=== PATIENT | male | born 1975 | race Two or more races ===

== ENCOUNTER 2024-05-13 13:12 | Inpatient (IN) | payer MEDICAID, OTHER ==
[~2024-05-13] VITALS: Ht 172.7 cm; Wt 81.7 kg
--- NOTE | 2024-05-13 13:37 | ED.PDOC ---
History of Present Illness HPI Comments 49-year-old male brought by paramedics because he was having generalized weakness for the past six days. Patient does have a history of hypertension insulin-dependent diabetes. He does have wound in the left lower extremity. He has been having left lower extremity wound for the past month. He does have right toe amputation which was done in [place] several years ago. Patient states that he does not move about because of his wound in the left lower extremity along with a amputation of the right toes. Denies fever abdominal pain nausea vomiting. Denies chest pain. Denies any other symptoms. Chief Complaint: General Weakness Time Seen by MD: 13:30 Reviewed Notes: Nurses Notes, Medications, Allergies Allergies: Coded Allergies: NO KNOWN ALLERGIES (Unverified , 05/13/24) Information Source: Patient, Emergency Med Personnel Mode of Arrival: EMS Severity: Moderate Timing: Days Duration: Since onset Past Medical History PAST MEDICAL HISTORY: DM, HTN Surgical History: Denies all surgeries Social History Smoker: Non-Smoker Alcohol: Denies ETOH Use Drugs: Denies Drug Use Constitutional: reports: weakness; denies: chills, diaphoresis, fatigue, fever, malaise, sweats, others EENTM: denies: blurred vision, double vision, ear bleeding, ear discharge, ear drainage, ear pain, ear ringing, eye pain, eye redness, hearing loss, mouth pain, mouth swelling, nasal discharge, nose bleeding, nose congestion, nose pain, photophobia, tearing, throat pain, throat swelling, voice changes, others Respiratory: denies: cough, hemoptysis, orthopnea, SOB at rest, shortness of breath, SOB with excertion, stridor, wheezing, others Cardiovascular: denies: chest pain, dizzy spells, diaphoresis, Dyspnea on exertion, edema, irregular heart beat, left arm pain, lightheadedness, palpitations, PND, syncope, others Gastrointestinal: denies: abdomen distended, abdominal pain, blood streaked bowels, constipated, diarrhea, dysphagia, difficulty swallowing, hematemesis, melena, nausea, poor appetite, poor fluid intake, rectal bleeding, rectal pain, vomiting, others Genitourinary: denies: burning, dysuria, flank pain, frequency, hematuria, incontinence, penile discharge, penile sore, pain, testicle pain, testicle swelling, urgency, others Neurological: denies: dizziness, fainting, headache, left sided numbness, left sided weakness, numbness, paresthesia, pre-existing deficit, right sided numbness, right sided weakness, seizure, speech problems, tingling, tremors, wea kness, others Musculoskeletal: denies: back pain, gout, joint pain, joint swelling, muscle pain, muscle stiffness, neck pain, others Integumetry: reports: wounds (Left lower extremity); denies: bruises, change in color, change in hair/nails, dryness, laceration, lesions, lumps, rash, others Allergic/Immunocompromised: denies: Difficulty Healing, Frequent Infections, Hives, Itching, others Hematologic/Lymphatic: denies: anemia, blood clots, easy bleeding, easy bruising, swollen glands, others Endocrine: denies: excessive hunger, excessive sweating, excessive thirst, excessive urination, flushing, intolerance to cold, intolerance to heat, unexplained weight gain, unexplained weight loss, others Psychiatric: denies: anxiety, bipolar disorder, depression, hopeless, panic disorder, schizophrenia, sleepless, suicidal, others Physical Exam General Appearance: Moderate Distress HEENT: Normal ENT Inspection, Pharynx Normal, TMs Normal Neck: Full Range of Motion, Non-Tender, Normal, Normal Inspection Respiratory: Chest Non-Tender, Lungs Clear, No Accessory Muscle Use, No Respiratory Distress, Normal Breath Sounds Cardiovascular: No Edema, No JVD, No Murmur, No Gallop, Normal Peripheral Pulses, Regular Rate/Rhythm Breast Exam: Deferred Gastrointestinal: No Organomegaly, Non Tender, No Pulsatile Mass, Normal Bowel Sounds, Soft Genitalia: Deferred Pelvic: Deferred Rectal: Deferred Extremities: No pedal edema, Other (Right toe amputation old) Musculoskeletal : Apperance: Normal Neurologic: Alert, No Motor Deficits, No Sensory Deficits Cerebellar Function: NOT DONE Reflexes: NOT DONE Skin: Wounds (Left lower extremity) Peripheral Pulses: 3+ Radial (R), 3+ Radial (L) Lymphatic: No Adenopathy Was a procedure done? Was a procedure done?: No Differential Dx Considerations may include: Cellulitis Electrolyte imbalance X-Ray, Labs, Meds, VS Vital Signs Date Time Temp Pulse Resp B/P (MAP) Pulse Ox O2 Delivery O2 Flow Rate FiO2 05/13/24 13:26 98.4 96 19 102/69 (80) 97 Lab Test 05/13/24 14:07 Range/Units White Blood Count 44.1 *H 4.4-10.8 10^3/uL Red Blood Count 3.52 L 4.5-5.90 10^6/uL Hemoglobin 9.5 L 13.5-17.5 g/dL Hematocrit 29.7 L 41.0-53.0 % Mean Corpuscular Volume 84.3 80.0-100.0 fL Mean Corpuscular Hemoglobin 27.0 L 28.0-32.0 pg Mean Corpuscular Hemoglobin Concent 32.0 32.0-36.0 g/dL Red Cell Distribution Width 16.4 H 11.8-14.3 % Platelet Count 584 H 140-450 10^3/uL Mean Platelet Volume 7.2 6.9-10.8 fL Neutrophils (%) (Auto) 37.0-80.0 % Lymphocytes (%) (Auto) 10.0-50.0 % Monocytes (%) (Auto) 0.0-12.0 % Basophils (%) (Auto) 0.0-2.0 % Neutrophils # (Auto) 1.6-8.6 10 ^3/uL Lymphocytes # (Auto) 0.4-5.4 10 ^3/uL Monocytes # (Auto) 0-1.3 10 ^3/uL Differential Total Cells Counted 100.0 100 Neutrophils % (Manual) 92 H 37.0-80.0 Band Neutrophils % (Manual) 2 Lymphocytes % (Manual) 5 L 10.0-50.0 Monocytes % (Manual) 0 0-12 Eosinophils % (Manual) 1 0-7 Basophils % (Manual) 0 0.0-2.0 Metamyelocytes % (manual) 0 Myelocytes % (Manual) 0 Promyelocytes % (Manual) 0 Blast Cells % (Manual) 0 Reactive Lymphocytes 0 Platelet Estimate Increased Clumped Platelets Few Sodium Level 115 *L 136-145 mmol/L Potassium Level 5.9 *H 3.5-5.1 mmol/L Chloride Level 88 L 98-107 mmol/L Carbon Dioxide Level 15 L 20-31 mmol/L Anion Gap 12 5-15 Blood Urea Nitrogen 45 H 9-23 mg/dL Creatinine 1.59 H 0.700-1.30 mg/dL Glomerular Filtration Rate Calc 53 >90 mL/min BUN/Creatinine Ratio 28.3 H 10.0-20.0 Serum Glucose 317 H 74-106 mg/dL Lactic Acid Level 1.8 0.4-2.0 mmol/L Calcium Level 9.0 8.7-10.4 mg/dL Magnesium Level 1.8 1.6-2.6 mg/dL Total Bilirubin 0.9 0.2-1.0 mg/dL Aspartate Amino Transferase (AST) 18 13-40 U/L Alanine Aminotransferase (ALT) < 9 7-40 U/L Alkaline Phosphatase 234 H 46-116 U/L Creatine Kinase 37 L 46-171 U/L Troponin I High Sensitivity 3 L </=54 ng/L B-Type Natriuretic Peptide 48.92 0-100 pg/mL Total Protein 6.0 5.7-8.2 g/dL Albumin 3.3 3.2-4.8 g/dL Patient alert. Old right toe amputation. Has wound in the left lower extremity. Vitals stable. Answering all questions. Vitals stable. Blood sugar elevated. Establish intravenous access. Was given fluids. Sepsis protocol. Was given insulin. Was given Zosyn. Explained to the patient. Continue cardiac monitoring. Time of 1ST Reevaluation: 13:35 Reevaluation 1ST: Unchanged Patient Education/Counseling: Diagnosis, Treatment, Prognosis Family Education/Counseling: No Family Present Departure 1 Departure Time of Disposition: 13:36 Impression: Primary Impression: Sepsis, unspecified organism Qualified Codes: A41.9 - Sepsis, unspecified organism Additional Impressions: Uncontrolled diabetes mellitus Qualified Codes: E13.65 - Other specified diabetes mellitus with hyperglycemia Hyponatremia Hyperkalemia Disposition: ADMITTED INPATIENT Admit to: Med Surg Condition: Guarded Critical Care Note Critical Care Time?: No Stability Stability form required: No Heart Score Heart Score: Heart Score Response (Comments) Value History N/A 0 EKG N/A 0 Age N/A 0 Risk Factors N/A 0 Troponin N/A 0 Total 0 CAROLINA KABA MD May 13, 2024 13:37
--- NOTE | 2024-05-13 14:20 | DVH ---
CLINICAL INFORMATION: 49 years old, Male; weakness. TECHNIQUE: Single AP portable chest radiograph was obtained. COMPARISON: None FINDINGS: Lungs: Low lung volumes. No focal consolidation visualized. No pneumothorax or pleural effusion. Cardiac: Heart size is within normal limits. Pulmonary vasculature: Unremarkable. Mediastinum/lurdes: Unremarkable. Bones: No acute osseous abnormality identified. Other: No other significant findings. IMPRESSION: No evidence of acute disease in the chest.
[2024-05-13 14:31] LABS: Hemoglobin 9.5 g/dL (13.5-17.5)
[2024-05-13 14:34] LABS: Hematocrit 29.7 % (41.0-53.0); Mean Corpuscular Volume 84.3 fL (80.0-100.0); Platelet Count (auto) 584 10^3/uL (140-450); Red Blood Cells 3.52 10^6/uL (4.5-5.90); Red Cell Distribution Width 16.4 % (11.8-14.3)
[2024-05-13 14:36] LABS: White Blood Cell 44.1 10^3/uL (4.4-10.8)
[2024-05-13 14:37] LABS: Basophils % (manual) 0 (0.0-2.0); Blast Cells 0; Metamyelocytes % 0; Monocytes % (manual) 0 (0-12); Myelocytes % 0; Promyelocytes % 0; Reactive Lymphocytes 0
[2024-05-13 14:44] LABS: Albumin 3.3 g/dL (3.2-4.8); Anion Gap 12 (5-15); Aspartate Aminotransferase 18 U/L (13-40); BUN/Creatinine Ratio 28.3 (10.0-20.0); Creatine Kinase IFCC 37 U/L (46-171); Magnesium 1.8 mg/dL (1.6-2.6)
[2024-05-13 14:45] LABS: Bilirubin, Total 0.9 mg/dL (0.2-1.0)
[2024-05-13 14:57] LABS: Band Neutrophils % (manual) 2; Eosinophils % (manual) 1 (0-7); Lymphocytes % (manual) 5 (10.0-50.0)
[2024-05-13 14:58] LABS: Platelet Estimate Increased
[2024-05-13 15:09] LABS: Alanine Aminotransferase < 9 U/L (7-40); Alkaline Phosphatase 234 U/L (46-116); Blood Urea Nitrogen 45 mg/dL (9-23); Carbon Dioxide 15 mmol/L (20-31); Chloride 88 mmol/L (98-107); Glucose 317 mg/dL (74-106)
[2024-05-13 15:11] LABS: Potassium 5.9 mmol/L (3.5-5.1); Sodium 115 mmol/L (136-145)
[2024-05-13] MEDS: ALBUTEROL SULF 2.5 MG/0.5ML(0.5%) NEB SOLN NEB ONE (15:29)
[2024-05-13] MEDS: SODIUM CHLORIDE 0.9% 1,000 ML IV ONE ×3 (18:39→22:34)
[2024-05-13] MEDS ORDERED: NITROGLYCERIN 0.4 MG SL TAB SL PRN (18:45)
[2024-05-13] MEDS ORDERED: MORPHINE SULFATE INJ 2 MG/ml SYRG IV PRN (18:45)
[2024-05-13] MEDS ORDERED: ONDANSETRON HCL 4 MG/2 ML VIAL IV PRN (18:45)
[2024-05-13] MEDS: SODIUM BICARB 8.4% 50Meq/50ml SYR INJ IV ONE (18:57)
[2024-05-13] MEDS: CALCIUM GLUC 1,000mg/50ml-NS 50 ML IV ONE (18:58)
[2024-05-13] MEDS: DEXTROSE (50%) 50ML SYRG IV ONE (18:58)
[2024-05-13] MEDS ORDERED: DEXTROSE (50%) 50ML SYRG IV PRN (19:00)
[2024-05-13] MEDS: InsuLIN REG 1unit/0.01ml Soln (100units/ml) IV ONE ×2 (19:01→20:21)
[2024-05-13 19:05] VITALS: PULSE 85; RESP 15; O2SAT 99
--- NOTE | 2024-05-13 19:19 | DVHHP2 ---
History of Present Illness Reason for Visit: Sepsis History of Present Illness 49-year-old male brought by paramedics because he was having generalized weakness for the past six days. Patient does have a history of hypertension insulin-dependent diabetes. He does have wound in the left lower extremity, he has home health for wound care who sees him for dressing changes. He has been having left lower extremity wound for the past month. He does have right toe amputation which was done in [place] several years ago. Patient states that he does not move about because of his wound in the left lower extremity along with a amputation of the right toes. Also endorses dysuria. Denies fever abdo roseline pain nausea vomiting. Denies chest pain. Denies any other symptoms. Past Medical History DM, HTN, left foot wound Past Surgical History Toe amputations Family History Denies Smoke: No ALCOHOL: none Drugs: None Lives: with Family Review of Systems Constitutional: Yes: Weakness, Malaise; No: Fever, Chills, Sweats, Other Eyes: No: Pain, Vision change, Conjunctivae inflammation, Eyelid inflammation, Other, Redness ENT: No: Ear pain, Ear discharge, Nose pain, Nose discharge, Nose congestion, Mouth pain, Mouth swelling, Throat pain, Throat swelling, Other Respiratory: No: Cough, Dry, Shortness of breath, SOB with excertion, Wheezing, Hemoptysis, Pleuritic Pain, Sputum, Wheezing, Other Cardiovascular: No: Chest Pain, Palpitations, Orthopnea, Paroxysmal Noc. Dyspnea, Edema, Lt Headedness, Other Gastrointestinal: No: Nausea, Vomiting, Abdominal Pain, Diarrhea, Constipation, Melena, Hematochezia, Other Genitourinary: Dysuria; No Frequency, No Incontinence, No Hematuria, No Retention, No Other Musculoskeletal: foot pain (left) Skin: Other (Left foot wound); No: Rash, Lesions, Jaundice, Bruising Neurological: Weakness, Numbness, Incoordination, Change in speech, Confusion, Seizures, Other Allergies: Coded Allergies: NO KNOWN ALLERGIES (Unverified , 05/13/24) Medications Current Medications Medications Dose Ordered Sig/Patricia Route Start Time Stop Time Status Last Admin Dose Admin Acetaminophen 650 mg Q6HP PRN PO 05/13/24 18:45 Acetaminophen/ Hydrocodone Bitart 1 tab Q4HP PRN PO 05/13/24 18:45 Hydromorphone HCl 0.25 mg Q4HP PRN IV 05/13/24 18:45 Ondansetron HCl 4 mg Q4HP PRN IV 05/13/24 18:45 Enoxaparin Sodium 40 mg DAILY SC 05/14/24 10:00 Nitroglycerin 0.4 mg Q5MINP PRN SL 05/13/24 18:45 Morphine Sulfate 2 mg Q30M PRN IV 05/13/24 18:45 Diagnostic Test (Pha) 1 strip ACHS 05/13/24 22:00 Insulin Human Regular HS SC 05/13/24 22:00 Insulin Human Regular AC SC 05/14/24 07:00 Dextrose 50 ml UD PRN IV 05/13/24 19:00 Exam Vital Signs Vital Signs Date Time Temp Pulse Resp B/P (MAP) Pulse Ox O2 Delivery O2 Flow Rate FiO2 05/13/24 18:28 87 12 79/55 (63) 96 05/13/24 15:30 Room Air* 0 21 05/13/24 13:26 98.4 General Appearance: Alert, Oriented X3, Cooperative, No acute distress HEENT: Atraumatic, PERRLA, EOMI, Mucous membr. moist/pink Respiratory: Clear to auscultation, Normal air movement Cardiovascular: Regular rate, Normal S1, Normal S2, No murmurs Abdominal: Normal bowel sounds, Soft, No tenderness, No hepatospenomegaly, No masses Extremities: No clubbing, No cyanosis, No edema, Normal pulses, No tenderness/swelling Skin: No rashes, No breakdown, No significant lesion Neuro: Normal gait, Normal speech, Strength at 5/5 X4 ext, Normal tone, Sensation intact, Cranial nerves 3-12 NL, Reflexes 2+ Psych/Mental Status: Mental status NL, Mood NL Labs/Xrays Labs Test 05/13/24 18:42 05/13/24 17:35 05/13/24 15:43 05/13/24 14:07 Range/Units POC Glucose 343 H 70-106 mg/dl Serum Osmolality 278 278-298 mOsm/kg Troponin I High Sensitivity < 3 L </=54 ng/L Lactic Acid Level 1.6 0.4-2.0 mmol/L White Blood Count 44.1 *H 4.4-10.8 10^3/uL Red Blood Count 3.52 L 4.5-5.90 10^6/uL Hemoglobin 9.5 L 13.5-17.5 g/dL Hematocrit 29.7 L 41.0-53.0 % Mean Corpuscular Volume 84.3 80.0-100.0 fL Mean Corpuscular Hemoglobin 27.0 L 28.0-32.0 pg Mean Corpuscular Hemoglobin Concent 32.0 32.0-36.0 g/dL Red Cell Distribution Width 16.4 H 11.8-14.3 % Platelet Count 584 H 140-450 10^3/uL Mean Platelet Volume 7.2 6.9-10.8 fL Neutrophils (%) (Auto) 37.0-80.0 % Lymphocytes (%) (Auto) 10.0-50.0 % Monocytes (%) (Auto) 0.0-12.0 % Basophils (%) (Auto) 0.0-2.0 % Neutrophils # (Auto) 1.6-8.6 10 ^3/uL Lymphocytes # (Auto) 0.4-5.4 10 ^3/uL Monocytes # (Auto) 0-1.3 10 ^3/uL Differential Total Cells Counted 100.0 100 Neutrophils % (Manual) 92 H 37.0-80.0 Band Neutrophils % (Manual) 2 Lymphocytes % (Manual) 5 L 10.0-50.0 Monocytes % (Manual) 0 0-12 Eosinophils % (Manual) 1 0-7 Basophils % (Manual) 0 0.0-2.0 Metamyelocytes % (manual) 0 Myelocytes % (Manual) 0 Promyelocytes % (Manual) 0 Blast Cells % (Manual) 0 Reactive Lymphocytes 0 Platelet Estimate Increased Clumped Platelets Few Sodium Level 115 *L 136-145 mmol/L Potassium Level 5.9 *H 3.5-5.1 mmol/L Chloride Level 88 L 98-107 mmol/L Carbon Dioxide Level 15 L 20-31 mmol/L Anion Gap 12 5-15 Blood Urea Nitrogen 45 H 9-23 mg/dL Creatinine 1.59 H 0.700-1.30 mg/dL Glomerular Filtration Rate Calc 53 >90 mL/min BUN/Creatinine Ratio 28.3 H 10.0-20.0 Serum Glucose 317 H 74-106 mg/dL Calcium Level 9.0 8.7-10.4 mg/dL Magnesium Level 1.8 1.6-2.6 mg/dL Total Bilirubin 0.9 0.2-1.0 mg/dL Aspartate Amino Transferase (AST) 18 13-40 U/L Alanine Aminotransferase (ALT) < 9 7-40 U/L Alkaline Phosphatase 234 H 46-116 U/L Creatine Kinase 37 L 46-171 U/L B-Type Natriuretic Peptide 48.92 0-100 pg/mL Total Protein 6.0 5.7-8.2 g/dL Albumin 3.3 3.2-4.8 g/dL Assessment/Plan Assessment/Plan Sepsis, possible osteomyelitis Admit to [facility] Fluid resuscitation- normal saline at 150ml/hr+ bolus given Sepsis protocol Blood cultures pending UA pending Wound care consult Wound culture Started antibiotics Zosyn and clindamycin Pain Medications p.r.n. Zofran p.r.n. Consult Podiatry CT foot pending ESR pending Hyperkalemia, Hyponatremia, YESSY hyperKalemia protocol Repeat potassium this evening Repeat BNP this evening then every 4 hours Nephrology consult Diabetes mellitus type 2 Accu-Cheks a.c. 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 18:34 Bedside Commode PARKER 05/13/24 In Process 18:34 Consistent DIET 05/14/24 Transmitted Carb(Ccho)Diabetes Breakfast Acetaminophen Tablet PHA 05/13/24 In Process (Tylenol Tablet) 18:45 Notify Of Changes PARKER 05/13/24 In Process From Base 18:34 Advance Directive PARKER 05/13/24 In Process 18:34 Basic Metabolic Panel LAB 05/14/24 Verified 04:00 Complete Blood Count LAB 05/14/24 Verified 04:00 Patient Condition ORDERS 05/13/24 Transmitted 18:34 Allergies PARKER 05/13/24 In Process 18:34 Hydrocodone-Acet PHA 05/13/24 In Process 5/325mg Tab ([place] 18:45 Hydromorphone PHA 05/13/24 In Process Injection (Dilaudid 18:45 Ondansetron Hcl PHA 05/13/24 In Process (Zofran) 18:45 Hemoglobin A1c LAB 05/13/24 Logged 18:34 Enoxaparin Sodium PHA 05/14/24 In Process (Lovenox) 10:00 Nitroglycerin PHA 05/13/24 In Process Sublingual (Ntrostat 18:45 Morphine Sulfate PHA 05/13/24 In Process Injection 18:45 Stat Ekg For Chest PARKER 05/13/24 In Process Pain 18:34 Notify Of Changes PARKER 05/13/24 In Process From Base 18:34 [employer] Faculty Member For PARKER 05/13/24 In Process 24 Hours 18:34 Emergency Dysrhythmia PARKER 05/13/24 In Process Protocol 18:34 Rhythm Strips Once PARKER 05/13/24 In Process Every Shift 18:34 Oxygen By Nasal RT 05/13/24 Transmitted Cannula 18:34 Ct L Foot Wo Contrast CT 05/13/24 Taken 18:43 Basic Metabolic Panel LAB 05/13/24 Logged 22:00 Glucose Blood PHA 05/13/24 In Process (Accu-Chek Comfort 22:00 Insulin R (Human) PHA 05/13/24 In Process (Insulin R) 22:00 Insulin R (Human) PHA 05/14/24 In Process (Insulin R) 07:00 Dextrose 50% Syringe PHA 05/13/24 In Process 19:00 *Podiatry Consult CONS 05/13/24 Transmitted Musson(Dvmg) 18:50 Erythrocyte LAB 05/13/24 Logged Sedimentation Rate 18:51 *Dr. [facility] CONS 05/13/24 Transmitted -[place] 18:52 Urine Sodium LAB 05/13/24 Logged 18:54 Urine Potassium LAB 05/13/24 Logged 18:54 Urine Creatinine LAB 05/13/24 Logged 18:54 Urine LAB 05/13/24 Logged Protein/Creatinine Basic Metabolic Panel LAB 05/14/24 Verified 02:00 Basic Metabolic Panel LAB 05/14/24 Verified 06:00 Basic Metabolic Panel LAB 05/14/24 Verified 10:00 Basic Metabolic Panel LAB 05/14/24 Verified 14:00 Basic Metabolic Panel LAB 05/14/24 Verified 18:00 Basic Metabolic Panel LAB 05/14/24 Verified 22:00 Basic Metabolic Panel LAB 05/15/24 Verified 02:00 Basic Metabolic Panel LAB 05/15/24 Verified 06:00 Basic Metabolic Panel LAB 05/15/24 Verified 10:00 Basic Metabolic Panel LAB 05/15/24 Verified 14:00 Basic Metabolic Panel LAB 05/15/24 Verified 18:00 Basic Metabolic Panel LAB 05/15/24 Verified 22:00 Basic Metabolic Panel LAB 05/16/24 Verified 02:00 Basic Metabolic Panel LAB 05/16/24 Verified 06:00 Basic Metabolic Panel LAB 05/16/24 Verified 10:00 Basic Metabolic Panel LAB 05/16/24 Verified 14:00 Basic Metabolic Panel LAB 05/16/24 Verified 18:00 Basic Metabolic Panel LAB 05/16/24 Verified 22:00 Basic Metabolic Panel LAB 05/17/24 Verified 02:00 Basic Metabolic Panel LAB 05/17/24 Verified 06:00 * Wound Consult CONS 05/13/24 Transmitted Wound Culture W/ Gs KATE 05/13/24 Uncollected 19:06 Clindamycin Ivpb PHA 05/13/24 Verified Cleocin 22:00 Zosyn Extended PHA 05/13/24 Verified Infusion 22:00 Date of Service: May 13, 2024 Billing Provider: BRYN PACHECO Common Visit Codes: [id number] INP/OBS CARE(HIGH), [id number] CARE 30-74 MIN BRYN PACHECO May 13, 2024 19:19
[2024-05-13 19:30] VITALS: PULSE 82; RESP 12; O2SAT 99
--- NOTE | 2024-05-13 19:49 | DVH ---
INDICATION: Rule out osteomyelitis COMPARISON: None TECHNIQUE: CT of the right was performed without contrast. Volume transverse images were obtained and reconstructed in multiple planes using bone and soft tissue algorithms. CONTRAST: None Radiation Dose Information: CT Dose: CTDI volume is 7.75 mGy. Dose-length product is 177.02 mGy*cm FINDINGS: Irregular joint spaces between all bones of the foot with fracture through the calcaneus. Fracture of the navicular. Large fluid collection in the posterior aspect of the distal tibia extending to the foot involving th e plantar medial and lateral surfaces. Findings may represent a neuropathic joint or Charcot joint or osteomyelitis.. IMPRESSION: 1. Fracture of the calcaneus and navicular 2. With erosive changes and destruction of the proximal metatarsal tarsal bones. 3. Findings may represent neuropathic joint or osteomyelitis or hemorrhage secondary to trauma. 4. Consider MRI for further evaluation if osteomyelitis is of clinical concern. 5. No prior studies for comparison All CT scans at this medical facility are performed using dose modulation techniques as appropriate t o a performed exam including the following: Automated exposure control was utilized; adjustment of th e MA and/or KV according to patient size; and use of iterative reconstruction technique.
[2024-05-13] MEDS: SODIUM ZIRCONIUM CYCL 10 GM PAK PO ONE (20:14)
[2024-05-13] MEDS: FUROSEMIDE 20 MG/2 ML VIAL IV ONE (20:15)
[2024-05-13 20:18] LABS: Erythrocyte Sedimentation Rate 116 mm/hr (0-20)
[2024-05-13] MEDS: PIPERACILLIN-TAZOB 3.375GM 100 ML IV ONE (20:29)
[2024-05-13] MEDS: HYDROcodone-ACET 5/325MG TAB PO PRN (21:10)
[2024-05-13] MEDS: CLINDAMYCIN 600MG IV 50 ML IV ONE (21:34)
[2024-05-13] MEDS: PIPERACILLIN-TAZOB 3.375GM 100 ML IV SCH (21:35)
[2024-05-13] MEDS: CLINDAMYCIN 600MG IV 50 ML IV SCH (21:37)
[2024-05-13] MEDS: ACCU-CHEK COMFORT CURVE STRIP VI SCH (21:39)
[2024-05-13] MEDS: InsuLIN REG 1unit/0.01ml Soln (100units/ml) SC SCH (21:44)
[2024-05-13 22:02] LABS: Urine Bacteria FEW /hpf (None Seen); Urine Blood TRACE /uL (Negative); Urine Clarity Turbid (Clear); Urine Color Yellow (Yellow); Urine Mucus FEW (None Seen); Urine Protein, UAD TRACE (Negative); Urine Specific Gravity 1.014 (1.001-1.035); Urine Squamous Epithelial Cell None Seen /hpf (<5); Urine Urobilinogen Normal (Negative); Urine WBC 70 /HPF (0-3); Urine pH 5.5 (5.0-9.0)
[2024-05-13 22:08] LABS: Protein, Urine 55.6 mg/dL (1-14)
[2024-05-13 22:11] LABS: Creatinine, Urine 53.09 mg/dL (30.0-125.0); Urine Protein/Creatinine Ratio 1.05
[2024-05-13 22:24] LABS: COVID19 ANTIGEN SOFIA FIA NEGATIVE (NEGATIVE); Rapid Influenza A Negative (Negative); Rapid Influenza B Negative (Negative)
[2024-05-13 22:32] LABS: Potassium 4.8 mmol/L (3.5-5.1)
[2024-05-13 22:33] LABS: Anion Gap 11 (5-15)
[2024-05-13 22:34] LABS: Calcium 8.9 mg/dL (8.7-10.4)
[2024-05-13 22:46] LABS: Blood Urea Nitrogen 41 mg/dL (9-23); Carbon Dioxide 18 mmol/L (20-31); Chloride 90 mmol/L (98-107); Glucose 399 mg/dL (74-106)
[2024-05-13 22:48] LABS: Sodium 119 mmol/L (136-145)
[2024-05-14] MEDS: ACETAMINOPHEN 325 MG TAB PO PRN (01:47)
[2024-05-14 02:54] LABS: Hemoglobin 9.2 g/dL (13.5-17.5); Mean Corpuscular Hemoglobin 26.7 pg (28.0-32.0); White Blood Cell 26.1 10^3/uL (4.4-10.8)
[2024-05-14 02:56] LABS: Hematocrit 28.8 % (41.0-53.0); Mean Corpuscular Hgb Conc. 31.7 g/dL (32.0-36.0); Platelet Count (auto) 547 10^3/uL (140-450); Red Blood Cells 3.43 10^6/uL (4.5-5.90); Red Cell Distribution Width 16.6 % (11.8-14.3)
[2024-05-14 03:00] LABS: Basophils % (manual) 0 (0.0-2.0); Blast Cells 0; Eosinophils % (manual) 0 (0-7); Metamyelocytes % 0; Myelocytes % 0; Promyelocytes % 0; Reactive Lymphocytes 0
[2024-05-14 03:04] LABS: Potassium 4.8 mmol/L (3.5-5.1)
[2024-05-14 03:05] LABS: Anion Gap 10 (5-15)
[2024-05-14 03:06] LABS: Calcium 9.5 mg/dL (8.7-10.4)
[2024-05-14 03:11] LABS: BUN/Creatinine Ratio 27.4 (10.0-20.0)
[2024-05-14 03:14] LABS: Blood Urea Nitrogen 37 mg/dL (9-23); Carbon Dioxide 19 mmol/L (20-31); Chloride 91 mmol/L (98-107); Glucose 320 mg/dL (74-106); Sodium 120 mmol/L (136-145)
[2024-05-14 04:43] LABS: Band Neutrophils % (manual) 11; Lymphocytes % (manual) 8 (10.0-50.0); Monocytes % (manual) 4 (0-12); Platelet Estimate Increased
[2024-05-14] MEDS: InsuLIN REG 1unit/0.01ml Soln (100units/ml) SC SCH (06:34)
[2024-05-14 07:45] VITALS: PULSE 86; RESP 20; O2SAT 90
[2024-05-14] MEDS: PANTOPRAZOLE 40 MG/10 ML VIAL INJ IV SCH (10:11)
[2024-05-14] MEDS: ENOXAPARIN SOD 40 MG/0.4 ML SYRINGE SC SCH (10:13)
[2024-05-14 10:30] LABS: Potassium 4.7 mmol/L (3.5-5.1)
[2024-05-14 10:31] LABS: Anion Gap 9 (5-15); Carbon Dioxide 22 mmol/L (20-31)
[2024-05-14 10:32] LABS: Calcium 9.5 mg/dL (8.7-10.4)
[2024-05-14 10:37] LABS: BUN/Creatinine Ratio 24.6 (10.0-20.0); Blood Urea Nitrogen 33 mg/dL (9-23); Chloride 91 mmol/L (98-107); Glucose 278 mg/dL (74-106); Sodium 122 mmol/L (136-145)
--- NOTE | 2024-05-14 12:49 | DVHPN2 ---
Subjective I am assuming the care of the patient from today onwards. Chart reviewed. Plan of care discussed with the bedside RN. Patient is complaining of generalized weakness have left lower extremity wound. Changes from previous H/P or p: No Changes Eyes: No Pain, No Vision change, No Conjunctivae inflammation, No Eyelid inflammation, No Other, No Redness ENT: No Ear pain, No Ear discharge, No Nose pain, No Nose discharge, No Nose congestion, No Mouth pain, No Mouth swelling, No Throat pain, No Throat swelling, No Other Cardiovascular: No Chest Pain, No Palpitations, No Orthopnea, No Paroxysmal Noc. Dyspnea, No Edema, No Lt Headedness, No Other Respiratory: No Cough, No Dry, No Shortness of breath, No SOB with excertion, No Wheezing, No Hemoptysis, No Pleuritic Pain, No Sputum, No Other Gastrointestinal: No Nausea, No Vomiting, No Abdominal Pain, No Diarrhea, No Constipation, No Melena, No Hematochezia, No Other Genitourinary: Dysuria; No Frequency, No Incontinence, No Hematuria, No Retention, No Other Musculoskeletal: foot pain (left) Skin: No Rash, No Lesions, No Jaundice, No Bruising; Other (Left foot wound) Objective Vitals Vital Signs Date Time Temp Pulse Resp B/P (MAP) Pulse Ox O2 Delivery O2 Flow Rate FiO2 05/14/24 12:00 88 05/14/24 12:00 22 98/65 (76) 92 05/14/24 07:45 Room Air* 0 21 05/14/24 07:45 98.0 98.0 Intake/Output Intake and Output 05/14/24 07:00 Intake Total 3475 ml Output Total 950 ml Balance 2525 ml Intake Oral 450 ml IV Total 3025 ml Output Urine Total 950 ml Exam HEENT pupils are reactive Neck is supple CVS S1-S2 regular rate and rhythm Respiratory diminished breath sounds bases GI positive bowel sound Extremity no edema [employer] no motor deficit Left lower extremity foot wounds antiseptic dressing Medications Current Medications Medications Dose Ordered Sig/Patricia Route Start Time Stop Time Status Last Admin Dose Admin Acetaminophen 650 mg Q6HP PRN PO 05/13/24 18:45 05/14/24 01:47 650 MG Acetaminophen/ Hydrocodone Bitart 1 tab Q4HP PRN PO 05/13/24 18:45 05/13/24 21:10 1 TAB Hydromorphone HCl 0.25 mg Q4HP PRN IV 05/13/24 18:45 Ondansetron HCl 4 mg Q4HP PRN IV 05/13/24 18:45 Enoxaparin Sodium 40 mg DAILY SC 05/14/24 10:00 05/14/24 10:13 40 MG Nitroglycerin 0.4 mg Q5MINP PRN SL 05/13/24 18:45 Morphine Sulfate 2 mg Q30M PRN IV 05/13/24 18:45 Diagnostic Test (Pha) 1 strip ACHS 05/13/24 22:00 05/14/24 11:41 1 STRIP Insulin Human Regular HS SC 05/13/24 22:00 05/13/24 21:44 10 UNITS Insulin Human Regular AC SC 05/14/24 07:00 05/14/24 11:43 6 UNITS Dextrose 50 ml UD PRN IV 05/13/24 19:00 Clindamycin Phosphate 50 ml @ 50 mls/hr Q8HR IV 05/13/24 22:00 05/14/24 05:30 50 MLS/HR Piperacillin Sod/ Tazobactam Sod 100 ml @ 25 mls/hr Q8HR IV 05/13/24 22:00 05/14/24 05:45 25 MLS/HR Pantoprazole Sodium 40 mg DAILY IV 05/14/24 10:00 05/14/24 10:11 40 MG Laboratory Results Laboratory Tests 05/14/24 02:40 05/14/24 09:50 Chemistry Test 05/13/24 14:07 05/13/24 22:10 05/14/24 02:40 05/14/24 09:50 Albumin 3.3 g/dL (3.2-4.8) Calcium Level 9.0 mg/dL (8.7-10.4) 8.9 mg/dL (8.7-10.4) 9.5 mg/dL (8.7-10.4) 9.5 mg/dL (8.7-10.4) Magnesium Level 1.8 mg/dL (1.6-2.6) Total Protein 6.0 g/dL (5.7-8.2) Cardiac Markers Test 05/13/24 14:07 B-Type Natriuretic Peptide 48.92 pg/mL (0-100) LFT Test 05/13/24 14:07 Alanine Aminotransferase (ALT) < 9 U/L (7-40) Alkaline Phosphatase 234 U/L (46-116) H Aspartate Amino Transferase (AST) 18 U/L (13-40) Total Bilirubin 0.9 mg/dL (0.2-1.0) HgA1c, TSH Test 05/13/24 19:16 Hemoglobin A1c 11.3 % A1C (<5.7) H Urinalysis Test 05/13/24 21:00 Urine Color Yellow (Yellow) Urine Clarity Turbid (Clear) H Urine pH 5.5 (5.0-9.0) Urine Specific [place] 1.014 (1.001-1.035) Urine Protein Trace (Negative) H Urine Ketones Negative (Negative) Urine Blood Trace /uL (Negative) H Urine Nitrite Negative (Negative) Urine Bilirubin Negative (Negative) Urine Urobilinogen Normal mg/dL (Negative) Urine Leukocyte Esterase 3+ /uL (Negative) Urine RBC 2 /hpf (0 - 3) Urine Microscopic WBC 70 /HPF (0-3) H Urine Squamous Epithelial Cells None seen /hpf (<5) Urine Bacteria Few /hpf (None Seen) H Urine Mucus Few (None Seen) Urine Creatinine 53.09 mg/dL (30.0-125.0) Urine Protein/Creatinine Ratio 1.05 Urine Sodium 46 mmol/L (40-220) Urine Potassium 23 mmol/L (12-62) Urine Glucose 3+ mg/dL (Normal) H Urine Total Protein 55.6 mg/dL (1-14) H Microbiology Microbiology Date/Time Source Procedure Growth Status 05/13/24 15:43 Blood Blood Culture - Preliminary Resulted Assessment/Plan Assessment/Plan 59-year-old male with a known history of insulin-dependent diabetes mellitus, hypertension, chronic left foot wound currently being seen at wound care center presented to the hospital with generalized weakness found to have 1. Sepsis secondary to left foot wound cellulitis rule out osteomyelitis 2. Left foot cellulitis rule out osteomyelitis 3. Hyponatremia suspect pseudohyponatremia in the setting of uncontrolled hyperglycemia 4. Uncontrolled hyperglycemia with history of insulin-dependent diabetes mellitus 5. Hypocalcemia 6. Leukocytosis likely reactive -continue broad-spectrum IV antibiotics, MRI left foot rule out osteomyelitis, Infectious Disease consultation, Podiatry consultation -nephrology consultation. Plan discussed with: Patient, Other My Orders Orders - NADEEM LIMON MD Procedure Category Date Status Time * Infectious Jalen- CONS 05/14/24 Transmitted [facility] 11:23 *[facility] CONS 05/14/24 Transmitted -[facility] 12:44 Problem List: (1) Hyponatremia (2) Uncontrolled diabetes mellitus (3) Sepsis, unspecified organism Date of Service: May 14, 2024 Billing Provider: NADEEM LIMON MD Common Visit Codes: [id number] INP/OBS CARE(HIGH) NADEEM LIMON MD May 14, 2024 12:49
--- NOTE | 2024-05-14 13:42 | DVHINCON2 ---
Date of service: May 14, 2024 Allergies: Coded Allergies: NO KNOWN ALLERGIES (Unverified , 05/13/24) Current Medications Current Medications Medications (Trade) Dose Ordered Sig/Patricia Route PRN Reason Start Time Stop Time Status Last Admin Acetaminophen (Tylenol Tablet) 650 mg Q6HP PRN PO PAIN SCALE 1-3 OR TEMP>100.4 05/13/24 18:45 05/14/24 01:47 Acetaminophen/ Hydrocodone Bitart ([place] 5/325MG Tab) 1 tab Q4HP PRN PO MODERATE PAIN (4-6 PAIN SCALE) 05/13/24 18:45 05/13/24 21:10 Hydromorphone HCl (Dilaudid Injection) 0.25 mg Q4HP PRN IV SEVERE PAIN (7-10 PAIN SCALE) 05/13/24 18:45 Ondansetron HCl (Zofran) 4 mg Q4HP PRN IV NAUSEA / VOMITING 05/13/24 18:45 Enoxaparin Sodium (Lovenox) 40 mg DAILY SC 05/14/24 10:00 05/14/24 10:13 Nitroglycerin (Ntrostat Sublingual) 0.4 mg Q5MINP PRN SL FOR CHEST PAIN 05/13/24 18:45 Morphine Sulfate 2 mg Q30M PRN IV FOR CHEST PAIN 05/13/24 18:45 Diagnostic Test (Pha) (Accu-Chek Comfort Curve T) 1 strip ACHS 05/13/24 22:00 05/14/24 11:41 Insulin Human Regular (InsuLIN R) HS SC 05/13/24 22:00 05/13/24 21:44 Insulin Human Regular (InsuLIN R) AC SC 05/14/24 07:00 05/14/24 11:43 Dextrose 50 ml UD PRN IV Blood Sugar LESS THAN 60 05/13/24 19:00 Clindamycin Phosphate 50 ml @ 50 mls/hr Q8HR IV 05/13/24 22:00 05/14/24 05:30 Piperacillin Sod/ Tazobactam Sod 100 ml @ 25 mls/hr Q8HR IV 05/13/24 22:00 05/14/24 05:45 Pantoprazole Sodium (Protonix) 40 mg DAILY IV 05/14/24 10:00 05/14/24 10:11 Vital Signs Vital Signs Date Time Temp Pulse Resp B/P (MAP) Pulse Ox O2 Delivery O2 Flow Rate FiO2 05/14/24 12:00 88 05/14/24 12:00 22 98/65 (76) 92 05/14/24 07:45 Room Air* 0 21 05/14/24 07:45 98.0 98.0 Labs/Diagnostic Data Labs Test 05/14/24 11:40 05/14/24 09:50 05/14/24 02:40 05/13/24 21:30 Range/Units POC Glucose 235 H 70-106 mg/dl Sodium Level 122 L 136-145 mmol/L Potassium Level 4.7 3.5-5.1 mmol/L Chloride Level 91 L 98-107 mmol/L Carbon Dioxide Level 22 20-31 mmol/L Anion Gap 9 5-15 Blood Urea Nitrogen 33 H 9-23 mg/dL Creatinine 1.34 H 0.700-1.30 mg/dL Glomerular Filtration Rate Calc 65 >90 mL/min BUN/Creatinine Ratio 24.6 H 10.0-20.0 Serum Glucose 278 H 74-106 mg/dL Calcium Level 9.5 8.7-10.4 mg/dL White Blood Count 26.1 #H 4.4-10.8 10^3/uL Red Blood Count 3.43 L 4.5-5.90 10^6/uL Hemoglobin 9.2 L 13.5-17.5 g/dL Hematocrit 28.8 L 41.0-53.0 % Mean Corpuscular Volume 84.0 80.0-100.0 fL Mean Corpuscular Hemoglobin 26.7 L 28.0-32.0 pg Mean Corpuscular Hemoglobin Concent 31.7 L 32.0-36.0 g/dL Red Cell Distribution Width 16.6 H 11.8-14.3 % Platelet Count 547 H 140-450 10^3/uL Mean Platelet Volume 7.0 6.9-10.8 fL Neutrophils (%) (Auto) 37.0-80.0 % Lymphocytes (%) (Auto) 10.0-50.0 % Monocytes (%) (Auto) 0.0-12.0 % Basophils (%) (Auto) 0.0-2.0 % Neutrophils # (Auto) 1.6-8.6 10 ^3/uL Lymphocytes # (Auto) 0.4-5.4 10 ^3/uL Monocytes # (Auto) 0-1.3 10 ^3/uL Differential Total Cells Counted 100.0 100 Neutrophils % (Manual) 77 37.0-80.0 Band Neutrophils % (Manual) 11 Lymphocytes % (Manual) 8 L 10.0-50.0 Monocytes % (Manual) 4 0-12 Eosinophils % (Manual) 0 0-7 Basophils % (Manual) 0 0.0-2.0 Metamyelocytes % (manual) 0 Myelocytes % (Manual) 0 Promyelocytes % (Manual) 0 Blast Cells % (Manual) 0 Reactive Lymphocytes 0 Platelet Estimate Increased Influenza Type A Antigen Negative Negative Influenza Type B Antigen Negative Negative SARS-CoV-2 Antigen (Rapid) Negative NEGATIVE Test 05/13/24 21:00 05/13/24 19:16 05/13/24 17:35 05/13/24 15:43 Range/Units Urine Color Yellow Yellow Urine Clarity Turbid H Clear Urine pH 5.5 5.0-9.0 Urine Specific [place] 1.014 1.001-1.035 Urine Protein Trace H Negative Urine Ketones Negative Negative Urine Blood Trace H Negative /uL Urine Nitrite Negative Negative Urine Bilirubin Negative Negative Urine Urobilinogen Normal Negative mg/dL Urine Leukocyte Esterase 3+ Negative /uL Urine RBC 2 0 - 3 /hpf Urine Microscopic WBC 70 H 0-3 /HPF Urine Squamous Epithelial Cells None seen <5 /hpf Urine Bacteria Few H None Seen /hpf Urine Mucus Few None Seen Urine Creatinine 53.09 30.0-125.0 mg/dL Urine Protein/Creatinine Ratio 1.05 Urine Sodium 46 40-220 mmol/L Urine Potassium 23 12-62 mmol/L Urine Glucose 3+ H Normal mg/dL Urine Total Protein 55.6 H 1-14 mg/dL Erythrocyte Sedimentation Rate 116 H 0-20 mm/hr Hemoglobin A1c 11.3 H <5.7 % A1C Serum Osmolality 278 278-298 mOsm/kg Troponin I High Sensitivity < 3 L </=54 ng/L Lactic Acid Level 1.6 0.4-2.0 mmol/L Test 05/13/24 14:07 Range/Units Clumped Platelets Few Magnesium Level 1.8 1.6-2.6 mg/dL Total Bilirubin 0.9 0.2-1.0 mg/dL Aspartate Amino Transferase (AST) 18 13-40 U/L Alanine Aminotransferase (ALT) < 9 7-40 U/L Alkaline Phosphatase 234 H 46-116 U/L Creatine Kinase 37 L 46-171 U/L B-Type Natriuretic Peptide 48.92 0-100 pg/mL Total Protein 6.0 5.7-8.2 g/dL Albumin 3.3 3.2-4.8 g/dL Microbiology Date/Time Source Procedure Growth Status 05/13/24 15:43 Blood Blood Culture - Preliminary Resulted Problems(with codes): (1) HIV (human immunodeficiency virus infection) (2) Hx of syphilis (3) History of ESBL Klebsiella pneumoniae infection (4) MRSA bacteremia (5) Osteomyelitis (6) Sepsis, unspecified organism (7) Uncontrolled diabetes mellitus Plan/Recommendation ASSESSMENT AND PLAN: ID Problem List: - MRSA bacteremia - Left foot cellulitis - Possible osteomyelitis (left foot, right leg) - Uncontrolled diabetes mellitus (noncompliant) - Diabetic foot infections - Multiple right toe amputations - Chronic right leg ulcer - Hypertension - Polysubstance abuse - Undiagnosed psychiatric disorder - HIV Assessment This is a 49 y.o. male with a past medical history of hypertension, uncontrolled diabetes mellitus (noncompliant), polysubstance abuse, and undiagnosed psychiatric disorder, who presents with generalized weakness for the last six days. Left foot with cellulitic changes (erythema, edema), possible osteomyelitis. Right foot with multiple toe amputations. Chronic right leg ulcer with severe wound, good granulation tissue, and serous drainage. Vital signs show hypotension (BP 79/55 mmHg), afebrile (T 98.4F), heart rate 87 bpm, respiratory rate 12 breaths per minute, oxygen saturation 96% on room air. Laboratories notable for leukocytosis (WBC 44 x10/L), anemia (Hb 9.5 g/dL), thrombocytosis (platelets 584 x10/L), hyponatremia (Na 123 mmol/L), BUN 26 mg/dL, Creatinine 1.02 mg/dL. Urinalysis shows +3 leukocytes and positive nitrites. Blood cultures are growing MRSA. patient has hx of ESBL wound infection Plan: - HOLD art, unclear patient compliance, recommend checking HIV viral and CD4 count - Start daptomycin (due to MRSA bacteremia and prior renal failure associated with vancomycin) - Continue Zosyn (piperacillin/tazobactam), low threshold to switch to Meropenem if unresponsive to antibiotic therapy - Fluid resuscitation; consider vasopressor support to maintain MAP >65 mmHg - Repeat blood cultures - MRI of left foot is pending; order MRI of right leg due to concern for osteomyelitis - Recommend transthoracic echocardiogram (TTE) to evaluate for potential endocarditis - Obtain urine culture to further evaluate urinary tract infection - Keep blood sugars under 180 mg/dL with insulin sliding scale; defer management to primary team - Monitor vital signs and labs closely Isolation Precautions: standard Assessment and plan was discussed with the patient as written above Plan is subject to change pending incorporation of new incoming information/diagnostics. Updates may be added as addendum at the bottom (OR TOP) of this note Thank you for interesting consult. ID will continue to follow. Please contact Infectious Disease for any questions or concerns. Vitor Palacio M.D. [facility] Ph: ? History: The patient's chart and medications were reviewed in detail and the patient was seen and examined. History obtained from: patient Rony Villarreal is a 49 y.o. male with a past medical history of hypertension, uncontrolled diabetes mellitus (noncompliant), polysubstance abuse, and undiagnosed psychiatric disorder, who presents with generalized weakness for the last six days. Left foot with cellulitic changes (erythema, edema), possible osteomyelitis. Right foot with multiple toe amputations. Chronic right leg ulcer with severe wound, good granulation tissue, and serous drainage. Review of Systems: A complete 10 system review of systems was completed and negative except as noted in the HPI or here. ROS: - CONSTITUTIONAL: Denies weight loss, fever, and chills. - HEENT: Denies changes in vision and hearing. - RESPIRATORY: Denies shortness of breath and cough. - CV: Denies palpitations and chest pain. - GI: Denies abdominal pain, nausea, vomiting, and diarrhea. - : Denies dysuria and urinary frequency. - MSK: Denies myalgia and joint pain. - SKIN: Reports left foot redness and swelling. - NEUROLOGICAL: Denies headache and syncope. - PSYCHIATRIC: Denies recent changes in mood. Denies anxiety and depression. Past Medical History: Diagnosis Date Hypertension Diabetes mellitus, uncontrolled Diabetic foot infections Multiple right toe amputations Chronic right leg ulcer Polysubstance abuse Undiagnosed psychiatric disorder Past Surgical History: History reviewed. Multiple right toe amputations. Home Medications: Not available. Allergies: Allergies No Known Allergies Family History: Not available. Social History: Social History Substance Use: Polysubstance abuse Psychiatric History: Undiagnosed psychiatric disorder Objective: Vital Signs on Arrival: Temp: 98.4F?BP: 79/55 mmHg?Pulse: 87 bpm?Resp: 12 breaths/min?SpO?: 96% room air Most Recent Vital Signs: BP: as low as 95/74 mmHg?Resp: 11 breaths/min?SpO?: 96% room air Admission Weight: Not available.?BMI: Not available. Physical Exam: General:?NAD Neck:?Supple. No masses. HEENT:?PERRL. Normal lids and conjunctiva. Moist mucous membranes. Oropharynx without lesions, exudates, or excessive erythema. Normal appearance of the external aspects of the nose and ears. Heart:?Regular rhythm, normal rate. No murmur. No lower extremity edema. Lungs:?Normal respiratory effort. Clear to auscultation bilaterally. No wheezes. No crackles. Abdomen:?Soft. Non-tender. Non-distended. No masses or abdominal hernia. Msk:?No digital cyanosis. Skin:?Warm. Right foot with multiple toe amputations. Right leg with severe wound with good granulation tissue and serous drainage. Left foot with cellulitic changes: erythema and edema. Neuro:?Alert. No facial droop or slurred speech. Extra-ocular movements intact. Sensation intact to soft touch in all 4 limbs. Psych:?Appropriate mood. Full affect. Oriented to person, place, time, and situation. Lines: No active lines. Diagnostic Studies: Available diagnostic studies were reviewed personally. Significant relevant results and findings are outlined below or addressed in the Assessment and Plan above. Pertinent Labs: - WBC 44 x10/L - Hemoglobin 9.5 g/dL - Platelets 584 x10/L - Sodium 123 mmol/L - BUN 26 mg/dL - Creatinine 1.02 mg/dL - Urinalysis: +3 leukocytes, positive nitrites - Blood cultures growing MRSA Pertinent Imaging: - MRI of left foot pending - Plan for MRI of right leg Plan discussed with: Patient VITOR PALACIO MD May 14, 2024 13:42
[2024-05-14 15:40] LABS: Potassium 4.8 mmol/L (3.5-5.1)
[2024-05-14 15:41] LABS: Anion Gap 9 (5-15); Calcium 8.9 mg/dL (8.7-10.4); Carbon Dioxide 20 mmol/L (20-31)
[2024-05-14 15:50] LABS: Blood Urea Nitrogen 28 mg/dL (9-23); Chloride 91 mmol/L (98-107); Glucose 226 mg/dL (74-106); Sodium 120 mmol/L (136-145)
--- NOTE | 2024-05-14 16:40 | DVHINCON2 ---
Date of service: May 14, [address] Patterson Reason for Consultation Acute kidney injury History of Present Illness Patient is 49 y/o male with PMH of uncontrolled DM, HTN and PAD s/p toe amputation is admitted for generalized weakness, hyperglycemia. On admission found to have elevated BUN and creatinine, nephrology consulted for YESSY. Past Medical History PAST MEDICAL HISTORY: DM, HTN, PAD Past Surgical History Toes amputation Allergies: Coded Allergies: NO KNOWN ALLERGIES (Unverified , 05/13/24) Current Medications Current Medications Medications (Trade) Dose Ordered Sig/Patricia Route PRN Reason Start Time Stop Time Status Last Admin Daptomycin 500 mg/ Sodium Chloride 50 ml @ 100 mls/hr DAILY IV 05/14/24 18:00 05/14/24 18:47 Sodium Chloride 1,000 ml @ 75 mls/hr [id number] IV 05/14/24 16:45 05/15/24 06:05 Norepinephrine Bitartrate 250 ml @ 3.75 mls/hr Q24H IV 05/15/24 09:00 05/15/24 09:26 Furosemide (Lasix Injection) 40 mg BIDD IV 05/15/24 18:00 UNV Review of Systems All 12 item review of systems reviewed with the patient nonsignificant except what is mentioned in the history of present illness H&P Exam Vital Signs/I&O Vital Sign Date Time Temp Pulse Resp B/P (MAP) Pulse Ox O2 Delivery O2 Flow Rate FiO2 05/15/24 11:42 76 05/15/24 10:40 92/60 05/15/24 10:00 11 95 05/15/24 08:20 Room Air* 0 21 05/15/24 08:00 98.2 98.2 Intake and Output 05/14/24 05/15/24 19:00 07:00 Intake Total 275 ml 975 ml Balance 275 ml 975 ml IV Total 275 ml 975 ml Physical Exam Patient is awake alert Lungs clear to auscultation bilaterally Cardiac exam regular rate and rhythm GI soft nontender was normal Extremity left Charcot foot with draining ulcer and swelling Neuro nonfocal Labs/Diagnostic Data Labs/Diagnostic Data Laboratory Tests Test 05/15/24 11:10 05/15/24 09:13 05/15/24 07:38 05/15/24 01:50 Range/Units POC Glucose 244 H 286 H 70-106 mg/dl Sodium Level 120 L 120 L 136-145 mmol/L Potassium Level 4.3 4.9 3.5-5.1 mmol/L Chloride Level 92 L 90 L 98-107 mmol/L Carbon Dioxide Level 19 L 20 20-31 mmol/L Anion Gap 9 10 5-15 Blood Urea Nitrogen 26 H 27 H 9-23 mg/dL Creatinine 1.01 0.94 0.700-1.30 mg/dL Glomerular Filtration Rate Calc 91 99 >90 mL/min BUN/Creatinine Ratio 25.7 H 28.7 H 10.0-20.0 Serum Glucose 282 H 258 H 74-106 mg/dL Calcium Level 8.4 L 8.8 8.7-10.4 mg/dL Test 05/14/24 21:56 05/14/24 18:07 05/14/24 17:40 05/14/24 14:10 Range/Units Sodium Level 121 L 119 *L 120 L 136-145 mmol/L Potassium Level 4.7 5.0 4.8 3.5-5.1 mmol/L Chloride Level 91 L 90 L 91 L 98-107 mmol/L Carbon Dioxide Level 21 21 20 20-31 mmol/L Anion Gap 9 8 9 5-15 Blood Urea Nitrogen 28 H 27 H 28 H 9-23 mg/dL Creatinine 1.07 1.16 1.22 0.700-1.30 mg/dL Glomerular Filtration Rate Calc 85 77 73 >90 mL/min BUN/Creatinine Ratio 26.2 H 23.3 H 23.0 H 10.0-20.0 Serum Glucose 230 H 243 H 226 H 74-106 mg/dL Calcium Level 9.0 9.2 8.9 8.7-10.4 mg/dL POC Glucose 215 H 70-106 mg/dl Test 05/14/24 11:40 05/14/24 09:50 05/14/24 02:40 05/13/24 22:10 Range/Units POC Glucose 235 H 70-106 mg/dl Sodium Level 122 L 120 L 119 *L 136-145 mmol/L Potassium Level 4.7 4.8 4.8 3.5-5.1 mmol/L Chloride Level 91 L 91 L 90 L 98-107 mmol/L Carbon Dioxide Level 22 19 L 18 L 20-31 mmol/L Anion Gap 9 10 11 5-15 Blood Urea Nitrogen 33 H 37 H 41 H 9-23 mg/dL Creatinine 1.34 H 1.35 H 1.64 H 0.700-1.30 mg/dL Glomerular Filtration Rate Calc 65 64 51 >90 mL/min BUN/Creatinine Ratio 24.6 H 27.4 H 25.0 H 10.0-20.0 Serum Glucose 278 H 320 H 399 H 74-106 mg/dL Calcium Level 9.5 9.5 8.9 8.7-10.4 mg/dL White Blood Count 26.1 #H 4.4-10.8 10^3/uL Red Blood Count 3.43 L 4.5-5.90 10^6/uL Hemoglobin 9.2 L 13.5-17.5 g/dL Hematocrit 28.8 L 41.0-53.0 % Mean Corpuscular Volume 84.0 80.0-100.0 fL Mean Corpuscular Hemoglobin 26.7 L 28.0-32.0 pg Mean Corpuscular Hemoglobin Concent 31.7 L 32.0-36.0 g/dL Red Cell Distribution Width 16.6 H 11.8-14.3 % Platelet Count 547 H 140-450 10^3/uL Mean Platelet Volume 7.0 6.9-10.8 fL Neutrophils (%) (Auto) 37.0-80.0 % Lymphocytes (%) (Auto) 10.0-50.0 % Monocytes (%) (Auto) 0.0-12.0 % Basophils (%) (Auto) 0.0-2.0 % Neutrophils # (Auto) 1.6-8.6 10 ^3/uL Lymphocytes # (Auto) 0.4-5.4 10 ^3/uL Monocytes # (Auto) 0-1.3 10 ^3/uL Differential Total Cells Counted 100.0 100 Neutrophils % (Manual) 77 37.0-80.0 Band Neutrophils % (Manual) 11 Lymphocytes % (Manual) 8 L 10.0-50.0 Monocytes % (Manual) 4 0-12 Eosinophils % (Manual) 0 0-7 Basophils % (Manual) 0 0.0-2.0 Metamyelocytes % (manual) 0 Myelocytes % (Manual) 0 Promyelocytes % (Manual) 0 Blast Cells % (Manual) 0 Reactive Lymphocytes 0 Platelet Estimate Increased Test 05/13/24 21:40 05/13/24 21:30 05/13/24 21:00 05/13/24 20:20 Range/Units POC Glucose 382 H 351 H 70-106 mg/dl Influenza Type A Antigen Negative Negative Influenza Type B Antigen Negative Negative SARS-CoV-2 Antigen (Rapid) Negative NEGATIVE Urine Color Yellow Yellow Urine Clarity Turbid H Clear Urine pH 5.5 5.0-9.0 Urine Specific [place] 1.014 1.001-1.035 Urine Protein Trace H Negative Urine Ketones Negative Negative Urine Blood Trace H Negative /uL Urine Nitrite Negative Negative Urine Bilirubin Negative Negative Urine Urobilinogen Normal Negative mg/dL Urine Leukocyte Esterase 3+ Negative /uL Urine RBC 2 0 - 3 /hpf Urine Microscopic WBC 70 H 0-3 /HPF Urine Squamous Epithelial Cells None seen <5 /hpf Urine Bacteria Few H None Seen /hpf Urine Mucus Few None Seen Urine Creatinine 53.09 30.0-125.0 mg/dL Urine Protein/Creatinine Ratio 1.05 Urine Sodium 46 40-220 mmol/L Urine Potassium 23 12-62 mmol/L Urine Glucose 3+ H Normal mg/dL Urine Total Protein 55.6 H 1-14 mg/dL Test 05/13/24 19:16 05/13/24 18:42 05/13/24 17:35 05/13/24 15:43 Range/Units Erythrocyte Sedimentation Rate 116 H 0-20 mm/hr Potassium Level 5.5 H 3.5-5.1 mmol/L Hemoglobin A1c 11.3 H <5.7 % A1C POC Glucose 343 H 70-106 mg/dl Serum Osmolality 278 278-298 mOsm/kg Troponin I High Sensitivity < 3 L </=54 ng/L Lactic Acid Level 1.6 0.4-2.0 mmol/L Test 05/13/24 15:30 05/13/24 14:07 Range/Units Troponin I High Sensitivity < 3 L 3 L </=54 ng/L White Blood Count 44.1 *H 4.4-10.8 10^3/uL Red Blood Count 3.52 L 4.5-5.90 10^6/uL Hemoglobin 9.5 L 13.5-17.5 g/dL Hematocrit 29.7 L 41.0-53.0 % Mean Corpuscular Volume 84.3 80.0-100.0 fL Mean Corpuscular Hemoglobin 27.0 L 28.0-32.0 pg Mean Corpuscular Hemoglobin Concent 32.0 32.0-36.0 g/dL Red Cell Distribution Width 16.4 H 11.8-14.3 % Platelet Count 584 H 140-450 10^3/uL Mean Platelet Volume 7.2 6.9-10.8 fL Neutrophils (%) (Auto) 37.0-80.0 % Lymphocytes (%) (Auto) 10.0-50.0 % Monocytes (%) (Auto) 0.0-12.0 % Basophils (%) (Auto) 0.0-2.0 % Neutrophils # (Auto) 1.6-8.6 10 ^3/uL Lymphocytes # (Auto) 0.4-5.4 10 ^3/uL Monocytes # (Auto) 0-1.3 10 ^3/uL Differential Total Cells Counted 100.0 100 Neutrophils % (Manual) 92 H 37.0-80.0 Band Neutrophils % (Manual) 2 Lymphocytes % (Manual) 5 L 10.0-50.0 Monocytes % (Manual) 0 0-12 Eosinophils % (Manual) 1 0-7 Basophils % (Manual) 0 0.0-2.0 Metamyelocytes % (manual) 0 Myelocytes % (Manual) 0 Promyelocytes % (Manual) 0 Blast Cells % (Manual) 0 Reactive Lymphocytes 0 Platelet Estimate Increased Clumped Platelets Few Sodium Level 115 *L 136-145 mmol/L Potassium Level 5.9 *H 3.5-5.1 mmol/L Chloride Level 88 L 98-107 mmol/L Carbon Dioxide Level 15 L 20-31 mmol/L Anion Gap 12 5-15 Blood Urea Nitrogen 45 H 9-23 mg/dL Creatinine 1.59 H 0.700-1.30 mg/dL Glomerular Filtration Rate Calc 53 >90 mL/min BUN/Creatinine Ratio 28.3 H 10.0-20.0 Serum Glucose 317 H 74-106 mg/dL Lactic Acid Level 1.8 0.4-2.0 mmol/L Calcium Level 9.0 8.7-10.4 mg/dL Magnesium Level 1.8 1.6-2.6 mg/dL Total Bilirubin 0.9 0.2-1.0 mg/dL Aspartate Amino Transferase (AST) 18 13-40 U/L Alanine Aminotransferase (ALT) < 9 7-40 U/L Alkaline Phosphatase 234 H 46-116 U/L Creatine Kinase 37 L 46-171 U/L B-Type Natriuretic Peptide 48.92 0-100 pg/mL Total Protein 6.0 5.7-8.2 g/dL Albumin 3.3 3.2-4.8 g/dL Assessment YESSY superimposed on CKD secondary to hemodynamic mediated Hyponatremia due to dehydration Uncontrolled DM, A1c > 11 Sepsis Hyperglycemia Right foot osteomyelitis Charcot foot left foot/cellulitis Anemia of CKD REC: Closely monitor fluids and lytes Avoid nephrotoxins Strict I&O's Insulin SS IVF with NS @ 75 cc/hr Avoid rapid sodium correction Check urine osmolality Check kidney US IV Abx IV pressors for blood pressure support Repeat BMP Podiatry consult Will continue to follow Patient seen and examined by myself in the ER bed five. I discussed my plan of care with the patient and the primary nurse at the bedside I would like to thank Dr. Patterson consult, will Plan discussed with: Patient AL HANNA MD May 14, 2024 16:40
[2024-05-14] MEDS: SODIUM CHLORIDE 0.9% 1,000 ML IV SCH (17:37)
[2024-05-14 18:44] LABS: Anion Gap 8 (5-15); Calcium 9.2 mg/dL (8.7-10.4); Carbon Dioxide 21 mmol/L (20-31)
[2024-05-14] MEDS: DAPTOmycin 500 MG in SODIUM CHL 0.9% 50 ML IV SCH (18:47)
[2024-05-14 18:49] LABS: BUN/Creatinine Ratio 23.3 (10.0-20.0)
[2024-05-14 18:51] LABS: Blood Urea Nitrogen 27 mg/dL (9-23); Chloride 90 mmol/L (98-107); Glucose 243 mg/dL (74-106)
[2024-05-14 18:54] LABS: Sodium 119 mmol/L (136-145)
[2024-05-14 19:30] VITALS: PULSE 86; RESP 16; O2SAT 95
--- NOTE | 2024-05-14 20:08 | DVH ---
INDICATION: sabas TECHNIQUE: Multiple real-time sonographic images of the kidneys and bladder were obtained. COMPARISON: None FINDINGS: RIGHT kidney measures 9.5 cm in length. No hydronephrosis. LEFT kidney measures 9.4 cm in length. No hydronephrosis. Bilateral kidneys demonstrate increased echogenicity and decreased cortical thickness. No large intraluminal masses are seen in the bladder. IMPRESSION: 1. Findings are suggestive of chronic medical renal disease.
[2024-05-14] MEDS: HYDROmorphone HCL 2 MG/ML VL/or syr IV PRN (20:12)
[2024-05-14 22:11] LABS: Potassium 4.7 mmol/L (3.5-5.1)
[2024-05-14 22:12] LABS: Anion Gap 9 (5-15); Carbon Dioxide 21 mmol/L (20-31)
[2024-05-14 22:15] LABS: Chloride 91 mmol/L (98-107); Sodium 121 mmol/L (136-145)
[2024-05-14 22:17] LABS: BUN/Creatinine Ratio 26.2 (10.0-20.0)
[2024-05-14 22:19] LABS: Blood Urea Nitrogen 28 mg/dL (9-23); Glucose 230 mg/dL (74-106)
[2024-05-15 02:04] LABS: Potassium 4.9 mmol/L (3.5-5.1)
[2024-05-15 02:05] LABS: Anion Gap 10 (5-15); Calcium 8.8 mg/dL (8.7-10.4); Carbon Dioxide 20 mmol/L (20-31)
[2024-05-15 02:10] LABS: BUN/Creatinine Ratio 28.7 (10.0-20.0)
[2024-05-15 02:35] LABS: Blood Urea Nitrogen 27 mg/dL (9-23); Chloride 90 mmol/L (98-107); Glucose 258 mg/dL (74-106); Sodium 120 mmol/L (136-145)
[2024-05-15 08:20] VITALS: PULSE 82; RESP 12; O2SAT 96
[2024-05-15] MEDS: SODIUM CHLORIDE 0.9% 1,000 ML IV ONE (08:43)
[2024-05-15] MEDS: NOREPINEPHRINE 8 MG/250ML KIT 250 ML IV ONE (08:57)
[2024-05-15] MEDS: NOREPINEPHRINE 8 MG/250ML KIT 250 ML IV SCH (09:26)
[2024-05-15 09:38] LABS: Potassium 4.3 mmol/L (3.5-5.1)
[2024-05-15 09:39] LABS: Anion Gap 9 (5-15)
[2024-05-15 09:45] LABS: BUN/Creatinine Ratio 25.7 (10.0-20.0)
[2024-05-15 09:53] LABS: Blood Urea Nitrogen 26 mg/dL (9-23); Calcium 8.4 mg/dL (8.7-10.4); Carbon Dioxide 19 mmol/L (20-31); Chloride 92 mmol/L (98-107); Glucose 282 mg/dL (74-106); Sodium 120 mmol/L (136-145)
--- NOTE | 2024-05-15 12:20 | DVHPN2 ---
Progress Note Date Seen: May 15, 2024 Medical Necessity Reason Pt with a Central, PICC or Fol: No Subjective Patient reports: No new complaints Other Systems: Patient seen and examined by myself today in follow-up Objective vital signs Vital Sign Date Time Temp Pulse Resp B/P (MAP) Pulse Ox O2 Delivery O2 Flow Rate FiO2 05/15/24 11:42 76 05/15/24 10:40 92/60 05/15/24 10:00 11 95 05/15/24 08:20 Room Air* 0 21 05/15/24 08:00 98.2 98.2 Total Intake and Output 05/14/24 05/14/24 05/15/24 15:00 23:00 07:00 Intake Total 100 ml 475 ml 675 ml Balance 100 ml 475 ml 675 ml medications Current Medications Medications Dose Ordered Sig/Patricia Route Start Time Stop Time Status Last Admin Dose Admin Acetaminophen 650 mg Q6HP PRN PO 05/13/24 18:45 05/14/24 01:47 Acetaminophen/ Hydrocodone Bitart 1 tab Q4HP PRN PO 05/13/24 18:45 05/15/24 04:55 Hydromorphone HCl 0.25 mg Q4HP PRN IV 05/13/24 18:45 05/14/24 20:12 Ondansetron HCl 4 mg Q4HP PRN IV 05/13/24 18:45 Enoxaparin Sodium 40 mg DAILY SC 05/14/24 10:00 05/15/24 10:07 Nitroglycerin 0.4 mg Q5MINP PRN SL 05/13/24 18:45 Morphine Sulfate 2 mg Q30M PRN IV 05/13/24 18:45 Diagnostic Test (Pha) 1 strip ACHS 05/13/24 22:00 05/15/24 11:16 Insulin Human Regular HS SC 05/13/24 22:00 05/14/24 22:20 Insulin Human Regular AC SC 05/14/24 07:00 05/15/24 11:15 Dextrose 50 ml UD PRN IV 05/13/24 19:00 Piperacillin Sod/ Tazobactam Sod 100 ml @ 25 mls/hr Q8HR IV 05/13/24 22:00 05/14/24 22:10 Pantoprazole Sodium 40 mg DAILY IV 05/14/24 10:00 05/15/24 10:06 Daptomycin 500 mg/ Sodium Chloride 50 ml @ 100 mls/hr DAILY IV 05/14/24 18:00 05/14/24 18:47 Sodium Chloride 1,000 ml @ 75 mls/hr [id number] IV 05/14/24 16:45 05/15/24 06:05 Norepinephrine Bitartrate 250 ml @ 3.75 mls/hr Q24H IV 05/15/24 09:00 05/15/24 09:26 Furosemide 40 mg BIDD IV 05/15/24 18:00 UNV Examination: MSK:Abnormal laboratory and microbiology Laboratory Tests 05/15/24 09:13 05/14/24 02:40 Test 05/15/24 09:13 Range/Units Serum Glucose 282 H 74-106 mg/dL Microbiology Date/Time Source Procedure Growth Status 05/13/24 15:43 Blood Blood Culture - Preliminary Methicillin Resistant S.aureus Resulted Problem List/Assessment/Plan Problem List/Assessment/Plan YESSY superimposed on CKD secondary to hemodynamic mediated Hyponatremia due to dehydration Uncontrolled DM, A1c > 11 MRSA septicemia Hyperglycemia Hyperkalemia resolved Peripheral arterial disease Right foot osteomyelitis Charcot foot left foot/cellulitis Anemia of CKD REC: Kidney function is improving Increased urine output Strict I&O's Insulin SS IVF with NS @ 75 cc/hr Avoid rapid sodium correction Check urine osmolality kidney US reported bilateral echogenic kidney IV Abx IV pressors for blood pressure support Repeat BMP Podiatry consult Will continue to follow Plan discussed with: Patient My Orders My Orders Orders - AL HANNA MD Procedure Category Date Status Time Osmolality Urine LAB 05/14/24 Logged 16:39 Kidney US 05/14/24 Resulted 16:39 Sodium Chloride 0.9% PHA 05/14/24 In Process 16:45 Furosemide Injection PHA 05/15/24 Logged (Lasix Injection) 18:00 Communication Order ORDERS 05/15/24 Transmitted 12:00 Maintain Fluid PARKER 05/15/24 In Process Restrictions 12:00 AL HANNA MD May 15, 2024 12:20
[2024-05-15 13:54] LABS: Potassium 4.2 mmol/L (3.5-5.1)
[2024-05-15 13:55] LABS: Anion Gap 9 (5-15); Carbon Dioxide 22 mmol/L (20-31)
[2024-05-15 13:56] LABS: Calcium 8.8 mg/dL (8.7-10.4)
[2024-05-15 13:59] LABS: Chloride 92 mmol/L (98-107); Sodium 123 mmol/L (136-145)
[2024-05-15 14:01] LABS: BUN/Creatinine Ratio 25.5 (10.0-20.0)
[2024-05-15 14:02] LABS: Blood Urea Nitrogen 26 mg/dL (9-23); Glucose 278 mg/dL (74-106)
--- NOTE | 2024-05-15 16:06 | DVH ---
EXAM: MRI MRI L FOOT WO CONTRAST HISTORY: WOUND TO LEFT FOOT S/P AMPUTATION COMPARISON: CT CT L FOOT WO CONTRAST on DOS: 05/13/24 TECHNIQUE: Multiplanar, multisequence MRI of the left foot was performed. FINDINGS: Extensive deformity of the osseous structures of foot. Bone marrow edema is seen in distal tibia, di stal fibula, talus, calcaneus the remainder of the residual tarsal bones. There is anterior subluxati on of the talus at the tibiotalar joint. A draining ulcer is seen on the dorsal aspect of the ankle a t the level of distal Achilles tendon. Large confluent complex fluid collection in the distal leg whi ch seems to involve peroneal, flexor and anterior tibialis tendon sheaths. Moderate edema in dorsal a spect of the Achilles tendon with mild signal alteration of the tendon noted. IMPRESSION: 1. Extensive bone marrow edema involving distal tibia, distal fibula, talus, calcaneus and the residu al tarsal bones highly concerning for osteomyelitis with differential diagnosis of Charcot joint. 2. Severe tenosynovitis involving the flexor, peroneal and extensor compartments probably infectious. 3. Achilles tendinosis and peritendinitis. An aadjacent draining ulcer is seen.
[2024-05-15] MEDS: KETAMINE 50mg/ML 10ml Vial (500mg/10ml) IV ONE (16:37)
[2024-05-15] MEDS: KETAMINE 50mg/ML 10ml Vial 10 ML ONE (16:38)
--- NOTE | 2024-05-15 17:04 | ED.PDOC ---
Was a procedure done? 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
[2024-05-15] MEDS: FUROSEMIDE 40 MG/4 ML VIAL IV SCH (17:25)
[2024-05-15] MEDS ORDERED: hydrALAZINE HCL 20 MG/ML VL IV PRN (17:30)
--- NOTE | 2024-05-15 17:55 | DVHPN2 ---
Subjective marissa of care discussed with the bedside RN. Patient is complaining of generalized weakness have left lower extremity wound. MRI left lower extremity is pending Changes from previous H/P or p: No Changes Eyes: No Pain, No Vision change, No Conjunctivae inflammation, No Eyelid inflammation, No Other, No Redness ENT: No Ear pain, No Ear discharge, No Nose pain, No Nose discharge, No Nose congestion, No Mouth pain, No Mouth swelling, No Throat pain, No Throat swelling, No Other Cardiovascular: No Chest Pain, No Palpitations, No Orthopnea, No Paroxysmal Noc. Dyspnea, No Edema, No Lt Headedness, No Other Respiratory: No Cough, No Dry, No Shortness of breath, No SOB with excertion, No Wheezing, No Hemoptysis, No Pleuritic Pain, No Sputum, No Other Gastrointestinal: No Nausea, No Vomiting, No Abdominal Pain, No Diarrhea, No Constipation, No Melena, No Hematochezia, No Other Genitourinary: Dysuria; No Frequency, No Incontinence, No Hematuria, No Retention, No Other Musculoskeletal: foot pain (left) Skin: No Rash, No Lesions, No Jaundice, No Bruising; Other (Left foot wound) Objective Vitals Vital Signs Date Time Temp Pulse Resp B/P (MAP) Pulse Ox O2 Delivery O2 Flow Rate FiO2 05/15/24 17:30 116 20 162/98 (119) 92 05/15/24 17:15 98.8 98.8 05/15/24 08:20 Room Air* 0 21 Intake/Output Intake and Output 05/15/24 07:00 Intake Total 1250 ml Balance 1250 ml IV Total 1250 ml Exam HEENT pupils are reactive Neck is supple CVS S1-S2 regular rate and rhythm Respiratory diminished breath sounds bases GI positive bowel sound 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 Left lower extremity foot wounds antiseptic dressing Medications Current Medications Medications Dose Ordered Sig/Patricia Route Start Time Stop Time Status Last Admin Dose Admin Acetaminophen 650 mg Q6HP PRN PO 05/13/24 18:45 05/14/24 01:47 650 MG Acetaminophen/ Hydrocodone Bitart 1 tab Q4HP PRN PO 05/13/24 18:45 05/15/24 04:55 1 TAB Hydromorphone HCl 0.25 mg Q4HP PRN IV 05/13/24 18:45 05/15/24 15:38 0.25 MG Ondansetron HCl 4 mg Q4HP PRN IV 05/13/24 18:45 Enoxaparin Sodium 40 mg DAILY SC 05/14/24 10:00 05/15/24 10:07 40 MG Nitroglycerin 0.4 mg Q5MINP PRN SL 05/13/24 18:45 Morphine Sulfate 2 mg Q30M PRN IV 05/13/24 18:45 Diagnostic Test (Pha) 1 strip ACHS 05/13/24 22:00 05/15/24 17:06 1 STRIP Insulin Human Regular HS SC 05/13/24 22:00 05/14/24 22:20 3 UNITS Insulin Human Regular AC SC 05/14/24 07:00 05/15/24 17:07 9 UNITS Dextrose 50 ml UD PRN IV 05/13/24 19:00 Piperacillin Sod/ Tazobactam Sod 100 ml @ 25 mls/hr Q8HR IV 05/13/24 22:00 05/14/24 22:10 25 MLS/HR Pantoprazole Sodium 40 mg DAILY IV 05/14/24 10:00 05/15/24 10:06 40 MG Daptomycin 500 mg/ Sodium Chloride 50 ml @ 100 mls/hr DAILY IV 05/14/24 18:00 05/14/24 18:47 100 MLS/HR Sodium Chloride 1,000 ml @ 75 mls/hr [id number] IV 05/14/24 16:45 05/15/24 06:05 75 MLS/HR Norepinephrine Bitartrate 250 ml @ 3.75 mls/hr Q24H IV 05/15/24 09:00 05/15/24 09:26 3.75 MLS/HR Furosemide 40 mg BIDD IV 05/15/24 18:00 05/15/24 17:25 40 MG Hydralazine HCl 10 mg Q6HP PRN IV 05/15/24 17:30 Laboratory Results Chemistry Test 05/14/24 18:07 05/14/24 21:56 05/15/24 01:50 05/15/24 09:13 Calcium Level 9.2 mg/dL (8.7-10.4) 9.0 mg/dL (8.7-10.4) 8.8 mg/dL (8.7-10.4) 8.4 mg/dL (8.7-10.4) L Test 05/15/24 13:25 05/15/24 17:33 Calcium Level 8.8 mg/dL (8.7-10.4) Pending Urinalysis Test 05/13/24 21:00 05/15/24 13:32 Urine Color Yellow (Yellow) Urine Clarity Turbid (Clear) H Urine pH 5.5 (5.0-9.0) Urine Specific [place] 1.014 (1.001-1.035) Urine Protein Trace (Negative) H Urine Ketones Negative (Negative) Urine Blood Trace /uL (Negative) H Urine Nitrite Negative (Negative) Urine Bilirubin Negative (Negative) Urine Urobilinogen Normal mg/dL (Negative) Urine Leukocyte Esterase 3+ /uL (Negative) Urine RBC 2 /hpf (0 - 3) Urine Microscopic WBC 70 /HPF (0-3) H Urine Squamous Epithelial Cells None seen /hpf (<5) Urine Bacteria Few /hpf (None Seen) H Urine Mucus Few (None Seen) Urine Creatinine 53.09 mg/dL (30.0-125.0) Urine Protein/Creatinine Ratio 1.05 Urine Sodium 46 mmol/L (40-220) Urine Potassium 23 mmol/L (12-62) Urine Glucose 3+ mg/dL (Normal) H Urine Total Protein 55.6 mg/dL (1-14) H Urine Osmolality 266 mOsm/kg Microbiology Microbiology Date/Time Source Procedure Growth Status 05/14/24 00:00 Foot Gram Stain - Final Resulted 05/14/24 00:00 Foot Wound Culture - Preliminary Resulted 05/13/24 15:43 Blood Blood Culture - Preliminary Methicillin Resistant S.aureus Resulted Assessment/Plan Assessment/Plan 59-year-old male with a known history of insulin-dependent diabetes mellitus, hypertension, chronic left foot wound currently being seen at wound care center presented to the hospital with generalized weakness found to have 1. Sepsis secondary to left foot wound cellulitis rule out osteomyelitis 2. Left foot cellulitis rule out osteomyelitis 3. Hyponatremia suspect pseudohyponatremia in the setting of uncontrolled hyperglycemia 4. Uncontrolled hyperglycemia with history of insulin-dependent diabetes mellitus 5. Hypocalcemia 6. Leukocytosis likely reactive -continue broad-spectrum IV antibiotics, MRI left foot rule out osteomyelitis, Infectious Disease consultation, Podiatry consultation -nephrology consultation. Plan discussed with: Patient, Other My Orders Orders - NADEEM LIMON MD Procedure Category Date Status Time Apply Barrier Cream PARKER 05/14/24 In Process 13:43 Cleanse Wound With PARKER 05/14/24 In Process Wound Clean 13:43 *Consult CONS 05/15/24 Transmitted / 09:56 Hydralazine Injection PHA 05/15/24 In Process (Apresoline Inject 17:30 Date of Service: May 15, 2024 Billing Provider: NADEEM LIMON MD Common Visit Codes: [id number] INP/OBS CARE(MOD) NADEEM LIMON MD May 15, 2024 17:55
[2024-05-15 18:06] LABS: Potassium 4.7 mmol/L (3.5-5.1)
[2024-05-15 18:07] LABS: Anion Gap 9 (5-15)
[2024-05-15 18:08] LABS: Calcium 8.8 mg/dL (8.7-10.4)
[2024-05-15 18:10] LABS: Carbon Dioxide 20 mmol/L (20-31); Chloride 92 mmol/L (98-107); Sodium 121 mmol/L (136-145)
[2024-05-15 18:12] LABS: BUN/Creatinine Ratio 23.8 (10.0-20.0)
[2024-05-15 18:18] LABS: Blood Urea Nitrogen 24 mg/dL (9-23); Glucose 293 mg/dL (74-106)
--- NOTE | 2024-05-15 19:12 | DVHINCON2 ---
Date of service: May 15, [address] Patterson Reason for Consultation Sepsis History of Present Illness A 49-year-old man with PMHx of insulin-dependent diabetes mellitus, hypertension, and left foot wound who was brought by paramedics to ED on 05/13/24 with c/o generalized weakness for the past 6 days. He has a wound on the left lower extremity, has home health for wound care who sees him for dressing changes. He has been having left lower extremity wound for the past month. He does have right toe amputation which was done in [place] several years ago. Patient states that he does not move about because of his wound in the left lower extremity along with amputation of the right toes. Pt also c/o dysuria. Denied fever, abdominal pain, nausea/vomiting, chest pain or other acute complaints. Patient was admitted for further care and pulmonary consultation is requested for evaluation and management of sepsis. Review of Systems: 14-point review of systems negative unless otherwise noted above. Past Medical History: Diabetes mellitus, hypertension, left foot wound Past Surgical History: Toe amputation Medications: Reviewed. Allergies: No known drug allergies. Family History: No family history of premature CAD. No family history of lung disorders. Social History: Nonsmoker. No alcohol or illicit drug use. Allergies: Coded Allergies: NO KNOWN ALLERGIES (Unverified , 05/13/24) Current Medications Current Medications Medications (Trade) Dose Ordered Sig/Patricia Route PRN Reason Start Time Stop Time Status Last Admin Norepinephrine Bitartrate 250 ml @ 3.75 mls/hr Q24H IV 05/15/24 09:00 05/15/24 09:26 Furosemide (Lasix Injection) 40 mg BIDD IV 05/15/24 18:00 05/15/24 17:25 Hydralazine HCl (Apresoline Injection) 10 mg Q6HP PRN IV SBP>160 05/15/24 17:30 Vital Signs Vital Signs Date Time Temp Pulse Resp B/P (MAP) Pulse Ox O2 Delivery O2 Flow Rate FiO2 05/15/24 18:50 82/57 05/15/24 18:26 120 05/15/24 18:15 20 93 05/15/24 17:15 98.8 98.8 05/15/24 08:20 Room Air* 0 21 Physical Exam Gen.: Patient lying in bed in no apparent distress. Breathing on room air. Head: Normocephalic, atraumatic. Eyes: EOMI/PERRLA. Ears: Normal hearing. Normal anatomy. Neck/trachea: Trachea midline, supple. Nose: Normal external anatomy. Mouth: Moist mucous membranes. Chest: Decreased air entry bilaterally. No wheezing or rhonchi. Cardiovascular: Positive S1, positive S2. Regular rate and rhythm. Abdomen: Positive bowel sounds in all 4 quadrants. Soft, non-tender, non- distended. : Deferred. Rectal: Deferred. Skin: Warm, dry. Intact. Extremities: 2+ radial pulses bilaterally. No lower extremity edema. Neuro: Awake, alert, oriented x3. No gross motor or sensory deficits. Cranial nerves II through XII intact. Gait not assessed. Labs/Diagnostic Data Labs Test 05/15/24 17:33 05/15/24 17:01 05/15/24 13:32 05/14/24 02:40 Range/Units Sodium Level 121 L 136-145 mmol/L Potassium Level 4.7 3.5-5.1 mmol/L Chloride Level 92 L 98-107 mmol/L Carbon Dioxide Level 20 20-31 mmol/L Anion Gap 9 5-15 Blood Urea Nitrogen 24 H 9-23 mg/dL Creatinine 1.01 0.700-1.30 mg/dL Glomerular Filtration Rate Calc 91 >90 mL/min BUN/Creatinine Ratio 23.8 H 10.0-20.0 Serum Glucose 293 H 74-106 mg/dL Calcium Level 8.8 8.7-10.4 mg/dL POC Glucose 269 H 70-106 mg/dl Urine Osmolality 266 mOsm/kg Mean Platelet Volume 7.0 6.9-10.8 fL Neutrophils # (Auto) 1.6-8.6 10 ^3/uL Lymphocytes # (Auto) 0.4-5.4 10 ^3/uL Monocytes # (Auto) 0-1.3 10 ^3/uL Differential Total Cells Counted 100.0 100 Neutrophils % (Manual) 77 37.0-80.0 Band Neutrophils % (Manual) 11 Lymphocytes % (Manual) 8 L 10.0-50.0 Monocytes % (Manual) 4 0-12 Eosinophils % (Manual) 0 0-7 Basophils % (Manual) 0 0.0-2.0 Metamyelocytes % (manual) 0 Myelocytes % (Manual) 0 Promyelocytes % (Manual) 0 Blast Cells % (Manual) 0 Reactive Lymphocytes 0 Platelet Estimate Increased Test 05/13/24 21:30 05/13/24 21:00 05/13/24 19:16 05/13/24 17:35 Range/Units Influenza Type A Antigen Negative Negative Influenza Type B Antigen Negative Negative SARS-CoV-2 Antigen (Rapid) Negative NEGATIVE Urine Color Yellow Yellow Urine Clarity Turbid H Clear Urine pH 5.5 5.0-9.0 Urine Specific [place] 1.014 1.001-1.035 Urine Protein Trace H Negative Urine Ketones Negative Negative Urine Blood Trace H Negative /uL Urine Nitrite Negative Negative Urine Bilirubin Negative Negative Urine Urobilinogen Normal Negative mg/dL Urine Leukocyte Esterase 3+ Negative /uL Urine RBC 2 0 - 3 /hpf Urine Microscopic WBC 70 H 0-3 /HPF Urine Squamous Epithelial Cells None seen <5 /hpf Urine Bacteria Few H None Seen /hpf Urine Mucus Few None Seen Urine Creatinine 53.09 30.0-125.0 mg/dL Urine Protein/Creatinine Ratio 1.05 Urine Sodium 46 40-220 mmol/L Urine Potassium 23 12-62 mmol/L Urine Glucose 3+ H Normal mg/dL Urine Total Protein 55.6 H 1-14 mg/dL Erythrocyte Sedimentation Rate 116 H 0-20 mm/hr Hemoglobin A1c 11.3 H <5.7 % A1C Serum Osmolality 278 278-298 mOsm/kg Troponin I High Sensitivity < 3 L </=54 ng/L Test 05/13/24 15:43 05/13/24 14:07 Range/Units Lactic Acid Level 1.6 0.4-2.0 mmol/L Clumped Platelets Few Magnesium Level 1.8 1.6-2.6 mg/dL Total Bilirubin 0.9 0.2-1.0 mg/dL Aspartate Amino Transferase (AST) 18 13-40 U/L Alanine Aminotransferase (ALT) < 9 7-40 U/L Alkaline Phosphatase 234 H 46-116 U/L Creatine Kinase 37 L 46-171 U/L B-Type Natriuretic Peptide 48.92 0-100 pg/mL Total Protein 6.0 5.7-8.2 g/dL Albumin 3.3 3.2-4.8 g/dL Microbiology Date/Time Source Procedure Growth Status 05/14/24 00:00 Foot Gram Stain - Final Resulted 05/14/24 00:00 Foot Wound Culture - Preliminary Resulted 05/13/24 15:43 Blood Blood Culture - Preliminary Methicillin Resistant S.aureus Resulted Assessment Impression: Sepsis Left foot wound cellulitis, rule out osteomyelitis Hyponatremia Uncontrolled hyperglycemia Hypocalcemia Leukocytosis, likely reactive Plan: Supplemental oxygen PRN Titrate to keep O2 sats above 92%. On pressors for hemodynamic support Levophed 2 mcg/min Titrate to keep mean arterial pressure greater than 65 mmHg Continue antibiotics MRI of foot to r/o osteomyelitis Follow up ID recommendations Podiatry consultation Monitor renal function. Monitor electrolytes. Supplement as necessary. Monitor ins and outs. Follow up Nephrology recommendations DVT prophylaxis. Prognosis: Poor given patient's multiple co-morbidities. Condition: Critical Rest of plan per hospitalist and other consultants. A total of 35 minutes of critical care time was spent reviewing the patient record, examining the patient, making a diagnostic and therapeutic plan, discussing this plan with the medical personnel, following up on diagnostic studies and following the patient for clinical stability excluding any and all procedures. At least 50% of this time was spent in direct, [id number] contact. Thank you Dr Patterson for allowing me to participate in this patient's care. Further recommendations will depend on the patient's clinical course. Please do not hesitate to contact me if you have any questions or concerns. This medical document was created using an electronic medical record system with [employer] dictation system. Although these documentations are being carefully reviewed, there may still be some phonetic and typographical changes. The errors are purely typographical, due to imperfection on the software program, and do not reflect any compromise in the patient's medical care. Plan discussed with: Patient, Other (VANE Ríos/GORGE Lynn/) DAX CORDOBA MD May 15, 2024 19:12
--- NOTE | 2024-05-15 20:09 | DVHPN2 ---
Consult Progress Note Date Seen: May 15, 2024 Subjective Patient reports: Other (less weak , still has aching on left foot and not able to walk on it , has a punched out lesion of left plantar surface of heel thats draining and enothermatus ) Objective vital signs Vital Sign Date Time Temp Pulse Resp B/P (MAP) Pulse Ox O2 Delivery O2 Flow Rate FiO2 05/15/24 19:30 98.7 117 19 100/66 (77) 95 98.7 05/15/24 08:20 Room Air* 0 21 Total Intake and Output 05/14/24 05/14/24 05/15/24 15:00 23:00 07:00 Intake Total 100 ml 475 ml 675 ml Balance 100 ml 475 ml 675 ml medications Current Medications Medications Dose Ordered Sig/Patricia Route Start Time Stop Time Status Last Admin Dose Admin Acetaminophen 650 mg Q6HP PRN PO 05/13/24 18:45 05/14/24 01:47 650 MG Acetaminophen/ Hydrocodone Bitart 1 tab Q4HP PRN PO 05/13/24 18:45 05/15/24 20:05 1 TAB Hydromorphone HCl 0.25 mg Q4HP PRN IV 05/13/24 18:45 05/15/24 15:38 0.25 MG Ondansetron HCl 4 mg Q4HP PRN IV 05/13/24 18:45 Enoxaparin Sodium 40 mg DAILY SC 05/14/24 10:00 05/15/24 10:07 40 MG Nitroglycerin 0.4 mg Q5MINP PRN SL 05/13/24 18:45 Morphine Sulfate 2 mg Q30M PRN IV 05/13/24 18:45 Diagnostic Test (Pha) 1 strip ACHS 05/13/24 22:00 05/15/24 17:06 1 STRIP Insulin Human Regular HS SC 05/13/24 22:00 05/14/24 22:20 3 UNITS Insulin Human Regular AC SC 05/14/24 07:00 05/15/24 17:07 9 UNITS Dextrose 50 ml UD PRN IV 05/13/24 19:00 Piperacillin Sod/ Tazobactam Sod 100 ml @ 25 mls/hr Q8HR IV 05/13/24 22:00 05/14/24 22:10 25 MLS/HR Pantoprazole Sodium 40 mg DAILY IV 05/14/24 10:00 05/15/24 10:06 40 MG Daptomycin 500 mg/ Sodium Chloride 50 ml @ 100 mls/hr DAILY IV 05/14/24 18:00 05/14/24 18:47 100 MLS/HR Sodium Chloride 1,000 ml @ 75 mls/hr [id number] IV 05/14/24 16:45 05/15/24 06:05 75 MLS/HR Norepinephrine Bitartrate 250 ml @ 3.75 mls/hr Q24H IV 05/15/24 09:00 05/15/24 09:26 3.75 MLS/HR Furosemide 40 mg BIDD IV 05/15/24 18:00 05/15/24 17:25 40 MG Hydralazine HCl 10 mg Q6HP PRN IV 05/15/24 17:30 Physical Exam: General:?NAD Neck:?Supple. No masses. HEENT:?PERRL. Normal lids and conjunctiva. Moist mucous membranes. Oropharynx without lesions, exudates, or excessive erythema. Normal appearance of the external aspects of the nose and ears. Heart:?Regular rhythm, normal rate. No murmur. No lower extremity edema. Lungs:?Normal respiratory effort. Clear to auscultation bilaterally. No wheezes. No crackles. Abdomen:?Soft. Non-tender. Non-distended. No masses or abdominal hernia. Msk:?No digital cyanosis. Skin:?Warm. Right foot with multiple toe amputations. Right leg with severe wound with good granulation tissue and serous drainage. Left foot with cellulitic changes: erythema and edema. Neuro:?Alert. No facial droop or slurred speech. Extra-ocular movements intact. Sensation intact to soft touch in all 4 limbs. Psych:?Appropriate mood. Full affect. Oriented to person, place, time, and situation. laboratory and microbiology Laboratory Tests 05/15/24 17:33 Test 05/15/24 17:33 Range/Units Serum Glucose 293 H 74-106 mg/dL Problem List/Assessment/Plan Problems(with codes): (1) Hyperkalemia (2) Uncontrolled diabetes mellitus (3) Sepsis, unspecified organism (4) Osteomyelitis (5) HIV (human immunodeficiency virus infection) (6) MRSA bacteremia (7) Hx of syphilis (8) History of ESBL Klebsiella pneumoniae infection Problem List/Assessment/Plan ID Problem List: - MRSA bacteremia - Left foot cellulitis - Possible osteomyelitis (left foot, right leg) - Uncontrolled diabetes mellitus (noncompliant) - Diabetic foot infections - Multiple right toe amputations - Chronic right leg ulcer - Hypertension - Polysubstance abuse - Undiagnosed psychiatric disorder - HIV Assessment This is a 49 y.o. male with a past medical history of hypertension, uncontrolled diabetes mellitus (noncompliant), polysubstance abuse, and undiagnosed psychiatric disorder, who presents with generalized weakness for the last six days. Left foot with cellulitic changes (erythema, edema), possible osteomyelitis. Right foot with multiple toe amputations. Chronic right leg ulcer with severe wound, good granulation tissue, and serous drainage. Vital signs show hypotension (BP 79/55 mmHg), afebrile (T 98.4F), heart rate 87 bpm, respiratory rate 12 breaths per minute, oxygen saturation 96% on room air. Laboratories notable for leukocytosis (WBC 44 x10/L), anemia (Hb 9.5 g/dL), thrombocytosis (platelets 584 x10/L), hyponatremia (Na 123 mmol/L), BUN 26 mg/dL, Creatinine 1.02 mg/dL. Urinalysis shows +3 leukocytes and positive nitrites. Blood cultures are growing MRSA. patient has hx of ESBL wound infection 05/15: whitecount 22.1 Plan: - repeat blood cultures - recommend consulting podiatry for operative debridement , if done please collect deep tissue and bone cultures bacterial and anaerobic of infected specimen - HOLD art, unclear patient compliance, recommend checking HIV viral and CD4 count - Start daptomycin (due to MRSA bacteremia and prior renal failure associated with vancomycin) - Continue Zosyn (piperacillin/tazobactam), low threshold to switch to Meropenem if unresponsive to antibiotic therapy - Fluid resuscitation; consider vasopressor support to maintain MAP >65 mmHg - Repeat blood cultures - MRI of left foot is pending; order MRI of right leg due to concern for osteomyelitis - Recommend transthoracic echocardiogram (TTE) to evaluate for potential endocarditis - Obtain urine culture to further evaluate urinary tract infection - Keep blood sugars under 180 mg/dL with insulin sliding scale; defer management to primary team - Monitor vital signs and labs closely Isolation Precautions: standard Plan discussed with: VITOR Whalen MD May 15, 2024 20:09
[2024-05-15 21:34] LABS: Potassium 4.2 mmol/L (3.5-5.1)
[2024-05-15 21:35] LABS: Anion Gap 8 (5-15); Carbon Dioxide 23 mmol/L (20-31); Chloride 93 mmol/L (98-107); Sodium 124 mmol/L (136-145)
[2024-05-15 21:36] LABS: Calcium 8.7 mg/dL (8.7-10.4)
[2024-05-15 21:40] LABS: BUN/Creatinine Ratio 26.2 (10.0-20.0)
[2024-05-15 21:44] LABS: Blood Urea Nitrogen 28 mg/dL (9-23); Glucose 276 mg/dL (74-106)
[2024-05-16 03:18] LABS: Chloride 103 mmol/L (98-107)
[2024-05-16 03:19] LABS: Anion Gap 11 (5-15)
[2024-05-16 03:24] LABS: BUN/Creatinine Ratio 30.3 (10.0-20.0); Blood Urea Nitrogen 23 mg/dL (9-23)
[2024-05-16 03:27] LABS: Calcium 6.6 mg/dL (8.7-10.4); Carbon Dioxide 17 mmol/L (20-31); Glucose 280 mg/dL (74-106); Potassium 3.3 mmol/L (3.5-5.1); Sodium 131 mmol/L (136-145)
[2024-05-16 05:40] LABS: Potassium 4.1 mmol/L (3.5-5.1)
[2024-05-16 05:41] LABS: Anion Gap 12 (5-15); Calcium 8.9 mg/dL (8.7-10.4)
[2024-05-16 05:47] LABS: Blood Urea Nitrogen 27 mg/dL (9-23); Carbon Dioxide 20 mmol/L (20-31); Chloride 91 mmol/L (98-107); Glucose 345 mg/dL (74-106); Sodium 123 mmol/L (136-145)
[2024-05-16 10:39] LABS: Potassium 3.7 mmol/L (3.5-5.1)
[2024-05-16 10:40] LABS: Anion Gap 9 (5-15); Carbon Dioxide 20 mmol/L (20-31)
[2024-05-16 10:45] LABS: BUN/Creatinine Ratio 26.5 (10.0-20.0)
[2024-05-16 10:51] LABS: Blood Urea Nitrogen 26 mg/dL (9-23); Calcium 7.9 mg/dL (8.7-10.4); Chloride 94 mmol/L (98-107); Glucose 365 mg/dL (74-106); Sodium 123 mmol/L (136-145)
--- NOTE | 2024-05-16 11:06 | DVHPN2 ---
Progress Note Date Seen: May 16, 2024 Medical Necessity Reason Pt with a Central, PICC or Fol: No Subjective Patient reports: Feels better Objective vital signs Vital Sign Date Time Temp Pulse Resp B/P (MAP) Pulse Ox O2 Delivery O2 Flow Rate FiO2 05/16/24 10:00 92/68 05/16/24 08:50 87 12 05/16/24 08:46 Room Air* 0 21 05/16/24 08:30 98.5 99 98.5 Total Intake and Output 05/15/24 05/15/24 05/16/24 15:00 23:00 07:00 Intake Total 1308.75 ml 3.75 ml 175 ml Output Total 800 ml Balance 508.75 ml 3.75 ml 175 ml medications Current Medications Medications Dose Ordered Sig/Patricia Route Start Time Stop Time Status Last Admin Dose Admin Acetaminophen 650 mg Q6HP PRN PO 05/13/24 18:45 05/14/24 01:47 650 MG Acetaminophen/ Hydrocodone Bitart 1 tab Q4HP PRN PO 05/13/24 18:45 05/15/24 20:05 1 TAB Hydromorphone HCl 0.25 mg Q4HP PRN IV 05/13/24 18:45 05/16/24 08:28 0.25 MG Ondansetron HCl 4 mg Q4HP PRN IV 05/13/24 18:45 Enoxaparin Sodium 40 mg DAILY SC 05/14/24 10:00 05/16/24 09:46 40 MG Nitroglycerin 0.4 mg Q5MINP PRN SL 05/13/24 18:45 Morphine Sulfate 2 mg Q30M PRN IV 05/13/24 18:45 Diagnostic Test (Pha) 1 strip ACHS 05/13/24 22:00 05/16/24 07:00 1 STRIP Insulin Human Regular HS SC 05/13/24 22:00 05/14/24 22:20 3 UNITS Insulin Human Regular AC SC 05/14/24 07:00 05/16/24 07:00 12 UNITS Dextrose 50 ml UD PRN IV 05/13/24 19:00 Piperacillin Sod/ Tazobactam Sod 100 ml @ 25 mls/hr Q8HR IV 05/13/24 22:00 05/16/24 06:16 25 MLS/HR Pantoprazole Sodium 40 mg DAILY IV 05/14/24 10:00 05/16/24 09:45 40 MG Daptomycin 500 mg/ Sodium Chloride 50 ml @ 100 mls/hr DAILY IV 05/14/24 18:00 05/16/24 10:03 100 MLS/HR Sodium Chloride 1,000 ml @ 75 mls/hr [id number] IV 05/14/24 16:45 05/16/24 08:49 75 MLS/HR Norepinephrine Bitartrate 250 ml @ 3.75 mls/hr Q24H IV 05/15/24 09:00 05/15/24 09:26 3.75 MLS/HR Furosemide 40 mg BIDD IV 05/15/24 18:00 05/16/24 06:16 40 MG Hydralazine HCl 10 mg Q6HP PRN IV 05/15/24 17:30 Examination: GENERAL:Abnormal, MSK:Abnormal, SKIN:Normal laboratory and microbiology Laboratory Tests 05/16/24 10:01 Test 05/16/24 10:01 Range/Units Serum Glucose 365 H 74-106 mg/dL Microbiology Date/Time Source Procedure Growth Status 05/14/24 00:00 Foot Gram Stain - Final Resulted 05/14/24 00:00 Foot Wound Culture - Preliminary Resulted 05/13/24 15:43 Blood Blood Culture - Preliminary Methicillin Resistant S.aureus Resulted Problem List/Assessment/Plan Problem List/Assessment/Plan YESSY superimposed on CKD secondary to hemodynamic mediated Hyponatremia due to dehydration Uncontrolled DM, A1c > 11, hyperglycemia MRSA septicemia Peripheral arterial disease Right foot osteomyelitis Charcot foot left foot/cellulitis Anemia of CKD HIV per ID Acute kidney injury resolving IV antibiotics treatment of wound infection Patient has uncontrolled diabetes; hyperosmolar hyponatremia from diabetes. Recommend improve patient's glycemic control with increased dose of insulin. Corrected sodium today is approximately 129. Continue close monitoring. ID consult retrovirals on hold Plan discussed with: Patient My Orders My Orders Orders - ELLA GUDINO MD Procedure Category Date Status Time Communication Order ORDERS 05/16/24 Verified 10:59 ELLA GUDINO MD May 16, 2024 11:06
[2024-05-16 14:48] LABS: Potassium 3.6 mmol/L (3.5-5.1)
[2024-05-16 14:49] LABS: Anion Gap 9 (5-15); Carbon Dioxide 23 mmol/L (20-31)
[2024-05-16 14:54] LABS: BUN/Creatinine Ratio 24.8 (10.0-20.0)
[2024-05-16 15:04] LABS: Blood Urea Nitrogen 26 mg/dL (9-23); Calcium 8.3 mg/dL (8.7-10.4); Chloride 90 mmol/L (98-107); Glucose 350 mg/dL (74-106); Sodium 122 mmol/L (136-145)
--- NOTE | 2024-05-16 16:35 | DVHPN2 ---
Subjective MRI of the left lower extremity shows no evidence of any osteomyelitis. Patient was currently denies any complaint Changes from previous H/P or p: No Changes Eyes: No Pain, No Vision change, No Conjunctivae inflammation, No Eyelid inflammation, No Other, No Redness ENT: No Ear pain, No Ear discharge, No Nose pain, No Nose discharge, No Nose congestion, No Mouth pain, No Mouth swelling, No Throat pain, No Throat swelling, No Other Cardiovascular: No Chest Pain, No Palpitations, No Orthopnea, No Paroxysmal Noc. Dyspnea, No Edema, No Lt Headedness, No Other Respiratory: No Cough, No Dry, No Shortness of breath, No SOB with excertion, No Wheezing, No Hemoptysis, No Pleuritic Pain, No Sputum, No Other Gastrointestinal: No Nausea, No Vomiting, No Abdominal Pain, No Diarrhea, No Constipation, No Melena, No Hematochezia, No Other Genitourinary: Dysuria; No Frequency, No Incontinence, No Hematuria, No Retention, No Other Musculoskeletal: foot pain (left) Skin: No Rash, No Lesions, No Jaundice, No Bruising; Other (Left foot wound) Objective Vitals Vital Signs Date Time Temp Pulse Resp B/P (MAP) Pulse Ox O2 Delivery O2 Flow Rate FiO2 05/16/24 16:15 77 20 113/69 (84) 98 05/16/24 08:46 Room Air* 0 21 05/16/24 08:30 98.5 98.5 Intake/Output Intake and Output 05/16/24 07:00 Intake Total 1487.50 ml Output Total 800 ml Balance 687.50 ml Intake Oral 50 ml IV Total 1437.50 ml Output Urine Total 800 ml Exam HEENT pupils are reactive Neck is supple CVS S1-S2 regular rate and rhythm Respiratory diminished breath sounds bases GI positive bowel sound Extremity no edema DIRECTOR OF PERSONNEL no motor deficit Left lower extremity foot wounds antiseptic dressing Medications Current Medications Medications Dose Ordered Sig/Patricia Route Start Time Stop Time Status Last Admin Dose Admin Acetaminophen 650 mg Q6HP PRN PO 05/13/24 18:45 05/14/24 01:47 650 MG Acetaminophen/ Hydrocodone Bitart 1 tab Q4HP PRN PO 05/13/24 18:45 05/15/24 20:05 1 TAB Hydromorphone HCl 0.25 mg Q4HP PRN IV 05/13/24 18:45 05/16/24 08:28 0.25 MG Ondansetron HCl 4 mg Q4HP PRN IV 05/13/24 18:45 Enoxaparin Sodium 40 mg DAILY SC 05/14/24 10:00 05/16/24 09:46 40 MG Nitroglycerin 0.4 mg Q5MINP PRN SL 05/13/24 18:45 Morphine Sulfate 2 mg Q30M PRN IV 05/13/24 18:45 Diagnostic Test (Pha) 1 strip ACHS 05/13/24 22:00 05/16/24 11:09 1 STRIP Insulin Human Regular HS SC 05/13/24 22:00 05/14/24 22:20 3 UNITS Insulin Human Regular AC SC 05/14/24 07:00 05/16/24 11:20 15 UNITS Dextrose 50 ml UD PRN IV 05/13/24 19:00 Piperacillin Sod/ Tazobactam Sod 100 ml @ 25 mls/hr Q8HR IV 05/13/24 22:00 05/16/24 13:34 25 MLS/HR Pantoprazole Sodium 40 mg DAILY IV 05/14/24 10:00 05/16/24 09:45 40 MG Daptomycin 500 mg/ Sodium Chloride 50 ml @ 100 mls/hr DAILY IV 05/14/24 18:00 05/16/24 10:03 100 MLS/HR Sodium Chloride 1,000 ml @ 75 mls/hr [id number] IV 05/14/24 16:45 05/16/24 08:49 75 MLS/HR Norepinephrine Bitartrate 250 ml @ 3.75 mls/hr Q24H IV 05/15/24 09:00 05/15/24 09:26 3.75 MLS/HR Furosemide 40 mg BIDD IV 05/15/24 18:00 05/16/24 06:16 40 MG Hydralazine HCl 10 mg Q6HP PRN IV 05/15/24 17:30 Laboratory Results Laboratory Tests 05/16/24 14:01 Chemistry Test 05/15/24 17:33 05/15/24 21:10 05/16/24 02:28 05/16/24 04:58 Calcium Level 8.8 mg/dL (8.7-10.4) 8.7 mg/dL (8.7-10.4) 6.6 mg/dL (8.7-10.4) L 8.9 mg/dL (8.7-10.4) Test 05/16/24 10:01 05/16/24 14:01 Calcium Level 7.9 mg/dL (8.7-10.4) L 8.3 mg/dL (8.7-10.4) L Urinalysis Test 05/13/24 21:00 05/15/24 13:32 Urine Color Yellow (Yellow) Urine Clarity Turbid (Clear) H Urine pH 5.5 (5.0-9.0) Urine Specific [place] 1.014 (1.001-1.035) Urine Protein Trace (Negative) H Urine Ketones Negative (Negative) Urine Blood Trace /uL (Negative) H Urine Nitrite Negative (Negative) Urine Bilirubin Negative (Negative) Urine Urobilinogen Normal mg/dL (Negative) Urine Leukocyte Esterase 3+ /uL (Negative) Urine RBC 2 /hpf (0 - 3) Urine Microscopic WBC 70 /HPF (0-3) H Urine Squamous Epithelial Cells None seen /hpf (<5) Urine Bacteria Few /hpf (None Seen) H Urine Mucus Few (None Seen) Urine Creatinine 53.09 mg/dL (30.0-125.0) Urine Protein/Creatinine Ratio 1.05 Urine Sodium 46 mmol/L (40-220) Urine Potassium 23 mmol/L (12-62) Urine Glucose 3+ mg/dL (Normal) H Urine Total Protein 55.6 mg/dL (1-14) H Urine Osmolality 266 mOsm/kg Microbiology Microbiology Date/Time Source Procedure Growth Status 05/15/24 18:29 Blood Blood Culture - Preliminary Resulted 05/14/24 00:00 Foot Gram Stain - Final Resulted 05/14/24 00:00 Foot Wound Culture - Preliminary Resulted Assessment/Plan Assessment/Plan 59-year-old male with a known history of insulin-dependent diabetes mellitus, hypertension, chronic left foot wound currently being seen at wound care center presented to the hospital with generalized weakness found to have 1. Sepsis secondary to left foot wound cellulitis and osteomyelitis 2. Left foot cellulitis ruled and osteomyelitis 3. Hyponatremia suspect pseudohyponatremia in the setting of uncontrolled hyperglycemia 4. Uncontrolled hyperglycemia with history of insulin-dependent diabetes mellitus 5. Hypocalcemia 6. Leukocytosis likely reactive 7. Persistent MRSA bacteremia -2D echo, cardiology consultation for ruling out vegetation -continue broad-spectrum IV antibiotics, MRI left foot ruled in osteomyelitis, Infectious Disease consultation, Podiatry consultation -nephrology consultation. Plan discussed with: Patient, Other My Orders Orders - NADEEM LIMON MD Procedure Category Date Status Time Hydralazine Injection PHA 05/15/24 In Process (Apresoline Inject 17:30 * Cardiology Consult CONS 05/16/24 Transmitted 14:30 Date of Service: May 16, 2024 Billing Provider: NADEEM LIMON MD Common Visit Codes: [id number] INP/OBS CARE(MOD) NADEEM LIMON MD May 16, 2024 16:35
[2024-05-16 19:28] LABS: Anion Gap 10 (5-15); Carbon Dioxide 22 mmol/L (20-31)
[2024-05-16 19:30] VITALS: PULSE 82; RESP 12; O2SAT 98
[2024-05-16 19:30] LABS: Calcium 8.2 mg/dL (8.7-10.4); Chloride 93 mmol/L (98-107); Potassium 3.5 mmol/L (3.5-5.1); Sodium 125 mmol/L (136-145)
[2024-05-16 19:33] LABS: BUN/Creatinine Ratio 26.1 (10.0-20.0); Blood Urea Nitrogen 24 mg/dL (9-23); Glucose 246 mg/dL (74-106)
--- NOTE | 2024-05-16 21:30 | DVHPN2 ---
Progress Note - Dictate Date Seen: May 16, 2024 Medical Necessity Reason Pt with a Central, PICC or Fol: No Subjective Patient seen and examined at bedside. Breathing comfortably on room air. Overnight events reviewed. vital signs Vital Sign Date Time Temp Pulse Resp B/P (MAP) Pulse Ox O2 Delivery O2 Flow Rate FiO2 05/16/24 20:45 98/68 05/16/24 20:45 88 26 99 05/16/24 19:30 97.9 97.9 05/16/24 19:30 Nasal Cannula* 2 28 Total Intake and Output 05/15/24 05/15/24 05/16/24 15:00 23:00 07:00 Intake Total 1308.75 ml 3.75 ml 175 ml Output Total 800 ml Balance 508.75 ml 3.75 ml 175 ml medications Current Medications Medications Dose Ordered Sig/Patricia Route Start Time Stop Time Status Last Admin Dose Admin Acetaminophen 650 mg Q6HP PRN PO 05/13/24 18:45 05/14/24 01:47 650 MG Acetaminophen/ Hydrocodone Bitart 1 tab Q4HP PRN PO 05/13/24 18:45 05/16/24 17:02 1 TAB Hydromorphone HCl 0.25 mg Q4HP PRN IV 05/13/24 18:45 05/16/24 08:28 0.25 MG Ondansetron HCl 4 mg Q4HP PRN IV 05/13/24 18:45 Enoxaparin Sodium 40 mg DAILY SC 05/14/24 10:00 05/16/24 09:46 40 MG Nitroglycerin 0.4 mg Q5MINP PRN SL 05/13/24 18:45 Morphine Sulfate 2 mg Q30M PRN IV 05/13/24 18:45 Diagnostic Test (Pha) 1 strip ACHS 05/13/24 22:00 05/16/24 17:00 1 STRIP Insulin Human Regular HS SC 05/13/24 22:00 05/14/24 22:20 3 UNITS Insulin Human Regular AC SC 05/14/24 07:00 05/16/24 17:01 12 UNITS Dextrose 50 ml UD PRN IV 05/13/24 19:00 Piperacillin Sod/ Tazobactam Sod 100 ml @ 25 mls/hr Q8HR IV 05/13/24 22:00 05/16/24 13:34 25 MLS/HR Pantoprazole Sodium 40 mg DAILY IV 05/14/24 10:00 05/16/24 09:45 40 MG Daptomycin 500 mg/ Sodium Chloride 50 ml @ 100 mls/hr DAILY IV 05/14/24 18:00 05/16/24 10:03 100 MLS/HR Norepinephrine Bitartrate 250 ml @ 3.75 mls/hr Q24H IV 05/15/24 09:00 05/15/24 09:26 3.75 MLS/HR Furosemide 40 mg BIDD IV 05/15/24 18:00 05/16/24 18:13 40 MG Hydralazine HCl 10 mg Q6HP PRN IV 05/15/24 17:30 objective Gen.: Patient lying in bed in no apparent distress. Breathing on room air. Head: Normocephalic, atraumatic. Eyes: EOMI/PERRLA. Ears: Normal hearing. Normal anatomy. Neck/trachea: Trachea midline, supple. Nose: Normal external anatomy. Mouth: Moist mucous membranes. Chest: Decreased air entry bilaterally. No wheezing or rhonchi. Cardiovascular: Positive S1, positive S2. Regular rate and rhythm. Abdomen: Positive bowel sounds in all 4 quadrants. Soft, non-tender, non- distended. : Deferred. Rectal: Deferred. Skin: Warm, dry. Intact. Extremities: 2+ radial pulses bilaterally. No lower extremity edema. Neuro: Awake, alert, oriented x3. No gross motor or sensory deficits. Cranial nerves II through XII intact. Gait not assessed. laboratory and microbiology Laboratory Tests 05/16/24 18:33 Test 05/16/24 18:33 Range/Units Serum Glucose 246 #H 74-106 mg/dL Assessment/Plan Impression: Sepsis Left foot wound cellulitis, rule out osteomyelitis Hyponatremia Uncontrolled hyperglycemia Hypocalcemia Leukocytosis, likely reactive Events: Remains on room air Supplemental oxygen PRN Off Levophed, hemodynamically stable Continue antibiotics Blood cultures grew MRSA WBC trending down ID recommendations appreciated. Monitor renal function. Monitor electrolytes. Supplement as necessary. Monitor ins and outs. DVT prophylaxis. Labs and imaging reviewed. Rest of plan as noted below. Plan: Supplemental oxygen PRN Titrate to keep O2 sats above 92%. Pressors if necessary for hemodynamic support Titrate to keep mean arterial pressure greater than 65 mmHg Continue antibiotics MRI left foot reviewed; extensive bone marrow edema involving distal tibia, distal fibula, talus, calcaneus and the residual tarsal bones highly concerning for osteomyelitis with differential diagnosis of Charcot joint. Severe tenosynovitis involving the flexor, peroneal and extensor compartments probably infectious. Achilles tendinosis and peritendinitis. Adjacent draining ulcer is seen. ID recommendations appreciated Podiatry consultation Monitor renal function. Monitor electrolytes. Supplement as necessary. Monitor ins and outs. Nephrology recommendations appreciated DVT prophylaxis. Prognosis: Poor given patient's multiple co-morbidities. Rest of plan per hospitalist and other consultants. Thank you Dr Patterson for allowing me to participate in this patient's care. Further recommendations will depend on the patient's clinical course. Please do not hesitate to contact me if you have any questions or concerns. This medical document was created using an electronic medical record system with [employer] dictation system. Although these documentations are being carefully reviewed, there may still be some phonetic and typographical changes. The errors are purely typographical, due to imperfection on the software program, and do not reflect any compromise in the patient's medical care. Plan discussed with: Patient, Other (RN) DAX CORDOBA MD May 16, 2024 21:29
[2024-05-16] MEDS: dilTIAZem 25 MG/5 ML VIAL IV ONE ×2 (22:14→22:29)
[2024-05-17] VITALS (83 sets, daily range): BP systolic 79–146; BP diastolic 55–99; PULSE 69–126; RESP 7–32; TEMP 97.8–98.7; O2SAT 93–100
[2024-05-17 04:26] LABS: Anion Gap 10 (5-15); Carbon Dioxide 23 mmol/L (20-31)
[2024-05-17 04:27] LABS: Hemoglobin 7.2 g/dL (13.5-17.5); Red Cell Distribution Width 16.1 % (11.8-14.3)
[2024-05-17 04:33] LABS: Hematocrit 23.2 % (41.0-53.0); Mean Corpuscular Hemoglobin 25.8 pg (28.0-32.0); Mean Corpuscular Hgb Conc. 31.2 g/dL (32.0-36.0); Mean Corpuscular Volume 82.8 fL (80.0-100.0); Platelet Count (auto) 549 10^3/uL (140-450)
[2024-05-17 04:37] LABS: Blood Urea Nitrogen 25 mg/dL (9-23); Calcium 8.7 mg/dL (8.7-10.4); Chloride 88 mmol/L (98-107); Glucose 193 mg/dL (74-106); Potassium 3.5 mmol/L (3.5-5.1); Sodium 121 mmol/L (136-145)
[2024-05-17 04:43] LABS: BUN/Creatinine Ratio 23.6 (10.0-20.0)
[2024-05-17 05:20] LABS: Basophils % (manual) 0 (0.0-2.0); Blast Cells 0; Eosinophils % (manual) 0 (0-7); Metamyelocytes % 0; Myelocytes % 0; Promyelocytes % 0; Reactive Lymphocytes 0
[2024-05-17 09:07] LABS: Baso (Absolute) 0.1 x10E3/uL (0.0-0.2); Basos 0 % (Not Estab.); Eos 0 % (Not Estab.); Eos (Absolute) 0.1 x10E3/uL (0.0-0.4); Hemoglobin 8.3 g/dL (13.0-17.7); Immature Granulocytes (Abs) 1.5 x10E3/uL (0.0-0.1); Lymphs 8 % (Not Estab.); Lymphs (Absolute) 2.2 x10E3/uL (0.7-3.1); MCH 27.3 pg (26.6-33.0); MCHC 31.9 g/dL (31.5-35.7); MCV 86 fL (79-97); Monocytes 3 % (Not Estab.); Monocytes (Absolute) 0.9 x10E3/uL (0.1-0.9); Neutrophils 84 % (Not Estab.); Neutrophils (Absolute) 23.5 x10E3/uL (1.4-7.0); Platelets 591 x10E3/uL (150-450); RBC 3.04 x10E6/uL (4.14-5.80); RDW 13.8 % (11.6-15.4)
[2024-05-17 09:17] LABS: Band Neutrophils % (manual) 9; Lymphocytes % (manual) 4 (10.0-50.0); Monocytes % (manual) 4 (0-12); Platelet Estimate Increased
--- NOTE | 2024-05-17 10:09 | ECG ---
[facility] Test Date: 2024-05-16 Test Time: 22:06:15 Pat Name: TYLER FENG Department: ED Room: 0264 Gender: M Clinical Application Specialist: RADHA : 1975 Requested By: NAHID GONZALEZ Order Number: [id number] Reading MD: Jamey Whitehead Measurements Intervals [place] Rate: 154 P: 22 SD: 117 QRS: -7 QRSD: 88 T: 55 QT: 264 QTc: 423 Interpretive Statements Sinus tachycardia Low voltage, precordial leads Consider anterior infarct Minimal ST depression, anterolateral leads Artifact in lead(s) I,II,aVR,aVF,V1,V2 and baseline wander in lead(s) I,II,aVR,V1 Electronically Signed On 05-21-2024 17:25:48 PST by Jamey Whitehead Please click the below link to view image of tracing.
[2024-05-17 11:07] LABS: % CD 4 Pos Lymph 25.2 % (30.8-58.5); % CD 8 Pos Lymph 56.3 % (12.0-35.5); Absolute CD 4 Helper 554 /uL (359-1519); CD4/CD8 Ratio 0.45 (0.92-3.72)
--- NOTE | 2024-05-17 11:18 | DVH ---
CHEST RADIOGRAPH Indication: SOB, hypoxia Technique: Single frontal view of the chest was obtained COMPARISON: XY CHEST PORTABLE on DOS: 05/13/24 FINDINGS: Lines and Tubes: None Lungs: Multifocal airspace disease. Pleura: No effusion. No pneumothorax. Cardiomediastinal contours: Unremarkable Bones: Unremarkable IMPRESSION: Multifocal airspace disease.
--- NOTE | 2024-05-17 12:14 | DVHPN2 ---
Progress Note Date Seen: May 17, 2024 Medical Necessity Reason Pt with a Central, PICC or Fol: No Subjective Patient reports: Feels better Objective vital signs Vital Sign Date Time Temp Pulse Resp B/P (MAP) Pulse Ox O2 Delivery O2 Flow Rate FiO2 05/17/24 10:00 13 100 Nasal Cannula* 2 28 05/17/24 10:00 76 05/17/24 09:45 117/78 (91) 05/17/24 08:00 97.8 97.8 Total Intake and Output 05/16/24 05/16/24 05/17/24 15:00 23:00 07:00 Intake Total 675 ml 400 ml 202.50 ml Output Total 700 ml 800 ml Balance 675 ml -300 ml -597.50 ml medications Current Medications Medications Dose Ordered Sig/Patricia Route Start Time Stop Time Status Last Admin Dose Admin Acetaminophen 650 mg Q6HP PRN PO 05/13/24 18:45 05/14/24 01:47 650 MG Acetaminophen/ Hydrocodone Bitart 1 tab Q4HP PRN PO 05/13/24 18:45 05/17/24 00:36 1 TAB Hydromorphone HCl 0.25 mg Q4HP PRN IV 05/13/24 18:45 05/17/24 06:06 0.25 MG Ondansetron HCl 4 mg Q4HP PRN IV 05/13/24 18:45 Enoxaparin Sodium 40 mg DAILY SC 05/14/24 10:00 05/17/24 08:24 40 MG Nitroglycerin 0.4 mg Q5MINP PRN SL 05/13/24 18:45 Morphine Sulfate 2 mg Q30M PRN IV 05/13/24 18:45 Diagnostic Test (Pha) 1 strip ACHS 05/13/24 22:00 05/17/24 11:57 1 STRIP Insulin Human Regular HS SC 05/13/24 22:00 05/16/24 21:30 3 UNITS Insulin Human Regular AC SC 05/14/24 07:00 05/17/24 11:56 6 UNITS Dextrose 50 ml UD PRN IV 05/13/24 19:00 Piperacillin Sod/ Tazobactam Sod 100 ml @ 25 mls/hr Q8HR IV 05/13/24 22:00 05/17/24 06:05 25 MLS/HR Pantoprazole Sodium 40 mg DAILY IV 05/14/24 10:00 05/17/24 08:24 40 MG Daptomycin 500 mg/ Sodium Chloride 50 ml @ 100 mls/hr DAILY IV 05/14/24 18:00 05/17/24 09:38 100 MLS/HR Norepinephrine Bitartrate 250 ml @ 3.75 mls/hr Q24H IV 05/15/24 09:00 05/15/24 09:26 3.75 MLS/HR Hydralazine HCl 10 mg Q6HP PRN IV 05/15/24 17:30 Albumin Human 50 ml @ 100 mls/hr Q8H IV 05/17/24 11:30 05/18/24 03:59 UNV Examination: GENERAL:Abnormal, CVS:Abnormal, ABDOMEN:Abnormal laboratory and microbiology Laboratory Tests 05/17/24 03:45 Test 05/17/24 03:45 Range/Units Serum Glucose 193 H 74-106 mg/dL Microbiology Date/Time Source Procedure Growth Status 05/15/24 18:29 Blood Blood Culture - Preliminary Methicillin Resistant S.aureus Resulted 05/14/24 00:00 Foot Gram Stain - Final Resulted 05/14/24 00:00 Foot Wound Culture - Preliminary Resulted Problem List/Assessment/Plan Problem List/Assessment/Plan YESSY superimposed on CKD secondary to hemodynamic mediated Hyponatremia Uncontrolled DM, A1c > 11, hyperglycemia MRSA septicemia Peripheral arterial disease Right foot osteomyelitis Charcot foot left foot/cellulitis Anemia of CKD HIV per ID Acute kidney injury resolving IV antibiotics treatment of wound infection glycemic control obtain urine OSm, serum Osm, DC IVF and dc lasix, repeat labs @ 2pm ID consult retrovirals on hold Plan discussed with: Patient My Orders My Orders Orders - ELLA GUDINO MD Procedure Category Date Status Time Communication Order ORDERS 05/16/24 Transmitted 19:08 Osmolality Urine LAB 05/17/24 Logged 11:05 Urine Sodium LAB 05/17/24 Logged 11:05 Basic Metabolic Panel LAB 05/18/24 Verified 04:00 Albumin 25% (Alb[place]in) PHA 05/17/24 Logged 11:30 Basic Metabolic Panel LAB 05/17/24 Logged 14:00 ELLA GUDINO MD May 17, 2024 12:14
--- NOTE | 2024-05-17 13:02 | ECG ---
[facility] Test Date: 2024-05-16 Test Time: 22:07:35 Pat Name: TYLER FENG Department: ED Room: 0264 Gender: M Escrow Manager: RADHA : 1975 Requested By: CAROLINA KABA Order Number: [id number] Reading MD: Jamey Whitehead Measurements Intervals [place] Rate: 153 P: 21 NC: 121 QRS: -10 QRSD: 86 T: 14 QT: 261 QTc: 417 Interpretive Statements Sinus tachycardia Consider anterior infarct Electronically Signed On 05-21-2024 17:26:05 PST by Jamey Whitehead Please click the below link to view image of tracing.
[2024-05-17] MEDS: CLINDAMYCIN 900MG IV 50 ML IV SCH (13:18)
[2024-05-17] MEDS: ALBUMIN 25% 50 ML IV SCH (13:38)
[2024-05-17 13:41] LABS: Anion Gap 9 (5-15); Carbon Dioxide 25 mmol/L (20-31)
[2024-05-17 13:48] LABS: BUN/Creatinine Ratio 20.8 (10.0-20.0); Blood Urea Nitrogen 21 mg/dL (9-23)
[2024-05-17 14:05] LABS: Calcium 8.3 mg/dL (8.7-10.4); Chloride 88 mmol/L (98-107); Glucose 273 mg/dL (74-106); Potassium 3.4 mmol/L (3.5-5.1); Sodium 122 mmol/L (136-145)
--- NOTE | 2024-05-17 15:52 | DVHPN2 ---
Subjective MRI of the left lower extremity shows no evidence of any osteomyelitis. Patient was currently complaining of minimal left foot pain. Changes from previous H/P or p: No Changes Eyes: No Pain, No Vision change, No Conjunctivae inflammation, No Eyelid inflammation, No Other, No Redness ENT: No Ear pain, No Ear discharge, No Nose pain, No Nose discharge, No Nose congestion, No Mouth pain, No Mouth swelling, No Throat pain, No Throat swelling, No Other Cardiovascular: No Chest Pain, No Palpitations, No Orthopnea, No Paroxysmal Noc. Dyspnea, No Edema, No Lt Headedness, No Other Respiratory: No Cough, No Dry, No Shortness of breath, No SOB with excertion, No Wheezing, No Hemoptysis, No Pleuritic Pain, No Sputum, No Other Gastrointestinal: No Nausea, No Vomiting, No Abdominal Pain, No Diarrhea, No Constipation, No Melena, No Hematochezia, No Other Genitourinary: Dysuria; No Frequency, No Incontinence, No Hematuria, No Retention, No Other Musculoskeletal: foot pain (left) Skin: No Rash, No Lesions, No Jaundice, No Bruising; Other (Left foot wound) Objective Vitals Vital Signs Date Time Temp Pulse Resp B/P (MAP) Pulse Ox O2 Delivery O2 Flow Rate FiO2 05/17/24 15:00 87 14 97/69 (78) 97 05/17/24 14:00 Room Air* 0 21 05/17/24 12:00 98.7 98.7 Intake/Output Intake and Output 05/17/24 07:00 Intake Total 1277.50 ml Output Total 1500 ml Balance -222.50 ml IV Total 1277.50 ml Output Urine Total 1500 ml Exam HEENT pupils are reactive Neck is supple CVS S1-S2 regular rate and rhythm Respiratory diminished breath sounds bases GI positive bowel sound Extremity no edema 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 no motor deficit Left lower extremity foot wounds antiseptic dressing Medications Current Medications Medications Dose Ordered Sig/Patricia Route Start Time Stop Time Status Last Admin Dose Admin Acetaminophen 650 mg Q6HP PRN PO 05/13/24 18:45 05/14/24 01:47 650 MG Acetaminophen/ Hydrocodone Bitart 1 tab Q4HP PRN PO 05/13/24 18:45 05/17/24 00:36 1 TAB Hydromorphone HCl 0.25 mg Q4HP PRN IV 05/13/24 18:45 05/17/24 12:13 0.25 MG Ondansetron HCl 4 mg Q4HP PRN IV 05/13/24 18:45 Enoxaparin Sodium 40 mg DAILY SC 05/14/24 10:00 05/17/24 08:24 40 MG Nitroglycerin 0.4 mg Q5MINP PRN SL 05/13/24 18:45 Morphine Sulfate 2 mg Q30M PRN IV 05/13/24 18:45 Diagnostic Test (Pha) 1 strip ACHS 05/13/24 22:00 05/17/24 11:57 1 STRIP Insulin Human Regular HS SC 05/13/24 22:00 05/16/24 21:30 3 UNITS Insulin Human Regular AC SC 05/14/24 07:00 05/17/24 11:56 6 UNITS Dextrose 50 ml UD PRN IV 05/13/24 19:00 Piperacillin Sod/ Tazobactam Sod 100 ml @ 25 mls/hr Q8HR IV 05/13/24 22:00 05/17/24 14:36 25 MLS/HR Pantoprazole Sodium 40 mg DAILY IV 05/14/24 10:00 05/17/24 08:24 40 MG Daptomycin 500 mg/ Sodium Chloride 50 ml @ 100 mls/hr DAILY IV 05/14/24 18:00 05/17/24 09:38 100 MLS/HR Norepinephrine Bitartrate 250 ml @ 3.75 mls/hr Q24H IV 05/15/24 09:00 05/15/24 09:26 3.75 MLS/HR Hydralazine HCl 10 mg Q6HP PRN IV 05/15/24 17:30 Albumin Human 50 ml @ 100 mls/hr Q8H IV 05/17/24 11:30 05/18/24 03:59 05/17/24 13:38 100 MLS/HR Clindamycin Phosphate 50 ml @ 50 mls/hr Q8HR IV 05/17/24 14:00 05/17/24 13:18 50 MLS/HR Alprazolam 0.5 mg BID PRN PO 05/17/24 15:45 UNV Laboratory Results Laboratory Tests 05/17/24 03:45 05/17/24 12:56 Chemistry Test 05/16/24 18:33 05/17/24 03:45 05/17/24 12:56 Calcium Level 8.2 mg/dL (8.7-10.4) L 8.7 mg/dL (8.7-10.4) 8.3 mg/dL (8.7-10.4) L Urinalysis Test 05/13/24 21:00 05/17/24 12:20 Urine Color Yellow (Yellow) Urine Clarity Turbid (Clear) H Urine pH 5.5 (5.0-9.0) Urine Specific [place] 1.014 (1.001-1.035) Urine Protein Trace (Negative) H Urine Ketones Negative (Negative) Urine Blood Trace /uL (Negative) H Urine Nitrite Negative (Negative) Urine Bilirubin Negative (Negative) Urine Urobilinogen Normal mg/dL (Negative) Urine Leukocyte Esterase 3+ /uL (Negative) Urine RBC 2 /hpf (0 - 3) Urine Microscopic WBC 70 /HPF (0-3) H Urine Squamous Epithelial Cells None seen /hpf (<5) Urine Bacteria Few /hpf (None Seen) H Urine Mucus Few (None Seen) Urine Creatinine 53.09 mg/dL (30.0-125.0) Urine Protein/Creatinine Ratio 1.05 Urine Potassium 23 mmol/L (12-62) Urine Glucose 3+ mg/dL (Normal) H Urine Total Protein 55.6 mg/dL (1-14) H Urine Osmolality 219 mOsm/kg Urine Sodium 66 mmol/L (40-220) Microbiology Microbiology Date/Time Source Procedure Growth Status 05/15/24 18:29 Blood Blood Culture - Preliminary Methicillin Resistant S.aureus Resulted 05/14/24 00:00 Foot Gram Stain - Final Complete 05/14/24 00:00 Wound Culture - Final Methicillin Resistant S.aureus Complete Assessment/Plan Assessment/Plan 59-year-old male with a known history of insulin-dependent diabetes mellitus, hypertension, chronic left foot wound currently being seen at wound care center presented to the hospital with generalized weakness found to have 1. Sepsis secondary to left foot wound cellulitis and osteomyelitis 2. Left foot cellulitis ruled and osteomyelitis 3. Hyponatremia suspect pseudohyponatremia in the setting of uncontrolled hyperglycemia 4. Uncontrolled hyperglycemia with history of insulin-dependent diabetes mellitus 5. Hypocalcemia 6. Leukocytosis likely reactive 7. Persistent MRSA bacteremia 8. HIV -HARRIS -2D echo, cardiology consultation for ruling out vegetation -continue broad-spectrum IV antibiotics, MRI left foot ruled in osteomyelitis, Infectious Disease consultation, Podiatry consultation -nephrology consultation. Plan discussed with: Patient, Other My Orders Orders - NADEEM LIMON MD Procedure Category Date Status Time Alprazolam Tablet PHA 05/17/24 Logged (Xanax Tablet) 15:45 Potassium Effervesent PHA 05/17/24 Logged Tab (Klor-Con/Ef) 15:45 Date of Service: May 17, 2024 Billing Provider: NADEEM LIMON MD Common Visit Codes: NOT BILLABLE NADEEM LIMON MD May 17, 2024 15:51
[2024-05-17] MEDS: POTASSIUM EFFERVESENT TAB 25 MEQ PO ONE (16:20)
--- NOTE | 2024-05-17 16:24 | DVHINCON2 ---
Date Seen: May 17, 2024 Reason for Consultation Left ankle wound History of Present Illness 49-year-old male brought by paramedics because he was having generalized weakness for the past six days. Patient does have a history of hypertension insulin-dependent diabetes. He does have wound in the left lower extremity, he has home health for wound care who sees him for dressing changes. He has been having left lower extremity wound for the past month. He does have right toe amputation which was done in [place] several years ago. Patient states that he does not move about because of his wound in the left lower extremity along with a amputation of the right toes. Also endorses dysuria. Denies fever abdominal pain nausea vomiting. Denies chest pain. Denies any other symptoms. Past Medical History See H&P Allergies: Coded Allergies: NO KNOWN ALLERGIES (Unverified , 05/13/24) Current Medications Current Medications Medications (Trade) Dose Ordered Sig/Patricia Route PRN Reason Start Time Stop Time Status Last Admin Albumin Human 50 ml @ 100 mls/hr Q8H IV 05/17/24 11:30 05/18/24 03:59 05/17/24 13:38 Clindamycin Phosphate 50 ml @ 50 mls/hr Q8HR IV 05/17/24 14:00 05/17/24 13:18 Alprazolam (Xanax Tablet) 0.5 mg BID PRN PO ANXIETY 05/17/24 15:45 Vital Signs Vital Signs Date Time Temp Pulse Resp B/P (MAP) Pulse Ox O2 Delivery O2 Flow Rate FiO2 05/17/24 16:00 98.6 81 13 95/65 (75) 100 98.6 05/17/24 14:00 Room Air* 0 21 Physical Exam DERMATOLOGIC EXAM: - Skin is dry and cool to the touch dry bilaterally. - Nails 1-5 of the bilateral foot are thickened, discolored, dystrophic, and ten kenzie to palpate with subungual debris - Hair loss noted to bilateral feet Wound #1: Location: Left ankle Measurements: Length 4 cm x width 1 cm x depth 1 cm. Wound margins: Hyperkeratotic. Wound base: Full thickness. General Appearance: Fibrotic Probes to Bone: No Purulent drainage: Yes Serous drainage: No Erythema: Periwound VASCULAR EXAM: - DP and PT pulses are palpable bilaterally. 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 - Feet are cool to touch compared to lower legs bilaterally. NEUROLOGIC EXAM: - Normal light touch sensation to the superficial peroneal, deep peroneal, sural, saphenous, and tibial nerve branches. - Protective sensation is diminished as tested with a 5.07 10g [place] bilaterally. MUSCULOSKELETAL EXAM: - No gross deformities - Muscle strength is 5/5 and active motion is pain-free and symmetrical bilaterally - No pain or crepitation with passive range of motion bilaterally to all major pedal joints Labs/Diagnostic Data Labs Test 05/17/24 12:56 05/17/24 12:20 05/17/24 05:45 05/17/24 03:45 Range/Units Sodium Level 122 L 136-145 mmol/L Potassium Level 3.4 L 3.5-5.1 mmol/L Chloride Level 88 L 98-107 mmol/L Carbon Dioxide Level 25 20-31 mmol/L Anion Gap 9 5-15 Blood Urea Nitrogen 21 9-23 mg/dL Creatinine 1.01 0.700-1.30 mg/dL Glomerular Filtration Rate Calc 91 >90 mL/min BUN/Creatinine Ratio 20.8 H 10.0-20.0 Serum Glucose 273 H 74-106 mg/dL Serum Osmolality 269 L 278-298 mOsm/kg Calcium Level 8.3 L 8.7-10.4 mg/dL Urine Osmolality 219 mOsm/kg Urine Sodium 66 40-220 mmol/L POC Glucose 230 H 70-106 mg/dl White Blood Count 46.0 #*H 4.4-10.8 10^3/uL Red Blood Count 2.80 L 4.5-5.90 10^6/uL Hemoglobin 7.2 #L 13.5-17.5 g/dL Hematocrit 23.2 #L 41.0-53.0 % Mean Corpuscular Volume 82.8 80.0-100.0 fL Mean Corpuscular Hemoglobin 25.8 L 28.0-32.0 pg Mean Corpuscular Hemoglobin Concent 31.2 L 32.0-36.0 g/dL Red Cell Distribution Width 16.1 H 11.8-14.3 % Platelet Count 549 H 140-450 10^3/uL Mean Platelet Volume 7.3 6.9-10.8 fL Neutrophils (%) (Auto) 37.0-80.0 % Lymphocytes (%) (Auto) 10.0-50.0 % Monocytes (%) (Auto) 0.0-12.0 % Basophils (%) (Auto) 0.0-2.0 % Neutrophils # (Auto) 1.6-8.6 10 ^3/uL Lymphocytes # (Auto) 0.4-5.4 10 ^3/uL Monocytes # (Auto) 0-1.3 10 ^3/uL Differential Total Cells Counted 100.0 100 Neutrophils % (Manual) 83 H 37.0-80.0 Band Neutrophils % (Manual) 9 Lymphocytes % (Manual) 4 L 10.0-50.0 Monocytes % (Manual) 4 0-12 Eosinophils % (Manual) 0 0-7 Basophils % (Manual) 0 0.0-2.0 Metamyelocytes % (manual) 0 Myelocytes % (Manual) 0 Promyelocytes % (Manual) 0 Blast Cells % (Manual) 0 Reactive Lymphocytes 0 Platelet Estimate Increased Test 05/16/24 20:04 05/15/24 17:33 05/13/24 21:30 05/13/24 21:00 Range/Units Eosinophils (%) (Auto) 0 Not Estab. % Absolute Neutrophils (auto) 23.5 H 1.4-7.0 x10E3/uL Absolute Lymphocytes (auto) 2.2 0.7-3.1 x10E3/uL Absolute Monocytes (auto) 0.9 0.1-0.9 x10E3/uL Absolute Eosinophils (auto) 0.1 0.0-0.4 x10E3/uL Absolute Basophils (auto) 0.1 0.0-0.2 x10E3/uL Immature Granulocytes % 5 Not Estab. % Immature Granulocytes # 1.5 H 0.0-0.1 x10E3/uL Nucleated Red Blood Cells . Immature Blood Cells . Hematology Comments . Percent CD4 Cells 25.2 L 30.8-58.5 % Absolute CD4 Count 297 221-9121 /uL T-Lymphocyte CD4/CD8 Ratio 0.45 L 0.92-3.72 Percent CD8 Cells 56.3 H 12.0-35.5 % Absolute CD8 Count 1239 H 109-897 /uL Influenza Type A Antigen Negative Negative Influenza Type B Antigen Negative Negative SARS-CoV-2 Antigen (Rapid) Negative NEGATIVE Urine Color Yellow Yellow Urine Clarity Turbid H Clear Urine pH 5.5 5.0-9.0 Urine Specific [place] 1.014 1.001-1.035 Urine Protein Trace H Negative Urine Ketones Negative Negative Urine Blood Trace H Negative /uL Urine Nitrite Negative Negative Urine Bilirubin Negative Negative Urine Urobilinogen Normal Negative mg/dL Urine Leukocyte Esterase 3+ Negative /uL Urine RBC 2 0 - 3 /hpf Urine Microscopic WBC 70 H 0-3 /HPF Urine Squamous Epithelial Cells None seen <5 /hpf Urine Bacteria Few H None Seen /hpf Urine Mucus Few None Seen Urine Creatinine 53.09 30.0-125.0 mg/dL Urine Protein/Creatinine Ratio 1.05 Urine Potassium 23 12-62 mmol/L Urine Glucose 3+ H Normal mg/dL Urine Total Protein 55.6 H 1-14 mg/dL Test 05/13/24 19:16 05/13/24 17:35 05/13/24 15:43 05/13/24 14:07 Range/Units Erythrocyte Sedimentation Rate 116 H 0-20 mm/hr Hemoglobin A1c 11.3 H <5.7 % A1C Troponin I High Sensitivity < 3 L </=54 ng/L Lactic Acid Level 1.6 0.4-2.0 mmol/L Clumped Platelets Few Magnesium Level 1.8 1.6-2.6 mg/dL Total Bilirubin 0.9 0.2-1.0 mg/dL Aspartate Amino Transferase (AST) 18 13-40 U/L Alanine Aminotransferase (ALT) < 9 7-40 U/L Alkaline Phosphatase 234 H 46-116 U/L Creatine Kinase 37 L 46-171 U/L B-Type Natriuretic Peptide 48.92 0-100 pg/mL Total Protein 6.0 5.7-8.2 g/dL Albumin 3.3 3.2-4.8 g/dL Microbiology Date/Time Source Procedure Growth Status 05/15/24 18:29 Blood Blood Culture - Preliminary Methicillin Resistant S.aureus Resulted 05/14/24 00:00 Foot Gram Stain - Final Complete 05/14/24 00:00 Wound Culture - Final Methicillin Resistant S.aureus Complete Problems(with codes): (1) Hyperkalemia (2) Hyponatremia (3) Uncontrolled diabetes mellitus (4) Sepsis, unspecified organism (5) Osteomyelitis (6) HIV (human immunodeficiency virus infection) (7) MRSA bacteremia (8) Hx of syphilis (9) History of ESBL Klebsiella pneumoniae infection Plan/Recommendation ASSESSMENT: Patient is a 49 year old seen on the floor for a worsening ulcer PLAN: - The patients chart was reviewed, clinical findings were discussed with the patient, the etiologies of the conditions were discussed in detail, and a treatment plan was agreed to at this time, with both oral and written instructions provided. - reviewed advanced imaging - discussed plan is to perform an incision and drainage - patient will be NPO at midnight - take him to the OR tomorrow - we will get cultures in the OR - can weightbear as tolerated in postoperative shoe All questions were answered and concerns addressed to the patient's satisfaction. The patient was given the phone number to the clinic and was told how to make contact with the clinic should any concerns or questions arise. Patient understands that if any questions or concerns arise prior to the next appointment, we should be contacted immediately. FOLLOW-UP: Continue to follow while inpatient Plan discussed with: Patient Date of Service: May 17, 2024 Billing Provider: DOMINGO KNUTSON DPM Common Visit Codes: CONSULT ONLY Consultation Codes: [id number] CONSULT <80MIN DOMINGO KNUTSON DPM May 17, 2024 16:24
--- NOTE | 2024-05-17 16:42 | DVHPN2 ---
Consult Progress Note Date Seen: May 17, 2024 Subjective Patient reports: Other (Continues to be on levofed of 6 pain in the foot with bloody drainage and its swollen and wrapped ) Objective vital signs Vital Sign Date Time Temp Pulse Resp B/P (MAP) Pulse Ox O2 Delivery O2 Flow Rate FiO2 05/17/24 16:00 98.6 81 13 95/65 (75) 100 98.6 05/17/24 14:00 Room Air* 0 21 Total Intake and Output 05/16/24 05/16/24 05/17/24 15:00 23:00 07:00 Intake Total 675 ml 400 ml 202.50 ml Output Total 700 ml 800 ml Balance 675 ml -300 ml -597.50 ml medications Current Medications Medications Dose Ordered Sig/Patricia Route Start Time Stop Time Status Last Admin Dose Admin Acetaminophen 650 mg Q6HP PRN PO 05/13/24 18:45 05/14/24 01:47 650 MG Acetaminophen/ Hydrocodone Bitart 1 tab Q4HP PRN PO 05/13/24 18:45 05/17/24 00:36 1 TAB Hydromorphone HCl 0.25 mg Q4HP PRN IV 05/13/24 18:45 05/17/24 12:13 0.25 MG Ondansetron HCl 4 mg Q4HP PRN IV 05/13/24 18:45 Enoxaparin Sodium 40 mg DAILY SC 05/14/24 10:00 05/17/24 08:24 40 MG Nitroglycerin 0.4 mg Q5MINP PRN SL 05/13/24 18:45 Morphine Sulfate 2 mg Q30M PRN IV 05/13/24 18:45 Diagnostic Test (Pha) 1 strip ACHS 05/13/24 22:00 05/17/24 11:57 1 STRIP Insulin Human Regular HS SC 05/13/24 22:00 05/16/24 21:30 3 UNITS Insulin Human Regular AC SC 05/14/24 07:00 05/17/24 11:56 6 UNITS Dextrose 50 ml UD PRN IV 05/13/24 19:00 Pantoprazole Sodium 40 mg DAILY IV 05/14/24 10:00 05/17/24 08:24 40 MG Daptomycin 500 mg/ Sodium Chloride 50 ml @ 100 mls/hr DAILY IV 05/14/24 18:00 05/17/24 09:38 100 MLS/HR Norepinephrine Bitartrate 250 ml @ 3.75 mls/hr Q24H IV 05/15/24 09:00 05/15/24 09:26 3.75 MLS/HR Hydralazine HCl 10 mg Q6HP PRN IV 05/15/24 17:30 Albumin Human 50 ml @ 100 mls/hr Q8H IV 05/17/24 11:30 05/18/24 03:59 05/17/24 13:38 100 MLS/HR Clindamycin Phosphate 50 ml @ 50 mls/hr Q8HR IV 05/17/24 14:00 05/17/24 13:18 50 MLS/HR Alprazolam 0.5 mg BID PRN PO 05/17/24 15:45 Meropenem 50 ml @ 17 mls/hr Q8H IV 05/17/24 22:00 Physical Exam: General:?NAD Neck:?Supple. No masses. HEENT:?PERRL. Normal lids and conjunctiva. Moist mucous membranes. Oropharynx without lesions, exudates, or excessive erythema. Normal appearance of the external aspects of the nose and ears. Heart:?Regular rhythm, normal rate. No murmur. No lower extremity edema. Lungs:?Normal respiratory effort. Clear to auscultation bilaterally. No wheezes. No crackles. Abdomen:?Soft. Non-tender. Non-distended. No masses or abdominal hernia. Msk:?No digital cyanosis. Skin:?Warm. Right foot with multiple toe amputations. Right leg with severe wound with good granulation tissue and serous drainage. Left foot with cellulitic changes: erythema and edema. Neuro:?Alert. No facial droop or slurred speech. Extra-ocular movements intact. Sensation intact to soft touch in all 4 limbs. Psych:?Appropriate mood. Full affect. Oriented to person, place, time, and situation. laboratory and microbiology Laboratory Tests 05/17/24 12:56 05/17/24 03:45 Test 05/17/24 12:56 Range/Units Serum Glucose 273 H 74-106 mg/dL Problem List/Assessment/Plan Problems(with codes): (1) History of ESBL Klebsiella pneumoniae infection (2) Hx of syphilis (3) MRSA bacteremia (4) HIV (human immunodeficiency virus infection) (5) Osteomyelitis (6) Sepsis, unspecified organism (7) Uncontrolled diabetes mellitus Problem List/Assessment/Plan ID Problem List: - MRSA bacteremia - Left foot cellulitis - Possible osteomyelitis (left foot, right leg) - Uncontrolled diabetes mellitus (noncompliant) - Diabetic foot infections - Multiple right toe amputations - Chronic right leg ulcer - Hypertension - Polysubstance abuse - Undiagnosed psychiatric disorder - HIV Assessment This is a 49 y.o. male with a past medical history of hypertension, uncontrolled diabetes mellitus (noncompliant), polysubstance abuse, and undiagnosed psychiatric disorder, who presents with generalized weakness for the last six days. Left foot with cellulitic changes (erythema, edema), possible osteomyelitis. Right foot with multiple toe amputations. Chronic right leg ulcer with severe wound, good granulation tissue, and serous drainage. Vital signs show hypotension (BP 79/55 mmHg), afebrile (T 98.4F), heart rate 87 bpm, respiratory rate 12 breaths per minute, oxygen saturation 96% on room air. Laboratories notable for leukocytosis (WBC 44 x10/L), anemia (Hb 9.5 g/dL), thrombocytosis (platelets 584 x10/L), hyponatremia (Na 123 mmol/L), BUN 26 mg/dL, Creatinine 1.02 mg/dL. Urinalysis shows +3 leukocytes and positive nitrites. Blood cultures are growing MRSA. patient has hx of ESBL wound infection 05/15: whitecount 22.1 05/16: MRI of foot shows extensive bone maredema involving the distal tibia , distal fibula and talus calcanus and residual tarsal bones. highly concerning for osteomyelitis with differential diagnosis of charcot joint , involving flexor perineal extensor compartments probably infectious , Achillis tendinosis and peritendinitis , adjacent draining ulcer seen and patients also persistently positive blood cultures for MRSA as well as wound cultures 05/17: whitecount is 46 , concerned for progressisng sepsis , patient is getting surgery by podiatry tomorrow Plan: - during debridement collect bacterial ,anarobic , aerobic , fungal and AFB cultures of infected deep tissue - Continue clindomycin given soft tissue injury and concern for developing gaseous infection from MRSA - repeat blood cultures in 24 hours - recommend more urgent evaluation by podiatry for debridement and amputation of patients foot - recommend consulting podiatry for operative debridement , if done please collect deep tissue and bone cultures bacterial and anaerobic of infected specimen - HOLD art, unclear patient compliance, recommend checking HIV viral and CD4 count - Continue daptomycin (due to MRSA bacteremia and prior renal failure associated with vancomycin) - STOP Zosyn (piperacillin/tazobactam) - Continue Meropenem - Fluid resuscitation; consider vasopressor support to maintain MAP >65 mmHg - Repeat blood cultures - MRI of left foot is pending; order MRI of right leg due to concern for osteomyelitis - Recommend transthoracic echocardiogram (TTE) to evaluate for potential endocarditis - Obtain urine culture to further evaluate urinary tract infection - Keep blood sugars under 180 mg/dL with insulin sliding scale; defer management to primary team - Monitor vital signs and labs closely Isolation Precautions: standard Plan discussed with: VITOR Whalen MD May 17, 2024 16:42
--- NOTE | 2024-05-17 16:42 | DVHPN2 ---
Consult Progress Note Date Seen: May 16, 2024 Subjective Patient reports: Other (still in the ED and having a lot of pain on his left foot , wound is wrapped . Patient has charcot foot with a lot of swelling and tenderness with macrina abnormalities ) Objective vital signs Vital Sign Date Time Temp Pulse Resp B/P (MAP) Pulse Ox O2 Delivery O2 Flow Rate FiO2 05/17/24 16:00 98.6 81 13 95/65 (75) 100 98.6 05/17/24 14:00 Room Air* 0 21 Total Intake and Output 05/16/24 05/16/24 05/17/24 15:00 23:00 07:00 Intake Total 675 ml 400 ml 202.50 ml Output Total 700 ml 800 ml Balance 675 ml -300 ml -597.50 ml medications Current Medications Medications Dose Ordered Sig/Patricia Route Start Time Stop Time Status Last Admin Dose Admin Acetaminophen 650 mg Q6HP PRN PO 05/13/24 18:45 05/14/24 01:47 650 MG Acetaminophen/ Hydrocodone Bitart 1 tab Q4HP PRN PO 05/13/24 18:45 05/17/24 00:36 1 TAB Hydromorphone HCl 0.25 mg Q4HP PRN IV 05/13/24 18:45 05/17/24 12:13 0.25 MG Ondansetron HCl 4 mg Q4HP PRN IV 05/13/24 18:45 Enoxaparin Sodium 40 mg DAILY SC 05/14/24 10:00 05/17/24 08:24 40 MG Nitroglycerin 0.4 mg Q5MINP PRN SL 05/13/24 18:45 Morphine Sulfate 2 mg Q30M PRN IV 05/13/24 18:45 Diagnostic Test (Pha) 1 strip ACHS 05/13/24 22:00 05/17/24 11:57 1 STRIP Insulin Human Regular HS SC 05/13/24 22:00 05/16/24 21:30 3 UNITS Insulin Human Regular AC SC 05/14/24 07:00 05/17/24 11:56 6 UNITS Dextrose 50 ml UD PRN IV 05/13/24 19:00 Pantoprazole Sodium 40 mg DAILY IV 05/14/24 10:00 05/17/24 08:24 40 MG Daptomycin 500 mg/ Sodium Chloride 50 ml @ 100 mls/hr DAILY IV 05/14/24 18:00 05/17/24 09:38 100 MLS/HR Norepinephrine Bitartrate 250 ml @ 3.75 mls/hr Q24H IV 05/15/24 09:00 05/15/24 09:26 3.75 MLS/HR Hydralazine HCl 10 mg Q6HP PRN IV 05/15/24 17:30 Albumin Human 50 ml @ 100 mls/hr Q8H IV 05/17/24 11:30 05/18/24 03:59 05/17/24 13:38 100 MLS/HR Clindamycin Phosphate 50 ml @ 50 mls/hr Q8HR IV 05/17/24 14:00 05/17/24 13:18 50 MLS/HR Alprazolam 0.5 mg BID PRN PO 05/17/24 15:45 Meropenem 50 ml @ 17 mls/hr Q8H IV 05/17/24 22:00 Physical Exam: General:?NAD Neck:?Supple. No masses. HEENT:?PERRL. Normal lids and conjunctiva. Moist mucous membranes. Oropharynx without lesions, exudates, or excessive erythema. Normal appearance of the external aspects of the nose and ears. Heart:?Regular rhythm, normal rate. No murmur. No lower extremity edema. Lungs:?Normal respiratory effort. Clear to auscultation bilaterally. No wheezes. No crackles. Abdomen:?Soft. Non-tender. Non-distended. No masses or abdominal hernia. Msk:?No digital cyanosis. Skin:?Warm. Right foot with multiple toe amputations. Right leg with severe wound with good granulation tissue and serous drainage. Left foot with cellulitic changes: erythema and edema. Neuro:?Alert. No facial droop or slurred speech. Extra-ocular movements intact. Sensation intact to soft touch in all 4 limbs. Psych:?Appropriate mood. Full affect. Oriented to person, place, time, and situation. laboratory and microbiology Laboratory Tests 05/17/24 12:56 05/17/24 03:45 Test 05/17/24 12:56 Range/Units Serum Glucose 273 H 74-106 mg/dL Problem List/Assessment/Plan Problems(with codes): (1) History of ESBL Klebsiella pneumoniae infection (2) Hx of syphilis (3) MRSA bacteremia (4) HIV (human immunodeficiency virus infection) (5) Osteomyelitis (6) Sepsis, unspecified organism (7) Uncontrolled diabetes mellitus (8) Hyponatremia (9) Hyperkalemia Problem List/Assessment/Plan ID Problem List: - MRSA bacteremia - Left foot cellulitis - Possible osteomyelitis (left foot, right leg) - Uncontrolled diabetes mellitus (noncompliant) - Diabetic foot infections - Multiple right toe amputations - Chronic right leg ulcer - Hypertension - Polysubstance abuse - Undiagnosed psychiatric disorder - HIV Assessment This is a 49 y.o. male with a past medical history of hypertension, uncontrolled diabetes mellitus (noncompliant), polysubstance abuse, and undiagnosed psychiatric disorder, who presents with generalized weakness for the last six days. Left foot with cellulitic changes (erythema, edema), possible osteomyelitis. Right foot with multiple toe amputations. Chronic right leg ulcer with severe wound, good granulation tissue, and serous drainage. Vital signs show hypotension (BP 79/55 mmHg), afebrile (T 98.4F), heart rate 87 bpm, respiratory rate 12 breaths per minute, oxygen saturation 96% on room air. Laboratories notable for leukocytosis (WBC 44 x10/L), anemia (Hb 9.5 g/dL), thrombocytosis (platelets 584 x10/L), hyponatremia (Na 123 mmol/L), BUN 26 mg/dL, Creatinine 1.02 mg/dL. Urinalysis shows +3 leukocytes and positive nitrites. Blood cultures are growing MRSA. patient has hx of ESBL wound infection 05/15: whitecount 22.1 05/16: MRI of foot shows extensive bone maredema involving the distal tibia , distal fibula and talus calcanus and residual tarsal bones. highly concerning for osteomyelitis with differential diagnosis of charcot joint , involving flexor perineal extensor compartments probably infectious , Achillis tendinosis and peritendinitis , adjacent draining ulcer seen and patients also persistently positive blood cultures for MRSA as well as wound cultures Plan: - Start clindomycin given soft tissue injury and concern for developing gaseous infection from MRSA - repeat blood cultures in 24 hours - recommend more urgent evaluation by podiatry for debridement and amputation of patients foot - recommend consulting podiatry for operative debridement , if done please collect deep tissue and bone cultures bacterial and anaerobic of infected specimen - HOLD art, unclear patient compliance, recommend checking HIV viral and CD4 count - Continue daptomycin (due to MRSA bacteremia and prior renal failure associated with vancomycin) - Continue Zosyn (piperacillin/tazobactam), low threshold to switch to Meropenem if unresponsive to antibiotic therapy - Fluid resuscitation; consider vasopressor support to maintain MAP >65 mmHg - Repeat blood cultures - MRI of left foot is pending; order MRI of right leg due to concern for osteomyelitis - Recommend transthoracic echocardiogram (TTE) to evaluate for potential endocarditis - Obtain urine culture to further evaluate urinary tract infection - Keep blood sugars under 180 mg/dL with insulin sliding scale; defer management to primary team - Monitor vital signs and labs closely Isolation Precautions: standard Plan discussed with: VITOR Whalen MD May 17, 2024 16:42
--- NOTE | 2024-05-17 21:52 | DVHPN2 ---
Progress Note - Dictate Date Seen: May 17, 2024 Medical Necessity Reason Pt with a Central, PICC or Fol: No Subjective Patient seen and examined at bedside. Currently on supplemental oxygen Overnight events reviewed. vital signs Vital Sign Date Time Temp Pulse Resp B/P (MAP) Pulse Ox O2 Delivery O2 Flow Rate FiO2 05/17/24 21:30 114 17 98/65 (76) 95 05/17/24 20:00 Nasal Cannula* 2 28 05/17/24 20:00 98.3 98.3 Total Intake and Output 05/16/24 05/16/24 05/17/24 15:00 23:00 07:00 Intake Total 675 ml 400 ml 202.50 ml Output Total 700 ml 800 ml Balance 675 ml -300 ml -597.50 ml medications Current Medications Medications Dose Ordered Sig/Patricia Route Start Time Stop Time Status Last Admin Dose Admin Acetaminophen 650 mg Q6HP PRN PO 05/13/24 18:45 05/14/24 01:47 650 MG Acetaminophen/ Hydrocodone Bitart 1 tab Q4HP PRN PO 05/13/24 18:45 05/17/24 20:38 1 TAB Hydromorphone HCl 0.25 mg Q4HP PRN IV 05/13/24 18:45 05/17/24 18:22 0.25 MG Ondansetron HCl 4 mg Q4HP PRN IV 05/13/24 18:45 Enoxaparin Sodium 40 mg DAILY SC 05/14/24 10:00 05/17/24 08:24 40 MG Nitroglycerin 0.4 mg Q5MINP PRN SL 05/13/24 18:45 Morphine Sulfate 2 mg Q30M PRN IV 05/13/24 18:45 Diagnostic Test (Pha) 1 strip ACHS 05/13/24 22:00 05/17/24 17:00 1 STRIP Insulin Human Regular HS SC 05/13/24 22:00 05/16/24 21:30 3 UNITS Insulin Human Regular AC SC 05/14/24 07:00 05/17/24 17:38 9 UNITS Dextrose 50 ml UD PRN IV 05/13/24 19:00 Pantoprazole Sodium 40 mg DAILY IV 05/14/24 10:00 05/17/24 08:24 40 MG Daptomycin 500 mg/ Sodium Chloride 50 ml @ 100 mls/hr DAILY IV 05/14/24 18:00 05/17/24 09:38 100 MLS/HR Norepinephrine Bitartrate 250 ml @ 3.75 mls/hr Q24H IV 05/15/24 09:00 05/17/24 17:18 7.5 MLS/HR Hydralazine HCl 10 mg Q6HP PRN IV 05/15/24 17:30 Albumin Human 50 ml @ 100 mls/hr Q8H IV 05/17/24 11:30 05/18/24 03:59 05/17/24 18:53 100 MLS/HR Clindamycin Phosphate 50 ml @ 50 mls/hr Q8HR IV 05/17/24 14:00 05/17/24 13:18 50 MLS/HR Alprazolam 0.5 mg BID PRN PO 05/17/24 15:45 Meropenem 50 ml @ 17 mls/hr Q8H IV 05/17/24 22:00 objective Gen.: Patient lying in bed in no apparent distress. On supplemental oxygen Head: Normocephalic, atraumatic. Eyes: EOMI/PERRLA. Ears: Normal hearing. Normal anatomy. Neck/trachea: Trachea midline, supple. Nose: Normal external anatomy. Mouth: Moist mucous membranes. Chest: Decreased air entry bilaterally. No wheezing or rhonchi. Cardiovascular: Positive S1, positive S2. Regular rate and rhythm. Abdomen: Positive bowel sounds in all 4 quadrants. Soft, non-tender, non- distended. : Deferred. Rectal: Deferred. Skin: Warm, dry. Intact. Extremities: 2+ radial pulses bilaterally. No lower extremity edema. Neuro: Awake, alert, oriented x3. No gross motor or sensory deficits. Cranial nerves II through XII intact. Gait not assessed. laboratory and microbiology Laboratory Tests 05/17/24 12:56 05/17/24 03:45 Test 05/17/24 12:56 Range/Units Serum Glucose 273 H 74-106 mg/dL Assessment/Plan Impression: Sepsis Left foot wound cellulitis, rule out osteomyelitis Hyponatremia Uncontrolled hyperglycemia Hypocalcemia Leukocytosis, likely reactive Events: Overnight, pt required supplemental oxygen Currently on 2 LPM NC Taper O2 as tolerated Pressors for hemodynamic support On Levophed Titrate to keep mean arterial pressure greater than 65 mmHg Continue antibiotics Blood cultures grew MRSA x2 WBC trending up, now 46 K ID recommendations appreciated. Monitor hemoglobin, trending down to 7.2 g/dL Transfuse if less than 7.0 g/dL. Diuresis stopped Monitor renal function. Monitor electrolytes. Supplement as necessary. Monitor sodium - 121 Monitor ins and outs. DVT prophylaxis. Labs and imaging reviewed. Rest of plan as noted below. Plan: Supplemental oxygen Titrate to keep O2 sats above 92%. Pressors for hemodynamic support Titrate to keep mean arterial pressure greater than 65 mmHg Continue antibiotics MRI left foot reviewed; extensive bone marrow edema involving distal tibia, distal fibula, talus, calcaneus and the residual tarsal bones highly concerning for osteomyelitis with differential diagnosis of Charcot joint. Severe tenosynovitis involving the flexor, peroneal and extensor compartments probably infectious. Achilles tendinosis and peritendinitis. Adjacent draining ulcer is seen. ID recommendations appreciated Podiatry consultation Monitor renal function. Monitor electrolytes. Supplement as necessary. Monitor ins and outs. Nephrology recommendations appreciated DVT prophylaxis. Prognosis: Poor given patient's multiple co-morbidities. Condition: Critical Rest of plan per hospitalist and other consultants. A total of 35 minutes of critical care time was spent reviewing the patient record, examining the patient, making a diagnostic and therapeutic plan, discussing this plan with the medical personnel, following up on diagnostic studies and following the patient for clinical stability excluding any and all procedures. At least 50% of this time was spent in direct, [id number] contact. Thank you Dr. Patterson for allowing me to participate in this patient's care. Further recommendations will depend on the patient's clinical course. Please do not hesitate to contact me if you have any questions or concerns. This medical document was created using an electronic medical record system with [employer] dictation system. Although these documentations are being carefully reviewed, there may still be some phonetic and typographical changes. The errors are purely typographical, due to imperfection on the software program, and do not reflect any compromise in the patient's medical care. Plan discussed with: Other (VANE Cuevas) Critical Care Time(min): 35 DAX CORDOBA MD May 17, 2024 21:52
[2024-05-17] MEDS: MEROPENEM 1GM IVPB 50 ML IV SCH (22:10)
[2024-05-17] MEDS: ALPRAZolam 0.5 MG TAB PO PRN (22:28)
[2024-05-18] VITALS (113 sets, daily range): BP systolic 80–157; BP diastolic 47–95; PULSE 76–126; RESP 7–24; TEMP 97.5–100.4; O2SAT 9–100
[2024-05-18 03:36] LABS: Hematocrit 22.4 % (41.0-53.0); Mean Corpuscular Hemoglobin 26.1 pg (28.0-32.0); Mean Corpuscular Hgb Conc. 31.2 g/dL (32.0-36.0); Mean Corpuscular Volume 83.4 fL (80.0-100.0); Platelet Count (auto) 519 10^3/uL (140-450); Red Blood Cells 2.68 10^6/uL (4.5-5.90); Red Cell Distribution Width 16.5 % (11.8-14.3); White Blood Cell 26.3 10^3/uL (4.4-10.8)
[2024-05-18 03:45] LABS: Anion Gap 9 (5-15); Carbon Dioxide 25 mmol/L (20-31)
[2024-05-18 03:50] LABS: BUN/Creatinine Ratio 19.3 (10.0-20.0); Blood Urea Nitrogen 17 mg/dL (9-23)
[2024-05-18 03:54] LABS: Calcium 8.6 mg/dL (8.7-10.4); Chloride 89 mmol/L (98-107); Glucose 202 mg/dL (74-106); Sodium 123 mmol/L (136-145)
[2024-05-18 04:14] LABS: Basophils % (manual) 0 (0.0-2.0); Blast Cells 0; Eosinophils % (manual) 0 (0-7); Metamyelocytes % 0; Myelocytes % 0; Promyelocytes % 0; Reactive Lymphocytes 0
[2024-05-18 05:31] LABS: Basophils # (auto) 0 10 ^3/uL (0-0.2)
[2024-05-18 05:52] LABS: Basophils % (auto) 0.2 % (0.0-2.0); Eosinophils # (auto) 0.2 10 ^3/uL (0-0.8); Eosinophils % (auto) 0.7 % (0.0-7.0); Lymphocytes # (auto) 2.1 10 ^3/uL (0.4-5.4); Mean Corpuscular Hemoglobin 25.8 pg (28.0-32.0); Mean Corpuscular Hgb Conc. 30.6 g/dL (32.0-36.0); Mean Corpuscular Volume 84.4 fL (80.0-100.0); Monocytes # (auto) 1.5 10 ^3/uL (0-1.3); Monocytes % (auto) 5.9 % (0.0-12.0); Neutrophils # (auto) 22.2 10 ^3/uL (1.6-8.6); Neutrophils % (auto) 85.2 % (37.0-80.0); Nucleated Red Blood Cells % 0.2 %; Platelet Count (auto) 510 10^3/uL (140-450); Red Blood Cells 2.61 10^6/uL (4.5-5.90); Red Cell Distribution Width 16.6 % (11.8-14.3); White Blood Cell 26.1 10^3/uL (4.4-10.8)
[2024-05-18 05:54] LABS: Hemoglobin 6.7 g/dL (13.5-17.5)
[2024-05-18 07:53] LABS: Band Neutrophils % (manual) 6; Lymphocytes % (manual) 10 (10.0-50.0); Monocytes % (manual) 4 (0-12); Platelet Estimate Increased
[2024-05-18 08:07] LABS: Complement C3 164 mg/dL (82-167)
[2024-05-18 11:27] LABS: INR 1.09 (0.9-1.15); Prothrombin Time 11.5 sec (9.3-11.8)
[2024-05-18] MEDS: LIDOCAINE VISCOUS 2% 15ML UD ONE (12:25)
[2024-05-18] MEDS: LIDOCAINE VISCOUS 2% 15ML UD PO ONE (12:26)
[2024-05-18] MEDS: fentaNYL CITRATE 5 ML ONE (12:30)
[2024-05-18] MEDS: MIDAZOLAM HCL 2MG/2ML 2ml VIAL (1mg/ml) ONE (12:30)
--- NOTE | 2024-05-18 12:51 | DVHSR ---
APPROVED REPORT EXAM: LIMITED Two-dimensional and M-mode echocardiogram with Doppler and color Doppler. Blood Pressure: 119/78 mmHg INDICATION Rule out endocarditis RISK FACTORS Height: 5'8", Weight: 160 DIMENSIONS LVDd4.3 (3.8-5.7cm)LA (2D) (1.9-4.0cm)Aortic Root (2.0-3.7cm) LVDs2.9 (2.5-4.0cm)LA (MM) (1.9-4.0cm)Aortic Cusp Exc (1.5-2.0cm) EF (%) 60.0 (55-70%)Rt. Atrium (1.9-4.0cm)Asc. Aorta cm Mitral Valve MitralMitral Stenosis E/A ratio0.02D MVAcm2 Other Information Quality : Technically LimitedRhythm : Technically limited study due to body habitus. Limited repeat to R/O endocardi Conclusion There is mild concentric left ventricular hypertrophy Left ventricular systolic function is preserved Ejection fraction is estimated at 60% Aortic valve is free of vegetation Mitral valve mildly thickened There is no mitral regurgitation There is no vegetation attached to the mitral valve leaflets There appears to be an echodensity at the base of the tricuspid valve leaflets without evidence of tr icuspid regurgitation Recommend HARRIS to better define the echo density described above There is no pericardial effusion
--- NOTE | 2024-05-18 14:19 | DVHPN2 ---
Progress Note Date Seen: May 18, 2024 Medical Necessity Reason Pt with a Central, PICC or Fol: No Objective vital signs Vital Sign Date Time Temp Pulse Resp B/P (MAP) Pulse Ox O2 Delivery O2 Flow Rate FiO2 05/18/24 14:02 98.0 85 18 100/67 98.0 05/18/24 14:00 100 Nasal Cannula* 2 28 Total Intake and Output 05/17/24 05/17/24 05/18/24 15:00 23:00 07:00 Intake Total 236.25 ml 217.50 ml 448.75 ml Output Total 490 ml Balance 236.25 ml 217.50 ml -41.25 ml medications Current Medications Medications Dose Ordered Sig/Patricia Route Start Time Stop Time Status Last Admin Dose Admin Acetaminophen 650 mg Q6HP PRN PO 05/13/24 18:45 05/18/24 10:19 650 MG Acetaminophen/ Hydrocodone Bitart 1 tab Q4HP PRN PO 05/13/24 18:45 05/17/24 20:38 1 TAB Hydromorphone HCl 0.25 mg Q4HP PRN IV 05/13/24 18:45 05/18/24 11:36 0.25 MG Ondansetron HCl 4 mg Q4HP PRN IV 05/13/24 18:45 Enoxaparin Sodium 40 mg DAILY SC 05/14/24 10:00 05/17/24 08:24 40 MG Nitroglycerin 0.4 mg Q5MINP PRN SL 05/13/24 18:45 Morphine Sulfate 2 mg Q30M PRN IV 05/13/24 18:45 Diagnostic Test (Pha) 1 strip ACHS 05/13/24 22:00 05/18/24 12:58 1 STRIP Insulin Human Regular HS SC 05/13/24 22:00 05/17/24 22:14 4 UNITS Insulin Human Regular AC SC 05/14/24 07:00 05/17/24 17:38 9 UNITS Dextrose 50 ml UD PRN IV 05/13/24 19:00 Pantoprazole Sodium 40 mg DAILY IV 05/14/24 10:00 05/18/24 10:47 40 MG Daptomycin 500 mg/ Sodium Chloride 50 ml @ 100 mls/hr DAILY IV 05/14/24 18:00 05/18/24 11:02 100 MLS/HR Norepinephrine Bitartrate 250 ml @ 3.75 mls/hr Q24H IV 05/15/24 09:00 05/17/24 17:18 7.5 MLS/HR Hydralazine HCl 10 mg Q6HP PRN IV 05/15/24 17:30 Clindamycin Phosphate 50 ml @ 50 mls/hr Q8HR IV 05/17/24 14:00 05/18/24 05:11 50 MLS/HR Alprazolam 0.5 mg BID PRN PO 05/17/24 15:45 05/17/24 22:28 0.5 MG Meropenem 50 ml @ 17 mls/hr Q8H IV 05/17/24 22:00 05/18/24 05:11 17 MLS/HR Examination: GENERAL:Abnormal, CVS:Normal, SKIN:Abnormal laboratory and microbiology Laboratory Tests 05/18/24 04:54 05/18/24 03:15 Test 05/18/24 03:15 Range/Units Serum Glucose 202 H 74-106 mg/dL Microbiology Date/Time Source Procedure Growth Status 05/17/24 12:56 Blood Blood Culture - Preliminary Resulted 05/14/24 00:00 Foot Gram Stain - Final Complete 05/14/24 00:00 Wound Culture - Final Methicillin Resistant S.aureus Complete Problem List/Assessment/Plan Problem List/Assessment/Plan YESSY superimposed on CKD secondary to hemodynamic mediated Hyponatremia Uncontrolled DM, A1c > 11, hyperglycemia MRSA septicemia Peripheral arterial disease Right foot osteomyelitis Charcot foot left foot/cellulitis Anemia of CKD , blood loss from wound HIV per ID Acute kidney injury resolved PRBC IV antibiotics treatment of wound infection glycemic control ID consult retrovirals on hold Surgery for wound debridement Plan discussed with: Patient ELLA GUDINO MD May 18, 2024 14:19
--- NOTE | 2024-05-18 14:28 | DVHPN2 ---
Subjective 49-year-old male brought by paramedics because he was having generalized weakness for the past six days. Patient does have a history of hypertension i nsulin-dependent diabetes. He does have wound in the left lower extremity, he has home health for wound care who sees him for dressing changes. He has been having left lower extremity wound for the past month. He does have right toe amputation which was done in [place] several years ago. Patient states that he does not move about because of his wound in the left lower extremity along with a amputation of the right toes. Also endorses dysuria. Denies fever abdominal pain nausea vomiting. Denies chest pain. Denies any other symptoms. Changes from previous H/P or p: No Changes Eyes: No Pain, No Vision change, No Conjunctivae inflammation, No Eyelid inflammation, No Other, No Redness ENT: No Ear pain, No Ear discharge, No Nose pain, No Nose discharge, No Nose congestion, No Mouth pain, No Mouth swelling, No Throat pain, No Throat swelling, No Other Cardiovascular: No Chest Pain, No Palpitations, No Orthopnea, No Paroxysmal Noc. Dyspnea, No Edema, No Lt Headedness, No Other Respiratory: No Cough, No Dry, No Shortness of breath, No SOB with excertion, No Wheezing, No Hemoptysis, No Pleuritic Pain, No Sputum, No Other Gastrointestinal: No Nausea, No Vomiting, No Abdominal Pain, No Diarrhea, No Constipation, No Melena, No Hematochezia, No Other Genitourinary: Dysuria Musculoskeletal: foot pain Skin: Other Objective Vitals Vital Signs Date Time Temp Pulse Resp B/P (MAP) Pulse Ox O2 Delivery O2 Flow Rate FiO2 05/18/24 14:02 98.0 85 18 100/67 98.0 05/18/24 14:00 100 Nasal Cannula* 2 28 Intake/Output Intake and Output 05/18/24 07:00 Intake Total 902.50 ml Output Total 490 ml Balance 412.50 ml Intake Oral 200 ml IV Total 702.50 ml Output Urine Total 490 ml Exam DERMATOLOGIC EXAM: - Skin is dry and cool to the touch dry bilaterally. - Nails 1-5 of the bilateral foot are thickened, discolored, dystrophic, and tender to palpate with subungual debris - Hair loss noted to bilateral feet Wound #1: Location: Left ankle Measurements: Length 4 cm x width 1 cm x depth 1 cm. Wound margins: Hyperkeratotic. Wound base: Full thickness. General Appearance: Fibrotic Probes to Bone: No Purulent drainage: Yes Serous drainage: No Erythema: Periwound VASCULAR EXAM: - DP and PT pulses are palpable bilaterally. - PRODUCTION RECORDER is brisk to all digits. - Feet are cool to touch compared to lower legs bilaterally. NEUROLOGIC EXAM: - Normal light touch sensation to the superficial peroneal, deep peroneal, sural, saphenous, and tibial nerve branches. - Protective sensation is diminished as tested with a 5.07 10g Gove-Aliya bilaterally. MUSCULOSKELETAL EXAM: - No gross deformities - Muscle strength is 5/5 and active motion is pain-free and symmetrical bilaterally - No pain or crepitation with passive range of motion bilaterally to all major pedal joints Medications Current Medications Medications Dose Ordered Sig/Patricia Route Start Time Stop Time Status Last Admin Dose Admin Acetaminophen 650 mg Q6HP PRN PO 05/13/24 18:45 05/18/24 10:19 650 MG Acetaminophen/ Hydrocodone Bitart 1 tab Q4HP PRN PO 05/13/24 18:45 05/17/24 20:38 1 TAB Hydromorphone HCl 0.25 mg Q4HP PRN IV 05/13/24 18:45 05/18/24 11:36 0.25 MG Ondansetron HCl 4 mg Q4HP PRN IV 05/13/24 18:45 Enoxaparin Sodium 40 mg DAILY SC 05/14/24 10:00 05/17/24 08:24 40 MG Nitroglycerin 0.4 mg Q5MINP PRN SL 05/13/24 18:45 Morphine Sulfate 2 mg Q30M PRN IV 05/13/24 18:45 Diagnostic Test (Pha) 1 strip ACHS 05/13/24 22:00 05/18/24 12:58 1 STRIP Insulin Human Regular HS SC 05/13/24 22:00 05/17/24 22:14 4 UNITS Insulin Human Regular AC SC 05/14/24 07:00 05/17/24 17:38 9 UNITS Dextrose 50 ml UD PRN IV 05/13/24 19:00 Pantoprazole Sodium 40 mg DAILY IV 05/14/24 10:00 05/18/24 10:47 40 MG Daptomycin 500 mg/ Sodium Chloride 50 ml @ 100 mls/hr DAILY IV 05/14/24 18:00 05/18/24 11:02 100 MLS/HR Norepinephrine Bitartrate 250 ml @ 3.75 mls/hr Q24H IV 05/15/24 09:00 05/17/24 17:18 7.5 MLS/HR Hydralazine HCl 10 mg Q6HP PRN IV 05/15/24 17:30 Clindamycin Phosphate 50 ml @ 50 mls/hr Q8HR IV 05/17/24 14:00 05/18/24 14:24 50 MLS/HR Alprazolam 0.5 mg BID PRN PO 05/17/24 15:45 05/17/24 22:28 0.5 MG Meropenem 50 ml @ 17 mls/hr Q8H IV 05/17/24 22:00 05/18/24 05:11 17 MLS/HR Laboratory Results Laboratory Tests 05/18/24 03:15 05/18/24 04:54 Chemistry Test 05/18/24 03:15 Calcium Level 8.6 mg/dL (8.7-10.4) L Coagulation Test 05/18/24 10:59 Prothrombin Time 11.5 sec (9.3-11.8) Prothrombin Time INR 1.09 (0.9-1.15) Urinalysis Test 05/13/24 21:00 05/17/24 12:20 Urine Color Yellow (Yellow) Urine Clarity Turbid (Clear) H Urine pH 5.5 (5.0-9.0) Urine Specific [place] 1.014 (1.001-1.035) Urine Protein Trace (Negative) H Urine Ketones Negative (Negative) Urine Blood Trace /uL (Negative) H Urine Nitrite Negative (Negative) Urine Bilirubin Negative (Negative) Urine Urobilinogen Normal mg/dL (Negative) Urine Leukocyte Esterase 3+ /uL (Negative) Urine RBC 2 /hpf (0 - 3) Urine Microscopic WBC 70 /HPF (0-3) H Urine Squamous Epithelial Cells None seen /hpf (<5) Urine Bacteria Few /hpf (None Seen) H Urine Mucus Few (None Seen) Urine Creatinine 53.09 mg/dL (30.0-125.0) Urine Protein/Creatinine Ratio 1.05 Urine Potassium 23 mmol/L (12-62) Urine Glucose 3+ mg/dL (Normal) H Urine Total Protein 55.6 mg/dL (1-14) H Urine Osmolality 219 mOsm/kg Urine Sodium 66 mmol/L (40-220) Microbiology Microbiology Date/Time Source Procedure Growth Status 05/17/24 12:56 Blood Blood Culture - Preliminary Resulted 05/14/24 00:00 Foot Gram Stain - Final Complete 05/14/24 00:00 Wound Culture - Final Methicillin Resistant S.aureus Complete Assessment/Plan Assessment/Plan ASSESSMENT: Patient is a 49 year old seen on the floor for a worsening ulcer PLAN: - The patients chart was reviewed, clinical findings were discussed with the patient, the etiologies of the conditions were discussed in detail, and a treatment plan was agreed to at this time, with both oral and written instructions provided. - reviewed advanced imaging - patient was hyponatremic anesthesia would prefer for patient to be optimized - we will wait till patient gives to the ICU and is medically optimized to perform the incision and drainage - wound is still draining at this point - recommend Betadine and gauze, ABD, Kerlix - recommend we change it daily - we will plan for surgery on Thursday if medically optimized All questions were answered and concerns addressed to the patient's satisfaction. The patient was given the phone number to the clinic and was told how to make contact with the clinic should any concerns or questions arise. Patient understands that if any questions or concerns arise prior to the next appointment, we should be contacted immediately. FOLLOW-UP: Continue to follow while inpatient Plan discussed with: Patient My Orders Orders - DOMINGO KNUTSON DPM Procedure Category Date Status Time Obtain Consent For: ORDERS 05/17/24 Transmitted 16:20 Problem List: (1) Hyperkalemia (2) Hyponatremia (3) Uncontrolled diabetes mellitus (4) Sepsis, unspecified organism (5) Osteomyelitis (6) HIV (human immunodeficiency virus infection) (7) MRSA bacteremia (8) Hx of syphilis (9) History of ESBL Klebsiella pneumoniae infection Date of Service: May 18, 2024 Billing Provider: DOMINGO KNUTSON DPM Common Visit Codes: [id number] INP/OBS CARE(MOD) DOMINGO KNUTSON DPM May 18, 2024 14:28
--- NOTE | 2024-05-18 15:07 | DVHPN2 ---
Subjective Patient is currently getting HARRIS which shows no evidence of endocarditis and has been Dr. Minor. Patient has been scheduled for surgical intervention for the left foot by Podiatry. Changes from previous H/P or p: No Changes Eyes: No Pain, No Vision change, No Conjunctivae inflammation, No Eyelid inflammation, No Other, No Redness ENT: No Ear pain, No Ear discharge, No Nose pain, No Nose discharge, No Nose congestion, No Mouth pain, No Mouth swelling, No Throat pain, No Throat swelling, No Other Cardiovascular: No Chest Pain, No Palpitations, No Orthopnea, No Paroxysmal Noc. Dyspnea, No Edema, No Lt Headedness, No Other Respiratory: No Cough, No Dry, No Shortness of breath, No SOB with excertion, No Wheezing, No Hemoptysis, No Pleuritic Pain, No Sputum, No Other Gastrointestinal: No Nausea, No Vomiting, No Abdominal Pain, No Diarrhea, No Constipation, No Melena, No Hematochezia, No Other Genitourinary: Dysuria Musculoskeletal: foot pain Skin: Other Objective Vitals Vital Signs Date Time Temp Pulse Resp B/P (MAP) Pulse Ox O2 Delivery O2 Flow Rate FiO2 05/18/24 14:02 98.0 85 18 100/67 98.0 05/18/24 14:00 100 Nasal Cannula* 2 28 Intake/Output Intake and Output 05/18/24 07:00 Intake Total 902.50 ml Output Total 490 ml Balance 412.50 ml Intake Oral 200 ml IV Total 702.50 ml Output Urine Total 490 ml Exam HEENT pupils are reactive Neck is supple CVS S1-S2 regular rate and rhythm Respiratory diminished breath sounds bases GI positive bowel sound Extremity no edema [employer] no motor deficit Left lower extremity foot wounds antiseptic dressing Medications Current Medications Medications Dose Ordered Sig/Patricia Route Start Time Stop Time Status Last Admin Dose Admin Acetaminophen 650 mg Q6HP PRN PO 05/13/24 18:45 05/18/24 10:19 650 MG Acetaminophen/ Hydrocodone Bitart 1 tab Q4HP PRN PO 05/13/24 18:45 05/17/24 20:38 1 TAB Hydromorphone HCl 0.25 mg Q4HP PRN IV 05/13/24 18:45 05/18/24 11:36 0.25 MG Ondansetron HCl 4 mg Q4HP PRN IV 05/13/24 18:45 Enoxaparin Sodium 40 mg DAILY SC 05/14/24 10:00 05/17/24 08:24 40 MG Nitroglycerin 0.4 mg Q5MINP PRN SL 05/13/24 18:45 Morphine Sulfate 2 mg Q30M PRN IV 05/13/24 18:45 Diagnostic Test (Pha) 1 strip ACHS 05/13/24 22:00 05/18/24 12:58 1 STRIP Insulin Human Regular HS SC 05/13/24 22:00 05/17/24 22:14 4 UNITS Insulin Human Regular AC SC 05/14/24 07:00 05/17/24 17:38 9 UNITS Dextrose 50 ml UD PRN IV 05/13/24 19:00 Pantoprazole Sodium 40 mg DAILY IV 05/14/24 10:00 05/18/24 10:47 40 MG Daptomycin 500 mg/ Sodium Chloride 50 ml @ 100 mls/hr DAILY IV 05/14/24 18:00 05/18/24 11:02 100 MLS/HR Norepinephrine Bitartrate 250 ml @ 3.75 mls/hr Q24H IV 05/15/24 09:00 05/17/24 17:18 7.5 MLS/HR Hydralazine HCl 10 mg Q6HP PRN IV 05/15/24 17:30 Clindamycin Phosphate 50 ml @ 50 mls/hr Q8HR IV 05/17/24 14:00 05/18/24 14:24 50 MLS/HR Alprazolam 0.5 mg BID PRN PO 05/17/24 15:45 05/17/24 22:28 0.5 MG Meropenem 50 ml @ 17 mls/hr Q8H IV 05/17/24 22:00 05/18/24 05:11 17 MLS/HR Laboratory Results Laboratory Tests 05/18/24 03:15 05/18/24 04:54 Chemistry Test 05/18/24 03:15 Calcium Level 8.6 mg/dL (8.7-10.4) L Coagulation Test 05/18/24 10:59 Prothrombin Time 11.5 sec (9.3-11.8) Prothrombin Time INR 1.09 (0.9-1.15) Urinalysis Test 05/13/24 21:00 05/17/24 12:20 Urine Color Yellow (Yellow) Urine Clarity Turbid (Clear) H Urine pH 5.5 (5.0-9.0) Urine Specific [place] 1.014 (1.001-1.035) Urine Protein Trace (Negative) H Urine Ketones Negative (Negative) Urine Blood Trace /uL (Negative) H Urine Nitrite Negative (Negative) Urine Bilirubin Negative (Negative) Urine Urobilinogen Normal mg/dL (Negative) Urine Leukocyte Esterase 3+ /uL (Negative) Urine RBC 2 /hpf (0 - 3) Urine Microscopic WBC 70 /HPF (0-3) H Urine Squamous Epithelial Cells None seen /hpf (<5) Urine Bacteria Few /hpf (None Seen) H Urine Mucus Few (None Seen) Urine Creatinine 53.09 mg/dL (30.0-125.0) Urine Protein/Creatinine Ratio 1.05 Urine Potassium 23 mmol/L (12-62) Urine Glucose 3+ mg/dL (Normal) H Urine Total Protein 55.6 mg/dL (1-14) H Urine Osmolality 219 mOsm/kg Urine Sodium 66 mmol/L (40-220) Microbiology Microbiology Date/Time Source Procedure Growth Status 05/17/24 12:56 Blood Blood Culture - Preliminary Resulted 05/14/24 00:00 Foot Gram Stain - Final Complete 05/14/24 00:00 Wound Culture - Final Methicillin Resistant S.aureus Complete Assessment/Plan Assessment/Plan 59-year-old male with a known history of insulin-dependent diabetes mellitus, hypertension, chronic left foot wound currently being seen at wound care center presented to the hospital with generalized weakness found to have 1. Sepsis secondary to left foot wound cellulitis and osteomyelitis 2. Left foot cellulitis with evidence of osteomyelitis in distinct TBI fibula calcaneum and tarsal bones. 3. Hyponatremia suspect pseudohyponatremia in the setting of uncontrolled hyperglycemia 4. Uncontrolled hyperglycemia with history of insulin-dependent diabetes mellitus 5. Hypocalcemia 6. Leukocytosis likely reactive 7. Persistent MRSA bacteremia 8. HIV -HARRIS shows no evidence of endocarditis, -patient was seen by Podiatry and scheduled for debridement of the left foot tomorrow. -continue broad-spectrum IV antibiotics, MRI left foot ruled in osteomyelitis, Infectious Disease consultation, Podiatry consultation appreciated -nephrology consultation. Appreciated Plan discussed with: Patient, Other My Orders Orders - NADEEM LIMON MD Procedure Category Date Status Time Alprazolam Tablet PHA 05/17/24 In Process (Xanax Tablet) 15:45 Date of Service: May 18, 2024 Billing Provider: NADEEM LIMON MD Common Visit Codes: [id number] INP/OBS CARE(MOD) NADEEM LIMON MD May 18, 2024 15:07
--- NOTE | 2024-05-18 15:40 | DVHOP ---
DATE OF SURGERY: 05/18/2024 TRANSESOPHAGEAL ECHOCARDIOGRAPHY REPORT INDICATION: Rule out vegetation. PROCEDURE IN DETAIL: After explaining risks, benefits and alternatives, the patient signed written informed consent. The patient was given 1 mg of Versed and 50 mcg of fentanyl for adequate sedation. The HARRIS probe was introduced without difficulty. After obtaining appropriate cardiac image of the heart, the HARRIS probe was completely withdrawn. The patient tolerated procedure well. There were no immediate post-procedure complications. FINDINGS: * Left ventricle demonstrated mild concentric left ventricular hypertrophy. Left ventricular systolic function is preserved. Ejection fraction is 60% by gross visual estimate. * Right ventricle was of normal size. Right ventricular systolic pressure was not estimated due to inadequate TR jet. * Right and left atria were both of normal size, without evidence of mass. * Interatrial septum based on color Doppler study, there is no evidence to suggest interatrial shunt. * Aortic valve is mildly thickened, opens well, no evidence of aortic stenosis or regurgitation, no vegetation. * Mitral valve, open well. No evidence of mitral valve stenosis. There is mild mitral regurgitation. No vegetation. * Tricuspid valve. Tricuspid valve leaflets are free of vegetation. There is no tricuspid stenosis or regurgitation. * Pulmonic valve, grossly normal. * Left atrial appendage is free of mass or thrombus. * Pericardium, no evidence of pericardial effusion. SUMMARY: There is mild concentric left ventricular hypertrophy. Left ventricular systolic function is preserved. Ejection fraction is 60% by gross visual estimate. There is mild mitral regurgitation. There is no evidence of valvular vegetations to suggest endocarditis. MD KATIE Rivera/DANIEL/ESTRELLA TID: [id number] RECEIPT: [id number]
[2024-05-18 15:53] LABS: Basophils # (auto) 0 10 ^3/uL (0-0.2); Basophils % (auto) 0.2 % (0.0-2.0); Eosinophils # (auto) 0 10 ^3/uL (0-0.8); Eosinophils % (auto) 0.2 % (0.0-7.0); Hematocrit 22.9 % (41.0-53.0); Hemoglobin 7.2 g/dL (13.5-17.5); Lymphocytes # (auto) 1.7 10 ^3/uL (0.4-5.4); Lymphocytes % (auto) 7.1 % (10.0-50.0); Mean Corpuscular Hemoglobin 26.8 pg (28.0-32.0); Mean Corpuscular Hgb Conc. 31.6 g/dL (32.0-36.0); Mean Corpuscular Volume 84.7 fL (80.0-100.0); Monocytes # (auto) 1.4 10 ^3/uL (0-1.3); Monocytes % (auto) 5.6 % (0.0-12.0); Neutrophils # (auto) 21.3 10 ^3/uL (1.6-8.6); Neutrophils % (auto) 86.9 % (37.0-80.0); Platelet Count (auto) 449 10^3/uL (140-450); Red Cell Distribution Width 16.2 % (11.8-14.3); White Blood Cell 24.5 10^3/uL (4.4-10.8)
[2024-05-18 21:07] LABS: Anti-Nuclear Antibody Direct Negative (Negative)
--- NOTE | 2024-05-18 22:40 | DVHPN2 ---
Progress Note - Dictate Date Seen: May 18, 2024 Medical Necessity Reason Pt with a Central, PICC or Fol: No Subjective Patient seen and examined at bedside. Breathing comfortably on room air. Overnight events reviewed. vital signs Vital Sign Date Time Temp Pulse Resp B/P (MAP) Pulse Ox O2 Delivery O2 Flow Rate FiO2 05/18/24 22:15 95 13 113/79 (90) 96 05/18/24 22:00 Room Air* 0 21 05/18/24 20:01 98.4 98.4 Total Intake and Output 05/17/24 05/17/24 05/18/24 15:00 23:00 07:00 Intake Total 236.25 ml 217.50 ml 452.50 ml Output Total 490 ml Balance 236.25 ml 217.50 ml -37.50 ml medications Current Medications Medications Dose Ordered Sig/Patricia Route Start Time Stop Time Status Last Admin Dose Admin Acetaminophen 650 mg Q6HP PRN PO 05/13/24 18:45 05/18/24 10:19 650 MG Acetaminophen/ Hydrocodone Bitart 1 tab Q4HP PRN PO 05/13/24 18:45 05/17/24 20:38 1 TAB Hydromorphone HCl 0.25 mg Q4HP PRN IV 05/13/24 18:45 05/18/24 21:38 0.25 MG Ondansetron HCl 4 mg Q4HP PRN IV 05/13/24 18:45 Enoxaparin Sodium 40 mg DAILY SC 05/14/24 10:00 05/17/24 08:24 40 MG Nitroglycerin 0.4 mg Q5MINP PRN SL 05/13/24 18:45 Morphine Sulfate 2 mg Q30M PRN IV 05/13/24 18:45 Diagnostic Test (Pha) 1 strip ACHS 05/13/24 22:00 05/18/24 21:42 1 STRIP Insulin Human Regular HS SC 05/13/24 22:00 05/18/24 21:51 6 UNITS Insulin Human Regular AC SC 05/14/24 07:00 05/18/24 18:01 9 UNITS Dextrose 50 ml UD PRN IV 05/13/24 19:00 Pantoprazole Sodium 40 mg DAILY IV 05/14/24 10:00 05/18/24 10:47 40 MG Daptomycin 500 mg/ Sodium Chloride 50 ml @ 100 mls/hr DAILY IV 05/14/24 18:00 05/18/24 11:02 100 MLS/HR Norepinephrine Bitartrate 250 ml @ 3.75 mls/hr Q24H IV 05/15/24 09:00 05/17/24 17:18 7.5 MLS/HR Hydralazine HCl 10 mg Q6HP PRN IV 05/15/24 17:30 Clindamycin Phosphate 50 ml @ 50 mls/hr Q8HR IV 05/17/24 14:00 05/18/24 21:37 50 MLS/HR Alprazolam 0.5 mg BID PRN PO 05/17/24 15:45 05/18/24 22:10 0.5 MG Meropenem 50 ml @ 17 mls/hr Q8H IV 05/17/24 22:00 05/18/24 15:18 17 MLS/HR objective Gen.: Patient lying in bed in no apparent distress. On room air Head: Normocephalic, atraumatic. Eyes: EOMI/PERRLA. Ears: Normal hearing. Normal anatomy. Neck/trachea: Trachea midline, supple. Nose: Normal external anatomy. Mouth: Moist mucous membranes. Chest: Decreased air entry bilaterally. No wheezing or rhonchi. Cardiovascular: Positive S1, positive S2. Regular rate and rhythm. Abdomen: Positive bowel sounds in all 4 quadrants. Soft, non-tender, non- distended. : Deferred. Rectal: Deferred. Skin: Warm, dry. Intact. Extremities: 2+ radial pulses bilaterally. No lower extremity edema. Neuro: Awake, alert, oriented x3. No gross motor or sensory deficits. Cranial nerves II through XII intact. Gait not assessed. laboratory and microbiology Laboratory Tests 05/18/24 15:28 05/18/24 03:15 Test 05/18/24 03:15 Range/Units Serum Glucose 202 H 74-106 mg/dL Assessment/Plan Impression: Sepsis Left foot wound cellulitis, rule out osteomyelitis Hyponatremia Uncontrolled hyperglycemia Hypocalcemia Leukocytosis, likely reactive Events: Currently on room air. Supplemental oxygen PRN Improved O2 requirements Pressors for hemodynamic support On Levophed Titrate to keep mean arterial pressure greater than 65 mmHg Taper as tolerated Follow up Podiatry recommendations Plan for I&D of the foot S/p 1 unit PRBC Monitor hemoglobin - currently 7.2 g/dL Transfuse if less than 7.0 g/dL. S/p HARRIS, no vegetations seen. Continue antibiotics Blood cultures grew MRSA x2 Monitor WBC - now 24.5 K ID recommendations appreciated. Monitor renal function. Monitor electrolytes. Supplement as necessary. Monitor sodium - 123 Monitor ins and outs. Accu-Cheks, ISS DVT prophylaxis. Labs and imaging reviewed. Rest of plan as noted below. Plan: Supplemental oxygen PRN Titrate to keep O2 sats above 92%. Pressors for hemodynamic support Titrate to keep mean arterial pressure greater than 65 mmHg Continue antibiotics MRI left foot reviewed; extensive bone marrow edema involving distal tibia, distal fibula, talus, calcaneus and the residual tarsal bones highly concerning for osteomyelitis with differential diagnosis of Charcot joint. Severe tenosynovitis involving the flexor, peroneal and extensor compartments probably infectious. Achilles tendinosis and peritendinitis. Adjacent draining ulcer is seen. ID recommendations appreciated Podiatry recommendations appreciated Monitor renal function. Monitor electrolytes. Supplement as necessary. Monitor ins and outs. Nephrology recommendations appreciated DVT prophylaxis. Prognosis: Poor given patient's multiple co-morbidities. Condition: Critical Rest of plan per hospitalist and other consultants. A total of 35 minutes of critical care time was spent reviewing the patient record, examining the patient, making a diagnostic and therapeutic plan, discussing this plan with the medical personnel, following up on diagnostic studies and following the patient for clinical stability excluding any and all procedures. At least 50% of this time was spent in direct, goco-[facility]-owgh contact. Thank you Dr. Patterson for allowing me to participate in this patient's care. Further recommendations will depend on the patient's clinical course. Please do not hesitate to contact me if you have any questions or concerns. This medical document was created using an electronic medical record system with [employer] dictation system. Although these documentations are being carefully reviewed, there may still be some phonetic and typographical changes. The errors are purely typographical, due to imperfection on the software program, and do not reflect any compromise in the patient's medical care. Plan discussed with: Other ([facility] [place]) Critical Care Time(min): 35 DAX CORDOBA MD May 18, 2024 22:40
[2024-05-19] VITALS (72 sets, daily range): BP systolic 82–161; BP diastolic 41–112; PULSE 75–126; RESP 9–27; TEMP 97.3–98.7; O2SAT 90–100
[2024-05-19] MEDS: DOCUSATE SOD 100 MG CAP PO PRN (01:36)
[2024-05-19 06:10] LABS: Basophils # (auto) 0 10 ^3/uL (0-0.2); Eosinophils # (auto) 0.1 10 ^3/uL (0-0.8); Hemoglobin 8.4 g/dL (13.5-17.5); Lymphocytes # (auto) 1.8 10 ^3/uL (0.4-5.4); White Blood Cell 20.1 10^3/uL (4.4-10.8)
[2024-05-19 06:13] LABS: Basophils % (auto) 0.2 % (0.0-2.0); Eosinophils % (auto) 0.4 % (0.0-7.0); Hematocrit 25.9 % (41.0-53.0); Lymphocytes % (auto) 8.7 % (10.0-50.0); Mean Corpuscular Hgb Conc. 32.4 g/dL (32.0-36.0); Mean Corpuscular Volume 83.4 fL (80.0-100.0); Monocytes # (auto) 1.3 10 ^3/uL (0-1.3); Monocytes % (auto) 6.7 % (0.0-12.0); Neutrophils # (auto) 16.9 10 ^3/uL (1.6-8.6); Platelet Count (auto) 446 10^3/uL (140-450)
[2024-05-19 06:22] LABS: Anion Gap 8 (5-15); Carbon Dioxide 24 mmol/L (20-31); Potassium 4.4 mmol/L (3.5-5.1)
[2024-05-19 06:28] LABS: BUN/Creatinine Ratio 16.5 (10.0-20.0); Blood Urea Nitrogen 15 mg/dL (9-23)
[2024-05-19 06:33] LABS: Chloride 89 mmol/L (98-107); Sodium 121 mmol/L (136-145)
[2024-05-19 06:34] LABS: Calcium 8.5 mg/dL (8.7-10.4); Glucose 317 mg/dL (74-106)
--- NOTE | 2024-05-19 14:21 | DVHPN2 ---
Progress Note Date Seen: May 19, 2024 Medical Necessity Reason Pt with a Central, PICC or Fol: No Objective vital signs Vital Sign Date Time Temp Pulse Resp B/P (MAP) Pulse Ox O2 Delivery O2 Flow Rate FiO2 05/19/24 13:35 81 16 115/74 05/19/24 12:00 100 Room Air* 0 21 05/19/24 10:00 97.8 97.8 Total Intake and Output 05/18/24 05/18/24 05/19/24 15:00 23:00 07:00 Intake Total 337.50 ml 454.75 ml 950 ml Output Total 1650 ml 700 ml Balance 337.50 ml -1195.25 ml 250 ml medications Current Medications Medications Dose Ordered Sig/Patricia Route Start Time Stop Time Status Last Admin Dose Admin Acetaminophen 650 mg Q6HP PRN PO 05/13/24 18:45 05/19/24 06:24 650 MG Acetaminophen/ Hydrocodone Bitart 1 tab Q4HP PRN PO 05/13/24 18:45 05/19/24 04:16 1 TAB Hydromorphone HCl 0.25 mg Q4HP PRN IV 05/13/24 18:45 05/19/24 13:35 0.25 MG Ondansetron HCl 4 mg Q4HP PRN IV 05/13/24 18:45 Enoxaparin Sodium 40 mg DAILY SC 05/14/24 10:00 05/19/24 09:39 40 MG Nitroglycerin 0.4 mg Q5MINP PRN SL 05/13/24 18:45 Morphine Sulfate 2 mg Q30M PRN IV 05/13/24 18:45 Diagnostic Test (Pha) 1 strip ACHS 05/13/24 22:00 05/19/24 11:45 1 STRIP Insulin Human Regular HS SC 05/13/24 22:00 05/18/24 21:51 6 UNITS Insulin Human Regular AC SC 05/14/24 07:00 05/19/24 11:43 9 UNITS Dextrose 50 ml UD PRN IV 05/13/24 19:00 Pantoprazole Sodium 40 mg DAILY IV 05/14/24 10:00 05/19/24 09:39 40 MG Daptomycin 500 mg/ Sodium Chloride 50 ml @ 100 mls/hr DAILY IV 05/14/24 18:00 05/19/24 11:00 100 MLS/HR Norepinephrine Bitartrate 250 ml @ 3.75 mls/hr Q24H IV 05/15/24 09:00 05/17/24 17:18 7.5 MLS/HR Hydralazine HCl 10 mg Q6HP PRN IV 05/15/24 17:30 Clindamycin Phosphate 50 ml @ 50 mls/hr Q8HR IV 05/17/24 14:00 05/19/24 05:25 50 MLS/HR Alprazolam 0.5 mg BID PRN PO 05/17/24 15:45 05/18/24 22:10 0.5 MG Meropenem 50 ml @ 17 mls/hr Q8H IV 05/17/24 22:00 05/19/24 06:24 17 MLS/HR Docusate Sodium 100 mg BIDPRN PRN PO 05/19/24 00:15 05/19/24 01:36 100 MG Examination: GENERAL:Abnormal, ABDOMEN:Normal, SKIN:Abnormal laboratory and microbiology Laboratory Tests 05/19/24 05:37 Test 05/19/24 05:37 Range/Units Serum Glucose 317 #H 74-106 mg/dL Microbiology Date/Time Source Procedure Growth Status 05/17/24 12:56 Blood Blood Culture - Preliminary Resulted 05/14/24 00:00 Foot Gram Stain - Final Complete 05/14/24 00:00 Wound Culture - Final Methicillin Resistant S.aureus Complete Problem List/Assessment/Plan Problem List/Assessment/Plan YESSY superimposed on CKD secondary to hemodynamic mediated Hyponatremia Uncontrolled DM, A1c > 11, hyperglycemia MRSA septicemia Peripheral arterial disease Right foot osteomyelitis Charcot foot left foot/cellulitis Anemia of CKD , blood loss from wound HIV per ID Acute kidney injury resolved start sodium diet IV antibiotics treatment of wound infection glycemic control ID consult retrovirals on hold Surgery for wound debridement Plan discussed with: Patient ELLA GUDINO MD May 19, 2024 14:21
[2024-05-19 15:07] LABS: Antimyeloperoxidase (MPO) Ab <0.2 units (0.0-0.9); Antiproteinase 3 (PR-3) Ab <0.2 units (0.0-0.9); Cytoplasmic (C-ANCA) <1:20 titer (Neg:<1:20); Perinuclear (P-ANCA) <1:20 titer (Neg:<1:20)
[2024-05-19] MEDS: SODIUM CHLORIDE 0.9% 1,000 ML IV ONE ×2 (15:35→22:00)
--- NOTE | 2024-05-19 16:54 | DVHPN2 ---
Subjective Patient was scheduled for left foot surgery by Podiatry. Changes from previous H/P or p: No Changes Eyes: No Pain, No Vision change, No Conjunctivae inflammation, No Eyelid inflammation, No Other, No Redness ENT: No Ear pain, No Ear discharge, No Nose pain, No Nose discharge, No Nose congestion, No Mouth pain, No Mouth swelling, No Throat pain, No Throat swelling, No Other Cardiovascular: No Chest Pain, No Palpitations, No Orthopnea, No Paroxysmal Noc. Dyspnea, No Edema, No Lt Headedness, No Other Respiratory: No Cough, No Dry, No Shortness of breath, No SOB with excertion, No Wheezing, No Hemoptysis, No Pleuritic Pain, No Sputum, No Other Gastrointestinal: No Nausea, No Vomiting, No Abdominal Pain, No Diarrhea, No Constipation, No Melena, No Hematochezia, No Other Genitourinary: Dysuria Musculoskeletal: foot pain Skin: Other Objective Vitals Vital Signs Date Time Temp Pulse Resp B/P (MAP) Pulse Ox O2 Delivery O2 Flow Rate FiO2 05/19/24 16:42 161/112 05/19/24 16:30 84 16 97 05/19/24 16:00 Room Air* 0 21 05/19/24 12:30 97.9 97.9 Intake/Output Intake and Output 05/19/24 07:00 Intake Total 1742.25 ml Output Total 2350 ml Balance -607.75 ml Intake Oral 900 ml IV Total 242.25 ml Blood Product 600 ml Output Urine Total 2350 ml Exam HEENT pupils are reactive Neck is supple CVS S1-S2 regular rate and rhythm Respiratory diminished breath sounds bases GI positive bowel sound Extremity no edema 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 Left lower extremity foot wounds antiseptic dressing Medications Current Medications Medications Dose Ordered Sig/Patricia Route Start Time Stop Time Status Last Admin Dose Admin Acetaminophen 650 mg Q6HP PRN PO 05/13/24 18:45 05/19/24 06:24 650 MG Acetaminophen/ Hydrocodone Bitart 1 tab Q4HP PRN PO 05/13/24 18:45 05/19/24 04:16 1 TAB Hydromorphone HCl 0.25 mg Q4HP PRN IV 05/13/24 18:45 05/19/24 13:35 0.25 MG Ondansetron HCl 4 mg Q4HP PRN IV 05/13/24 18:45 Enoxaparin Sodium 40 mg DAILY SC 05/14/24 10:00 05/19/24 09:39 40 MG Nitroglycerin 0.4 mg Q5MINP PRN SL 05/13/24 18:45 Morphine Sulfate 2 mg Q30M PRN IV 05/13/24 18:45 Diagnostic Test (Pha) 1 strip ACHS 05/13/24 22:00 05/19/24 11:45 1 STRIP Insulin Human Regular HS SC 05/13/24 22:00 05/18/24 21:51 6 UNITS Insulin Human Regular AC SC 05/14/24 07:00 05/19/24 11:43 9 UNITS Dextrose 50 ml UD PRN IV 05/13/24 19:00 Pantoprazole Sodium 40 mg DAILY IV 05/14/24 10:00 05/19/24 09:39 40 MG Daptomycin 500 mg/ Sodium Chloride 50 ml @ 100 mls/hr DAILY IV 05/14/24 18:00 05/19/24 11:00 100 MLS/HR Norepinephrine Bitartrate 250 ml @ 3.75 mls/hr Q24H IV 05/15/24 09:00 05/17/24 17:18 7.5 MLS/HR Hydralazine HCl 10 mg Q6HP PRN IV 05/15/24 17:30 Clindamycin Phosphate 50 ml @ 50 mls/hr Q8HR IV 05/17/24 14:00 05/19/24 15:34 50 MLS/HR Alprazolam 0.5 mg BID PRN PO 05/17/24 15:45 05/18/24 22:10 0.5 MG Meropenem 50 ml @ 17 mls/hr Q8H IV 05/17/24 22:00 05/19/24 16:48 17 MLS/HR Docusate Sodium 100 mg BIDPRN PRN PO 05/19/24 00:15 05/19/24 01:36 100 MG Laboratory Results Laboratory Tests 05/19/24 05:37 Chemistry Test 05/19/24 05:37 Calcium Level 8.5 mg/dL (8.7-10.4) L Urinalysis Test 05/13/24 21:00 05/17/24 12:20 Urine Color Yellow (Yellow) Urine Clarity Turbid (Clear) H Urine pH 5.5 (5.0-9.0) Urine Specific [place] 1.014 (1.001-1.035) Urine Protein Trace (Negative) H Urine Ketones Negative (Negative) Urine Blood Trace /uL (Negative) H Urine Nitrite Negative (Negative) Urine Bilirubin Negative (Negative) Urine Urobilinogen Normal mg/dL (Negative) Urine Leukocyte Esterase 3+ /uL (Negative) Urine RBC 2 /hpf (0 - 3) Urine Microscopic WBC 70 /HPF (0-3) H Urine Squamous Epithelial Cells None seen /hpf (<5) Urine Bacteria Few /hpf (None Seen) H Urine Mucus Few (None Seen) Urine Creatinine 53.09 mg/dL (30.0-125.0) Urine Protein/Creatinine Ratio 1.05 Urine Potassium 23 mmol/L (12-62) Urine Glucose 3+ mg/dL (Normal) H Urine Total Protein 55.6 mg/dL (1-14) H Urine Osmolality 219 mOsm/kg Urine Sodium 66 mmol/L (40-220) Microbiology Microbiology Date/Time Source Procedure Growth Status 05/17/24 12:56 Blood Blood Culture - Preliminary Resulted 05/14/24 00:00 Foot Gram Stain - Final Complete 05/14/24 00:00 Wound Culture - Final Methicillin Resistant S.aureus Complete Assessment/Plan Assessment/Plan 59-year-old male with a known history of insulin-dependent diabetes mellitus, hypertension, chronic left foot wound currently being seen at wound care center presented to the hospital with generalized weakness found to have 1. Sepsis secondary to left foot wound cellulitis and osteomyelitis 2. Left foot cellulitis with evidence of osteomyelitis in distinct TBI fibula calcaneum and tarsal bones. 3. Hyponatremia suspect pseudohyponatremia in the setting of uncontrolled hyperglycemia 4. Uncontrolled hyperglycemia with history of insulin-dependent diabetes mellitus 5. Hypocalcemia 6. Leukocytosis likely reactive 7. Persistent MRSA bacteremia 8. HIV -HARRIS shows no evidence of endocarditis, -patient was seen by Podiatry and scheduled for debridement of the left foot -continue broad-spectrum IV antibiotics, MRI left foot ruled in osteomyelitis, Infectious Disease consultation, Podiatry consultation appreciated -nephrology consultation. Appreciated Plan discussed with: Patient Date of Service: May 19, 2024 Billing Provider: NADEEM LIMON MD Common Visit Codes: [id number] INP/OBS CARE(MOD) NADEEM LIMON MD May 19, 2024 16:54
--- NOTE | 2024-05-19 18:06 | DVH ---
EXAM: US LT UPPER DVT Clinical History: LEFT ARM SWELLING Comparison: None Technique: Duplex Doppler evaluation of the deep venous systems of the left upper extremity from the internal ju gular to the ulnar vein including color Doppler and spectral/pulsed waveform analysis was performed. Findings: Normal compressibility and color Doppler flow is seen in the left upper extremity veins including the internal jugular, subclavian, axillary, brachial, radial and ulnar veins. Superficial venous thrombus in the cephalic vein. Impression: 1. No sonographic evidence for left upper extremity DVT. 2. Superficial venous thrombus in the cephalic vein.
[2024-05-19 18:16] LABS: Carbon Dioxide 25 mmol/L (20-31)
[2024-05-19 18:20] LABS: Calcium 8.1 mg/dL (8.7-10.4)
[2024-05-19 18:22] LABS: BUN/Creatinine Ratio 15.3 (10.0-20.0); Blood Urea Nitrogen 13 mg/dL (9-23); Glucose 263 mg/dL (74-106)
[2024-05-19 18:29] LABS: Anion Gap 7 (5-15); Potassium 4.4 mmol/L (3.5-5.1)
[2024-05-19 18:32] LABS: Chloride 92 mmol/L (98-107); Sodium 124 mmol/L (136-145)
--- NOTE | 2024-05-19 22:10 | DVHPN2 ---
Progress Note - Dictate Date Seen: May 19, 2024 Medical Necessity Reason Pt with a Central, PICC or Fol: No Subjective Patient seen and examined at bedside. On supplemental oxygen Overnight events reviewed. vital signs Vital Sign Date Time Temp Pulse Resp B/P (MAP) Pulse Ox O2 Delivery O2 Flow Rate FiO2 05/19/24 20:07 102 17 141/97 05/19/24 20:00 98 Room Air* 0 21 05/19/24 16:45 97.3 97.3 Total Intake and Output 05/18/24 05/18/24 05/19/24 15:00 23:00 07:00 Intake Total 337.50 ml 454.75 ml 950 ml Output Total 1650 ml 700 ml Balance 337.50 ml -1195.25 ml 250 ml medications Current Medications Medications Dose Ordered Sig/Patricia Route Start Time Stop Time Status Last Admin Dose Admin Acetaminophen 650 mg Q6HP PRN PO 05/13/24 18:45 05/19/24 06:24 650 MG Acetaminophen/ Hydrocodone Bitart 1 tab Q4HP PRN PO 05/13/24 18:45 05/19/24 04:16 1 TAB Hydromorphone HCl 0.25 mg Q4HP PRN IV 05/13/24 18:45 05/19/24 20:07 0.25 MG Ondansetron HCl 4 mg Q4HP PRN IV 05/13/24 18:45 Enoxaparin Sodium 40 mg DAILY SC 05/14/24 10:00 05/19/24 09:39 40 MG Nitroglycerin 0.4 mg Q5MINP PRN SL 05/13/24 18:45 Morphine Sulfate 2 mg Q30M PRN IV 05/13/24 18:45 Diagnostic Test (Pha) 1 strip ACHS 05/13/24 22:00 05/19/24 17:06 1 STRIP Insulin Human Regular HS SC 05/13/24 22:00 05/18/24 21:51 6 UNITS Insulin Human Regular AC SC 05/14/24 07:00 05/19/24 17:14 9 UNITS Dextrose 50 ml UD PRN IV 05/13/24 19:00 Pantoprazole Sodium 40 mg DAILY IV 05/14/24 10:00 05/19/24 09:39 40 MG Daptomycin 500 mg/ Sodium Chloride 50 ml @ 100 mls/hr DAILY IV 05/14/24 18:00 05/19/24 11:00 100 MLS/HR Norepinephrine Bitartrate 250 ml @ 3.75 mls/hr Q24H IV 05/15/24 09:00 05/17/24 17:18 7.5 MLS/HR Hydralazine HCl 10 mg Q6HP PRN IV 05/15/24 17:30 Clindamycin Phosphate 50 ml @ 50 mls/hr Q8HR IV 05/17/24 14:00 05/19/24 15:34 50 MLS/HR Alprazolam 0.5 mg BID PRN PO 05/17/24 15:45 05/18/24 22:10 0.5 MG Meropenem 50 ml @ 17 mls/hr Q8H IV 05/17/24 22:00 05/19/24 16:48 17 MLS/HR Docusate Sodium 100 mg BIDPRN PRN PO 05/19/24 00:15 05/19/24 01:36 100 MG objective Gen.: Patient lying in bed in no apparent distress. On supplemental oxygen Head: Normocephalic, atraumatic. Eyes: EOMI/PERRLA. Ears: Normal hearing. Normal anatomy. Neck/trachea: Trachea midline, supple. Nose: Normal external anatomy. Mouth: Moist mucous membranes. Chest: Decreased air entry bilaterally. No wheezing or rhonchi. Cardiovascular: Positive S1, positive S2. Regular rate and rhythm. Abdomen: Positive bowel sounds in all 4 quadrants. Soft, non-tender, non- distended. : Deferred. Rectal: Deferred. Skin: Warm, dry. Intact. Extremities: 2+ radial pulses bilaterally. No lower extremity edema. Neuro: Awake, alert, oriented x3. No gross motor or sensory deficits. Cranial nerves II through XII intact. Gait not assessed. laboratory and microbiology Laboratory Tests 05/19/24 16:33 05/19/24 05:37 Test 05/19/24 16:33 Range/Units Serum Glucose 263 H 74-106 mg/dL Assessment/Plan Impression: Sepsis Left foot wound cellulitis, rule out osteomyelitis Hyponatremia Uncontrolled hyperglycemia Hypocalcemia Leukocytosis, likely reactive Events: Overnight, required supplemental O2 Supplemental oxygen 2 LPM NC Taper O2 as tolerated Pressors (Levophed) for hemodynamic support Titrate to keep MAP above 65 mmHg/SBP above 90 mmHg. Monitor hemoglobin - currently 8.4 g/dL Transfuse if less than 7.0 g/dL. Continue antibiotics Blood cultures grew MRSA x2 Monitor WBC - trending down, now 20.1 K ID recommendations appreciated. Monitor renal function. Monitor electrolytes. Supplement as necessary. Monitor sodium - 121 Monitor ins and outs. Accu-Cheks, ISS DVT prophylaxis. Labs and imaging reviewed. Rest of plan as noted below. Plan: Supplemental oxygen PRN Titrate to keep O2 sats above 92%. Pressors for hemodynamic support Titrate to keep MAP above 65 mmHg/SBP above 90 mmHg. Continue antibiotics MRI left foot reviewed; extensive bone marrow edema involving distal tibia, distal fibula, talus, calcaneus and the residual tarsal bones highly concerning for osteomyelitis with differential diagnosis of Charcot joint. Severe tenosynovitis involving the flexor, peroneal and extensor compartments probably infectious. Achilles tendinosis and peritendinitis. Adjacent draining ulcer is seen. ID recommendations appreciated Podiatry recommendations appreciated Monitor renal function. Monitor electrolytes. Supplement as necessary. Monitor ins and outs. Nephrology recommendations appreciated DVT prophylaxis. Prognosis: Poor given patient's multiple co-morbidities. Condition: Critical Rest of plan per hospitalist and other consultants. A total of 35 minutes of critical care time was spent reviewing the patient record, examining the patient, making a diagnostic and therapeutic plan, discussing this plan with the medical personnel, following up on diagnostic studies and following the patient for clinical stability excluding any and all procedures. At least 50% of this time was spent in direct, [id number] contact. Thank you Dr. Patterson for allowing me to participate in this patient's care. Further recommendations will depend on the patient's clinical course. Please do not hesitate to contact me if you have any questions or concerns. This medical document was created using an electronic medical record system with [employer] dictation system. Although these documentations are being carefully reviewed, there may still be some phonetic and typographical changes. The errors are purely typographical, due to imperfection on the software program, and do not reflect any compromise in the patient's medical care. Plan discussed with: Other (RN) Critical Care Time(min): 35 DAX CORDOBA MD May 19, 2024 22:10
[2024-05-20] VITALS (106 sets, daily range): BP systolic 67–151; BP diastolic 39–90; PULSE 81–113; RESP 8–30; TEMP 97–99.3; O2SAT 78–100
[2024-05-20 07:23] LABS: Anion Gap 8 (5-15); Carbon Dioxide 26 mmol/L (20-31); Potassium 4.6 mmol/L (3.5-5.1)
[2024-05-20 07:27] LABS: Calcium 8.6 mg/dL (8.7-10.4); Chloride 91 mmol/L (98-107); Sodium 125 mmol/L (136-145)
[2024-05-20 07:29] LABS: BUN/Creatinine Ratio 13.8 (10.0-20.0); Blood Urea Nitrogen 11 mg/dL (9-23)
[2024-05-20 07:32] LABS: Glucose 219 mg/dL (74-106)
[2024-05-20 07:38] LABS: Hematocrit 26.7 % (41.0-53.0); Hemoglobin 8.6 g/dL (13.5-17.5); Mean Corpuscular Hgb Conc. 32.1 g/dL (32.0-36.0); Platelet Count (auto) 566 10^3/uL (140-450); Red Blood Cells 3.18 10^6/uL (4.5-5.90); Red Cell Distribution Width 16.2 % (11.8-14.3)
[2024-05-20 07:45] LABS: Basophils % (manual) 0 (0.0-2.0); Blast Cells 0; Promyelocytes % 0; Reactive Lymphocytes 0
[2024-05-20 08:52] LABS: Band Neutrophils % (manual) 4; Eosinophils % (manual) 1 (0-7); Lymphocytes % (manual) 14 (10.0-50.0); Metamyelocytes % 5; Monocytes % (manual) 7 (0-12); Myelocytes % 2; Platelet Estimate Increased
--- NOTE | 2024-05-20 16:39 | DVHPN2 ---
Progress Note Date Seen: May 20, 2024 Medical Necessity Reason Pt with a Central, PICC or Fol: No Objective vital signs Vital Sign Date Time Temp Pulse Resp B/P (MAP) Pulse Ox O2 Delivery O2 Flow Rate FiO2 05/20/24 16:15 89 12 97/60 (72) 94 05/20/24 16:05 Room Air* 0 21 05/20/24 16:00 98.5 98.5 Total Intake and Output 05/19/24 05/19/24 05/20/24 15:00 23:00 07:00 Intake Total 61.25 ml 1071.75 ml 681.50 ml Output Total 1750 ml Balance 61.25 ml 1071.75 ml -1068.50 ml medications Current Medications Medications Dose Ordered Sig/Patricia Route Start Time Stop Time Status Last Admin Dose Admin Acetaminophen 650 mg Q6HP PRN PO 05/13/24 18:45 05/19/24 06:24 650 MG Acetaminophen/ Hydrocodone Bitart 1 tab Q4HP PRN PO 05/13/24 18:45 05/20/24 14:30 1 TAB Hydromorphone HCl 0.25 mg Q4HP PRN IV 05/13/24 18:45 05/20/24 04:28 0.25 MG Ondansetron HCl 4 mg Q4HP PRN IV 05/13/24 18:45 Enoxaparin Sodium 40 mg DAILY SC 05/14/24 10:00 05/19/24 09:39 40 MG Nitroglycerin 0.4 mg Q5MINP PRN SL 05/13/24 18:45 Morphine Sulfate 2 mg Q30M PRN IV 05/13/24 18:45 Diagnostic Test (Pha) 1 strip ACHS 05/13/24 22:00 05/20/24 16:13 1 STRIP Insulin Human Regular HS SC 05/13/24 22:00 05/19/24 22:30 4 UNITS Insulin Human Regular AC SC 05/14/24 07:00 05/20/24 11:33 3 UNITS Dextrose 50 ml UD PRN IV 05/13/24 19:00 Pantoprazole Sodium 40 mg DAILY IV 05/14/24 10:00 05/20/24 07:39 40 MG Daptomycin 500 mg/ Sodium Chloride 50 ml @ 100 mls/hr DAILY IV 05/14/24 18:00 05/20/24 10:21 100 MLS/HR Norepinephrine Bitartrate 250 ml @ 3.75 mls/hr Q24H IV 05/15/24 09:00 05/17/24 17:18 7.5 MLS/HR Hydralazine HCl 10 mg Q6HP PRN IV 05/15/24 17:30 Clindamycin Phosphate 50 ml @ 50 mls/hr Q8HR IV 05/17/24 14:00 05/20/24 13:35 50 MLS/HR Meropenem 50 ml @ 17 mls/hr Q8H IV 05/17/24 22:00 05/20/24 13:35 17 MLS/HR Docusate Sodium 100 mg BIDPRN PRN PO 05/19/24 00:15 05/19/24 01:36 100 MG Alprazolam 0.5 mg TID PRN PO 05/20/24 16:45 UNV Examination: GENERAL:Abnormal, ABDOMEN:Abnormal laboratory and microbiology Laboratory Tests 05/20/24 06:00 Test 05/20/24 06:00 Range/Units Serum Glucose 219 H 74-106 mg/dL Microbiology Date/Time Source Procedure Growth Status 05/17/24 12:56 Blood Blood Culture - Final Methicillin Resistant S.aureus Complete 05/14/24 00:00 Foot Gram Stain - Final Complete 05/14/24 00:00 Wound Culture - Final Methicillin Resistant S.aureus Complete Problem List/Assessment/Plan Problem List/Assessment/Plan YESSY superimposed on CKD secondary to hemodynamic mediated Hyponatremia Uncontrolled DM, A1c > 11, hyperglycemia MRSA septicemia Peripheral arterial disease Right foot osteomyelitis Charcot foot left foot/cellulitis Anemia of CKD , blood loss from wound HIV per ID Acute kidney injury resolved start sodium diet s/p IVF improved BP IV antibiotics treatment of wound infection glycemic control ID consult retrovirals on hold Surgery for wound debridement Plan discussed with: Patient Dietary Evaluation Review Comments: Follow a CCHO-60 diet with Protein restriction at 60g d/t kidney failure. Encourage high fiber foods, liquid allowed for his kidney function, PT for improved physical activities. Expected Outcomes/Goals: less nephrotoxins, less constipation, controlled DM, improved wound healing. ELLA GUDINO MD May 20, 2024 16:39
--- NOTE | 2024-05-20 17:37 | DVHPN2 ---
Subjective Denies any complaints on low-dose of Levophed. Changes from previous H/P or p: No Changes Eyes: No Pain, No Vision change, No Conjunctivae inflammation, No Eyelid inflammation, No Other, No Redness ENT: No Ear pain, No Ear discharge, No Nose pain, No Nose discharge, No Nose congestion, No Mouth pain, No Mouth swelling, No Throat pain, No Throat swelling, No Other Cardiovascular: No Chest Pain, No Palpitations, No Orthopnea, No Paroxysmal Noc. Dyspnea, No Edema, No Lt Headedness, No Other Respiratory: No Cough, No Dry, No Shortness of breath, No SOB with excertion, No Wheezing, No Hemoptysis, No Pleuritic Pain, No Sputum, No Other Gastrointestinal: No Nausea, No Vomiting, No Abdominal Pain, No Diarrhea, No Constipation, No Melena, No Hematochezia, No Other Genitourinary: Dysuria Musculoskeletal: foot pain Skin: Other Objective Vitals Vital Signs Date Time Temp Pulse Resp B/P (MAP) Pulse Ox O2 Delivery O2 Flow Rate FiO2 05/20/24 17:00 92 11 88/64 (72) 95 05/20/24 16:05 Room Air* 0 21 05/20/24 16:00 98.5 98.5 Intake/Output Intake and Output 05/20/24 07:00 Intake Total 1814.50 ml Output Total 1750 ml Balance 64.50 ml Intake Oral 575 ml IV Total 1239.50 ml Output Urine Total 1750 ml Exam HEENT pupils are reactive Neck is supple CVS S1-S2 regular rate and rhythm Respiratory diminished breath sounds bases GI positive bowel sound 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 Left lower extremity foot wounds antiseptic dressing Medications Current Medications Medications Dose Ordered Sig/Patricia Route Start Time Stop Time Status Last Admin Dose Admin Acetaminophen 650 mg Q6HP PRN PO 05/13/24 18:45 05/19/24 06:24 650 MG Acetaminophen/ Hydrocodone Bitart 1 tab Q4HP PRN PO 05/13/24 18:45 05/20/24 14:30 1 TAB Hydromorphone HCl 0.25 mg Q4HP PRN IV 05/13/24 18:45 05/20/24 04:28 0.25 MG Ondansetron HCl 4 mg Q4HP PRN IV 05/13/24 18:45 Enoxaparin Sodium 40 mg DAILY SC 05/14/24 10:00 05/19/24 09:39 40 MG Nitroglycerin 0.4 mg Q5MINP PRN SL 05/13/24 18:45 Morphine Sulfate 2 mg Q30M PRN IV 05/13/24 18:45 Diagnostic Test (Pha) 1 strip ACHS 05/13/24 22:00 05/20/24 16:13 1 STRIP Insulin Human Regular HS SC 05/13/24 22:00 05/19/24 22:30 4 UNITS Insulin Human Regular AC SC 05/14/24 07:00 05/20/24 16:51 9 UNITS Dextrose 50 ml UD PRN IV 05/13/24 19:00 Pantoprazole Sodium 40 mg DAILY IV 05/14/24 10:00 05/20/24 07:39 40 MG Daptomycin 500 mg/ Sodium Chloride 50 ml @ 100 mls/hr DAILY IV 05/14/24 18:00 05/20/24 10:21 100 MLS/HR Norepinephrine Bitartrate 250 ml @ 3.75 mls/hr Q24H IV 05/15/24 09:00 05/17/24 17:18 7.5 MLS/HR Hydralazine HCl 10 mg Q6HP PRN IV 05/15/24 17:30 Clindamycin Phosphate 50 ml @ 50 mls/hr Q8HR IV 05/17/24 14:00 05/20/24 13:35 50 MLS/HR Meropenem 50 ml @ 17 mls/hr Q8H IV 05/17/24 22:00 05/20/24 13:35 17 MLS/HR Docusate Sodium 100 mg BIDPRN PRN PO 05/19/24 00:15 05/19/24 01:36 100 MG Alprazolam 0.5 mg TID PRN PO 05/20/24 16:45 Laboratory Results Laboratory Tests 05/20/24 06:00 Chemistry Test 05/20/24 06:00 Calcium Level 8.6 mg/dL (8.7-10.4) L Urinalysis Test 05/13/24 21:00 05/17/24 12:20 Urine Color Yellow (Yellow) Urine Clarity Turbid (Clear) H Urine pH 5.5 (5.0-9.0) Urine Specific [place] 1.014 (1.001-1.035) Urine Protein Trace (Negative) H Urine Ketones Negative (Negative) Urine Blood Trace /uL (Negative) H Urine Nitrite Negative (Negative) Urine Bilirubin Negative (Negative) Urine Urobilinogen Normal mg/dL (Negative) Urine Leukocyte Esterase 3+ /uL (Negative) Urine RBC 2 /hpf (0 - 3) Urine Microscopic WBC 70 /HPF (0-3) H Urine Squamous Epithelial Cells None seen /hpf (<5) Urine Bacteria Few /hpf (None Seen) H Urine Mucus Few (None Seen) Urine Creatinine 53.09 mg/dL (30.0-125.0) Urine Protein/Creatinine Ratio 1.05 Urine Potassium 23 mmol/L (12-62) Urine Glucose 3+ mg/dL (Normal) H Urine Total Protein 55.6 mg/dL (1-14) H Urine Osmolality 219 mOsm/kg Urine Sodium 66 mmol/L (40-220) Microbiology Microbiology Date/Time Source Procedure Growth Status 05/17/24 12:56 Blood Blood Culture - Final Methicillin Resistant S.aureus Complete 05/14/24 00:00 Foot Gram Stain - Final Complete 05/14/24 00:00 Wound Culture - Final Methicillin Resistant S.aureus Complete Assessment/Plan Assessment/Plan 59-year-old male with a known history of insulin-dependent diabetes mellitus, hypertension, chronic left foot wound currently being seen at wound care center presented to the hospital with generalized weakness found to have 1. Sepsis secondary to left foot wound cellulitis and osteomyelitis 2. Left foot cellulitis with evidence of osteomyelitis in distinct TBI fibula calcaneum and tarsal bones. 3. Hyponatremia suspect pseudohyponatremia in the setting of uncontrolled hyperglycemia 4. Uncontrolled hyperglycemia with history of insulin-dependent diabetes mellitus 5. Hypocalcemia 6. Leukocytosis likely reactive 7. Persistent MRSA bacteremia 8. HIV 9. Hypotension -HARRIS shows no evidence of endocarditis, -patient was seen by Podiatry and scheduled for debridement of the left foot -continue broad-spectrum IV antibiotics, MRI left foot ruled in osteomyelitis, Infectious Disease consultation, Podiatry consultation appreciated -nephrology consultation. Appreciated Plan discussed with: Patient My Orders Orders - NADEEM LIMON MD Procedure Category Date Status Time Consistent DIET 05/20/24 Transmitted Carb(Ccho)Diabetes Lunch Complete Blood Count LAB 05/21/24 Verified 04:00 Comprehensive LAB 05/21/24 Verified Metabolic Panel 04:00 Magnesium LAB 05/21/24 Verified 04:00 Alprazolam Tablet PHA 05/20/24 In Process (Xanax Tablet) 16:45 Date of Service: May 20, 2024 Billing Provider: NADEEM LIMON MD Common Visit Codes: [id number] INP/OBS CARE(MOD), NOT BILLABLE NADEEM LIMON MD May 20, 2024 17:37
--- NOTE | 2024-05-20 18:30 | DVHPN2 ---
Consult Progress Note Date Seen: May 18, 2024 Subjective Patient reports: Other (lethargic after undergoing HARRIS today and has no complaints , left ankle is drainaing with localized cellulitis , right toes are amputated and site appears clean ) Objective vital signs Vital Sign Date Time Temp Pulse Resp B/P (MAP) Pulse Ox O2 Delivery O2 Flow Rate FiO2 05/20/24 18:11 101 05/20/24 18:10 17 99 Room Air* 0 21 05/20/24 18:00 109/83 (92) 05/20/24 16:00 98.5 98.5 Total Intake and Output 05/19/24 05/19/24 05/20/24 15:00 23:00 07:00 Intake Total 61.25 ml 1071.75 ml 681.50 ml Output Total 1750 ml Balance 61.25 ml 1071.75 ml -1068.50 ml medications Current Medications Medications Dose Ordered Sig/Patricia Route Start Time Stop Time Status Last Admin Dose Admin Acetaminophen 650 mg Q6HP PRN PO 05/13/24 18:45 05/19/24 06:24 650 MG Acetaminophen/ Hydrocodone Bitart 1 tab Q4HP PRN PO 05/13/24 18:45 05/20/24 14:30 1 TAB Hydromorphone HCl 0.25 mg Q4HP PRN IV 05/13/24 18:45 05/20/24 04:28 0.25 MG Ondansetron HCl 4 mg Q4HP PRN IV 05/13/24 18:45 Enoxaparin Sodium 40 mg DAILY SC 05/14/24 10:00 05/19/24 09:39 40 MG Nitroglycerin 0.4 mg Q5MINP PRN SL 05/13/24 18:45 Morphine Sulfate 2 mg Q30M PRN IV 05/13/24 18:45 Diagnostic Test (Pha) 1 strip ACHS 05/13/24 22:00 05/20/24 16:13 1 STRIP Insulin Human Regular HS SC 05/13/24 22:00 05/19/24 22:30 4 UNITS Insulin Human Regular AC SC 05/14/24 07:00 05/20/24 16:51 9 UNITS Dextrose 50 ml UD PRN IV 05/13/24 19:00 Pantoprazole Sodium 40 mg DAILY IV 05/14/24 10:00 05/20/24 07:39 40 MG Daptomycin 500 mg/ Sodium Chloride 50 ml @ 100 mls/hr DAILY IV 05/14/24 18:00 05/20/24 10:21 100 MLS/HR Norepinephrine Bitartrate 250 ml @ 3.75 mls/hr Q24H IV 05/15/24 09:00 05/20/24 17:59 3.75 MLS/HR Hydralazine HCl 10 mg Q6HP PRN IV 05/15/24 17:30 Clindamycin Phosphate 50 ml @ 50 mls/hr Q8HR IV 05/17/24 14:00 05/20/24 13:35 50 MLS/HR Meropenem 50 ml @ 17 mls/hr Q8H IV 05/17/24 22:00 05/20/24 13:35 17 MLS/HR Docusate Sodium 100 mg BIDPRN PRN PO 05/19/24 00:15 05/19/24 01:36 100 MG Alprazolam 0.5 mg TID PRN PO 05/20/24 16:45 Physical Exam: General:?NAD Neck:?Supple. No masses. HEENT:?PERRL. Normal lids and conjunctiva. Moist mucous membranes. Oropharynx without lesions, exudates, or excessive erythema. Normal appearance of the external aspects of the nose and ears. Heart:?Regular rhythm, normal rate. No murmur. No lower extremity edema. Lungs:?Normal respiratory effort. Clear to auscultation bilaterally. No wheezes. No crackles. Abdomen:?Soft. Non-tender. Non-distended. No masses or abdominal hernia. Msk:?No digital cyanosis. Skin:?Warm. Right foot with multiple toe amputations. Right leg with severe wound with good granulation tissue and serous drainage. Left foot with cellulitic changes: erythema and edema. Neuro:?Alert. No facial droop or slurred speech. Extra-ocular movements intact. Sensation intact to soft touch in all 4 limbs. Psych:?Appropriate mood. Full affect. Oriented to person, place, time, and situation. laboratory and microbiology Laboratory Tests 05/20/24 06:00 Test 05/20/24 06:00 Range/Units Serum Glucose 219 H 74-106 mg/dL Problem List/Assessment/Plan Problems(with codes): (1) Hyponatremia (2) Uncontrolled diabetes mellitus (3) Sepsis, unspecified organism (4) Osteomyelitis (5) HIV (human immunodeficiency virus infection) (6) MRSA bacteremia (7) Hx of syphilis (8) History of ESBL Klebsiella pneumoniae infection Problem List/Assessment/Plan ID Problem List: - MRSA bacteremia - Left foot cellulitis - Possible osteomyelitis (left foot, right leg) - Uncontrolled diabetes mellitus (noncompliant) - Diabetic foot infections - Multiple right toe amputations - Chronic right leg ulcer - Hypertension - Polysubstance abuse - Undiagnosed psychiatric disorder - HIV Assessment This is a 49 y.o. male with a past medical history of hypertension, uncontrolled diabetes mellitus (noncompliant), polysubstance abuse, and undiagnosed psychiatric disorder, who presents with generalized weakness for the last six days. Left foot with cellulitic changes (erythema, edema), possible osteomyelitis. Right foot with multiple toe amputations. Chronic right leg ulcer with severe wound, good granulation tissue, and serous drainage. Vital signs show hypotension (BP 79/55 mmHg), afebrile (T 98.4F), heart rate 87 bpm, respiratory rate 12 breaths per minute, oxygen saturation 96% on room air. Laboratories notable for leukocytosis (WBC 44 x10/L), anemia (Hb 9.5 g/dL), thrombocytosis (platelets 584 x10/L), hyponatremia (Na 123 mmol/L), BUN 26 mg/dL, Creatinine 1.02 mg/dL. Urinalysis shows +3 leukocytes and positive nitrites. Blood cultures are growing MRSA. patient has hx of ESBL wound infection 05/15: whitecount 22.1 05/16: MRI of foot shows extensive bone maredema involving the distal tibia , distal fibula and talus calcanus and residual tarsal bones. highly concerning for osteomyelitis with differential diagnosis of charcot joint , involving flexor perineal extensor compartments probably infectious , Achillis tendinosis and peritendinitis , adjacent draining ulcer seen and patients also persistently positive blood cultures for MRSA as well as wound cultures 05/17: whitecount is 46 , concerned for progressisng sepsis , patient is getting surgery by podiatry tomorrow 05/18: Still having blood cultures return positive , whitecount is down to 26 and BP has normalized and only requiring intermittently BP support Plan: - during debridement collect bacterial ,anarobic , aerobic , fungal and AFB cultures of infected deep tissue - Continue clindomycin given soft tissue injury and concern for developing gaseous infection from MRSA - repeat blood cultures in 24 hours - recommend more urgent evaluation by podiatry for debridement and amputation of patients foot - recommend consulting podiatry for operative debridement , if done please collect deep tissue and bone cultures bacterial and anaerobic of infected specimen - HOLD art, unclear patient compliance, recommend checking HIV viral and CD4 count - Continue daptomycin (due to MRSA bacteremia and prior renal failure associated with vancomycin) - STOP Zosyn (piperacillin/tazobactam) - Continue Meropenem - Fluid resuscitation; consider vasopressor support to maintain MAP >65 mmHg - Repeat blood cultures - MRI of left foot is pending; order MRI of right leg due to concern for osteomyelitis - Recommend transthoracic echocardiogram (TTE) to evaluate for potential endocarditis - Obtain urine culture to further evaluate urinary tract infection - Keep blood sugars under 180 mg/dL with insulin sliding scale; defer management to primary team - Monitor vital signs and labs closely Isolation Precautions: standard Plan discussed with: Other Dietary Evaluation Review Comments: Follow a CCHO-60 diet with Protein restriction at 60g d/t kidney failure. Encourage high fiber foods, liquid allowed for his kidney function, PT for improved physical activities. Expected Outcomes/Goals: less nephrotoxins, less constipation, controlled DM, improved wound healing. VITOR BROCK MD May 20, 2024 18:30
--- NOTE | 2024-05-20 18:36 | DVHPN2 ---
Consult Progress Note Date Seen: May 19, 2024 Subjective Patient reports: Other (completely off BP support , feeling pain in left ankles , tender ) Objective vital signs Vital Sign Date Time Temp Pulse Resp B/P (MAP) Pulse Ox O2 Delivery O2 Flow Rate FiO2 05/20/24 18:11 101 05/20/24 18:10 17 99 Room Air* 0 21 05/20/24 18:00 109/83 (92) 05/20/24 16:00 98.5 98.5 Total Intake and Output 05/19/24 05/19/24 05/20/24 15:00 23:00 07:00 Intake Total 61.25 ml 1071.75 ml 681.50 ml Output Total 1750 ml Balance 61.25 ml 1071.75 ml -1068.50 ml medications Current Medications Medications Dose Ordered Sig/Patricia Route Start Time Stop Time Status Last Admin Dose Admin Acetaminophen 650 mg Q6HP PRN PO 05/13/24 18:45 05/19/24 06:24 650 MG Acetaminophen/ Hydrocodone Bitart 1 tab Q4HP PRN PO 05/13/24 18:45 05/20/24 14:30 1 TAB Hydromorphone HCl 0.25 mg Q4HP PRN IV 05/13/24 18:45 05/20/24 04:28 0.25 MG Ondansetron HCl 4 mg Q4HP PRN IV 05/13/24 18:45 Enoxaparin Sodium 40 mg DAILY SC 05/14/24 10:00 05/19/24 09:39 40 MG Nitroglycerin 0.4 mg Q5MINP PRN SL 05/13/24 18:45 Morphine Sulfate 2 mg Q30M PRN IV 05/13/24 18:45 Diagnostic Test (Pha) 1 strip ACHS 05/13/24 22:00 05/20/24 16:13 1 STRIP Insulin Human Regular HS SC 05/13/24 22:00 05/19/24 22:30 4 UNITS Insulin Human Regular AC SC 05/14/24 07:00 05/20/24 16:51 9 UNITS Dextrose 50 ml UD PRN IV 05/13/24 19:00 Pantoprazole Sodium 40 mg DAILY IV 05/14/24 10:00 05/20/24 07:39 40 MG Daptomycin 500 mg/ Sodium Chloride 50 ml @ 100 mls/hr DAILY IV 05/14/24 18:00 05/20/24 10:21 100 MLS/HR Norepinephrine Bitartrate 250 ml @ 3.75 mls/hr Q24H IV 05/15/24 09:00 05/20/24 17:59 3.75 MLS/HR Hydralazine HCl 10 mg Q6HP PRN IV 05/15/24 17:30 Clindamycin Phosphate 50 ml @ 50 mls/hr Q8HR IV 05/17/24 14:00 05/20/24 13:35 50 MLS/HR Meropenem 50 ml @ 17 mls/hr Q8H IV 05/17/24 22:00 05/20/24 13:35 17 MLS/HR Docusate Sodium 100 mg BIDPRN PRN PO 05/19/24 00:15 05/19/24 01:36 100 MG Alprazolam 0.5 mg TID PRN PO 05/20/24 16:45 Physical Exam: General:?NAD Neck:?Supple. No masses. HEENT:?PERRL. Normal lids and conjunctiva. Moist mucous membranes. Oropharynx without lesions, exudates, or excessive erythema. Normal appearance of the external aspects of the nose and ears. Heart:?Regular rhythm, normal rate. No murmur. No lower extremity edema. Lungs:?Normal respiratory effort. Clear to auscultation bilaterally. No wheezes. No crackles. Abdomen:?Soft. Non-tender. Non-distended. No masses or abdominal hernia. Msk:?No digital cyanosis. Skin:?Warm. Right foot with multiple toe amputations. Right leg with severe wound with good granulation tissue and serous drainage. Left foot with cellulitic changes: erythema and edema. Neuro:?Alert. No facial droop or slurred speech. Extra-ocular movements intact. Sensation intact to soft touch in all 4 limbs. Psych:?Appropriate mood. Full affect. Oriented to person, place, time, and situation. laboratory and microbiology Laboratory Tests 05/20/24 06:00 Test 05/20/24 06:00 Range/Units Serum Glucose 219 H 74-106 mg/dL Problem List/Assessment/Plan Problems(with codes): (1) History of ESBL Klebsiella pneumoniae infection (2) Hx of syphilis (3) MRSA bacteremia (4) HIV (human immunodeficiency virus infection) (5) Osteomyelitis (6) Sepsis, unspecified organism (7) Uncontrolled diabetes mellitus Problem List/Assessment/Plan ID Problem List: - MRSA bacteremia - Left foot cellulitis - Possible osteomyelitis (left foot, right leg) - Uncontrolled diabetes mellitus (noncompliant) - Diabetic foot infections - Multiple right toe amputations - Chronic right leg ulcer - Hypertension - Polysubstance abuse - Undiagnosed psychiatric disorder - HIV Assessment This is a 49 y.o. male with a past medical history of hypertension, uncontrolled diabetes mellitus (noncompliant), polysubstance abuse, and undiagnosed psychiatric disorder, who presents with generalized weakness for the last six days. Left foot with cellulitic changes (erythema, edema), possible osteomyelitis. Right foot with multiple toe amputations. Chronic right leg ulcer with severe wound, good granulation tissue, and serous drainage. Vital signs show hypotension (BP 79/55 mmHg), afebrile (T 98.4F), heart rate 87 bpm, respiratory rate 12 breaths per minute, oxygen saturation 96% on room air. Laboratories notable for leukocytosis (WBC 44 x10/L), anemia (Hb 9.5 g/dL), thrombocytosis (platelets 584 x10/L), hyponatremia (Na 123 mmol/L), BUN 26 mg/dL, Creatinine 1.02 mg/dL. Urinalysis shows +3 leukocytes and positive nitrites. Blood cultures are growing MRSA. patient has hx of ESBL wound infection 05/15: whitecount 22.1 05/16: MRI of foot shows extensive bone maredema involving the distal tibia , distal fibula and talus calcanus and residual tarsal bones. highly concerning for osteomyelitis with differential diagnosis of charcot joint , involving flexor perineal extensor compartments probably infectious , Achillis tendinosis and peritendinitis , adjacent draining ulcer seen and patients also persistently positive blood cultures for MRSA as well as wound cultures 05/17: whitecount is 46 , concerned for progressisng sepsis , patient is getting surgery by podiatry tomorrow 05/18: Still having blood cultures return positive , whitecount is down to 26 and BP has normalized and only requiring intermittently BP support 05/19: 1/4 bottles of blood is positive for MRSA on the 05/17 and fever curve is downtrending . is to undergo debridement and irrigation tomorrow , HARRIS done 05/18 showed negative for any valvular diseases or vegetation Plan: - during debridement collect bacterial ,anaerobic , aerobic , fungal and AFB cultures of infected deep tissue - Continue clindamycin, daptomycin , and meropenem - repeat blood cultures now - HOLD art, unclear patient compliance, recommend checking HIV viral and CD4 count - Fluid resuscitation; consider vasopressor support to maintain MAP >65 mmHg - Obtain urine culture to further evaluate urinary tract infection - Keep blood sugars under 180 mg/dL with insulin sliding scale; defer management to primary team - Monitor vital signs and labs closely Isolation Precautions: standard Plan discussed with: Other Dietary Evaluation Review Comments: Follow a CCHO-60 diet with Protein restriction at 60g d/t kidney failure. Encourage high fiber foods, liquid allowed for his kidney function, PT for improved physical activities. Expected Outcomes/Goals: less nephrotoxins, less constipation, controlled DM, improved wound healing. VITOR BROCK MD May 20, 2024 18:36
--- NOTE | 2024-05-20 18:39 | DVHPN2 ---
Consult Progress Note Date Seen: May 20, 2024 Subjective Patient reports: Other (patient is on BP support , breathing well on room air , only on a few mg of levofed , left ankle and plantar foot is very tender to palpation and swollen , some small odor coming through the bandages . hernandez lacteration is clean and right foot appears benign ) Objective vital signs Vital Sign Date Time Temp Pulse Resp B/P (MAP) Pulse Ox O2 Delivery O2 Flow Rate FiO2 05/20/24 18:11 101 05/20/24 18:10 17 99 Room Air* 0 21 05/20/24 18:00 109/83 (92) 05/20/24 16:00 98.5 98.5 Total Intake and Output 05/19/24 05/19/24 05/20/24 15:00 23:00 07:00 Intake Total 61.25 ml 1071.75 ml 681.50 ml Output Total 1750 ml Balance 61.25 ml 1071.75 ml -1068.50 ml medications Current Medications Medications Dose Ordered Sig/Patricia Route Start Time Stop Time Status Last Admin Dose Admin Acetaminophen 650 mg Q6HP PRN PO 05/13/24 18:45 05/19/24 06:24 650 MG Acetaminophen/ Hydrocodone Bitart 1 tab Q4HP PRN PO 05/13/24 18:45 05/20/24 14:30 1 TAB Hydromorphone HCl 0.25 mg Q4HP PRN IV 05/13/24 18:45 05/20/24 04:28 0.25 MG Ondansetron HCl 4 mg Q4HP PRN IV 05/13/24 18:45 Enoxaparin Sodium 40 mg DAILY SC 05/14/24 10:00 05/19/24 09:39 40 MG Nitroglycerin 0.4 mg Q5MINP PRN SL 05/13/24 18:45 Morphine Sulfate 2 mg Q30M PRN IV 05/13/24 18:45 Diagnostic Test (Pha) 1 strip ACHS 05/13/24 22:00 05/20/24 16:13 1 STRIP Insulin Human Regular HS SC 05/13/24 22:00 05/19/24 22:30 4 UNITS Insulin Human Regular AC SC 05/14/24 07:00 05/20/24 16:51 9 UNITS Dextrose 50 ml UD PRN IV 05/13/24 19:00 Pantoprazole Sodium 40 mg DAILY IV 05/14/24 10:00 05/20/24 07:39 40 MG Daptomycin 500 mg/ Sodium Chloride 50 ml @ 100 mls/hr DAILY IV 05/14/24 18:00 05/20/24 10:21 100 MLS/HR Norepinephrine Bitartrate 250 ml @ 3.75 mls/hr Q24H IV 05/15/24 09:00 05/20/24 17:59 3.75 MLS/HR Hydralazine HCl 10 mg Q6HP PRN IV 05/15/24 17:30 Clindamycin Phosphate 50 ml @ 50 mls/hr Q8HR IV 05/17/24 14:00 05/20/24 13:35 50 MLS/HR Meropenem 50 ml @ 17 mls/hr Q8H IV 05/17/24 22:00 05/20/24 13:35 17 MLS/HR Docusate Sodium 100 mg BIDPRN PRN PO 05/19/24 00:15 05/19/24 01:36 100 MG Alprazolam 0.5 mg TID PRN PO 05/20/24 16:45 Physical Exam: General:?NAD Neck:?Supple. No masses. HEENT:?PERRL. Normal lids and conjunctiva. Moist mucous membranes. Oropharynx without lesions, exudates, or excessive erythema. Normal appearance of the external aspects of the nose and ears. Heart:?Regular rhythm, normal rate. No murmur. No lower extremity edema. Lungs:?Normal respiratory effort. Clear to auscultation bilaterally. No wheezes. No crackles. Abdomen:?Soft. Non-tender. Non-distended. No masses or abdominal hernia. Msk:?No digital cyanosis. Skin:?Warm. Right foot with multiple toe amputations. Right leg with severe wound with good granulation tissue and serous drainage. Left foot with cellulitic changes: erythema and edema. Neuro:?Alert. No facial droop or slurred speech. Extra-ocular movements intact. Sensation intact to soft touch in all 4 limbs. Psych:?Appropriate mood. Full affect. Oriented to person, place, time, and situation. laboratory and microbiology Laboratory Tests 05/20/24 06:00 Test 05/20/24 06:00 Range/Units Serum Glucose 219 H 74-106 mg/dL Problem List/Assessment/Plan Problems(with codes): (1) Hx of syphilis (2) History of ESBL Klebsiella pneumoniae infection (3) MRSA bacteremia (4) HIV (human immunodeficiency virus infection) (5) Osteomyelitis (6) Sepsis, unspecified organism (7) Uncontrolled diabetes mellitus Problem List/Assessment/Plan ID Problem List: - MRSA bacteremia - Left foot cellulitis - Possible osteomyelitis (left foot, right leg) - Uncontrolled diabetes mellitus (noncompliant) - Diabetic foot infections - Multiple right toe amputations - Chronic right leg ulcer - Hypertension - Polysubstance abuse - Undiagnosed psychiatric disorder - HIV Assessment This is a 49 y.o. male with a past medical history of hypertension, uncontrolled diabetes mellitus (noncompliant), polysubstance abuse, and undiagnosed psychiatric disorder, who presents with generalized weakness for the last six days. Left foot with cellulitic changes (erythema, edema), possible osteomyelitis. Right foot with multiple toe amputations. Chronic right leg ulcer with severe wound, good granulation tissue, and serous drainage. Vital signs show hypotension (BP 79/55 mmHg), afebrile (T 98.4F), heart rate 87 bpm, respiratory rate 12 breaths per minute, oxygen saturation 96% on room air. Laboratories notable for leukocytosis (WBC 44 x10/L), anemia (Hb 9.5 g/dL), thrombocytosis (platelets 584 x10/L), hyponatremia (Na 123 mmol/L), BUN 26 mg/dL, Creatinine 1.02 mg/dL. Urinalysis shows +3 leukocytes and positive nitrites. Blood cultures are growing MRSA. patient has hx of ESBL wound infection 05/15: whitecount 22.1 05/16: MRI of foot shows extensive bone maredema involving the distal tibia , distal fibula and talus calcanus and residual tarsal bones. highly concerning for osteomyelitis with differential diagnosis of charcot joint , involving flexor perineal extensor compartments probably infectious , Achillis tendinosis and peritendinitis , adjacent draining ulcer seen and patients also persistently positive blood cultures for MRSA as well as wound cultures 05/17: whitecount is 46 , concerned for progressisng sepsis , patient is getting surgery by podiatry tomorrow 05/18: Still having blood cultures return positive , whitecount is down to 26 and BP has normalized and only requiring intermittently BP support 05/19: 1/4 bottles of blood is positive for MRSA on the 05/17 and fever curve is downtrending . is to undergo debridement and irrigation tomorrow , HARRIS done 05/18 showed negative for any valvular diseases or vegetation 05/20: continues to be positive for MRSA bacteremia , likely due to inadequate source control , whitecount is down to 24.5 Plan: - during debridement collect bacterial ,anaerobic , aerobic , fungal and AFB cultures of infected deep tissue - Continue clindamycin, daptomycin , and meropenem - repeat blood cultures now - HOLD art, unclear patient compliance, recommend checking HIV viral and CD4 count - Fluid resuscitation; consider vasopressor support to maintain MAP >65 mmHg - Obtain urine culture to further evaluate urinary tract infection - Keep blood sugars under 180 mg/dL with insulin sliding scale; defer management to primary team - Monitor vital signs and labs closely Isolation Precautions: standard Plan discussed with: Other Dietary Evaluation Review Comments: Follow a CCHO-60 diet with Protein restriction at 60g d/t kidney failure. Encourage high fiber foods, liquid allowed for his kidney function, PT for improved physical activities. Expected Outcomes/Goals: less nephrotoxins, less constipation, controlled DM, improved wound healing. VITOR BROCK MD May 20, 2024 18:39
[2024-05-20] MEDS: ALPRAZolam 0.5 MG TAB PO PRN (19:29)
--- NOTE | 2024-05-20 23:08 | DVHPN2 ---
Progress Note - Dictate Date Seen: May 20, 2024 Medical Necessity Reason Pt with a Central, PICC or Fol: No Subjective Patient seen and examined at bedside. Breathing on room air Overnight events reviewed. vital signs Vital Sign Date Time Temp Pulse Resp B/P (MAP) Pulse Ox O2 Delivery O2 Flow Rate FiO2 05/20/24 22:30 91 15 108/71 (83) 99 05/20/24 20:00 Room Air* 0 21 05/20/24 16:00 98.5 98.5 Total Intake and Output 05/19/24 05/19/24 05/20/24 15:00 23:00 07:00 Intake Total 61.25 ml 1071.75 ml 681.50 ml Output Total 1750 ml Balance 61.25 ml 1071.75 ml -1068.50 ml medications Current Medications Medications Dose Ordered Sig/Patricia Route Start Time Stop Time Status Last Admin Dose Admin Acetaminophen 650 mg Q6HP PRN PO 05/13/24 18:45 05/19/24 06:24 650 MG Acetaminophen/ Hydrocodone Bitart 1 tab Q4HP PRN PO 05/13/24 18:45 05/20/24 19:29 1 TAB Hydromorphone HCl 0.25 mg Q4HP PRN IV 05/13/24 18:45 05/20/24 21:10 0.25 MG Ondansetron HCl 4 mg Q4HP PRN IV 05/13/24 18:45 Enoxaparin Sodium 40 mg DAILY SC 05/14/24 10:00 05/19/24 09:39 40 MG Nitroglycerin 0.4 mg Q5MINP PRN SL 05/13/24 18:45 Morphine Sulfate 2 mg Q30M PRN IV 05/13/24 18:45 Diagnostic Test (Pha) 1 strip ACHS 05/13/24 22:00 05/20/24 21:32 1 STRIP Insulin Human Regular HS SC 05/13/24 22:00 05/20/24 21:36 4 UNITS Insulin Human Regular AC SC 05/14/24 07:00 05/20/24 16:51 9 UNITS Dextrose 50 ml UD PRN IV 05/13/24 19:00 Pantoprazole Sodium 40 mg DAILY IV 05/14/24 10:00 05/20/24 07:39 40 MG Daptomycin 500 mg/ Sodium Chloride 50 ml @ 100 mls/hr DAILY IV 05/14/24 18:00 05/20/24 10:21 100 MLS/HR Norepinephrine Bitartrate 250 ml @ 3.75 mls/hr Q24H IV 05/15/24 09:00 05/20/24 17:59 3.75 MLS/HR Hydralazine HCl 10 mg Q6HP PRN IV 05/15/24 17:30 Clindamycin Phosphate 50 ml @ 50 mls/hr Q8HR IV 05/17/24 14:00 05/20/24 21:32 50 MLS/HR Meropenem 50 ml @ 17 mls/hr Q8H IV 05/17/24 22:00 05/20/24 21:09 17 MLS/HR Docusate Sodium 100 mg BIDPRN PRN PO 05/19/24 00:15 05/20/24 21:09 100 MG Alprazolam 0.5 mg TID PRN PO 05/20/24 16:45 05/20/24 19:29 0.5 MG objective Gen.: Patient lying in bed in no apparent distress. On room air Head: Normocephalic, atraumatic. Eyes: EOMI/PERRLA. Ears: Normal hearing. Normal anatomy. Neck/trachea: Trachea midline, supple. Nose: Normal external anatomy. Mouth: Moist mucous membranes. Chest: Decreased air entry bilaterally. No wheezing or rhonchi. Cardiovascular: Positive S1, positive S2. Regular rate and rhythm. Abdomen: Positive bowel sounds in all 4 quadrants. Soft, non-tender, non- distended. : Deferred. Rectal: Deferred. Skin: Warm, dry. Left foot wound. Extremities: 2+ radial pulses bilaterally. No lower extremity edema. Neuro: Awake, alert, oriented x3. No gross motor or sensory deficits. Cranial nerves II through XII intact. Gait not assessed. laboratory and microbiology Laboratory Tests 05/20/24 06:00 Test 05/20/24 06:00 Range/Units Serum Glucose 219 H 74-106 mg/dL Assessment/Plan Impression: Sepsis Left foot wound cellulitis, rule out osteomyelitis Hyponatremia Uncontrolled hyperglycemia Hypocalcemia Leukocytosis, likely reactive Events: Currently on room air Supplemental oxygen PRN Off Levophed since 11 AM, hemodynamically stable. Plan for wound debridement. Monitor hemoglobin - currently 8.6 g/dL Transfuse if less than 7.0 g/dL. Continue antibiotics Blood cultures grew MRSA x2 Monitor WBC - trending down, now 19.0 K ID recommendations appreciated. Monitor renal function. Monitor electrolytes. Supplement as necessary. Monitor sodium - 125 Monitor ins and outs. Accu-Cheks, ISS DVT prophylaxis. Labs and imaging reviewed. Rest of plan as noted below. Plan: Supplemental oxygen PRN Titrate to keep O2 sats above 92%. Pressors if necessary for hemodynamic support Titrate to keep MAP above 65 mmHg/SBP above 90 mmHg. Continue antibiotics MRI left foot reviewed; extensive bone marrow edema involving distal tibia, distal fibula, talus, calcaneus and the residual tarsal bones highly concerning for osteomyelitis with differential diagnosis of Charcot joint. Severe tenosynovitis involving the flexor, peroneal and extensor compartments probably infectious. Achilles tendinosis and peritendinitis. Adjacent draining ulcer is seen. ID recommendations appreciated Podiatry recommendations appreciated Monitor renal function. Monitor electrolytes. Supplement as necessary. Monitor ins and outs. Nephrology recommendations appreciated DVT prophylaxis. Prognosis: Poor given patient's multiple co-morbidities. Condition: Critical Rest of plan per hospitalist and other consultants. A total of 35 minutes of critical care time was spent reviewing the patient record, examining the patient, making a diagnostic and therapeutic plan, discussing this plan with the medical personnel, following up on diagnostic studies and following the patient for clinical stability excluding any and all procedures. At least 50% of this time was spent in direct, [id number] contact. Thank you Dr. Patterson for allowing me to participate in this patient's care. Further recommendations will depend on the patient's clinical course. Please do not hesitate to contact me if you have any questions or concerns. This medical document was created using an electronic medical record system with [employer] dictation system. Although these documentations are being carefully reviewed, there may still be some phonetic and typographical changes. The errors are purely typographical, due to imperfection on the software program, and do not reflect any compromise in the patient's medical care. Dietary Evaluation Review Comments: Follow a CCHO-60 diet with Protein restriction at 60g d/t kidney failure. Encourage high fiber foods, liquid allowed for his kidney function, PT for improved physical activities. Expected Outcomes/Goals: less nephrotoxins, less constipation, controlled DM, improved wound healing. Plan discussed with: Other (VANE Lynn) Critical Care Time(min): 35 DAX CORDOBA MD May 20, 2024 23:08
[2024-05-21] VITALS (105 sets, daily range): BP systolic 80–149; BP diastolic 40–90; PULSE 83–129; RESP 9–22; TEMP 97.5–99.7; O2SAT 88–100
[2024-05-21 05:41] LABS: Hemoglobin 8.7 g/dL (13.5-17.5)
[2024-05-21 05:45] LABS: Hematocrit 26.5 % (41.0-53.0); Mean Corpuscular Hemoglobin 27.7 pg (28.0-32.0); Mean Corpuscular Hgb Conc. 32.8 g/dL (32.0-36.0); Mean Corpuscular Volume 84.4 fL (80.0-100.0); Platelet Count (auto) 567 10^3/uL (140-450); Red Blood Cells 3.13 10^6/uL (4.5-5.90); White Blood Cell 14.9 10^3/uL (4.4-10.8)
[2024-05-21 05:50] LABS: Basophils % (manual) 0 (0.0-2.0); Blast Cells 0; Metamyelocytes % 0; Promyelocytes % 0; Reactive Lymphocytes 0
[2024-05-21 05:56] LABS: Anion Gap 8 (5-15); Aspartate Aminotransferase 14 U/L (13-40); BUN/Creatinine Ratio 13.2 (10.0-20.0); Bilirubin, Total 0.4 mg/dL (0.2-1.0); Blood Urea Nitrogen 12 mg/dL (9-23); Carbon Dioxide 25 mmol/L (20-31); Magnesium 1.8 mg/dL (1.6-2.6); Potassium 4.7 mmol/L (3.5-5.1); Total Protein 6.2 g/dL (5.7-8.2)
[2024-05-21 06:06] LABS: Alanine Aminotransferase < 9 U/L (7-40); Albumin 3.1 g/dL (3.2-4.8); Alkaline Phosphatase 192 U/L (46-116); Calcium 8.4 mg/dL (8.7-10.4); Chloride 91 mmol/L (98-107); Glucose 307 mg/dL (74-106); Sodium 124 mmol/L (136-145)
[2024-05-21 06:31] LABS: Band Neutrophils % (manual) 2; Eosinophils % (manual) 1 (0-7); Lymphocytes % (manual) 16 (10.0-50.0); Monocytes % (manual) 6 (0-12); Myelocytes % 2; Platelet Estimate Increased
[2024-05-21] MEDS ORDERED: METH-1181 ×2 (07:13)
[2024-05-21] MEDS ORDERED: LISI10TA34 ×2 (07:13)
[2024-05-21] MEDS ORDERED: PREG25CA28 ×2 (07:13)
[2024-05-21] MEDS ORDERED: PANT40T PO ×2 (07:13)
[2024-05-21] MEDS ORDERED: ATEN50TA PO ×2 (07:13)
[2024-05-21] MEDS ORDERED: INSU100I54 SC ×2 (07:13)
[2024-05-21] MEDS ORDERED: INSUINJ37 SC ×2 (07:13)
[2024-05-21] MEDS ORDERED: BICT1TAB ×2 (07:13)
[2024-05-21] MEDS ORDERED: HYDR-3682 PO ×2 (11:03)
[2024-05-21] MEDS ORDERED: PERCOT PO (11:03)
[2024-05-21] MEDS ORDERED: VENL75CA3 PO ×2 (11:03)
[2024-05-21] MEDS ORDERED: CLON0.5T4 PO ×2 (11:03)
[2024-05-21] MEDS: NOREPINEPHRINE 8 MG/250ML KIT 250 ML IV SCH (12:15)
[2024-05-21] MEDS: PREGABALIN 25 MG CAP PO SCH (13:16)
[2024-05-21] MEDS: METHOCARBAMOL 500 MG TAB PO ONE (13:22)
[2024-05-21] MEDS: MAGNESIUM SULFATE 1GM/100ML 100 ML IV SCH (14:23)
--- NOTE | 2024-05-21 15:33 | DVHPN2 ---
Subjective Patient was scheduled for left foot surgery by Podiatry. Changes from previous H/P or p: No Changes Eyes: No Pain, No Vision change, No Conjunctivae inflammation, No Eyelid inflammation, No Other, No Redness ENT: No Ear pain, No Ear discharge, No Nose pain, No Nose discharge, No Nose congestion, No Mouth pain, No Mouth swelling, No Throat pain, No Throat swelling, No Other Cardiovascular: No Chest Pain, No Palpitations, No Orthopnea, No Paroxysmal Noc. Dyspnea, No Edema, No Lt Headedness, No Other Respiratory: No Cough, No Dry, No Shortness of breath, No SOB with excertion, No Wheezing, No Hemoptysis, No Pleuritic Pain, No Sputum, No Other Gastrointestinal: No Nausea, No Vomiting, No Abdominal Pain, No Diarrhea, No Constipation, No Melena, No Hematochezia, No Other Genitourinary: Dysuria Musculoskeletal: foot pain Skin: Other Objective Vitals Vital Signs Date Time Temp Pulse Resp B/P (MAP) Pulse Ox O2 Delivery O2 Flow Rate FiO2 05/21/24 15:30 100 18 80/52 (61) 99 05/21/24 14:02 Room Air* 0 21 05/21/24 12:00 98.8 98.8 Intake/Output Intake and Output 05/21/24 07:00 Intake Total 2063.75 ml Output Total 3450 ml Balance -1386.25 ml Intake Oral 1600 ml IV Total 463.75 ml Output Urine Total 3450 ml Exam HEENT pupils are reactive Neck is supple CVS S1-S2 regular rate and rhythm Respiratory diminished breath sounds bases GI positive bowel sound Extremity no edema [employer] no motor deficit Left lower extremity foot wounds antiseptic dressing Medications Current Medications Medications Dose Ordered Sig/Patricia Route Start Time Stop Time Status Last Admin Dose Admin Acetaminophen 650 mg Q6HP PRN PO 05/13/24 18:45 05/19/24 06:24 650 MG Hydromorphone HCl 0.25 mg Q4HP PRN IV 05/13/24 18:45 05/21/24 05:35 0.25 MG Ondansetron HCl 4 mg Q4HP PRN IV 05/13/24 18:45 Enoxaparin Sodium 40 mg DAILY SC 05/14/24 10:00 05/21/24 08:01 40 MG Nitroglycerin 0.4 mg Q5MINP PRN SL 05/13/24 18:45 Morphine Sulfate 2 mg Q30M PRN IV 05/13/24 18:45 Diagnostic Test (Pha) 1 strip ACHS 05/13/24 22:00 05/21/24 13:23 1 STRIP Insulin Human Regular HS SC 05/13/24 22:00 05/20/24 21:36 4 UNITS Insulin Human Regular AC SC 05/14/24 07:00 05/21/24 11:06 12 UNITS Dextrose 50 ml UD PRN IV 05/13/24 19:00 Pantoprazole Sodium 40 mg DAILY IV 05/14/24 10:00 05/21/24 08:01 40 MG Daptomycin 500 mg/ Sodium Chloride 50 ml @ 100 mls/hr DAILY IV 05/14/24 18:00 05/21/24 08:01 100 MLS/HR Hydralazine HCl 10 mg Q6HP PRN IV 05/15/24 17:30 Clindamycin Phosphate 50 ml @ 50 mls/hr Q8HR IV 05/17/24 14:00 05/21/24 13:23 50 MLS/HR Meropenem 50 ml @ 17 mls/hr Q8H IV 05/17/24 22:00 05/21/24 12:53 17 MLS/HR Docusate Sodium 100 mg BIDPRN PRN PO 05/19/24 00:15 05/20/24 21:09 100 MG Alprazolam 0.5 mg TID PRN PO 05/20/24 16:45 05/21/24 03:34 0.5 MG Norepinephrine Bitartrate 250 ml @ 0.938 mls/ hr Q24H IV 05/21/24 12:15 05/21/24 12:15 2.813 MLS/HR Pregabalin 25 mg TID PO 05/21/24 14:00 05/21/24 13:16 25 MG Methocarbamol 500 mg BID PO 05/21/24 22:00 Venlafaxine HCl 75 mg BID PO 05/21/24 22:00 Oxycodone/ Acetaminophen 1 tab Q4HP PRN PO 05/21/24 12:45 Insulin Glargine 32 units HS SC 05/21/24 22:00 Midodrine 10 mg TID@0600,1200,1800 PO 05/21/24 18:00 Magnesium Sulfate/ Dextrose 100 ml @ 100 mls/hr Q1HR IV 05/21/24 14:00 05/21/24 15:59 05/21/24 14:23 100 MLS/HR Laboratory Results Laboratory Tests 05/21/24 05:04 Chemistry Test 05/21/24 05:04 Albumin 3.1 g/dL (3.2-4.8) L Calcium Level 8.4 mg/dL (8.7-10.4) L Magnesium Level 1.8 mg/dL (1.6-2.6) Total Protein 6.2 g/dL (5.7-8.2) LFT Test 05/21/24 05:04 Alanine Aminotransferase (ALT) < 9 U/L (7-40) Alkaline Phosphatase 192 U/L (46-116) H Aspartate Amino Transferase (AST) 14 U/L (13-40) Total Bilirubin 0.4 mg/dL (0.2-1.0) Urinalysis Test 05/13/24 21:00 05/17/24 12:20 Urine Color Yellow (Yellow) Urine Clarity Turbid (Clear) H Urine pH 5.5 (5.0-9.0) Urine Specific [place] 1.014 (1.001-1.035) Urine Protein Trace (Negative) H Urine Ketones Negative (Negative) Urine Blood Trace /uL (Negative) H Urine Nitrite Negative (Negative) Urine Bilirubin Negative (Negative) Urine Urobilinogen Normal mg/dL (Negative) Urine Leukocyte Esterase 3+ /uL (Negative) Urine RBC 2 /hpf (0 - 3) Urine Microscopic WBC 70 /HPF (0-3) H Urine Squamous Epithelial Cells None seen /hpf (<5) Urine Bacteria Few /hpf (None Seen) H Urine Mucus Few (None Seen) Urine Creatinine 53.09 mg/dL (30.0-125.0) Urine Protein/Creatinine Ratio 1.05 Urine Potassium 23 mmol/L (12-62) Urine Glucose 3+ mg/dL (Normal) H Urine Total Protein 55.6 mg/dL (1-14) H Urine Osmolality 219 mOsm/kg Urine Sodium 66 mmol/L (40-220) Microbiology Microbiology Date/Time Source Procedure Growth Status 05/19/24 21:55 Blood Blood Culture - Preliminary Resulted 05/14/24 00:00 Foot Gram Stain - Final Complete 05/14/24 00:00 Wound Culture - Final Methicillin Resistant S.aureus Complete Assessment/Plan Assessment/Plan 59-year-old male with a known history of insulin-dependent diabetes mellitus, hypertension, chronic left foot wound currently being seen at wound care center presented to the hospital with generalized weakness found to have 1. Sepsis secondary to left foot wound cellulitis and osteomyelitis 2. Left foot cellulitis with evidence of osteomyelitis in distinct TBI fibula calcaneum and tarsal bones. 3. Hyponatremia suspect pseudohyponatremia in the setting of uncontrolled hyperglycemia 4. Uncontrolled hyperglycemia with history of insulin-dependent diabetes mellitus 5. Hypocalcemia 6. Leukocytosis likely reactive 7. Persistent MRSA bacteremia 8. HIV -HARRIS shows no evidence of endocarditis, -patient was seen by Podiatry and scheduled for debridement of the left foot -continue broad-spectrum IV antibiotics, MRI left foot ruled in osteomyelitis, Infectious Disease consultation, Podiatry consultation appreciated -nephrology consultation. Appreciated Plan discussed with: Patient My Orders Orders - NADEEM LIMON MD Procedure Category Date Status Time Alprazolam Tablet PHA 05/20/24 In Process (Xanax Tablet) 16:45 Pregabalin Capsule PHA 05/21/24 In Process (Lyrica Capsule) 14:00 Methocarbamol PHA 05/21/24 In Process (Robaxin) 22:00 Venlafaxine PHA 05/21/24 In Process Hydrochloride 22:00 Oxycodone W/ Acet PHA 05/21/24 In Process 5/325mg Tab (Percocet 12:45 Insulin Lantus PHA 05/21/24 In Process (Glargine) (Lantus) 22:00 Date of Service: May 22, 2024 Billing Provider: NADEEM LIMON MD Common Visit Codes: [id number] INP/OBS CARE(MOD) NADEEM LIMON MD May 21, 2024 15:33
[2024-05-21] MEDS: MIDODRINE HCL 10 MG TAB PO SCH (16:23)
--- NOTE | 2024-05-21 17:33 | DVHPN2 ---
Consult Progress Note Date Seen: May 21, 2024 Subjective Patient reports: Feels better (off pressors) Objective vital signs Vital Sign Date Time Temp Pulse Resp B/P (MAP) Pulse Ox O2 Delivery O2 Flow Rate FiO2 05/21/24 16:45 95 17 89/60 (70) 95 05/21/24 16:00 98.5 98.5 05/21/24 15:34 Room Air* 0 21 Total Intake and Output 05/20/24 05/20/24 05/21/24 15:00 23:00 07:00 Intake Total 211.25 ml 1322.50 ml 530.00 ml Output Total 2600 ml 850 ml Balance 211.25 ml -1277.50 ml -320.00 ml medications Current Medications Medications Dose Ordered Sig/Patricia Route Start Time Stop Time Status Last Admin Dose Admin Acetaminophen 650 mg Q6HP PRN PO 05/13/24 18:45 05/19/24 06:24 650 MG Hydromorphone HCl 0.25 mg Q4HP PRN IV 05/13/24 18:45 05/21/24 05:35 0.25 MG Ondansetron HCl 4 mg Q4HP PRN IV 05/13/24 18:45 Enoxaparin Sodium 40 mg DAILY SC 05/14/24 10:00 05/21/24 08:01 40 MG Nitroglycerin 0.4 mg Q5MINP PRN SL 05/13/24 18:45 Morphine Sulfate 2 mg Q30M PRN IV 05/13/24 18:45 Diagnostic Test (Pha) 1 strip ACHS 05/13/24 22:00 05/21/24 13:23 1 STRIP Insulin Human Regular HS SC 05/13/24 22:00 05/20/24 21:36 4 UNITS Insulin Human Regular AC SC 05/14/24 07:00 05/21/24 16:23 3 UNITS Dextrose 50 ml UD PRN IV 05/13/24 19:00 Pantoprazole Sodium 40 mg DAILY IV 05/14/24 10:00 05/21/24 08:01 40 MG Daptomycin 500 mg/ Sodium Chloride 50 ml @ 100 mls/hr DAILY IV 05/14/24 18:00 05/21/24 08:01 100 MLS/HR Hydralazine HCl 10 mg Q6HP PRN IV 05/15/24 17:30 Clindamycin Phosphate 50 ml @ 50 mls/hr Q8HR IV 05/17/24 14:00 05/21/24 13:23 50 MLS/HR Meropenem 50 ml @ 17 mls/hr Q8H IV 05/17/24 22:00 05/21/24 12:53 17 MLS/HR Docusate Sodium 100 mg BIDPRN PRN PO 05/19/24 00:15 05/21/24 16:32 100 MG Alprazolam 0.5 mg TID PRN PO 05/20/24 16:45 05/21/24 03:34 0.5 MG Norepinephrine Bitartrate 250 ml @ 0.938 mls/ hr Q24H IV 05/21/24 12:15 05/21/24 12:15 2.813 MLS/HR Pregabalin 25 mg TID PO 05/21/24 14:00 05/21/24 13:16 25 MG Methocarbamol 500 mg BID PO 05/21/24 22:00 Venlafaxine HCl 75 mg BID PO 05/21/24 22:00 Oxycodone/ Acetaminophen 1 tab Q4HP PRN PO 05/21/24 12:45 Insulin Glargine 32 units HS SC 05/21/24 22:00 Midodrine 10 mg TID@0600,1200,1800 PO 05/21/24 18:00 05/21/24 16:23 10 MG Lactulose 30 ml BID PO 05/21/24 22:00 UNV Physical Exam: General: NAD Neck: Supple. No masses. HEENT: PERRL. Normal lids and conjunctiva. Moist mucous membranes. Oropharynx without lesions, exudates, or excessive erythema. Normal appearance of the external aspects of the nose and ears. Heart: Regular rhythm, normal rate. No murmur. No lower extremity edema. Lungs: Diminished breath sounds at the bases bilaterally. No wheezes. No crackles. Abdomen: Soft. Non-tender. Non-distended. No masses or abdominal hernia. Msk: No digital cyanosis. Normal strength and tone in all 4 limbs. Skin: Warm and dry, no rashes. Neuro: Alert, more aware, following commands. No facial droop or slurred speech. Extra-ocular movements intact. Sensation intact to soft touch in all 4 limbs. Psych: Appropriate mood. Full affect. Oriented to person, place, time, and situation. laboratory and microbiology Laboratory Tests 05/21/24 05:04 Test 05/21/24 05:04 Range/Units Serum Glucose 307 H 74-106 mg/dL Problem List/Assessment/Plan Problem List/Assessment/Plan ID Problem List: - MRSA bacteremia - Left foot cellulitis - Possible osteomyelitis (left foot, right leg) - Uncontrolled diabetes mellitus (noncompliant) - Diabetic foot infections - Multiple right toe amputations - Chronic right leg ulcer - Hypertension - Polysubstance abuse - Undiagnosed psychiatric disorder - HIV Assessment This is a 49 y.o. male with a past medical history of hypertension, uncontrolled diabetes mellitus (noncompliant), polysubstance abuse, and undiagnosed psychiatric disorder, who presents with generalized weakness for the last six days. Left foot with cellulitic changes (erythema, edema), possible osteomyelitis. Right foot with multiple toe amputations. Chronic right leg ulcer with severe wound, good granulation tissue, and serous drainage. Vital signs show hypotension (BP 79/55 mmHg), afebrile (T 98.4F), heart rate 87 bpm, respiratory rate 12 breaths per minute, oxygen saturation 96% on room air. Laboratories notable for leukocytosis (WBC 44 x10/L), anemia (Hb 9.5 g/dL), thrombocytosis (platelets 584 x10/L), hyponatremia (Na 123 mmol/L), BUN 26 mg/dL, Creatinine 1.02 mg/dL. Urinalysis shows +3 leukocytes and positive nitrites. Blood cultures are growing MRSA. patient has hx of ESBL wound infection 05/15: whitecount 22.1 05/16: MRI of foot shows extensive bone maredema involving the distal tibia , distal fibula and talus calcanus and residual tarsal bones. highly concerning for osteomyelitis with differential diagnosis of charcot joint , involving flexor perineal extensor compartments probably infectious , Achillis tendinosis and peritendinitis , adjacent draining ulcer seen and patients also persistently positive blood cultures for MRSA as well as wound cultures 05/17: whitecount is 46 , concerned for progressisng sepsis , patient is getting surgery by podiatry tomorrow 05/18: Still having blood cultures return positive , whitecount is down to 26 and BP has normalized and only requiring intermittently BP support 05/19: 1/4 bottles of blood is positive for MRSA on the 05/17 and fever curve is downtrending . is to undergo debridement and irrigation tomorrow , HARRIS done 05/18 showed negative for any valvular diseases or vegetation 05/20: continues to be positive for MRSA bacteremia , likely due to inadequate source control , whitecount is down to 24.5 05/21: pressors off, surgery delayed, remains bacteremic Plan: - during debridement collect bacterial ,anaerobic , aerobic , fungal and AFB cultures of infected deep tissue - Continue clindamycin, daptomycin , and meropenem - repeat blood cultures now - HOLD art, unclear patient compliance, recommend checking HIV viral and CD4 count - Fluid resuscitation; consider vasopressor support to maintain MAP >65 mmHg - Obtain urine culture to further evaluate urinary tract infection - Keep blood sugars under 180 mg/dL with insulin sliding scale; defer management to primary team - Monitor vital signs and labs closely Isolation Precautions: standard Plan discussed with: Patient Dietary Evaluation Review Comments: Follow a CCHO-60 diet with Protein restriction at 60g d/t kidney failure. Encourage high fiber foods, liquid allowed for his kidney function, PT for improved physical activities. Expected Outcomes/Goals: less nephrotoxins, less constipation, controlled DM, improved wound healing. VITOR BROCK MD May 21, 2024 17:33
[2024-05-21] MEDS: LACTULOSE 20Gm/30ML SOLN PO ONE (17:42)
[2024-05-21] MEDS: OXYCODONE W/ ACETAMINOPHEN 5/325MG TABLET PO PRN (19:58)
[2024-05-21] MEDS: INSULIN LANTUS (GLARGINE) 1 /0.01ml (100units/ml) SC SCH (21:51)
[2024-05-21] MEDS: METHOCARBAMOL 500 MG TAB PO SCH (21:54)
[2024-05-21] MEDS: VENLAFAXINE HCL 37.5MG TABLET PO SCH (21:54)
[2024-05-21] MEDS: LACTULOSE 20Gm/30ML SOLN PO SCH (21:55)
--- NOTE | 2024-05-21 23:34 | DVHPN2 ---
Progress Note - Dictate Date Seen: May 21, 2024 Medical Necessity Reason Pt with a Central, PICC or Fol: No Subjective Patient seen and examined at bedside. Breathing on room air Overnight events reviewed. vital signs Vital Sign Date Time Temp Pulse Resp B/P (MAP) Pulse Ox O2 Delivery O2 Flow Rate FiO2 05/21/24 23:15 119 13 113/79 (90) 93 05/21/24 22:00 Room Air* 0 21 05/21/24 16:00 98.5 98.5 Total Intake and Output 05/20/24 05/20/24 05/21/24 15:00 23:00 07:00 Intake Total 211.25 ml 1322.50 ml 530.00 ml Output Total 2600 ml 850 ml Balance 211.25 ml -1277.50 ml -320.00 ml medications Current Medications Medications Dose Ordered Sig/Patricia Route Start Time Stop Time Status Last Admin Dose Admin Acetaminophen 650 mg Q6HP PRN PO 05/13/24 18:45 05/19/24 06:24 650 MG Hydromorphone HCl 0.25 mg Q4HP PRN IV 05/13/24 18:45 05/21/24 05:35 0.25 MG Ondansetron HCl 4 mg Q4HP PRN IV 05/13/24 18:45 Enoxaparin Sodium 40 mg DAILY SC 05/14/24 10:00 05/21/24 08:01 40 MG Nitroglycerin 0.4 mg Q5MINP PRN SL 05/13/24 18:45 Morphine Sulfate 2 mg Q30M PRN IV 05/13/24 18:45 Diagnostic Test (Pha) 1 strip ACHS 05/13/24 22:00 05/21/24 21:45 1 STRIP Insulin Human Regular HS SC 05/13/24 22:00 05/21/24 21:50 4 UNITS Insulin Human Regular AC SC 05/14/24 07:00 05/21/24 16:23 3 UNITS Dextrose 50 ml UD PRN IV 05/13/24 19:00 Pantoprazole Sodium 40 mg DAILY IV 05/14/24 10:00 05/21/24 08:01 40 MG Daptomycin 500 mg/ Sodium Chloride 50 ml @ 100 mls/hr DAILY IV 05/14/24 18:00 05/21/24 08:01 100 MLS/HR Hydralazine HCl 10 mg Q6HP PRN IV 05/15/24 17:30 Clindamycin Phosphate 50 ml @ 50 mls/hr Q8HR IV 05/17/24 14:00 05/21/24 21:55 50 MLS/HR Meropenem 50 ml @ 17 mls/hr Q8H IV 05/17/24 22:00 05/21/24 22:51 17 MLS/HR Docusate Sodium 100 mg BIDPRN PRN PO 05/19/24 00:15 05/21/24 16:32 100 MG Alprazolam 0.5 mg TID PRN PO 05/20/24 16:45 05/21/24 19:57 0.5 MG Norepinephrine Bitartrate 250 ml @ 0.938 mls/ hr Q24H IV 05/21/24 12:15 05/21/24 12:15 2.813 MLS/HR Pregabalin 25 mg TID PO 05/21/24 14:00 05/21/24 21:53 25 MG Methocarbamol 500 mg BID PO 05/21/24 22:00 05/21/24 21:54 500 MG Venlafaxine HCl 75 mg BID PO 05/21/24 22:00 05/21/24 21:54 75 MG Oxycodone/ Acetaminophen 1 tab Q4HP PRN PO 05/21/24 12:45 05/21/24 19:58 1 TAB Insulin Glargine 32 units HS SC 05/21/24 22:00 05/21/24 21:51 32 UNITS Midodrine 10 mg TID@0600,1200,1800 PO 05/21/24 18:00 05/21/24 16:23 10 MG Lactulose 30 ml BID PO 05/21/24 22:00 05/21/24 21:55 30 ML objective Gen.: Patient lying in bed in no apparent distress. On room air Head: Normocephalic, atraumatic. Eyes: EOMI/PERRLA. Ears: Normal hearing. Normal anatomy. Neck/trachea: Trachea midline, supple. Nose: Normal external anatomy. Mouth: Moist mucous membranes. Chest: Decreased air entry bilaterally. No wheezing or rhonchi. Cardiovascular: Positive S1, positive S2. Regular rate and rhythm. Abdomen: Positive bowel sounds in all 4 quadrants. Soft, non-tender, non- distended. : Deferred. Rectal: Deferred. Skin: Warm, dry. Left foot wound. Extremities: 2+ radial pulses bilaterally. No lower extremity edema. Neuro: Awake, alert, oriented x3. No gross motor or sensory deficits. Cranial nerves II through XII intact. Gait not assessed. laboratory and microbiology Laboratory Tests 05/21/24 05:04 Test 05/21/24 05:04 Range/Units Serum Glucose 307 H 74-106 mg/dL Assessment/Plan Impression: Sepsis Left foot wound cellulitis, rule out osteomyelitis Hyponatremia Uncontrolled hyperglycemia Hypocalcemia Leukocytosis, likely reactive Events: Remains on room air Supplemental oxygen PRN Pressors if necessary for hemodynamic support On Levophed 0.5 mcg/min Titrate to keep MAP above 65 mmHg/SBP above 90 mmHg. Start midodrine 5 mg PO TID Plan for wound debridement. Monitor hemoglobin - currently 8.7 g/dL Transfuse if less than 7.0 g/dL. Continue antibiotics Blood cultures grew MRSA x2 Monitor WBC - trending down, now 14.9 K ID recommendations appreciated. Monitor renal function. Monitor electrolytes. Supplement as necessary. Magnesium supplementation Monitor ins and outs. Accu-Cheks, ISS DVT prophylaxis. Labs and imaging reviewed. Rest of plan as noted below. Plan: Supplemental oxygen PRN Titrate to keep O2 sats above 92%. Pressors for hemodynamic support Titrate to keep MAP above 65 mmHg/SBP above 90 mmHg. Continue antibiotics MRI left foot reviewed; extensive bone marrow edema involving distal tibia, distal fibula, talus, calcaneus and the residual tarsal bones highly concerning for osteomyelitis with differential diagnosis of Charcot joint. Severe tenosynovitis involving the flexor, peroneal and extensor compartments probably infectious. Achilles tendinosis and peritendinitis. Adjacent draining ulcer is seen. ID recommendations appreciated Podiatry recommendations appreciated Monitor renal function. Monitor electrolytes. Supplement as necessary. Monitor ins and outs. Nephrology recommendations appreciated DVT prophylaxis. Prognosis: Poor given patient's multiple co-morbidities. Condition: Critical Rest of plan per hospitalist and other consultants. A total of 35 minutes of critical care time was spent reviewing the patient record, examining the patient, making a diagnostic and therapeutic plan, discussing this plan with the medical personnel, following up on diagnostic studies and following the patient for clinical stability excluding any and all procedures. At least 50% of this time was spent in direct, [id number] contact. Thank you Dr. Patterson for allowing me to participate in this patient's care. Further recommendations will depend on the patient's clinical course. Please do not hesitate to contact me if you have any questions or concerns. This medical document was created using an electronic medical record system with [employer] dictation system. Although these documentations are being carefully reviewed, there may still be some phonetic and typographical changes. The errors are purely typographical, due to imperfection on the software program, and do not reflect any compromise in the patient's medical care. Dietary Evaluation Review Comments: Follow a CCHO-60 diet with Protein restriction at 60g d/t kidney failure. Encourage high fiber foods, liquid allowed for his kidney function, PT for improved physical activities. Expected Outcomes/Goals: less nephrotoxins, less constipation, controlled DM, improved wound healing. Plan discussed with: Patient, Other (VANE Lynn) Critical Care Time(min): 35 DAX CORDOBA MD May 21, 2024 23:34
[2024-05-22] VITALS (106 sets, daily range): BP systolic 82–176; BP diastolic 54–104; PULSE 70–113; RESP 10–23; TEMP 97.8–98.8; O2SAT 88–100
[2024-05-22 05:53] LABS: Mean Corpuscular Hgb Conc. 32.5 g/dL (32.0-36.0)
[2024-05-22 05:57] LABS: Hematocrit 25.9 % (41.0-53.0); Hemoglobin 8.4 g/dL (13.5-17.5); Mean Corpuscular Hemoglobin 27.5 pg (28.0-32.0); Mean Corpuscular Volume 84.7 fL (80.0-100.0); Platelet Count (auto) 510 10^3/uL (140-450); Red Blood Cells 3.05 10^6/uL (4.5-5.90); Red Cell Distribution Width 16.3 % (11.8-14.3); White Blood Cell 17.9 10^3/uL (4.4-10.8)
[2024-05-22 06:19] LABS: Anion Gap 9 (5-15); BUN/Creatinine Ratio 15.2 (10.0-20.0); Bilirubin, Total 0.4 mg/dL (0.2-1.0); Blood Urea Nitrogen 15 mg/dL (9-23); Carbon Dioxide 22 mmol/L (20-31); Magnesium 2.1 mg/dL (1.6-2.6); Potassium 4.8 mmol/L (3.5-5.1); Total Protein 6.3 g/dL (5.7-8.2)
[2024-05-22 06:21] LABS: Alanine Aminotransferase < 9 U/L (7-40); Albumin 3.1 g/dL (3.2-4.8); Alkaline Phosphatase 161 U/L (46-116); Aspartate Aminotransferase 11 U/L (13-40); Calcium 8.4 mg/dL (8.7-10.4); Chloride 92 mmol/L (98-107); Glucose 292 mg/dL (74-106); Sodium 123 mmol/L (136-145)
[2024-05-22 06:49] LABS: Band Neutrophils % (manual) 0; Basophils % (manual) 0 (0.0-2.0); Blast Cells 0; Metamyelocytes % 0; Myelocytes % 0; Promyelocytes % 0; Reactive Lymphocytes 0
[2024-05-22 09:36] LABS: Eosinophils % (manual) 1 (0-7); Lymphocytes % (manual) 11 (10.0-50.0); Monocytes % (manual) 8 (0-12); Platelet Estimate Increased
[2024-05-22] MEDS: SODIUM CHLORIDE 0.9% 1,000 ML IV ONE (15:45)
--- NOTE | 2024-05-22 15:45 | DVHPN2 ---
Progress Note Date Seen: May 22, 2024 Medical Necessity Reason Pt with a Central, PICC or Fol: No Subjective Review of Systems: MSK:Abnormal Objective vital signs Vital Sign Date Time Temp Pulse Resp B/P (MAP) Pulse Ox O2 Delivery O2 Flow Rate FiO2 05/22/24 15:37 11 100 Room Air* 0 21 05/22/24 15:30 87 118/82 (94) 05/22/24 12:00 97.9 97.9 Total Intake and Output 05/21/24 05/21/24 05/22/24 15:00 23:00 07:00 Intake Total 269.688 ml 1050 ml 300 ml Output Total 1800 ml Balance 269.688 ml -750 ml 300 ml medications Current Medications Medications Dose Ordered Sig/Patricia Route Start Time Stop Time Status Last Admin Dose Admin Acetaminophen 650 mg Q6HP PRN PO 05/13/24 18:45 05/19/24 06:24 650 MG Hydromorphone HCl 0.25 mg Q4HP PRN IV 05/13/24 18:45 05/21/24 05:35 0.25 MG Ondansetron HCl 4 mg Q4HP PRN IV 05/13/24 18:45 Enoxaparin Sodium 40 mg DAILY SC 05/14/24 10:00 05/22/24 08:45 40 MG Nitroglycerin 0.4 mg Q5MINP PRN SL 05/13/24 18:45 Morphine Sulfate 2 mg Q30M PRN IV 05/13/24 18:45 Diagnostic Test (Pha) 1 strip ACHS 05/13/24 22:00 05/22/24 08:46 1 STRIP Insulin Human Regular HS SC 05/13/24 22:00 05/21/24 21:50 4 UNITS Insulin Human Regular AC SC 05/14/24 07:00 05/22/24 10:41 3 UNITS Dextrose 50 ml UD PRN IV 05/13/24 19:00 Pantoprazole Sodium 40 mg DAILY IV 05/14/24 10:00 05/22/24 08:46 40 MG Daptomycin 500 mg/ Sodium Chloride 50 ml @ 100 mls/hr DAILY IV 05/14/24 18:00 05/22/24 08:46 100 MLS/HR Hydralazine HCl 10 mg Q6HP PRN IV 05/15/24 17:30 Clindamycin Phosphate 50 ml @ 50 mls/hr Q8HR IV 05/17/24 14:00 05/22/24 13:13 50 MLS/HR Meropenem 50 ml @ 17 mls/hr Q8H IV 05/17/24 22:00 05/22/24 13:13 17 MLS/HR Docusate Sodium 100 mg BIDPRN PRN PO 05/19/24 00:15 05/21/24 16:32 100 MG Alprazolam 0.5 mg TID PRN PO 05/20/24 16:45 05/22/24 05:28 0.5 MG Norepinephrine Bitartrate 250 ml @ 0.938 mls/ hr Q24H IV 05/21/24 12:15 05/21/24 12:15 2.813 MLS/HR Pregabalin 25 mg TID PO 05/21/24 14:00 05/22/24 12:18 25 MG Methocarbamol 500 mg BID PO 05/21/24 22:00 05/22/24 08:45 500 MG Venlafaxine HCl 75 mg BID PO 05/21/24 22:00 05/22/24 08:45 75 MG Oxycodone/ Acetaminophen 1 tab Q4HP PRN PO 05/21/24 12:45 05/22/24 03:32 1 TAB Insulin Glargine 32 units HS SC 05/21/24 22:00 05/21/24 21:51 32 UNITS Midodrine 10 mg TID@0600,1200,1800 PO 05/21/24 18:00 05/22/24 12:18 10 MG Lactulose 30 ml BID PO 05/21/24 22:00 05/21/24 21:55 30 ML Examination: GENERAL:Abnormal, ABDOMEN:Normal, MSK:Abnormal, SKIN:Abnormal laboratory and microbiology Laboratory Tests 05/22/24 05:27 Test 05/22/24 05:27 Range/Units Serum Glucose 292 H 74-106 mg/dL Microbiology Date/Time Source Procedure Growth Status 05/19/24 21:55 Blood Blood Culture - Preliminary Staphylococcus aureus Resulted 05/14/24 00:00 Foot Gram Stain - Final Complete 05/14/24 00:00 Wound Culture - Final Methicillin Resistant S.aureus Complete Problem List/Assessment/Plan Problem List/Assessment/Plan YESSY superimposed on CKD secondary to hemodynamic mediated Hyponatremia Uncontrolled DM, A1c > 11, hyperglycemia MRSA septicemia Peripheral arterial disease Right foot osteomyelitis Charcot foot left foot/cellulitis Anemia of CKD , blood loss from wound HIV per ID Acute kidney injury resolved start sodium diet s/p IVF IV antibiotics treatment of wound infection glycemic control ID consult retrovirals on hold Surgery for wound debridement Plan discussed with: Patient My Orders My Orders Orders - ELLA GUDINO MD Procedure Category Date Status Time NS PHA 05/22/24 Transmitted 15:45 Dietary Evaluation Review Comments: Follow a CCHO-60 diet with Protein restriction at 60g d/t kidney failure. Encourage high fiber foods, liquid allowed for his kidney function, PT for improved physical activities. Expected Outcomes/Goals: less nephrotoxins, less constipation, controlled DM, improved wound healing. ELLA GUDINO MD May 22, 2024 15:45
--- NOTE | 2024-05-22 21:05 | DVHPN2 ---
Progress Note - Dictate Date Seen: May 22, 2024 Medical Necessity Reason Pt with a Central, PICC or Fol: No Subjective Patient seen and examined at bedside. Breathing on room air Overnight events reviewed. vital signs Vital Sign Date Time Temp Pulse Resp B/P (MAP) Pulse Ox O2 Delivery O2 Flow Rate FiO2 05/22/24 20:45 88 18 132/85 (101) 99 05/22/24 20:01 98.0 98.0 05/22/24 20:00 Room Air* 0 21 Total Intake and Output 05/21/24 05/21/24 05/22/24 15:00 23:00 07:00 Intake Total 269.688 ml 1050 ml 300 ml Output Total 1800 ml Balance 269.688 ml -750 ml 300 ml medications Current Medications Medications Dose Ordered Sig/Patricia Route Start Time Stop Time Status Last Admin Dose Admin Acetaminophen 650 mg Q6HP PRN PO 05/13/24 18:45 05/19/24 06:24 650 MG Hydromorphone HCl 0.25 mg Q4HP PRN IV 05/13/24 18:45 05/21/24 05:35 0.25 MG Ondansetron HCl 4 mg Q4HP PRN IV 05/13/24 18:45 Enoxaparin Sodium 40 mg DAILY SC 05/14/24 10:00 05/22/24 08:45 40 MG Nitroglycerin 0.4 mg Q5MINP PRN SL 05/13/24 18:45 Morphine Sulfate 2 mg Q30M PRN IV 05/13/24 18:45 Diagnostic Test (Pha) 1 strip ACHS 05/13/24 22:00 05/22/24 21:02 1 STRIP Insulin Human Regular HS SC 05/13/24 22:00 05/21/24 21:50 4 UNITS Insulin Human Regular AC SC 05/14/24 07:00 05/22/24 16:35 6 UNITS Dextrose 50 ml UD PRN IV 05/13/24 19:00 Pantoprazole Sodium 40 mg DAILY IV 05/14/24 10:00 05/22/24 08:46 40 MG Daptomycin 500 mg/ Sodium Chloride 50 ml @ 100 mls/hr DAILY IV 05/14/24 18:00 05/22/24 08:46 100 MLS/HR Hydralazine HCl 10 mg Q6HP PRN IV 05/15/24 17:30 Clindamycin Phosphate 50 ml @ 50 mls/hr Q8HR IV 05/17/24 14:00 05/22/24 13:13 50 MLS/HR Meropenem 50 ml @ 17 mls/hr Q8H IV 05/17/24 22:00 05/22/24 13:13 17 MLS/HR Docusate Sodium 100 mg BIDPRN PRN PO 05/19/24 00:15 05/21/24 16:32 100 MG Alprazolam 0.5 mg TID PRN PO 05/20/24 16:45 05/22/24 05:28 0.5 MG Norepinephrine Bitartrate 250 ml @ 0.938 mls/ hr Q24H IV 05/21/24 12:15 05/21/24 12:15 2.813 MLS/HR Pregabalin 25 mg TID PO 05/21/24 14:00 05/22/24 12:18 25 MG Methocarbamol 500 mg BID PO 05/21/24 22:00 05/22/24 08:45 500 MG Venlafaxine HCl 75 mg BID PO 05/21/24 22:00 05/22/24 08:45 75 MG Oxycodone/ Acetaminophen 1 tab Q4HP PRN PO 05/21/24 12:45 05/22/24 03:32 1 TAB Insulin Glargine 32 units HS SC 05/21/24 22:00 05/21/24 21:51 32 UNITS Midodrine 10 mg TID@0600,1200,1800 PO 05/21/24 18:00 05/22/24 16:42 10 MG Lactulose 30 ml BID PO 05/21/24 22:00 05/21/24 21:55 30 ML objective Gen.: Patient lying in bed in no apparent distress. On room air Head: Normocephalic, atraumatic. Eyes: EOMI/PERRLA. Ears: Normal hearing. Normal anatomy. Neck/trachea: Trachea midline, supple. Nose: Normal external anatomy. Mouth: Moist mucous membranes. Chest: Decreased air entry bilaterally. No wheezing or rhonchi. Cardiovascular: Positive S1, positive S2. Regular rate and rhythm. Abdomen: Positive bowel sounds in all 4 quadrants. Soft, non-tender, non- distended. : Deferred. Rectal: Deferred. Skin: Warm, dry. Left foot wound. Extremities: 2+ radial pulses bilaterally. No lower extremity edema. Neuro: Awake, alert, oriented x3. No gross motor or sensory deficits. Cranial nerves II through XII intact. Gait not assessed. laboratory and microbiology Laboratory Tests 05/22/24 05:27 Test 05/22/24 05:27 Range/Units Serum Glucose 292 H 74-106 mg/dL Assessment/Plan Impression: Sepsis Left foot wound cellulitis, rule out osteomyelitis Hyponatremia Uncontrolled hyperglycemia Hypocalcemia Leukocytosis, likely reactive Events: Remains on room air Supplemental oxygen PRN Off Levophed for 24 hours. Continue midodrine TID Plan for hemodialysis in AM. Wound care. Monitor hemoglobin - currently stable at 8.4 g/dL Transfuse if less than 7.0 g/dL. Continue antibiotics Blood cultures grew MRSA x2 Monitor WBC - trending up at 17.9 K ID recommendations appreciated. Monitor renal function. Monitor electrolytes. Supplement as necessary. Monitor sodium - 123 Nephrology recs appreciated. Monitor ins and outs. Accu-Cheks, ISS DVT prophylaxis. Labs and imaging reviewed. Rest of plan as noted below. Plan: Supplemental oxygen PRN Titrate to keep O2 sats above 92%. Pressors if necessary for hemodynamic support Titrate to keep MAP above 65 mmHg/SBP above 90 mmHg. Continue antibiotics MRI left foot reviewed; extensive bone marrow edema involving distal tibia, distal fibula, talus, calcaneus and the residual tarsal bones highly concerning for osteomyelitis with differential diagnosis of Charcot joint. Severe tenosynovitis involving the flexor, peroneal and extensor compartments probably infectious. Achilles tendinosis and peritendinitis. Adjacent draining ulcer is seen. ID recommendations appreciated Podiatry recommendations appreciated Monitor renal function. Monitor electrolytes. Supplement as necessary. Monitor ins and outs. Nephrology recommendations appreciated DVT prophylaxis. Prognosis: Poor given patient's multiple co-morbidities. Condition: Critical Rest of plan per hospitalist and other consultants. A total of 35 minutes of critical care time was spent reviewing the patient record, examining the patient, making a diagnostic and therapeutic plan, discussing this plan with the medical personnel, following up on diagnostic studies and following the patient for clinical stability excluding any and all procedures. At least 50% of this time was spent in direct, [id number] contact. Thank you Dr. Patterson for allowing me to participate in this patient's care. Further recommendations will depend on the patient's clinical course. Please do not hesitate to contact me if you have any questions or concerns. This medical document was created using an electronic medical record system with [employer] dictation system. Although these documentations are being carefully reviewed, there may still be some phonetic and typographical changes. The errors are purely typographical, due to imperfection on the software program, and do not reflect any compromise in the patient's medical care. Dietary Evaluation Review Comments: Follow a CCHO-60 diet with Protein restriction at 60g d/t kidney failure. Encourage high fiber foods, liquid allowed for his kidney function, PT for improved physical activities. Expected Outcomes/Goals: less nephrotoxins, less constipation, controlled DM, improved wound healing. Plan discussed with: Other (VANE Lynn) Critical Care Time(min): 35 DAX CORDOBA MD May 22, 2024 21:05
[2024-05-23] VITALS (93 sets, daily range): BP systolic 81–141; BP diastolic 54–91; PULSE 76–113; RESP 9–24; TEMP 97.9–98.6; O2SAT 76–100
[2024-05-23 07:52] LABS: Anion Gap 8 (5-15); Carbon Dioxide 23 mmol/L (20-31); Potassium 4.6 mmol/L (3.5-5.1)
[2024-05-23 07:54] LABS: Calcium 8.1 mg/dL (8.7-10.4); Chloride 94 mmol/L (98-107); Sodium 125 mmol/L (136-145)
[2024-05-23 07:59] LABS: BUN/Creatinine Ratio 16.1 (10.0-20.0); Basophils # (auto) 0.2 10 ^3/uL (0-0.2); Blood Urea Nitrogen 14 mg/dL (9-23); Hemoglobin 8.4 g/dL (13.5-17.5); INR 1.08 (0.9-1.15); Nucleated Red Blood Cells % 0.1 %; Partial Thromboplastin Time 26.2 SEC (24.5-34.5); Prothrombin Time 11.4 sec (9.3-11.8)
[2024-05-23 08:02] LABS: Basophils % (auto) 1.2 % (0.0-2.0); Eosinophils # (auto) 0.5 10 ^3/uL (0-0.8); Hematocrit 25.6 % (41.0-53.0); Lymphocytes # (auto) 2.7 10 ^3/uL (0.4-5.4); Lymphocytes % (auto) 17.4 % (10.0-50.0); Mean Corpuscular Hemoglobin 27.4 pg (28.0-32.0); Mean Corpuscular Hgb Conc. 32.6 g/dL (32.0-36.0); Mean Corpuscular Volume 83.8 fL (80.0-100.0); Monocytes # (auto) 1.5 10 ^3/uL (0-1.3); Monocytes % (auto) 9.8 % (0.0-12.0); Neutrophils # (auto) 10.6 10 ^3/uL (1.6-8.6); Neutrophils % (auto) 68.6 % (37.0-80.0); Platelet Count (auto) 561 10^3/uL (140-450); Red Blood Cells 3.05 10^6/uL (4.5-5.90); Red Cell Distribution Width 16.2 % (11.8-14.3); White Blood Cell 15.5 10^3/uL (4.4-10.8)
[2024-05-23 08:03] LABS: Glucose 164 mg/dL (74-106)
--- NOTE | 2024-05-23 12:25 | DVHPN2 ---
Subjective 49-year-old male brought by paramedics because he was having generalized weakness for the past six days. Patient does have a history of hypertension i nsulin-dependent diabetes. He does have wound in the left lower extremity, he has home health for wound care who sees him for dressing changes. He has been having left lower extremity wound for the past month. He does have right toe amputation which was done in [place] several years ago. Patient states that he does not move about because of his wound in the left lower extremity along with a amputation of the right toes. Also endorses dysuria. Denies fever abdominal pain nausea vomiting. Denies chest pain. Denies any other symptoms. Changes from previous H/P or p: No Changes Eyes: No Pain, No Vision change, No Conjunctivae inflammation, No Eyelid inflammation, No Other, No Redness ENT: No Ear pain, No Ear discharge, No Nose pain, No Nose discharge, No Nose congestion, No Mouth pain, No Mouth swelling, No Throat pain, No Throat swelling, No Other Cardiovascular: No Chest Pain, No Palpitations, No Orthopnea, No Paroxysmal Noc. Dyspnea, No Edema, No Lt Headedness, No Other Respiratory: No Cough, No Dry, No Shortness of breath, No SOB with excertion, No Wheezing, No Hemoptysis, No Pleuritic Pain, No Sputum, No Other Gastrointestinal: No Nausea, No Vomiting, No Abdominal Pain, No Diarrhea, No Constipation, No Melena, No Hematochezia, No Other Genitourinary: Dysuria Musculoskeletal: foot pain Skin: Other Objective Vitals Vital Signs Date Time Temp Pulse Resp B/P (MAP) Pulse Ox O2 Delivery O2 Flow Rate FiO2 05/23/24 12:00 14 96 Room Air* 0 21 05/23/24 12:00 84 05/23/24 10:45 116/73 (87) 05/23/24 08:00 98.5 98.5 Intake/Output Intake and Output 05/23/24 07:00 Intake Total 2305 ml Output Total 2100 ml Balance 205 ml Intake Oral 938 ml IV Total 1367 ml Output Urine Total 2100 ml Exam DERMATOLOGIC EXAM: - Skin is dry and cool to the touch dry bilaterally. - Nails 1-5 of the bilateral foot are thickened, discolored, dystrophic, and tender to palpate with subungual debris - Hair loss noted to bilateral feet Wound #1: Location: Left ankle Measurements: Length 4 cm x width 1 cm x depth 1 cm. Wound margins: Hyperkeratotic. Wound base: Full thickness. General Appearance: Fibrotic Probes to Bone: No Purulent drainage: Yes Serous drainage: No Erythema: Periwound VASCULAR EXAM: - DP and PT pulses are palpable bilaterally. - PHOTOVOLTAIC INSTALLER is brisk to all digits. - Feet are cool to touch compared to lower legs bilaterally. NEUROLOGIC EXAM: - Normal light touch sensation to the superficial peroneal, deep peroneal, sural, saphenous, and tibial nerve branches. - Protective sensation is diminished as tested with a 5.07 10g Lang[place]-Aliya bilaterally. MUSCULOSKELETAL EXAM: - No gross deformities - Muscle strength is 5/5 and active motion is pain-free and symmetrical bilaterally - No pain or crepitation with passive range of motion bilaterally to all major pedal joints Medications Current Medications Medications Dose Ordered Sig/Patricia Route Start Time Stop Time Status Last Admin Dose Admin Acetaminophen 650 mg Q6HP PRN PO 05/13/24 18:45 05/19/24 06:24 650 MG Ondansetron HCl 4 mg Q4HP PRN IV 05/13/24 18:45 Enoxaparin Sodium 40 mg DAILY SC 05/14/24 10:00 05/22/24 08:45 40 MG Nitroglycerin 0.4 mg Q5MINP PRN SL 05/13/24 18:45 Diagnostic Test (Pha) 1 strip ACHS 05/13/24 22:00 05/23/24 11:30 1 STRIP Insulin Human Regular HS SC 05/13/24 22:00 05/22/24 21:37 3 UNITS Insulin Human Regular AC SC 05/14/24 07:00 05/22/24 16:35 6 UNITS Dextrose 50 ml UD PRN IV 05/13/24 19:00 Pantoprazole Sodium 40 mg DAILY IV 05/14/24 10:00 05/23/24 09:47 40 MG Daptomycin 500 mg/ Sodium Chloride 50 ml @ 100 mls/hr DAILY IV 05/14/24 18:00 05/23/24 09:46 100 MLS/HR Hydralazine HCl 10 mg Q6HP PRN IV 05/15/24 17:30 Clindamycin Phosphate 50 ml @ 50 mls/hr Q8HR IV 05/17/24 14:00 05/23/24 05:32 50 MLS/HR Meropenem 50 ml @ 17 mls/hr Q8H IV 05/17/24 22:00 05/23/24 05:34 17 MLS/HR Docusate Sodium 100 mg BIDPRN PRN PO 05/19/24 00:15 05/21/24 16:32 100 MG Alprazolam 0.5 mg TID PRN PO 05/20/24 16:45 05/22/24 21:34 0.5 MG Norepinephrine Bitartrate 250 ml @ 0.938 mls/ hr Q24H IV 05/21/24 12:15 05/21/24 12:15 2.813 MLS/HR Pregabalin 25 mg TID PO 05/21/24 14:00 05/23/24 05:34 25 MG Methocarbamol 500 mg BID PO 05/21/24 22:00 05/23/24 09:48 500 MG Venlafaxine HCl 75 mg BID PO 05/21/24 22:00 05/23/24 09:48 75 MG Oxycodone/ Acetaminophen 1 tab Q4HP PRN PO 05/21/24 12:45 05/23/24 08:51 1 TAB Insulin Glargine 32 units HS SC 05/21/24 22:00 05/22/24 21:37 32 UNITS Midodrine 10 mg TID@0600,1200,1800 PO 05/21/24 18:00 05/23/24 12:09 10 MG Lactulose 30 ml BID PO 05/21/24 22:00 05/23/24 09:48 30 ML Laboratory Results Laboratory Tests 05/23/24 06:54 Chemistry Test 05/23/24 06:54 Calcium Level 8.1 mg/dL (8.7-10.4) L Magnesium Level 2.0 mg/dL (1.6-2.6) Coagulation Test 05/23/24 06:54 Prothrombin Time 11.4 sec (9.3-11.8) Prothrombin Time INR 1.08 (0.9-1.15) Activated Partial Thromboplast Time 26.2 SEC (24.5-34.5) Urinalysis Test 05/13/24 21:00 05/17/24 12:20 Urine Color Yellow (Yellow) Urine Clarity Turbid (Clear) H Urine pH 5.5 (5.0-9.0) Urine Specific [place] 1.014 (1.001-1.035) Urine Protein Trace (Negative) H Urine Ketones Negative (Negative) Urine Blood Trace /uL (Negative) H Urine Nitrite Negative (Negative) Urine Bilirubin Negative (Negative) Urine Urobilinogen Normal mg/dL (Negative) Urine Leukocyte Esterase 3+ /uL (Negative) Urine RBC 2 /hpf (0 - 3) Urine Microscopic WBC 70 /HPF (0-3) H Urine Squamous Epithelial Cells None seen /hpf (<5) Urine Bacteria Few /hpf (None Seen) H Urine Mucus Few (None Seen) Urine Creatinine 53.09 mg/dL (30.0-125.0) Urine Protein/Creatinine Ratio 1.05 Urine Potassium 23 mmol/L (12-62) Urine Glucose 3+ mg/dL (Normal) H Urine Total Protein 55.6 mg/dL (1-14) H Urine Osmolality 219 mOsm/kg Urine Sodium 66 mmol/L (40-220) Microbiology Microbiology Date/Time Source Procedure Growth Status 05/21/24 19:27 Blood Blood Culture - Preliminary NO GROWTH AFTER 24 HOURS OF INCUBATION. Resulted 05/14/24 00:00 Foot Gram Stain - Final Complete 05/14/24 00:00 Wound Culture - Final Methicillin Resistant S.aureus Complete Assessment/Plan Assessment/Plan ASSESSMENT: Patient is a 49 year old seen on the floor for a worsening ulcer PLAN: - The patients chart was reviewed, clinical findings were discussed with the patient, the etiologies of the conditions were discussed in detail, and a treatment plan was agreed to at this time, with both oral and written instructions provided. - reviewed advanced imaging - discussed we will take the patient for other an incision and drainage today to help with source control - patient has been NPO since midnight - we will get deep cultures of the left ankle - patient can weightbear as tolerated after the procedure - we will likely need a subsequent procedure for closure in the future depending on how this procedure reveals All questions were answered and concerns addressed to the patient's satisfaction. The patient was given the phone number to the clinic and was told how to make contact with the clinic should any concerns or questions arise. Patient understands that if any questions or concerns arise prior to the next appointment, we should be contacted immediately. FOLLOW-UP: Continue to follow while inpatient Plan discussed with: Patient My Orders Orders - DOMINGO KNUTSON DPM Procedure Category Date Status Time Type And Screen BBK 05/23/24 In Process 03:50 Drug Screen LAB 05/23/24 Logged 09:02 Antibody BBK 05/23/24 In Process Identification 06:54 Problem List: (1) Hyperkalemia (2) Hyponatremia (3) Uncontrolled diabetes mellitus (4) Sepsis, unspecified organism (5) Osteomyelitis (6) HIV (human immunodeficiency virus infection) (7) MRSA bacteremia (8) Hx of syphilis (9) History of ESBL Klebsiella pneumoniae infection Date of Service: May 23, 2024 Billing Provider: DOMINGO KNUTSON DPM Common Visit Codes: [id number] INP/OBS CARE(HIGH) DOMINGO KNUTSON DPM May 23, 2024 12:25
[2024-05-23] MEDS ORDERED: PROPOFOL 10 MG/ML 20 ML IV ONE (13:06)
[2024-05-23] MEDS ORDERED: GLYCOPYRROLATE 0.2 MG/ML 1ML VIAL ONE (13:06)
[2024-05-23] MEDS ORDERED: ONDANSETRON HCL 4 MG/2 ML VIAL ONE (13:06)
[2024-05-23] MEDS ORDERED: MIDAZOLAM HCL 2MG/2ML 2ml VIAL (1mg/ml) ONE (13:06)
[2024-05-23] MEDS: BUPIVACAINE 0.5% INJ 50ML VIAL IJ ONE (13:26)
[2024-05-23] MEDS ORDERED: HYDROmorphone HCL 2 MG/ML VL/or syr IV PRN (13:45)
--- NOTE | 2024-05-23 13:59 | DVHOP2 ---
Operative Report - 2 Report Details Date: 05/23/24 Preop Diagnosis: 1. Left ankle abscess 2. Left ankle cellulitis 3. Left ankle wound dehiscence Postop Diagnosis: Same as preop Surgeon: Domingo Knutson MD Anesthesiologist: See H&P Anesthesia: Mac Consent: The patient was informed of the risks and benefits of the procedure. These include but are not limited to complications of anesthesia, postoperative infection, incomplete relief of symptoms, recurrence of symptoms, damage to blood vessels, nerves and tendons, deep venous thrombosis, pulmonary embolism and possible need for repeat surgery in the future. Complications: None Estimated Blood Loss: Minimal Fluids: See anesthesia Findings: Consistent with diagnosis Indications for Surgery: Worsening left leg abscess Name of Procedure Performed 1. Left ankle I&D to bone (65167) Procedure Details Procedure Details: PRE-PROCEDURE INFORMATION: In the pre-op holding area, the extremity to be operated on was clearly marked and the patient verified correct laterality of the marking. The patient was transferred to the OR table and placed in a supine position. A timeout was performed in which identification of the correct moon ent, procedure, location, and materials was done. The left foot and leg were prepped and draped in normal sterile fashion. DESCRIPTION OF PROCEDURE: Attention was directed to the left ankle where area of fluctuance was noted. An incision was made over this area and was deepened through blunt dissection. The incision was deepened to the level of abscess and bone. Care was taken to the dissection to avoid any neurovascular and tendinous structures. The incision was deepened to the bone, and the abscess appeared to be purulent fluid consistent with pus. The cortices of the bone was then removed with Rodriguez an all necrotic tissue. After the abscess was drained, the area was irrigated with 3 L normal saline using cysto tubing. Deep cultures were then obtained from the wound. The area was then inspected and any areas of tracking, especially along the tendons were also drained. The wound was packed with Betadine-soaked gauze. POSTOPERATIVE INFORMATION: The patient tolerated the above noted procedure and anesthesia well and was transferred to the PACU with vital signs stable, and vascular status intact with capillary refill intact to all digits. Deep cultures were taken. Patient can return to the floor. Recommend prolonged antibiotics. We will not take him back to the OR for closure. We will allow to heal by secondary intention. Patient can weightbear as tolerated Condition Good Disposition Still a Patient DOMINGO KNUTSON DPM May 23, 2024 13:59
--- NOTE | 2024-05-23 15:19 | DVHPN2 ---
Progress Note Date Seen: May 23, 2024 Medical Necessity Reason Pt with a Central, PICC or Fol: No Subjective Patient reports: No new complaints Review of Systems: HEENT:Normal, CVS:Normal, RESPIRATORY:Normal, GI:Normal, :Normal, MSK:Normal, NEURO:Normal Objective vital signs Vital Sign Date Time Temp Pulse Resp B/P (MAP) Pulse Ox O2 Delivery O2 Flow Rate FiO2 05/23/24 14:15 112 106/78 (87) 96 05/23/24 14:12 12 05/23/24 14:00 Room Air* 0 21 05/23/24 13:37 98.8 98.8 Total Intake and Output 05/22/24 05/22/24 05/23/24 14:59 22:59 06:59 Intake Total 150 ml 1738 ml 417 ml Output Total 800 ml 1300 ml Balance 150 ml 938 ml -883 ml medications Current Medications Medications Dose Ordered Sig/Patricia Route Start Time Stop Time Status Last Admin Dose Admin Acetaminophen 650 mg Q6HP PRN PO 05/13/24 18:45 05/19/24 06:24 650 MG Ondansetron HCl 4 mg Q4HP PRN IV 05/13/24 18:45 Enoxaparin Sodium 40 mg DAILY SC 05/14/24 10:00 05/22/24 08:45 40 MG Nitroglycerin 0.4 mg Q5MINP PRN SL 05/13/24 18:45 Diagnostic Test (Pha) 1 strip ACHS 05/13/24 22:00 05/23/24 11:30 1 STRIP Insulin Human Regular HS SC 05/13/24 22:00 05/22/24 21:37 3 UNITS Insulin Human Regular AC SC 05/14/24 07:00 05/22/24 16:35 6 UNITS Dextrose 50 ml UD PRN IV 05/13/24 19:00 Pantoprazole Sodium 40 mg DAILY IV 05/14/24 10:00 05/23/24 09:47 40 MG Daptomycin 500 mg/ Sodium Chloride 50 ml @ 100 mls/hr DAILY IV 05/14/24 18:00 05/23/24 09:46 100 MLS/HR Hydralazine HCl 10 mg Q6HP PRN IV 05/15/24 17:30 Clindamycin Phosphate 50 ml @ 50 mls/hr Q8HR IV 05/17/24 14:00 05/23/24 05:32 50 MLS/HR Meropenem 50 ml @ 17 mls/hr Q8H IV 05/17/24 22:00 05/23/24 14:45 17 MLS/HR Docusate Sodium 100 mg BIDPRN PRN PO 05/19/24 00:15 05/21/24 16:32 100 MG Alprazolam 0.5 mg TID PRN PO 05/20/24 16:45 05/22/24 21:34 0.5 MG Norepinephrine Bitartrate 250 ml @ 0.938 mls/ hr Q24H IV 05/21/24 12:15 05/21/24 12:15 2.813 MLS/HR Pregabalin 25 mg TID PO 05/21/24 14:00 05/23/24 14:45 25 MG Methocarbamol 500 mg BID PO 05/21/24 22:00 05/23/24 09:48 500 MG Venlafaxine HCl 75 mg BID PO 05/21/24 22:00 05/23/24 09:48 75 MG Oxycodone/ Acetaminophen 1 tab Q4HP PRN PO 05/21/24 12:45 05/23/24 08:51 1 TAB Insulin Glargine 32 units HS SC 05/21/24 22:00 05/22/24 21:37 32 UNITS Midodrine 10 mg TID@0600,1200,1800 PO 05/21/24 18:00 05/23/24 12:09 10 MG Lactulose 30 ml BID PO 05/21/24 22:00 05/23/24 09:48 30 ML laboratory and microbiology Laboratory Tests 05/23/24 06:54 Test 05/23/24 06:54 Range/Units Serum Glucose 164 #H 74-106 mg/dL Microbiology Date/Time Source Procedure Growth Status 05/21/24 19:27 Blood Blood Culture - Preliminary NO GROWTH AFTER 24 HOURS OF INCUBATION. Resulted 05/14/24 00:00 Foot Gram Stain - Final Complete 05/14/24 00:00 Wound Culture - Final Methicillin Resistant S.aureus Complete Problem List/Assessment/Plan Problem List/Assessment/Plan YESSY superimposed on CKD secondary to hemodynamic mediated Hyponatremia Uncontrolled DM, A1c > 11, hyperglycemia MRSA septicemia Peripheral arterial disease Right foot osteomyelitis Charcot foot left foot/cellulitis Anemia of CKD , blood loss from wound HIV per ID Acute kidney injury resolved ID consult retrovirals on hold Surgery for i and d trial of portillo Plan discussed with: Patient My Orders My Orders Orders - ROXANNA FELIX MD Procedure Category Date Status Time Sodium LAB 05/24/24 Verified 04:00 Uric Acid LAB 05/24/24 Verified 04:00 Dietary Evaluation Review Comments: Follow a CCHO-60 diet with Protein restriction at 60g d/t kidney failure. Encourage high fiber foods, liquid allowed for his kidney function, PT for improved physical activities. Expected Outcomes/Goals: less nephrotoxins, less constipation, controlled DM, improved wound healing. ROXANNA FELIX MD May 23, 2024 15:19
--- NOTE | 2024-05-23 17:03 | DVHPN2 ---
Subjective Patient was currently off of Levophed. Changes from previous H/P or p: No Changes Eyes: No Pain, No Vision change, No Conjunctivae inflammation, No Eyelid inflammation, No Other, No Redness ENT: No Ear pain, No Ear discharge, No Nose pain, No Nose discharge, No Nose congestion, No Mouth pain, No Mouth swelling, No Throat pain, No Throat swelling, No Other Cardiovascular: No Chest Pain, No Palpitations, No Orthopnea, No Paroxysmal Noc. Dyspnea, No Edema, No Lt Headedness, No Other Respiratory: No Cough, No Dry, No Shortness of breath, No SOB with excertion, No Wheezing, No Hemoptysis, No Pleuritic Pain, No Sputum, No Other Gastrointestinal: No Nausea, No Vomiting, No Abdominal Pain, No Diarrhea, No Constipation, No Melena, No Hematochezia, No Other Genitourinary: Dysuria Musculoskeletal: foot pain Skin: Other Objective Vitals Vital Signs Date Time Temp Pulse Resp B/P (MAP) Pulse Ox O2 Delivery O2 Flow Rate FiO2 05/23/24 16:30 104 13 127/89 (102) 98 05/23/24 16:00 Room Air* 0 21 05/23/24 13:37 98.8 98.8 Intake/Output Intake and Output 05/23/24 07:00 Intake Total 2305 ml Output Total 2100 ml Balance 205 ml Intake Oral 938 ml IV Total 1367 ml Output Urine Total 2100 ml Exam HEENT pupils are reactive Neck is supple CVS S1-S2 regular rate and rhythm Respiratory diminished breath sounds bases GI positive bowel sound Extremity no edema 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 Left lower extremity foot wounds antiseptic dressing Medications Current Medications Medications Dose Ordered Sig/Patricia Route Start Time Stop Time Status Last Admin Dose Admin Acetaminophen 650 mg Q6HP PRN PO 05/13/24 18:45 05/19/24 06:24 650 MG Ondansetron HCl 4 mg Q4HP PRN IV 05/13/24 18:45 Enoxaparin Sodium 40 mg DAILY SC 05/14/24 10:00 05/22/24 08:45 40 MG Nitroglycerin 0.4 mg Q5MINP PRN SL 05/13/24 18:45 Diagnostic Test (Pha) 1 strip ACHS 05/13/24 22:00 05/23/24 11:30 1 STRIP Insulin Human Regular HS SC 05/13/24 22:00 05/22/24 21:37 3 UNITS Insulin Human Regular AC SC 05/14/24 07:00 05/22/24 16:35 6 UNITS Dextrose 50 ml UD PRN IV 05/13/24 19:00 Pantoprazole Sodium 40 mg DAILY IV 05/14/24 10:00 05/23/24 09:47 40 MG Daptomycin 500 mg/ Sodium Chloride 50 ml @ 100 mls/hr DAILY IV 05/14/24 18:00 05/23/24 09:46 100 MLS/HR Hydralazine HCl 10 mg Q6HP PRN IV 05/15/24 17:30 Clindamycin Phosphate 50 ml @ 50 mls/hr Q8HR IV 05/17/24 14:00 05/23/24 05:32 50 MLS/HR Meropenem 50 ml @ 17 mls/hr Q8H IV 05/17/24 22:00 05/23/24 14:45 17 MLS/HR Docusate Sodium 100 mg BIDPRN PRN PO 05/19/24 00:15 05/21/24 16:32 100 MG Alprazolam 0.5 mg TID PRN PO 05/20/24 16:45 05/22/24 21:34 0.5 MG Norepinephrine Bitartrate 250 ml @ 0.938 mls/ hr Q24H IV 05/21/24 12:15 05/21/24 12:15 2.813 MLS/HR Pregabalin 25 mg TID PO 05/21/24 14:00 05/23/24 14:45 25 MG Methocarbamol 500 mg BID PO 05/21/24 22:00 05/23/24 09:48 500 MG Venlafaxine HCl 75 mg BID PO 05/21/24 22:00 05/23/24 09:48 75 MG Oxycodone/ Acetaminophen 1 tab Q4HP PRN PO 05/21/24 12:45 05/23/24 08:51 1 TAB Insulin Glargine 32 units HS SC 05/21/24 22:00 05/22/24 21:37 32 UNITS Midodrine 10 mg TID@0600,1200,1800 PO 05/21/24 18:00 05/23/24 12:09 10 MG Lactulose 30 ml BID PO 05/21/24 22:00 05/23/24 09:48 30 ML Urea 15 gm BID PO 05/23/24 22:00 Laboratory Results Laboratory Tests 05/23/24 06:54 Chemistry Test 05/23/24 06:54 Calcium Level 8.1 mg/dL (8.7-10.4) L Magnesium Level 2.0 mg/dL (1.6-2.6) Coagulation Test 05/23/24 06:54 Prothrombin Time 11.4 sec (9.3-11.8) Prothrombin Time INR 1.08 (0.9-1.15) Activated Partial Thromboplast Time 26.2 SEC (24.5-34.5) Urinalysis Test 05/13/24 21:00 05/17/24 12:20 Urine Color Yellow (Yellow) Urine Clarity Turbid (Clear) H Urine pH 5.5 (5.0-9.0) Urine Specific [place] 1.014 (1.001-1.035) Urine Protein Trace (Negative) H Urine Ketones Negative (Negative) Urine Blood Trace /uL (Negative) H Urine Nitrite Negative (Negative) Urine Bilirubin Negative (Negative) Urine Urobilinogen Normal mg/dL (Negative) Urine Leukocyte Esterase 3+ /uL (Negative) Urine RBC 2 /hpf (0 - 3) Urine Microscopic WBC 70 /HPF (0-3) H Urine Squamous Epithelial Cells None seen /hpf (<5) Urine Bacteria Few /hpf (None Seen) H Urine Mucus Few (None Seen) Urine Creatinine 53.09 mg/dL (30.0-125.0) Urine Protein/Creatinine Ratio 1.05 Urine Potassium 23 mmol/L (12-62) Urine Glucose 3+ mg/dL (Normal) H Urine Total Protein 55.6 mg/dL (1-14) H Urine Osmolality 219 mOsm/kg Urine Sodium 66 mmol/L (40-220) Microbiology Microbiology Date/Time Source Procedure Growth Status 05/21/24 19:27 Blood Blood Culture - Preliminary NO GROWTH AFTER 24 HOURS OF INCUBATION. Resulted 05/14/24 00:00 Foot Gram Stain - Final Complete 05/14/24 00:00 Wound Culture - Final Methicillin Resistant S.aureus Complete Assessment/Plan Assessment/Plan 59-year-old male with a known history of insulin-dependent diabetes mellitus, hypertension, chronic left foot wound currently being seen at wound care center presented to the hospital with generalized weakness found to have 1. Sepsis secondary to left foot wound cellulitis and osteomyelitis 2. Left foot cellulitis with evidence of osteomyelitis in distinct TBI fibula calcaneum and tarsal bones. Status post debridement 3. Hyponatremia suspect pseudohyponatremia in the setting of uncontrolled hyperglycemia 4. Uncontrolled hyperglycemia with history of insulin-dependent diabetes mellitus 5. Hypocalcemia 6. Leukocytosis likely reactive 7. Persistent MRSA bacteremia 8. HIV 9. Hypotension -HARRIS shows no evidence of endocarditis, -patient was seen by Podiatry and status post debridement of the left foot -continue broad-spectrum IV antibiotics, MRI left foot ruled in osteomyelitis, Infectious Disease consultation, Podiatry consultation appreciated -nephrology consultation. Appreciated Plan discussed with: Patient My Orders Orders - NADEEM LIMON MD Procedure Category Date Status Time Anaerobic Culture KATE 3 In Process 13:52 Gram Stain KATE 3/06/14 In Process 13:52 Routine Bacterial KATE 3/06/14 In Process Culture 13:52 Date of Service: May 23, 2024 Billing Provider: NADEEM LIMON MD Common Visit Codes: [id number] INP/OBS CARE(MOD) NADEEM LIMON MD May 23, 2024 17:03
[2024-05-23] MEDS: UREA 15gm PO Powder PKG PO SCH (21:27)
--- NOTE | 2024-05-23 22:52 | DVHPN2 ---
Progress Note - Dictate Date Seen: May 23, 2024 Medical Necessity Reason Pt with a Central, PICC or Fol: No Subjective Patient seen and examined at bedside. Breathing on room air Overnight events reviewed. vital signs Vital Sign Date Time Temp Pulse Resp B/P (MAP) Pulse Ox O2 Delivery O2 Flow Rate FiO2 05/23/24 21:00 90 16 114/73 (87) 100 05/23/24 20:00 Room Air* 0 21 05/23/24 20:00 98.6 98.6 Total Intake and Output 05/22/24 05/22/24 05/23/24 15:00 23:00 07:00 Intake Total 150 ml 1738 ml 417 ml Output Total 800 ml 1300 ml Balance 150 ml 938 ml -883 ml medications Current Medications Medications Dose Ordered Sig/Patricia Route Start Time Stop Time Status Last Admin Dose Admin Acetaminophen 650 mg Q6HP PRN PO 05/13/24 18:45 05/19/24 06:24 650 MG Ondansetron HCl 4 mg Q4HP PRN IV 05/13/24 18:45 Enoxaparin Sodium 40 mg DAILY SC 05/14/24 10:00 05/22/24 08:45 40 MG Nitroglycerin 0.4 mg Q5MINP PRN SL 05/13/24 18:45 Diagnostic Test (Pha) 1 strip ACHS 05/13/24 22:00 05/23/24 21:28 1 STRIP Insulin Human Regular HS SC 05/13/24 22:00 05/23/24 21:53 4 UNITS Insulin Human Regular AC SC 05/14/24 07:00 05/23/24 17:03 3 UNITS Dextrose 50 ml UD PRN IV 05/13/24 19:00 Pantoprazole Sodium 40 mg DAILY IV 05/14/24 10:00 05/23/24 09:47 40 MG Daptomycin 500 mg/ Sodium Chloride 50 ml @ 100 mls/hr DAILY IV 05/14/24 18:00 05/23/24 09:46 100 MLS/HR Hydralazine HCl 10 mg Q6HP PRN IV 05/15/24 17:30 Clindamycin Phosphate 50 ml @ 50 mls/hr Q8HR IV 05/17/24 14:00 05/23/24 21:32 50 MLS/HR Meropenem 50 ml @ 17 mls/hr Q8H IV 05/17/24 22:00 05/23/24 21:28 17 MLS/HR Docusate Sodium 100 mg BIDPRN PRN PO 05/19/24 00:15 05/21/24 16:32 100 MG Alprazolam 0.5 mg TID PRN PO 05/20/24 16:45 05/22/24 21:34 0.5 MG Norepinephrine Bitartrate 250 ml @ 0.938 mls/ hr Q24H IV 05/21/24 12:15 05/21/24 12:15 2.813 MLS/HR Pregabalin 25 mg TID PO 05/21/24 14:00 05/23/24 21:28 25 MG Methocarbamol 500 mg BID PO 05/21/24 22:00 05/23/24 09:48 500 MG Venlafaxine HCl 75 mg BID PO 05/21/24 22:00 05/23/24 21:28 75 MG Oxycodone/ Acetaminophen 1 tab Q4HP PRN PO 05/21/24 12:45 05/23/24 17:04 1 TAB Insulin Glargine 32 units HS SC 05/21/24 22:00 05/23/24 21:53 32 UNITS Midodrine 10 mg TID@0600,1200,1800 PO 05/21/24 18:00 05/23/24 18:50 10 MG Lactulose 30 ml BID PO 05/21/24 22:00 05/23/24 09:48 30 ML Urea 15 gm BID PO 05/23/24 22:00 05/23/24 21:27 15 GM objective Gen.: Patient lying in bed in no apparent distress. On room air Head: Normocephalic, atraumatic. Eyes: EOMI/PERRLA. Ears: Normal hearing. Normal anatomy. Neck/trachea: Trachea midline, supple. Nose: Normal external anatomy. Mouth: Moist mucous membranes. Chest: Decreased air entry bilaterally. No wheezing or rhonchi. Cardiovascular: Positive S1, positive S2. Regular rate and rhythm. Abdomen: Positive bowel sounds in all 4 quadrants. Soft, non-tender, non- distended. : Deferred. Rectal: Deferred. Skin: Warm, dry. Left foot wound. Extremities: 2+ radial pulses bilaterally. No lower extremity edema. Neuro: Awake, alert, oriented x3. No gross motor or sensory deficits. Cranial nerves II through XII intact. Gait not assessed. laboratory and microbiology Laboratory Tests 05/23/24 06:54 Test 05/23/24 06:54 Range/Units Serum Glucose 164 #H 74-106 mg/dL Assessment/Plan Impression: Sepsis Left foot wound cellulitis, rule out osteomyelitis Hyponatremia Uncontrolled hyperglycemia Hypocalcemia Leukocytosis, likely reactive Events: Remains on room air Supplemental oxygen PRN S/p hemodialysis today Off Levophed since 05/21/24 - hemodynamically stable. Continue midodrine TID Wound care. Pain control Avoid oversedation Monitor hemoglobin - currently stable at 8.4 g/dL Transfuse if less than 7.0 g/dL. Continue antibiotics Blood cultures grew MRSA x2 Monitor WBC - trending down at 15.5 K ID recommendations appreciated. Monitor renal function. Monitor electrolytes. Supplement as necessary. Monitor sodium - 125 Nephrology recs appreciated. Monitor ins and outs. Accu-Cheks, ISS DVT prophylaxis. Patient is stable for downgrade from the pulmonary standpoint. Labs and imaging reviewed. Rest of plan as noted below. Plan: Supplemental oxygen PRN Titrate to keep O2 sats above 92%. Pressors if necessary for hemodynamic support Titrate to keep MAP above 65 mmHg/SBP above 90 mmHg. Continue antibiotics MRI left foot reviewed; extensive bone marrow edema involving distal tibia, distal fibula, talus, calcaneus and the residual tarsal bones highly concerning for osteomyelitis with differential diagnosis of Charcot joint. Severe tenosynovitis involving the flexor, peroneal and extensor compartments probably infectious. Achilles tendinosis and peritendinitis. Adjacent draining ulcer is seen. ID recommendations appreciated Podiatry recommendations appreciated Monitor renal function. Monitor electrolytes. Supplement as necessary. Monitor ins and outs. Nephrology recommendations appreciated DVT prophylaxis. Prognosis: Guarded given patient's multiple co-morbidities. Rest of plan per hospitalist and other consultants. Thank you Dr. Patterson for allowing me to participate in this patient's care. Further recommendations will depend on the patient's clinical course. Please do not hesitate to contact me if you have any questions or concerns. This medical document was created using an electronic medical record system with [employer] system. Although these documentations are being carefully reviewed, there may still be some phonetic and typographical changes. The errors are purely typographical, due to imperfection on the software program, and do not reflect any compromise in the patient's medical care. Dietary Evaluation Review Comments: Follow a CCHO-60 diet with Protein restriction at 60g d/t kidney failure. Encourage high fiber foods, liquid allowed for his kidney function, PT for improved physical activities. Expected Outcomes/Goals: less nephrotoxins, less constipation, controlled DM, improved wound healing. Plan discussed with: Patient, Other (VANE Davila) DAX CORDOBA MD May 23, 2024 22:51
[2024-05-24] VITALS (50 sets, daily range): BP systolic 86–141; BP diastolic 57–92; PULSE 77–101; RESP 8–21; TEMP 97.8–98.5; O2SAT 0–100
[2024-05-24 08:43] LABS: Anion Gap 4 (5-15); Carbon Dioxide 28 mmol/L (20-31); Potassium 4.8 mmol/L (3.5-5.1)
[2024-05-24 08:44] LABS: Calcium 8.7 mg/dL (8.7-10.4)
[2024-05-24 08:49] LABS: BUN/Creatinine Ratio 27.9 (10.0-20.0); Glucose 93 mg/dL (74-106)
[2024-05-24 08:52] LABS: Blood Urea Nitrogen 24 mg/dL (9-23); Chloride 97 mmol/L (98-107); Sodium 129 mmol/L (136-145)
[2024-05-24 08:54] LABS: Hematocrit 24.5 % (41.0-53.0); Mean Corpuscular Hemoglobin 27.7 pg (28.0-32.0); Mean Corpuscular Hgb Conc. 32.6 g/dL (32.0-36.0); Platelet Count (auto) 604 10^3/uL (140-450); Red Blood Cells 2.88 10^6/uL (4.5-5.90); Red Cell Distribution Width 16.1 % (11.8-14.3); White Blood Cell 12.5 10^3/uL (4.4-10.8)
[2024-05-24 09:02] LABS: Basophils % (manual) 0 (0.0-2.0); Blast Cells 0; Promyelocytes % 0; Reactive Lymphocytes 0
[2024-05-24 14:07] LABS: Band Neutrophils % (manual) 3; Eosinophils % (manual) 5 (0-7); Lymphocytes % (manual) 28 (10.0-50.0); Metamyelocytes % 1; Monocytes % (manual) 9 (0-12); Myelocytes % 1
[2024-05-24 14:08] LABS: Platelet Estimate Increased
--- NOTE | 2024-05-24 14:22 | DVHPN2 ---
Subjective 49-year-old male brought by paramedics because he was having generalized weakness for the past six days. Patient does have a history of hypertension i nsulin-dependent diabetes. He does have wound in the left lower extremity, he has home health for wound care who sees him for dressing changes. He has been having left lower extremity wound for the past month. He does have right toe amputation which was done in [place] several years ago. Patient states that he does not move about because of his wound in the left lower extremity along with a amputation of the right toes. Also endorses dysuria. Denies fever abdominal pain nausea vomiting. Denies chest pain. Denies any other symptoms. Changes from previous H/P or p: No Changes Eyes: No Pain, No Vision change, No Conjunctivae inflammation, No Eyelid inflammation, No Other, No Redness ENT: No Ear pain, No Ear discharge, No Nose pain, No Nose discharge, No Nose congestion, No Mouth pain, No Mouth swelling, No Throat pain, No Throat swelling, No Other Cardiovascular: No Chest Pain, No Palpitations, No Orthopnea, No Paroxysmal Noc. Dyspnea, No Edema, No Lt Headedness, No Other Respiratory: No Cough, No Dry, No Shortness of breath, No SOB with excertion, No Wheezing, No Hemoptysis, No Pleuritic Pain, No Sputum, No Other Gastrointestinal: No Nausea, No Vomiting, No Abdominal Pain, No Diarrhea, No Constipation, No Melena, No Hematochezia, No Other Genitourinary: Dysuria Musculoskeletal: foot pain Skin: Other Objective Vitals Vital Signs Date Time Temp Pulse Resp B/P (MAP) Pulse Ox O2 Delivery O2 Flow Rate FiO2 05/24/24 14:00 86 12 141/88 (105) 97 05/24/24 14:00 Room Air* 0 21 05/24/24 12:00 98.1 98.1 Intake/Output Intake and Output 05/24/24 07:00 Intake Total 1633 ml Output Total 2325 ml Balance -692 ml Intake Oral 1305 ml IV Total 328 ml Output Urine Total 2325 ml # Voids 3 Exam DERMATOLOGIC EXAM: - Skin is dry and cool to the touch dry bilaterally. - Nails 1-5 of the bilateral foot are thickened, discolored, dystrophic, and tender to palpate with subungual debris - Hair loss noted to bilateral feet Wound #1: Location: Left ankle Measurements: Length 4 cm x width 1 cm x depth 1 cm. Wound margins: Hyperkeratotic. Wound base: Full thickness. General Appearance: Fibrotic Probes to Bone: No Purulent drainage: Yes Serous drainage: No Erythema: Periwound VASCULAR EXAM: - DP and PT pulses are palpable bilaterally. - CRTTS is brisk to all digits. - Feet are cool to touch compared to lower legs bilaterally. NEUROLOGIC EXAM: - Normal light touch sensation to the superficial peroneal, deep peroneal, sural, saphenous, and tibial nerve branches. - Protective sensation is diminished as tested with a 5.07 10g Hammond-Aliya bilaterally. MUSCULOSKELETAL EXAM: - No gross deformities - Muscle strength is 5/5 and active motion is pain-free and symmetrical bilaterally - No pain or crepitation with passive range of motion bilaterally to all major pedal joints Medications Current Medications Medications Dose Ordered Sig/Patricia Route Start Time Stop Time Status Last Admin Dose Admin Acetaminophen 650 mg Q6HP PRN PO 05/13/24 18:45 05/19/24 06:24 650 MG Ondansetron HCl 4 mg Q4HP PRN IV 05/13/24 18:45 Enoxaparin Sodium 40 mg DAILY SC 05/14/24 10:00 05/22/24 08:45 40 MG Nitroglycerin 0.4 mg Q5MINP PRN SL 05/13/24 18:45 Diagnostic Test (Pha) 1 strip ACHS 05/13/24 22:00 05/24/24 11:26 1 STRIP Insulin Human Regular HS SC 05/13/24 22:00 05/23/24 21:53 4 UNITS Insulin Human Regular AC SC 05/14/24 07:00 05/24/24 11:30 2 UNITS Dextrose 50 ml UD PRN IV 05/13/24 19:00 Pantoprazole Sodium 40 mg DAILY IV 05/14/24 10:00 05/24/24 09:13 40 MG Daptomycin 500 mg/ Sodium Chloride 50 ml @ 100 mls/hr DAILY IV 05/14/24 18:00 05/24/24 10:00 100 MLS/HR Hydralazine HCl 10 mg Q6HP PRN IV 05/15/24 17:30 Clindamycin Phosphate 50 ml @ 50 mls/hr Q8HR IV 05/17/24 14:00 05/24/24 05:20 50 MLS/HR Meropenem 50 ml @ 17 mls/hr Q8H IV 05/17/24 22:00 05/24/24 13:58 17 MLS/HR Docusate Sodium 100 mg BIDPRN PRN PO 05/19/24 00:15 05/21/24 16:32 100 MG Alprazolam 0.5 mg TID PRN PO 05/20/24 16:45 05/23/24 22:52 0.5 MG Norepinephrine Bitartrate 250 ml @ 0.938 mls/ hr Q24H IV 05/21/24 12:15 05/21/24 12:15 2.813 MLS/HR Pregabalin 25 mg TID PO 05/21/24 14:00 05/24/24 13:58 25 MG Methocarbamol 500 mg BID PO 05/21/24 22:00 05/24/24 09:13 500 MG Venlafaxine HCl 75 mg BID PO 05/21/24 22:00 05/24/24 09:13 75 MG Oxycodone/ Acetaminophen 1 tab Q4HP PRN PO 05/21/24 12:45 05/24/24 14:02 1 TAB Insulin Glargine 32 units HS SC 05/21/24 22:00 05/23/24 21:53 32 UNITS Midodrine 10 mg TID@0600,1200,1800 PO 05/21/24 18:00 05/24/24 11:27 10 MG Lactulose 30 ml BID PO 05/21/24 22:00 05/24/24 09:12 30 ML Urea 15 gm BID PO 05/23/24 22:00 05/24/24 09:13 15 GM Laboratory Results Laboratory Tests 05/24/24 06:51 Chemistry Test 05/24/24 06:51 Calcium Level 8.7 mg/dL (8.7-10.4) Urinalysis Test 05/13/24 21:00 05/17/24 12:20 Urine Color Yellow (Yellow) Urine Clarity Turbid (Clear) H Urine pH 5.5 (5.0-9.0) Urine Specific [place] 1.014 (1.001-1.035) Urine Protein Trace (Negative) H Urine Ketones Negative (Negative) Urine Blood Trace /uL (Negative) H Urine Nitrite Negative (Negative) Urine Bilirubin Negative (Negative) Urine Urobilinogen Normal mg/dL (Negative) Urine Leukocyte Esterase 3+ /uL (Negative) Urine RBC 2 /hpf (0 - 3) Urine Microscopic WBC 70 /HPF (0-3) H Urine Squamous Epithelial Cells None seen /hpf (<5) Urine Bacteria Few /hpf (None Seen) H Urine Mucus Few (None Seen) Urine Creatinine 53.09 mg/dL (30.0-125.0) Urine Protein/Creatinine Ratio 1.05 Urine Potassium 23 mmol/L (12-62) Urine Glucose 3+ mg/dL (Normal) H Urine Total Protein 55.6 mg/dL (1-14) H Urine Osmolality 219 mOsm/kg Urine Sodium 66 mmol/L (40-220) Microbiology Microbiology Date/Time Source Procedure Growth Status 05/23/24 13:20 Ankle Left Gram Stain - Final Resulted 05/23/24 13:20 Ankle Left Anaerobic Culture - Preliminary Resulted 05/23/24 13:20 Ankle Left Aerobic Culture - Preliminary Resulted 05/21/24 19:27 Blood Blood Culture - Preliminary NO GROWTH AFTER 48 HOURS OF INCUBATION. Resulted Assessment/Plan Assessment/Plan ASSESSMENT: Patient is a 49 year old seen on the floor 1 day s/p from a left foot I&D PLAN: - The patients chart was reviewed, clinical findings were discussed with the patient, the etiologies of the conditions were discussed in detail, and a treatment plan was agreed to at this time, with both oral and written instructions provided. - reviewed advanced imaging - discussed with the patient's surgery went well yesterday - patient can have dressing changes daily - change with Betadine-soaked gauze Kerlix ABD and Ten bandage - patient can weightbear as tolerated on the left ankle - patient will need a period of p.o. antibiotics - patient should follow up with me in about a week All questions were answered and concerns addressed to the patient's satisfaction. The patient was given the phone number to the clinic and was told how to make contact with the clinic should any concerns or questions arise. Patient understands that if any questions or concerns arise prior to the next appointment, we should be contacted immediately. FOLLOW-UP: Continue to follow while inpatient Plan discussed with: Patient Problem List: (1) Hyperkalemia (2) Hyponatremia (3) Uncontrolled diabetes mellitus (4) Sepsis, unspecified organism (5) Osteomyelitis (6) HIV (human immunodeficiency virus infection) (7) MRSA bacteremia (8) Hx of syphilis (9) History of ESBL Klebsiella pneumoniae infection Date of Service: May 24, 2024 Billing Provider: DOMINGO KNUTSON DPM Common Visit Codes: [id number] INP/OBS CARE(HIGH) DOMINGO KNUTSON DPM May 24, 2024 14:22
--- NOTE | 2024-05-24 17:31 | DVHPN2 ---
Subjective Patient can be downgraded as he is off the Levophed Changes from previous H/P or p: No Changes Eyes: No Pain, No Vision change, No Conjunctivae inflammation, No Eyelid inflammation, No Other, No Redness ENT: No Ear pain, No Ear discharge, No Nose pain, No Nose discharge, No Nose congestion, No Mouth pain, No Mouth swelling, No Throat pain, No Throat swelling, No Other Cardiovascular: No Chest Pain, No Palpitations, No Orthopnea, No Paroxysmal Noc. Dyspnea, No Edema, No Lt Headedness, No Other Respiratory: No Cough, No Dry, No Shortness of breath, No SOB with excertion, No Wheezing, No Hemoptysis, No Pleuritic Pain, No Sputum, No Other Gastrointestinal: No Nausea, No Vomiting, No Abdominal Pain, No Diarrhea, No Constipation, No Melena, No Hematochezia, No Other Genitourinary: Dysuria Musculoskeletal: foot pain Skin: Other Objective Vitals Vital Signs Date Time Temp Pulse Resp B/P (MAP) Pulse Ox O2 Delivery O2 Flow Rate FiO2 05/24/24 17:00 77 11 136/80 (98) 100 05/24/24 16:00 Room Air* 0 21 05/24/24 12:00 98.1 98.1 Intake/Output Intake and Output 05/24/24 07:00 Intake Total 1633 ml Output Total 2325 ml Balance -692 ml Intake Oral 1305 ml IV Total 328 ml Output Urine Total 2325 ml # Voids 3 Exam HEENT pupils are reactive Neck is supple CVS S1-S2 regular rate and rhythm Respiratory diminished breath sounds bases GI positive bowel sound Extremity no edema [employer] no motor deficit Left lower extremity foot wounds antiseptic dressing Medications Current Medications Medications Dose Ordered Sig/Patricia Route Start Time Stop Time Status Last Admin Dose Admin Acetaminophen 650 mg Q6HP PRN PO 05/13/24 18:45 05/19/24 06:24 650 MG Ondansetron HCl 4 mg Q4HP PRN IV 05/13/24 18:45 Enoxaparin Sodium 40 mg DAILY SC 05/14/24 10:00 05/22/24 08:45 40 MG Nitroglycerin 0.4 mg Q5MINP PRN SL 05/13/24 18:45 Diagnostic Test (Pha) 1 strip ACHS 05/13/24 22:00 05/24/24 11:26 1 STRIP Insulin Human Regular HS SC 05/13/24 22:00 05/23/24 21:53 4 UNITS Insulin Human Regular AC SC 05/14/24 07:00 05/24/24 11:30 2 UNITS Dextrose 50 ml UD PRN IV 05/13/24 19:00 Pantoprazole Sodium 40 mg DAILY IV 05/14/24 10:00 05/24/24 09:13 40 MG Daptomycin 500 mg/ Sodium Chloride 50 ml @ 100 mls/hr DAILY IV 05/14/24 18:00 05/24/24 10:00 100 MLS/HR Hydralazine HCl 10 mg Q6HP PRN IV 05/15/24 17:30 Docusate Sodium 100 mg BIDPRN PRN PO 05/19/24 00:15 05/21/24 16:32 100 MG Alprazolam 0.5 mg TID PRN PO 05/20/24 16:45 05/24/24 15:45 0.5 MG Norepinephrine Bitartrate 250 ml @ 0.938 mls/ hr Q24H IV 05/21/24 12:15 05/21/24 12:15 2.813 MLS/HR Pregabalin 25 mg TID PO 05/21/24 14:00 05/24/24 13:58 25 MG Methocarbamol 500 mg BID PO 05/21/24 22:00 05/24/24 09:13 500 MG Venlafaxine HCl 75 mg BID PO 05/21/24 22:00 05/24/24 09:13 75 MG Oxycodone/ Acetaminophen 1 tab Q4HP PRN PO 05/21/24 12:45 05/24/24 14:02 1 TAB Insulin Glargine 32 units HS SC 05/21/24 22:00 05/23/24 21:53 32 UNITS Midodrine 10 mg TID@0600,1200,1800 PO 05/21/24 18:00 05/24/24 11:27 10 MG Lactulose 30 ml BID PO 05/21/24 22:00 05/24/24 09:12 30 ML Urea 15 gm BID PO 05/23/24 22:00 05/24/24 09:13 15 GM Laboratory Results Laboratory Tests 05/24/24 06:51 Chemistry Test 05/24/24 06:51 Calcium Level 8.7 mg/dL (8.7-10.4) Urinalysis Test 05/13/24 21:00 05/17/24 12:20 Urine Color Yellow (Yellow) Urine Clarity Turbid (Clear) H Urine pH 5.5 (5.0-9.0) Urine Specific [place] 1.014 (1.001-1.035) Urine Protein Trace (Negative) H Urine Ketones Negative (Negative) Urine Blood Trace /uL (Negative) H Urine Nitrite Negative (Negative) Urine Bilirubin Negative (Negative) Urine Urobilinogen Normal mg/dL (Negative) Urine Leukocyte Esterase 3+ /uL (Negative) Urine RBC 2 /hpf (0 - 3) Urine Microscopic WBC 70 /HPF (0-3) H Urine Squamous Epithelial Cells None seen /hpf (<5) Urine Bacteria Few /hpf (None Seen) H Urine Mucus Few (None Seen) Urine Creatinine 53.09 mg/dL (30.0-125.0) Urine Protein/Creatinine Ratio 1.05 Urine Potassium 23 mmol/L (12-62) Urine Glucose 3+ mg/dL (Normal) H Urine Total Protein 55.6 mg/dL (1-14) H Urine Osmolality 219 mOsm/kg Urine Sodium 66 mmol/L (40-220) Microbiology Microbiology Date/Time Source Procedure Growth Status 05/23/24 13:20 Ankle Left Gram Stain - Final Resulted 05/23/24 13:20 Ankle Left Anaerobic Culture - Preliminary Resulted 05/23/24 13:20 Ankle Left Aerobic Culture - Preliminary Resulted 05/21/24 19:27 Blood Blood Culture - Preliminary NO GROWTH AFTER 48 HOURS OF INCUBATION. Resulted Assessment/Plan Assessment/Plan 59-year-old male with a known history of insulin-dependent diabetes mellitus, hypertension, chronic left foot wound currently being seen at wound care center presented to the hospital with generalized weakness found to have 1. Sepsis secondary to left ankle cellulitis/abscess status post I and D 2. Left foot cellulitis with evidence of osteomyelitis in distinct TBI fibula calcaneum and tarsal bones. Status post debridement 3. Hyponatremia suspect pseudohyponatremia in the setting of uncontrolled hyperglycemia 4. Uncontrolled hyperglycemia with history of insulin-dependent diabetes mellitus 5. Hypocalcemia 6. Leukocytosis likely reactive 7. Persistent MRSA bacteremia 8. HIV 9. Hypotension was on Levophed currently resolved -HARRIS shows no evidence of endocarditis, -patient was seen by Podiatry and status post debridement of the left foot -continue broad-spectrum IV antibiotics, MRI left foot ruled in osteomyelitis, Infectious Disease consultation, Podiatry consultation appreciated -nephrology consultation. PICC line placement, discharge plan with the IV antibiotics Plan discussed with: Other My Orders Orders - NADEEM LIMON MD Procedure Category Date Status Time Transfer Orders XFER 05/24/24 Transmitted 16:31 Date of Service: May 24, 2024 Billing Provider: NADEEM LIMON MD Common Visit Codes: [id number] INP/OBS CARE(MOD) NADEEM LIMON MD May 24, 2024 17:31
--- NOTE | 2024-05-24 17:50 | DVHPN2 ---
Progress Note Date Seen: May 24, 2024 Medical Necessity Reason Pt with a Central, PICC or Fol: No Subjective Patient reports: No new complaints (s/p OR) Review of Systems: Deferred Objective vital signs Vital Sign Date Time Temp Pulse Resp B/P (MAP) Pulse Ox O2 Delivery O2 Flow Rate FiO2 05/24/24 17:00 77 11 136/80 (98) 100 05/24/24 16:00 Room Air* 0 21 05/24/24 12:00 98.1 98.1 Total Intake and Output 05/23/24 05/23/24 05/24/24 15:00 23:00 07:00 Intake Total 144 ml 414 ml 1075 ml Output Total 500 ml 1825 ml Balance 144 ml -86 ml -750 ml medications Current Medications Medications Dose Ordered Sig/Patricia Route Start Time Stop Time Status Last Admin Dose Admin Acetaminophen 650 mg Q6HP PRN PO 05/13/24 18:45 05/19/24 06:24 650 MG Ondansetron HCl 4 mg Q4HP PRN IV 05/13/24 18:45 Enoxaparin Sodium 40 mg DAILY SC 05/14/24 10:00 05/22/24 08:45 40 MG Nitroglycerin 0.4 mg Q5MINP PRN SL 05/13/24 18:45 Diagnostic Test (Pha) 1 strip ACHS 05/13/24 22:00 05/24/24 17:00 1 STRIP Insulin Human Regular HS SC 05/13/24 22:00 05/23/24 21:53 4 UNITS Insulin Human Regular AC SC 05/14/24 07:00 05/24/24 11:30 2 UNITS Dextrose 50 ml UD PRN IV 05/13/24 19:00 Pantoprazole Sodium 40 mg DAILY IV 05/14/24 10:00 05/24/24 09:13 40 MG Daptomycin 500 mg/ Sodium Chloride 50 ml @ 100 mls/hr DAILY IV 05/14/24 18:00 05/24/24 10:00 100 MLS/HR Hydralazine HCl 10 mg Q6HP PRN IV 05/15/24 17:30 Docusate Sodium 100 mg BIDPRN PRN PO 05/19/24 00:15 05/21/24 16:32 100 MG Alprazolam 0.5 mg TID PRN PO 05/20/24 16:45 05/24/24 15:45 0.5 MG Norepinephrine Bitartrate 250 ml @ 0.938 mls/ hr Q24H IV 05/21/24 12:15 05/21/24 12:15 2.813 MLS/HR Pregabalin 25 mg TID PO 05/21/24 14:00 05/24/24 13:58 25 MG Methocarbamol 500 mg BID PO 05/21/24 22:00 05/24/24 09:13 500 MG Venlafaxine HCl 75 mg BID PO 05/21/24 22:00 05/24/24 09:13 75 MG Oxycodone/ Acetaminophen 1 tab Q4HP PRN PO 05/21/24 12:45 05/24/24 14:02 1 TAB Insulin Glargine 32 units HS SC 05/21/24 22:00 05/23/24 21:53 32 UNITS Midodrine 10 mg TID@0600,1200,1800 PO 05/21/24 18:00 05/24/24 11:27 10 MG Lactulose 30 ml BID PO 05/21/24 22:00 05/24/24 09:12 30 ML Urea 15 gm BID PO 05/23/24 22:00 05/24/24 09:13 15 GM Examination: GENERAL:Normal, HEENT:Normal, NECK:Normal, LUNGS:Normal, CVS:Normal, ABDOMEN:Normal, MSK:Abnormal, SKIN:Abnormal, NEURO:Normal, :Normal laboratory and microbiology Laboratory Tests 05/24/24 06:51 Test 05/24/24 06:51 Range/Units Serum Glucose 93 74-106 mg/dL Microbiology Date/Time Source Procedure Growth Status 05/23/24 13:20 Ankle Left Gram Stain - Final Resulted 05/23/24 13:20 Ankle Left Anaerobic Culture - Preliminary Resulted 05/23/24 13:20 Ankle Left Aerobic Culture - Preliminary Resulted 05/21/24 19:27 Blood Blood Culture - Preliminary NO GROWTH AFTER 48 HOURS OF INCUBATION. Resulted Problem List/Assessment/Plan Problem List/Assessment/Plan YESSY superimposed on CKD secondary to hemodynamic mediated Hyponatremia Uncontrolled DM, A1c > 11, hyperglycemia MRSA septicemia Peripheral arterial disease Right foot osteomyelitis Charcot foot left foot/cellulitis Anemia of CKD , blood loss from wound HIV per ID recs Acute kidney injury resolved na better trial of portillo Plan discussed with: Patient My Orders My Orders Orders - ROXANNA FELIX MD Procedure Category Date Status Time Maintain Fluid PARKER 05/24/24 In Process Restrictions 13:40 Dietary Evaluation Review Comments: Follow a CCHO-60 diet with Protein restriction at 60g d/t kidney failure. Encourage high fiber foods, liquid allowed for his kidney function, PT for improved physical activities. Expected Outcomes/Goals: less nephrotoxins, less constipation, controlled DM, improved wound healing. ROXANNA FELIX MD May 24, 2024 17:50
--- NOTE | 2024-05-24 18:50 | DVHPN2 ---
Consult Progress Note Date Seen: May 22, 2024 Subjective Patient reports: Other (remains Afebrile , still feels weak , left foot is wrapped and has crepidus and foot is essentially injurated and sof ) Objective vital signs Vital Sign Date Time Temp Pulse Resp B/P (MAP) Pulse Ox O2 Delivery O2 Flow Rate FiO2 05/24/24 18:10 16 Room Air* 0 21 05/24/24 18:00 79 05/24/24 18:00 98 05/24/24 17:00 136/80 (98) 05/24/24 12:00 98.1 98.1 Total Intake and Output 05/23/24 05/23/24 05/24/24 15:00 23:00 07:00 Intake Total 144 ml 414 ml 1075 ml Output Total 500 ml 1825 ml Balance 144 ml -86 ml -750 ml medications Current Medications Medications Dose Ordered Sig/Patricia Route Start Time Stop Time Status Last Admin Dose Admin Acetaminophen 650 mg Q6HP PRN PO 05/13/24 18:45 05/19/24 06:24 650 MG Ondansetron HCl 4 mg Q4HP PRN IV 05/13/24 18:45 Enoxaparin Sodium 40 mg DAILY SC 05/14/24 10:00 05/22/24 08:45 40 MG Nitroglycerin 0.4 mg Q5MINP PRN SL 05/13/24 18:45 Diagnostic Test (Pha) 1 strip ACHS 05/13/24 22:00 05/24/24 17:00 1 STRIP Insulin Human Regular HS SC 05/13/24 22:00 05/23/24 21:53 4 UNITS Insulin Human Regular AC SC 05/14/24 07:00 05/24/24 11:30 2 UNITS Dextrose 50 ml UD PRN IV 05/13/24 19:00 Pantoprazole Sodium 40 mg DAILY IV 05/14/24 10:00 05/24/24 09:13 40 MG Daptomycin 500 mg/ Sodium Chloride 50 ml @ 100 mls/hr DAILY IV 05/14/24 18:00 05/24/24 10:00 100 MLS/HR Hydralazine HCl 10 mg Q6HP PRN IV 05/15/24 17:30 Docusate Sodium 100 mg BIDPRN PRN PO 05/19/24 00:15 05/21/24 16:32 100 MG Alprazolam 0.5 mg TID PRN PO 05/20/24 16:45 05/24/24 15:45 0.5 MG Norepinephrine Bitartrate 250 ml @ 0.938 mls/ hr Q24H IV 05/21/24 12:15 05/21/24 12:15 2.813 MLS/HR Pregabalin 25 mg TID PO 05/21/24 14:00 05/24/24 13:58 25 MG Methocarbamol 500 mg BID PO 05/21/24 22:00 05/24/24 09:13 500 MG Venlafaxine HCl 75 mg BID PO 05/21/24 22:00 05/24/24 09:13 75 MG Oxycodone/ Acetaminophen 1 tab Q4HP PRN PO 05/21/24 12:45 05/24/24 14:02 1 TAB Insulin Glargine 32 units HS SC 05/21/24 22:00 05/23/24 21:53 32 UNITS Midodrine 10 mg TID@0600,1200,1800 PO 05/21/24 18:00 05/24/24 17:47 10 MG Lactulose 30 ml BID PO 05/21/24 22:00 05/24/24 09:12 30 ML Urea 15 gm BID PO 05/23/24 22:00 05/24/24 09:13 15 GM Physical Exam: General: NAD Neck: Supple. No masses. HEENT: PERRL. Normal lids and conjunctiva. Moist mucous membranes. Oropharynx without lesions, exudates, or excessive erythema. Normal appearance of the external aspects of the nose and ears. Heart: Regular rhythm, normal rate. No murmur. No lower extremity edema. Lungs: Diminished breath sounds at the bases bilaterally. No wheezes. No crackles. Abdomen: Soft. Non-tender. Non-distended. No masses or abdominal hernia. Msk: No digital cyanosis. Normal strength and tone in all 4 limbs. Skin: Warm and dry, no rashes. Neuro: Alert, more aware, following commands. No facial droop or slurred speech. Extra-ocular movements intact. Sensation intact to soft touch in all 4 limbs. Psych: Appropriate mood. Full affect. Oriented to person, place, time, and situation laboratory and microbiology Laboratory Tests 05/24/24 06:51 Test 05/24/24 06:51 Range/Units Serum Glucose 93 74-106 mg/dL Problem List/Assessment/Plan Problems(with codes): (1) History of ESBL Klebsiella pneumoniae infection (2) Hx of syphilis (3) MRSA bacteremia (4) HIV (human immunodeficiency virus infection) (5) Osteomyelitis (6) Sepsis, unspecified organism (7) Uncontrolled diabetes mellitus Problem List/Assessment/Plan ID Problem List: - MRSA bacteremia - Left foot cellulitis - Possible osteomyelitis (left foot, right leg) - Uncontrolled diabetes mellitus (noncompliant) - Diabetic foot infections - Multiple right toe amputations - Chronic right leg ulcer - Hypertension - Polysubstance abuse - Undiagnosed psychiatric disorder - HIV Assessment This is a 49 y.o. male with a past medical history of hypertension, uncontrolled diabetes mellitus (noncompliant), polysubstance abuse, and undiagnosed psychiatric disorder, who presents with generalized weakness for the last six days. Left foot with cellulitic changes (erythema, edema), possible osteomyelitis. Right foot with multiple toe amputations. Chronic right leg ulcer with severe wound, good granulation tissue, and serous drainage. Vital signs show hypotension (BP 79/55 mmHg), afebrile (T 98.4F), heart rate 87 bpm, respiratory rate 12 breaths per minute, oxygen saturation 96% on room air. Laboratories notable for leukocytosis (WBC 44 x10/L), anemia (Hb 9.5 g/dL), thrombocytosis (platelets 584 x10/L), hyponatremia (Na 123 mmol/L), BUN 26 mg/dL, Creatinine 1.02 mg/dL. Urinalysis shows +3 leukocytes and positive nitrites. Blood cultures are growing MRSA. patient has hx of ESBL wound infection 05/15: whitecount 22.1 05/16: MRI of foot shows extensive bone maredema involving the distal tibia , distal fibula and talus calcanus and residual tarsal bones. highly concerning for osteomyelitis with differential diagnosis of charcot joint , involving flexor perineal extensor compartments probably infectious , Achillis tendinosis and peritendinitis , adjacent draining ulcer seen and patients also persistently positive blood cultures for MRSA as well as wound cultures 05/17: whitecount is 46 , concerned for progressisng sepsis , patient is getting surgery by podiatry tomorrow 05/18: Still having blood cultures return positive , whitecount is down to 26 and BP has normalized and only requiring intermittently BP support 05/19: 03/26 bottles of blood is positive for MRSA on the 05/17 and fever curve is downtrending . is to undergo debridement and irrigation tomorrow , HARRIS done 05/18 showed negative for any valvular diseases or vegetation 05/20: continues to be positive for MRSA bacteremia , likely due to inadequate source control , whitecount is down to 24.5 05/21: pressors off, surgery delayed, remains bacteremic 05/22: Patient appears to have cleared blood cultures on 05/21 for at least 24 hours Plan: - during debridement collect bacterial ,anaerobic , aerobic , fungal and AFB cultures of infected deep tissue - Continue clindamycin, daptomycin , and meropenem - repeat blood cultures now - HOLD art, unclear patient compliance, recommend checking HIV viral and CD4 count - Fluid resuscitation; consider vasopressor support to maintain MAP >65 mmHg - Obtain urine culture to further evaluate urinary tract infection - Keep blood sugars under 180 mg/dL with insulin sliding scale; defer management to primary team - Monitor vital signs and labs closely Isolation Precautions: standard Plan discussed with: Other Dietary Evaluation Review Comments: Follow a CCHO-60 diet with Protein restriction at 60g d/t kidney failure. Encourage high fiber foods, liquid allowed for his kidney function, PT for improved physical activities. Expected Outcomes/Goals: less nephrotoxins, less constipation, controlled DM, improved wound healing. VITOR BROCK MD May 24, 2024 18:50
--- NOTE | 2024-05-24 18:51 | DVHPN2 ---
Consult Progress Note Date Seen: May 24, 2024 Subjective Patient reports: Other (feeling better today with no pain in his leg , does not have a piccline in place anymore , the foot is wrapped and not bleeding , ankle site appears with healthy granulation tissue ) Objective vital signs Vital Sign Date Time Temp Pulse Resp B/P (MAP) Pulse Ox O2 Delivery O2 Flow Rate FiO2 05/24/24 18:10 16 Room Air* 0 21 05/24/24 18:00 79 05/24/24 18:00 98 05/24/24 17:00 136/80 (98) 05/24/24 12:00 98.1 98.1 Total Intake and Output 05/23/24 05/23/24 05/24/24 15:00 23:00 07:00 Intake Total 144 ml 414 ml 1075 ml Output Total 500 ml 1825 ml Balance 144 ml -86 ml -750 ml medications Current Medications Medications Dose Ordered Sig/Patricia Route Start Time Stop Time Status Last Admin Dose Admin Acetaminophen 650 mg Q6HP PRN PO 05/13/24 18:45 05/19/24 06:24 650 MG Ondansetron HCl 4 mg Q4HP PRN IV 05/13/24 18:45 Enoxaparin Sodium 40 mg DAILY SC 05/14/24 10:00 05/22/24 08:45 40 MG Nitroglycerin 0.4 mg Q5MINP PRN SL 05/13/24 18:45 Diagnostic Test (Pha) 1 strip ACHS 05/13/24 22:00 05/24/24 17:00 1 STRIP Insulin Human Regular HS SC 05/13/24 22:00 05/23/24 21:53 4 UNITS Insulin Human Regular AC SC 05/14/24 07:00 05/24/24 11:30 2 UNITS Dextrose 50 ml UD PRN IV 05/13/24 19:00 Pantoprazole Sodium 40 mg DAILY IV 05/14/24 10:00 05/24/24 09:13 40 MG Daptomycin 500 mg/ Sodium Chloride 50 ml @ 100 mls/hr DAILY IV 05/14/24 18:00 05/24/24 10:00 100 MLS/HR Hydralazine HCl 10 mg Q6HP PRN IV 05/15/24 17:30 Docusate Sodium 100 mg BIDPRN PRN PO 05/19/24 00:15 05/21/24 16:32 100 MG Alprazolam 0.5 mg TID PRN PO 05/20/24 16:45 05/24/24 15:45 0.5 MG Norepinephrine Bitartrate 250 ml @ 0.938 mls/ hr Q24H IV 05/21/24 12:15 05/21/24 12:15 2.813 MLS/HR Pregabalin 25 mg TID PO 05/21/24 14:00 05/24/24 13:58 25 MG Methocarbamol 500 mg BID PO 05/21/24 22:00 05/24/24 09:13 500 MG Venlafaxine HCl 75 mg BID PO 05/21/24 22:00 05/24/24 09:13 75 MG Oxycodone/ Acetaminophen 1 tab Q4HP PRN PO 05/21/24 12:45 05/24/24 14:02 1 TAB Insulin Glargine 32 units HS SC 05/21/24 22:00 05/23/24 21:53 32 UNITS Midodrine 10 mg TID@0600,1200,1800 PO 05/21/24 18:00 05/24/24 17:47 10 MG Lactulose 30 ml BID PO 05/21/24 22:00 05/24/24 09:12 30 ML Urea 15 gm BID PO 05/23/24 22:00 05/24/24 09:13 15 GM Physical Exam: General: NAD Neck: Supple. No masses. HEENT: PERRL. Normal lids and conjunctiva. Moist mucous membranes. Oropharynx without lesions, exudates, or excessive erythema. Normal appearance of the external aspects of the nose and ears. Heart: Regular rhythm, normal rate. No murmur. No lower extremity edema. Lungs: Diminished breath sounds at the bases bilaterally. No wheezes. No crackles. Abdomen: Soft. Non-tender. Non-distended. No masses or abdominal hernia. Msk: No digital cyanosis. Normal strength and tone in all 4 limbs. Skin: Warm and dry, no rashes. Neuro: Alert, more aware, following commands. No facial droop or slurred speech. Extra-ocular movements intact. Sensation intact to soft touch in all 4 limbs. Psych: Appropriate mood. Full affect. Oriented to person, place, time, and situation laboratory and microbiology Laboratory Tests 05/24/24 06:51 Test 05/24/24 06:51 Range/Units Serum Glucose 93 74-106 mg/dL Problem List/Assessment/Plan Problems(with codes): (1) History of ESBL Klebsiella pneumoniae infection (2) MRSA bacteremia (3) Hx of syphilis (4) HIV (human immunodeficiency virus infection) (5) Osteomyelitis (6) Sepsis, unspecified organism (7) Uncontrolled diabetes mellitus Problem List/Assessment/Plan ID Problem List: - MRSA bacteremia - Left foot cellulitis - Possible osteomyelitis (left foot, right leg) - Uncontrolled diabetes mellitus (noncompliant) - Diabetic foot infections - Multiple right toe amputations - Chronic right leg ulcer - Hypertension - Polysubstance abuse - Undiagnosed psychiatric disorder - HIV Assessment This is a 49 y.o. male with a past medical history of hypertension, uncontrolled diabetes mellitus (noncompliant), polysubstance abuse, and undiagnosed psychiatric disorder, who presents with generalized weakness for the last six days. Left foot with cellulitic changes (erythema, edema), possible osteomyelitis. Right foot with multiple toe amputations. Chronic right leg ulcer with severe wound, good granulation tissue, and serous drainage. Vital signs show hypotension (BP 79/55 mmHg), afebrile (T 98.4F), heart rate 87 bpm, respiratory rate 12 breaths per minute, oxygen saturation 96% on room air. Laboratories notable for leukocytosis (WBC 44 x10/L), anemia (Hb 9.5 g/dL), thrombocytosis (platelets 584 x10/L), hyponatremia (Na 123 mmol/L), BUN 26 mg/dL, Creatinine 1.02 mg/dL. Urinalysis shows +3 leukocytes and positive nitrites. Blood cultures are growing MRSA. patient has hx of ESBL wound infection 05/15: whitecount 22.1 05/16: MRI of foot shows extensive bone maredema involving the distal tibia , distal fibula and talus calcanus and residual tarsal bones. highly concerning for osteomyelitis with differential diagnosis of charcot joint , involving flexor perineal extensor compartments probably infectious , Achillis tendinosis and peritendinitis , adjacent draining ulcer seen and patients also persistently positive blood cultures for MRSA as well as wound cultures 05/17: whitecount is 46 , concerned for progressisng sepsis , patient is getting surgery by podiatry tomorrow 05/18: Still having blood cultures return positive , whitecount is down to 26 and BP has normalized and only requiring intermittently BP support 05/19: 03/26 bottles of blood is positive for MRSA on the 05/17 and fever curve is downtrending . is to undergo debridement and irrigation tomorrow , HARRIS done 05/18 showed negative for any valvular diseases or vegetation 05/20: continues to be positive for MRSA bacteremia , likely due to inadequate source control , whitecount is down to 24.5 05/21: pressors off, surgery delayed, remains bacteremic 05/22: Patient appears to have cleared blood cultures on 05/21 for at least 24 hours 05/23: per operative dissection blunt dissection was taken to the level of the bone and deep cultures were sent and focused was placed on left foot ankle where there was an acute infection 05/24: whitecount down to 12.5 Plan: - need new piccline placement - during debridement collect bacterial ,anaerobic , aerobic , fungal and AFB cultures of infected deep tissue - Continue daptomycin IV therapy for 6 weeks - follow up with infectious disease in 4 weeks - needs tight glucose control and keep blood sugars under 180 - follow up with primary care to ensure insulin care is optimized - resume Bictarvy for HIV when patient is discharged - per surgery recommendations that patient receives wound care as outpatient given patients immobility and would likely benefit from home health wound care - recommend physical therapy evaluation to see if patient would also benefit from senior living facility although patient does not want this - follow up on blood and operative cultures - HOLD art, unclear patient compliance, recommend checking HIV viral and CD4 count - Fluid resuscitation; consider vasopressor support to maintain MAP >65 mmHg - Obtain urine culture to further evaluate urinary tract infection - Keep blood sugars under 180 mg/dL with insulin sliding scale; defer management to primary team - Monitor vital signs and labs closely Isolation Precautions: standard Plan discussed with: Other Dietary Evaluation Review Comments: Follow a CCHO-60 diet with Protein restriction at 60g d/t kidney failure. Encourage high fiber foods, liquid allowed for his kidney function, PT for improved physical activities. Expected Outcomes/Goals: less nephrotoxins, less constipation, controlled DM, improved wound healing. VITOR BROCK MD May 24, 2024 18:51
--- NOTE | 2024-05-24 18:51 | DVHPN2 ---
Consult Progress Note Date Seen: May 23, 2024 Subjective Patient reports: Other (underwent debridement of foot today and got a dissection from the ankle down to the bone involving the heel as well and has been left opoen to drain by secondary intention and wound vac in place draining bloody fluid ) Objective vital signs Vital Sign Date Time Temp Pulse Resp B/P (MAP) Pulse Ox O2 Delivery O2 Flow Rate FiO2 05/24/24 18:10 16 Room Air* 0 21 05/24/24 18:00 79 05/24/24 18:00 98 05/24/24 17:00 136/80 (98) 05/24/24 12:00 98.1 98.1 Total Intake and Output 05/23/24 05/23/24 05/24/24 15:00 23:00 07:00 Intake Total 144 ml 414 ml 1075 ml Output Total 500 ml 1825 ml Balance 144 ml -86 ml -750 ml medications Current Medications Medications Dose Ordered Sig/Patricia Route Start Time Stop Time Status Last Admin Dose Admin Acetaminophen 650 mg Q6HP PRN PO 05/13/24 18:45 05/19/24 06:24 650 MG Ondansetron HCl 4 mg Q4HP PRN IV 05/13/24 18:45 Enoxaparin Sodium 40 mg DAILY SC 05/14/24 10:00 05/22/24 08:45 40 MG Nitroglycerin 0.4 mg Q5MINP PRN SL 05/13/24 18:45 Diagnostic Test (Pha) 1 strip ACHS 05/13/24 22:00 05/24/24 17:00 1 STRIP Insulin Human Regular HS SC 05/13/24 22:00 05/23/24 21:53 4 UNITS Insulin Human Regular AC SC 05/14/24 07:00 05/24/24 11:30 2 UNITS Dextrose 50 ml UD PRN IV 05/13/24 19:00 Pantoprazole Sodium 40 mg DAILY IV 05/14/24 10:00 05/24/24 09:13 40 MG Daptomycin 500 mg/ Sodium Chloride 50 ml @ 100 mls/hr DAILY IV 05/14/24 18:00 05/24/24 10:00 100 MLS/HR Hydralazine HCl 10 mg Q6HP PRN IV 05/15/24 17:30 Docusate Sodium 100 mg BIDPRN PRN PO 05/19/24 00:15 05/21/24 16:32 100 MG Alprazolam 0.5 mg TID PRN PO 05/20/24 16:45 05/24/24 15:45 0.5 MG Norepinephrine Bitartrate 250 ml @ 0.938 mls/ hr Q24H IV 05/21/24 12:15 05/21/24 12:15 2.813 MLS/HR Pregabalin 25 mg TID PO 05/21/24 14:00 05/24/24 13:58 25 MG Methocarbamol 500 mg BID PO 05/21/24 22:00 05/24/24 09:13 500 MG Venlafaxine HCl 75 mg BID PO 05/21/24 22:00 05/24/24 09:13 75 MG Oxycodone/ Acetaminophen 1 tab Q4HP PRN PO 05/21/24 12:45 05/24/24 14:02 1 TAB Insulin Glargine 32 units HS SC 05/21/24 22:00 05/23/24 21:53 32 UNITS Midodrine 10 mg TID@0600,1200,1800 PO 05/21/24 18:00 05/24/24 17:47 10 MG Lactulose 30 ml BID PO 05/21/24 22:00 05/24/24 09:12 30 ML Urea 15 gm BID PO 05/23/24 22:00 05/24/24 09:13 15 GM Physical Exam: General: NAD Neck: Supple. No masses. HEENT: PERRL. Normal lids and conjunctiva. Moist mucous membranes. Oropharynx without lesions, exudates, or excessive erythema. Normal appearance of the external aspects of the nose and ears. Heart: Regular rhythm, normal rate. No murmur. No lower extremity edema. Lungs: Diminished breath sounds at the bases bilaterally. No wheezes. No crackles. Abdomen: Soft. Non-tender. Non-distended. No masses or abdominal hernia. Msk: No digital cyanosis. Normal strength and tone in all 4 limbs. Skin: Warm and dry, no rashes. Neuro: Alert, more aware, following commands. No facial droop or slurred speech. Extra-ocular movements intact. Sensation intact to soft touch in all 4 limbs. Psych: Appropriate mood. Full affect. Oriented to person, place, time, and situation laboratory and microbiology Laboratory Tests 05/24/24 06:51 Test 05/24/24 06:51 Range/Units Serum Glucose 93 74-106 mg/dL Problem List/Assessment/Plan Problems(with codes): (1) History of ESBL Klebsiella pneumoniae infection (2) Hx of syphilis (3) MRSA bacteremia (4) HIV (human immunodeficiency virus infection) (5) Osteomyelitis (6) Sepsis, unspecified organism (7) Uncontrolled diabetes mellitus Problem List/Assessment/Plan ID Problem List: - MRSA bacteremia - Left foot cellulitis - Possible osteomyelitis (left foot, right leg) - Uncontrolled diabetes mellitus (noncompliant) - Diabetic foot infections - Multiple right toe amputations - Chronic right leg ulcer - Hypertension - Polysubstance abuse - Undiagnosed psychiatric disorder - HIV Assessment This is a 49 y.o. male with a past medical history of hypertension, uncontrolled diabetes mellitus (noncompliant), polysubstance abuse, and undiagnosed psychiatric disorder, who presents with generalized weakness for the last six days. Left foot with cellulitic changes (erythema, edema), possible osteomyelitis. Right foot with multiple toe amputations. Chronic right leg ulcer with severe wound, good granulation tissue, and serous drainage. Vital signs show hypotension (BP 79/55 mmHg), afebrile (T 98.4F), heart rate 87 bpm, respiratory rate 12 breaths per minute, oxygen saturation 96% on room air. Laboratories notable for leukocytosis (WBC 44 x10/L), anemia (Hb 9.5 g/dL), thrombocytosis (platelets 584 x10/L), hyponatremia (Na 123 mmol/L), BUN 26 mg/dL, Creatinine 1.02 mg/dL. Urinalysis shows +3 leukocytes and positive nitrites. Blood cultures are growing MRSA. patient has hx of ESBL wound infection 05/15: whitecount 22.1 05/16: MRI of foot shows extensive bone maredema involving the distal tibia , distal fibula and talus calcanus and residual tarsal bones. highly concerning for osteomyelitis with differential diagnosis of charcot joint , involving flexor perineal extensor compartments probably infectious , Achillis tendinosis and peritendinitis , adjacent draining ulcer seen and patients also persistently positive blood cultures for MRSA as well as wound cultures 05/17: whitecount is 46 , concerned for progressisng sepsis , patient is getting surgery by podiatry tomorrow 05/18: Still having blood cultures return positive , whitecount is down to 26 and BP has normalized and only requiring intermittently BP support 05/19: / bottles of blood is positive for MRSA on the 05/17 and fever curve is downtrending . is to undergo debridement and irrigation tomorrow , HARRIS done 05/18 showed negative for any valvular diseases or vegetation 05/20: continues to be positive for MRSA bacteremia , likely due to inadequate source control , whitecount is down to 24.5 05/21: pressors off, surgery delayed, remains bacteremic 05/22: Patient appears to have cleared blood cultures on 05/21 for at least 24 hours 05/23: per operative dissection blunt dissection was taken to the level of the bone and deep cultures were sent and focused was placed on left foot ankle where there was an acute infection Plan: - during debridement collect bacterial ,anaerobic , aerobic , fungal and AFB cultures of infected deep tissue - Continue daptomycin , - STOP Clindamycin and meropenem - follow up on blood and operative cultures - HOLD art, unclear patient compliance, recommend checking HIV viral and CD4 count - Fluid resuscitation; consider vasopressor support to maintain MAP >65 mmHg - Obtain urine culture to further evaluate urinary tract infection - Keep blood sugars under 180 mg/dL with insulin sliding scale; defer management to primary team - Monitor vital signs and labs closely Isolation Precautions: standard Plan discussed with: Other Dietary Evaluation Review Comments: Follow a CCHO-60 diet with Protein restriction at 60g d/t kidney failure. Encourage high fiber foods, liquid allowed for his kidney function, PT for improved physical activities. Expected Outcomes/Goals: less nephrotoxins, less constipation, controlled DM, improved wound healing. VITOR BROCK MD May 24, 2024 18:50
--- NOTE | 2024-05-24 19:49 | DVHPN2 ---
Progress Note - Dictate Date Seen: May 24, 2024 Medical Necessity Reason Pt with a Central, PICC or Fol: No Subjective Patient seen and examined at bedside. Breathing on room air Overnight events reviewed. vital signs Vital Sign Date Time Temp Pulse Resp B/P (MAP) Pulse Ox O2 Delivery O2 Flow Rate FiO2 05/24/24 18:10 16 Room Air* 0 21 05/24/24 18:00 79 05/24/24 18:00 98 05/24/24 17:00 136/80 (98) 05/24/24 12:00 98.1 98.1 Total Intake and Output 05/23/24 05/23/24 05/24/24 15:00 23:00 07:00 Intake Total 144 ml 414 ml 1075 ml Output Total 500 ml 1825 ml Balance 144 ml -86 ml -750 ml medications Current Medications Medications Dose Ordered Sig/Patricia Route Start Time Stop Time Status Last Admin Dose Admin Acetaminophen 650 mg Q6HP PRN PO 05/13/24 18:45 05/19/24 06:24 650 MG Ondansetron HCl 4 mg Q4HP PRN IV 05/13/24 18:45 Enoxaparin Sodium 40 mg DAILY SC 05/14/24 10:00 05/22/24 08:45 40 MG Nitroglycerin 0.4 mg Q5MINP PRN SL 05/13/24 18:45 Diagnostic Test (Pha) 1 strip ACHS 05/13/24 22:00 05/24/24 17:00 1 STRIP Insulin Human Regular HS SC 05/13/24 22:00 05/23/24 21:53 4 UNITS Insulin Human Regular AC SC 05/14/24 07:00 05/24/24 11:30 2 UNITS Dextrose 50 ml UD PRN IV 05/13/24 19:00 Pantoprazole Sodium 40 mg DAILY IV 05/14/24 10:00 05/24/24 09:13 40 MG Daptomycin 500 mg/ Sodium Chloride 50 ml @ 100 mls/hr DAILY IV 05/14/24 18:00 05/24/24 10:00 100 MLS/HR Hydralazine HCl 10 mg Q6HP PRN IV 05/15/24 17:30 Docusate Sodium 100 mg BIDPRN PRN PO 05/19/24 00:15 05/21/24 16:32 100 MG Alprazolam 0.5 mg TID PRN PO 05/20/24 16:45 05/24/24 15:45 0.5 MG Norepinephrine Bitartrate 250 ml @ 0.938 mls/ hr Q24H IV 05/21/24 12:15 05/21/24 12:15 2.813 MLS/HR Pregabalin 25 mg TID PO 05/21/24 14:00 05/24/24 13:58 25 MG Methocarbamol 500 mg BID PO 05/21/24 22:00 05/24/24 09:13 500 MG Venlafaxine HCl 75 mg BID PO 05/21/24 22:00 05/24/24 09:13 75 MG Oxycodone/ Acetaminophen 1 tab Q4HP PRN PO 05/21/24 12:45 05/24/24 14:02 1 TAB Insulin Glargine 32 units HS SC 05/21/24 22:00 05/23/24 21:53 32 UNITS Midodrine 10 mg TID@0600,1200,1800 PO 05/21/24 18:00 05/24/24 17:47 10 MG Lactulose 30 ml BID PO 05/21/24 22:00 05/24/24 09:12 30 ML Urea 15 gm BID PO 05/23/24 22:00 05/24/24 09:13 15 GM objective Gen.: Patient lying in bed in no apparent distress. On room air Head: Normocephalic, atraumatic. Eyes: EOMI/PERRLA. Ears: Normal hearing. Normal anatomy. Neck/trachea: Trachea midline, supple. Nose: Normal external anatomy. Mouth: Moist mucous membranes. Chest: Decreased air entry bilaterally. No wheezing or rhonchi. Cardiovascular: Positive S1, positive S2. Regular rate and rhythm. Abdomen: Positive bowel sounds in all 4 quadrants. Soft, non-tender, non- distended. : Deferred. Rectal: Deferred. Skin: Warm, dry. Left foot wound. Extremities: 2+ radial pulses bilaterally. No lower extremity edema. Neuro: Awake, alert, oriented x3. No gross motor or sensory deficits. Cranial nerves II through XII intact. Gait not assessed. laboratory and microbiology Laboratory Tests 05/24/24 06:51 Test 05/24/24 06:51 Range/Units Serum Glucose 93 74-106 mg/dL Assessment/Plan Impression: Sepsis Left foot wound cellulitis, rule out osteomyelitis Hyponatremia Uncontrolled hyperglycemia Hypocalcemia Leukocytosis, likely reactive Events: Remains on room air Supplemental oxygen PRN PICC line placement. S/p hemodialysis yesterday Off Levophed since 05/21/24 - hemodynamically stable. Continue midodrine TID S/p I&D of wound Continue wound care. Pain control Avoid oversedation Monitor hemoglobin - currently stable at 8.0 g/dL Transfuse if less than 7.0 g/dL. Continue antibiotics Blood cultures grew MRSA x2 Monitor WBC - trending down at 12.5 K ID recommendations appreciated. Monitor renal function. Monitor electrolytes. Supplement as necessary. Monitor sodium - 129, trending up Nephrology recs appreciated. Monitor ins and outs. Accu-Cheks, ISS DVT prophylaxis. Patient is stable from the pulmonary standpoint for downgrade to tele. Labs and imaging reviewed. Rest of plan as noted below. Plan: Supplemental oxygen PRN Titrate to keep O2 sats above 92%. Pressors if necessary for hemodynamic support Titrate to keep MAP above 65 mmHg/SBP above 90 mmHg. Continue antibiotics MRI left foot reviewed; extensive bone marrow edema involving distal tibia, distal fibula, talus, calcaneus and the residual tarsal bones highly concerning for osteomyelitis with differential diagnosis of Charcot joint. Severe tenosynovitis involving the flexor, peroneal and extensor compartments probably infectious. Achilles tendinosis and peritendinitis. Adjacent draining ulcer is seen. ID recommendations appreciated Podiatry recommendations appreciated S/p I&D of wound Continue wound care. Monitor renal function. Monitor electrolytes. Supplement as necessary. Monitor ins and outs. Nephrology recommendations appreciated DVT prophylaxis. Prognosis: Guarded given patient's multiple co-morbidities. Rest of plan per hospitalist and other consultants. Thank you Dr. Patterson for allowing me to participate in this patient's care. Further recommendations will depend on the patient's clinical course. Please do not hesitate to contact me if you have any questions or concerns. This medical document was created using an electronic medical record system with [employer] system. Although these documentations are being carefully reviewed, there may still be some phonetic and typographical changes. The errors are purely typographical, due to imperfection on the software program, and do not reflect any compromise in the patient's medical care. Dietary Evaluation Review Comments: Follow a CCHO-60 diet with Protein restriction at 60g d/t kidney failure. Encourage high fiber foods, liquid allowed for his kidney function, PT for improved physical activities. Expected Outcomes/Goals: less nephrotoxins, less constipation, controlled DM, improved wound healing. Plan discussed with: Patient, Other (VANE Davila) DAX CORDOBA MD May 24, 2024 19:49
[2024-05-25] VITALS (7 sets, daily range): BP systolic 92–111; BP diastolic 58–70; PULSE 57–88; RESP 16–20; TEMP 97.4–97.9; O2SAT 94–97
[2024-05-25 13:38] LABS: Potassium 4.7 mmol/L (3.5-5.1)
[2024-05-25 13:39] LABS: Anion Gap 8 (5-15); Calcium 9.8 mg/dL (8.7-10.4); Carbon Dioxide 28 mmol/L (20-31)
[2024-05-25 13:41] LABS: Chloride 92 mmol/L (98-107); Sodium 128 mmol/L (136-145)
[2024-05-25 13:44] LABS: BUN/Creatinine Ratio 27.4 (10.0-20.0)
[2024-05-25 13:45] LABS: Blood Urea Nitrogen 23 mg/dL (9-23); Glucose 62 mg/dL (74-106)
--- NOTE | 2024-05-25 13:48 | DVHDS2 ---
Discharge Summary Date of Admission May 13, 2024 at 18:34 Date of Discharge: May 25, 2024 Labs/Diagnostic Data: Laboratory Results Test 05/25/24 13:06 05/25/24 11:45 05/24/24 06:51 05/24/24 04:47 Sodium Level 128 mmol/L (136-145) Potassium Level 4.7 mmol/L (3.5-5.1) Chloride Level 92 mmol/L (98-107) Carbon Dioxide Level 28 mmol/L (20-31) Anion Gap 8 (5-15) Blood Urea Nitrogen 23 mg/dL (9-23) Creatinine 0.84 mg/dL (0.700-1.30) Glomerular Filtration Rate Calc 107 mL/min (>90) BUN/Creatinine Ratio 27.4 (10.0-20.0) Serum Glucose 62 mg/dL (74-106) Calcium Level 9.8 mg/dL (8.7-10.4) POC Glucose 102 mg/dl (70-106) White Blood Count 12.5 10^3/uL (4.4-10.8) Red Blood Count 2.88 10^6/uL (4.5-5.90) Hemoglobin 8.0 g/dL (13.5-17.5) Hematocrit 24.5 % (41.0-53.0) Mean Corpuscular Volume 85.0 fL (80.0-100.0) Mean Corpuscular Hemoglobin 27.7 pg (28.0-32.0) Mean Corpuscular Hemoglobin Concent 32.6 g/dL (32.0-36.0) Red Cell Distribution Width 16.1 % (11.8-14.3) Platelet Count 604 10^3/uL (140-450) Mean Platelet Volume 6.7 fL (6.9-10.8) Neutrophils (%) (Auto) % (37.0-80.0) Lymphocytes (%) (Auto) % (10.0-50.0) Monocytes (%) (Auto) % (0.0-12.0) Basophils (%) (Auto) % (0.0-2.0) Neutrophils # (Auto) 10 ^3/uL (1.6-8.6) Lymphocytes # (Auto) 10 ^3/uL (0.4-5.4) Monocytes # (Auto) 10 ^3/uL (0-1.3) Differential Total Cells Counted 100.0 (100) Neutrophils % (Manual) 53 (37.0-80.0) Band Neutrophils % (Manual) 3 Lymphocytes % (Manual) 28 (10.0-50.0) Monocytes % (Manual) 9 (0-12) Eosinophils % (Manual) 5 (0-7) Basophils % (Manual) 0 (0.0-2.0) Metamyelocytes % (manual) 1 Myelocytes % (Manual) 1 Promyelocytes % (Manual) 0 Blast Cells % (Manual) 0 Reactive Lymphocytes 0 Platelet Estimate Increased Uric Acid 4.5 mg/dL (3.7-9.2) Test 05/23/24 06:54 05/22/24 05:27 05/17/24 12:56 05/17/24 12:20 Eosinophils (%) (Auto) 3.0 % (0.0-7.0) Eosinophils # (Auto) 0.5 10 ^3/uL (0-0.8) Basophils # (Auto) 0.2 10 ^3/uL (0-0.2) Nucleated Red Blood Cells 0.1 % Prothrombin Time 11.4 sec (9.3-11.8) Prothrombin Time INR 1.08 (0.9-1.15) Activated Partial Thromboplast Time 26.2 SEC (24.5-34.5) Magnesium Level 2.0 mg/dL (1.6-2.6) Total Bilirubin 0.4 mg/dL (0.2-1.0) Aspartate Amino Transferase (AST) 11 U/L (13-40) Alanine Aminotransferase (ALT) < 9 U/L (7-40) Alkaline Phosphatase 161 U/L (46-116) Total Protein 6.3 g/dL (5.7-8.2) Albumin 3.1 g/dL (3.2-4.8) Serum Osmolality 269 mOsm/kg (278-298) Urine Osmolality 219 mOsm/kg Urine Sodium 66 mmol/L (40-220) Test 05/16/24 20:04 05/15/24 17:33 05/13/24 21:30 05/13/24 21:00 Anti-Nuclear Antibody Screen Negative (Negative) Cytoplasmic ANCA (c-ANCA) Antibody <1:20 titer (Neg:<1:20) Anti-Proteinase 3 (c-ANCA) <0.2 units (0.0-0.9) Atypical p-ANCA <1:20 titer (Neg:<1:20) Perinuclear ANCA (p-ANCA) Antibody <1:20 titer (Neg:<1:20) Myeloperoxidase Antibody <0.2 units (0.0-0.9) Complement C3 164 mg/dL (82-167) Complement C4 24 mg/dL (12-38) Absolute Neutrophils (auto) 23.5 x10E3/uL (1.4-7.0) Absolute Lymphocytes (auto) 2.2 x10E3/uL (0.7-3.1) Absolute Monocytes (auto) 0.9 x10E3/uL (0.1-0.9) Absolute Eosinophils (auto) 0.1 x10E3/uL (0.0-0.4) Absolute Basophils (auto) 0.1 x10E3/uL (0.0-0.2) Immature Granulocytes % 5 % (Not Estab.) Immature Granulocytes # 1.5 x10E3/uL (0.0-0.1) Immature Blood Cells (.) Hematology Comments (.) Percent CD4 Cells 25.2 % (30.8-58.5) Absolute CD4 Count 554 /uL (359-1519) T-Lymphocyte CD4/CD8 Ratio 0.45 (0.92-3.72) Percent CD8 Cells 56.3 % (12.0-35.5) Absolute CD8 Count 1239 /uL (109-897) Influenza Type A Antigen Negative (Negative) Influenza Type B Antigen Negative (Negative) SARS-CoV-2 Antigen (Rapid) Negative (NEGATIVE) Urine Color Yellow (Yellow) Urine Clarity Turbid (Clear) Urine pH 5.5 (5.0-9.0) Urine Specific [place] 1.014 (1.001-1.035) Urine Protein Trace (Negative) Urine Ketones Negative (Negative) Urine Blood Trace /uL (Negative) Urine Nitrite Negative (Negative) Urine Bilirubin Negative (Negative) Urine Urobilinogen Normal mg/dL (Negative) Urine Leukocyte Esterase 3+ /uL (Negative) Urine RBC 2 /hpf (0 - 3) Urine Microscopic WBC 70 /HPF (0-3) Urine Squamous Epithelial Cells None seen /hpf (<5) Urine Bacteria Few /hpf (None Seen) Urine Mucus Few (None Seen) Urine Creatinine 53.09 mg/dL (30.0-125.0) Urine Protein/Creatinine Ratio 1.05 Urine Potassium 23 mmol/L (12-62) Urine Glucose 3+ mg/dL (Normal) Urine Total Protein 55.6 mg/dL (1-14) Test 05/13/24 19:16 05/13/24 17:35 05/13/24 15:43 05/13/24 14:07 Erythrocyte Sedimentation Rate 116 mm/hr (0-20) Hemoglobin A1c 11.3 % A1C (<5.7) Troponin I High Sensitivity < 3 ng/L (</=54) Lactic Acid Level 1.6 mmol/L (0.4-2.0) Clumped Platelets Few Creatine Kinase 37 U/L (46-171) B-Type Natriuretic Peptide 48.92 pg/mL (0-100) Other Laboratory Tests 05/25/24 13:06 05/24/24 06:51 Brief Hx & Hospital Course: 59-year-old male with a known history of insulin-dependent diabetes mellitus, hypertension, HIV, chronic left foot wound currently being seen at wound care center presented to the hospital with generalized weakness found to have sepsis secondary to left ankle cellulitis/abscess. Patient's hospital course was eventful for hypotension as well as persistent MRSA bacteremia. Patient was started on broad-spectrum IV antibiotics, infectious Disease was consulted as well as Podiatry. Patient underwent HARRIS by Cardiology which shows no evidence of infective endocarditis. Patient was downgraded from DE OU once his Levophed was off. Patient underwent I and D of the left foot with a Podiatry . GI patient has received IV daptomycin during the hospital stay which will be arranged as an outpatient patient will be on IV daptomycin 500 IV daily until July 04 2024. Patient was cleared by Podiatry as well as Infectious Disease. K Condition at Discharge: Stable Final Diagnosis/Problems List 59-year-old male with a known history of insulin-dependent diabetes mellitus, hypertension, chronic left foot wound currently being seen at wound care center presented to the hospital with generalized weakness found to have 1. Sepsis secondary to left ankle cellulitis/abscess status post I and D 2. Left foot cellulitis with evidence of osteomyelitis in distinct TBI fibula calcaneum and tarsal bones. Status post debridement 3. Hyponatremia suspect pseudohyponatremia in the setting of uncontrolled hyperglycemia 4. Uncontrolled hyperglycemia with history of insulin-dependent diabetes mellitus 5. Hypocalcemia 6. Leukocytosis likely reactive 7. Persistent MRSA bacteremia status post HARRIS shows no evidence of infective endocarditis, repeat blood cultures are negative now 8. HIV 9. Hypotension was on Levophed currently resolved Discharge Disposition: Home with Health Services SNF Discharge Will this Physician continue t: No Discharge Instruct/Medications Diet: Cardiac 2g Na,low cholest Diet comment: 1999 ADA diet Activity: See Comment Activity comment: Weight-bearing on the left lower extremity as tolerated Follow Up/Referral: Follow up with the PCP in one week Follow up with the Infectious Disease in 1-2 weeks Follow up with the Podiatry Services in one week Medications: Daptomycin 500 mg IV daily until Discharge Statement: "Patient was advised to return to the ER or call 911 if any headaches, dizziness, shortness of breath, chest pain, abdominal pain, bleeding, fevers, or worsening of medical condition. Patient was counseled about treatment plan, medications, possible side effects, patientverbalized understanding. All questions were answered to the best of my ability. This discharge took greater then 30 minutes in planning, reviewing documentation, counseling the patient, and discussing with other team members." ASSESSMENT ASSESSMENT Assessment 59-year-old male with a known history of insulin-dependent diabetes mellitus, hypertension, chronic left foot wound currently being seen at wound care center presented to the hospital with generalized weakness found to have 1. Sepsis secondary to left ankle cellulitis/abscess status post I and D 2. Left foot cellulitis with evidence of osteomyelitis in distinct TBI fibula calcaneum and tarsal bones. Status post debridement 3. Hyponatremia suspect pseudohyponatremia in the setting of uncontrolled hyperglycemia 4. Uncontrolled hyperglycemia with history of insulin-dependent diabetes mellitus 5. Hypocalcemia 6. Leukocytosis likely reactive 7. Persistent MRSA bacteremia status post HARRIS shows no evidence of infective endocarditis, repeat blood cultures are negative now 8. HIV 9. Hypotension was on Levophed currently resolved Date of Service: May 25, 2024 Billing Provider: NADEEM LIMON MD Common Visit Codes: 22556-TRT/OBS DISCH DAY >30min NADEEM LIMON MD May 25, 2024 13:48
--- NOTE | 2024-05-25 16:05 | DVHPN2 ---
Progress Note Date Seen: May 25, 2024 Medical Necessity Reason Pt with a Central, PICC or Fol: No Subjective Patient reports: No new complaints Review of Systems: Deferred Objective vital signs Vital Sign Date Time Temp Pulse Resp B/P (MAP) Pulse Ox O2 Delivery O2 Flow Rate FiO2 05/25/24 13:00 97.9 57 19 103/70 (81) 96 97.9 05/25/24 08:00 Room Air* 0 21 Total Intake and Output 05/24/24 05/24/24 05/25/24 15:00 23:00 07:00 Intake Total 117 ml 800 ml 280 ml Output Total 3275 ml 1400 ml Balance 117 ml -2475 ml -1120 ml medications Current Medications Medications Dose Ordered Sig/Patricia Route Start Time Stop Time Status Last Admin Dose Admin Acetaminophen 650 mg Q6HP PRN PO 05/13/24 18:45 05/19/24 06:24 650 MG Ondansetron HCl 4 mg Q4HP PRN IV 05/13/24 18:45 Nitroglycerin 0.4 mg Q5MINP PRN SL 05/13/24 18:45 Diagnostic Test (Pha) 1 strip ACHS 05/13/24 22:00 05/25/24 11:30 1 STRIP Insulin Human Regular HS SC 05/13/24 22:00 05/23/24 21:53 4 UNITS Insulin Human Regular AC SC 05/14/24 07:00 05/24/24 11:30 2 UNITS Dextrose 50 ml UD PRN IV 05/13/24 19:00 Pantoprazole Sodium 40 mg DAILY IV 05/14/24 10:00 05/25/24 10:38 40 MG Daptomycin 500 mg/ Sodium Chloride 50 ml @ 100 mls/hr DAILY IV 05/14/24 18:00 05/25/24 11:00 100 MLS/HR Hydralazine HCl 10 mg Q6HP PRN IV 05/15/24 17:30 Docusate Sodium 100 mg BIDPRN PRN PO 05/19/24 00:15 05/21/24 16:32 100 MG Alprazolam 0.5 mg TID PRN PO 05/20/24 16:45 05/24/24 22:14 0.5 MG Norepinephrine Bitartrate 250 ml @ 0.938 mls/ hr Q24H IV 05/21/24 12:15 Hold 05/21/24 12:15 2.813 MLS/HR Pregabalin 25 mg TID PO 05/21/24 14:00 05/25/24 15:15 25 MG Methocarbamol 500 mg BID PO 05/21/24 22:00 05/25/24 10:39 500 MG Venlafaxine HCl 75 mg BID PO 05/21/24 22:00 05/25/24 10:38 75 MG Oxycodone/ Acetaminophen 1 tab Q4HP PRN PO 05/21/24 12:45 05/25/24 15:16 1 TAB Insulin Glargine 32 units HS SC 05/21/24 22:00 05/24/24 21:07 32 UNITS Midodrine 10 mg TID@0600,1200,1800 PO 05/21/24 18:00 05/25/24 12:40 10 MG Lactulose 30 ml BID PO 05/21/24 22:00 05/24/24 09:12 30 ML Urea 15 gm BID PO 05/23/24 22:00 05/25/24 11:00 15 GM laboratory and microbiology Laboratory Tests 05/25/24 13:06 05/24/24 06:51 Test 05/25/24 13:06 Range/Units Serum Glucose 62 L 74-106 mg/dL Microbiology Date/Time Source Procedure Growth Status 05/23/24 13:20 Ankle Left Gram Stain - Final Resulted 05/23/24 13:20 Ankle Left Anaerobic Culture - Preliminary Resulted 05/23/24 13:20 Aerobic Culture - Final Methicillin Resistant S.aureus Resulted 05/21/24 19:27 Blood Blood Culture - Preliminary NO GROWTH AFTER 72 HOURS OF INCUBATION. Resulted Problem List/Assessment/Plan Problem List/Assessment/Plan YESSY superimposed on CKD secondary to hemodynamic mediated Hyponatremia Uncontrolled DM, A1c > 11, hyperglycemia MRSA septicemia Peripheral arterial disease Right foot osteomyelitis Charcot foot left foot/cellulitis Anemia of CKD , blood loss from wound HIV per ID recs Acute kidney injury resolved na better trial of portillo--continue portillo 15gm po once daily after dc until na reaches 135 range with close outpt f/u Plan discussed with: Patient My Orders My Orders Orders - ROXANNA FELIX MD Procedure Category Date Status Time Basic Metabolic Panel LAB 05/26/24 Verified 05:00 Basic Metabolic Panel LAB 05/27/24 Verified 05:00 Basic Metabolic Panel LAB 05/28/24 Verified 05:00 Basic Metabolic Panel LAB 05/29/24 Verified 05:00 Basic Metabolic Panel LAB 05/30/24 Verified 05:00 Basic Metabolic Panel LAB 05/31/24 Verified 05:00 Basic Metabolic Panel LAB 06/01/24 Verified 05:00 Dietary Evaluation Review Comments: Follow a CCHO-60 diet with Protein restriction at 60g d/t kidney failure. Encourage high fiber foods, liquid allowed for his kidney function, PT for improved physical activities. Expected Outcomes/Goals: less nephrotoxins, less constipation, controlled DM, improved wound healing. ROXANNA FELIX MD May 25, 2024 16:05
[2024-05-25] MEDS: SODIUM CHLOR 0.9% PF (SALINE LOCK) 10ML VIAL/SYR IV SCH (22:08)
--- NOTE | 2024-05-25 22:15 | DVHPN2 ---
Consult Progress Note Date Seen: May 25, 2024 Subjective Patient reports: Other (has a new piccline in place ) Objective vital signs Vital Sign Date Time Temp Pulse Resp B/P (MAP) Pulse Ox O2 Delivery O2 Flow Rate FiO2 05/25/24 21:00 97.7 80 18 111/69 (83) 94 97.7 05/25/24 08:00 Room Air* 0 21 Total Intake and Output 05/24/24 05/24/24 05/25/24 15:00 23:00 07:00 Intake Total 117 ml 800 ml 280 ml Output Total 3275 ml 1400 ml Balance 117 ml -2475 ml -1120 ml medications Current Medications Medications Dose Ordered Sig/Patricia Route Start Time Stop Time Status Last Admin Dose Admin Acetaminophen 650 mg Q6HP PRN PO 05/13/24 18:45 05/19/24 06:24 650 MG Ondansetron HCl 4 mg Q4HP PRN IV 05/13/24 18:45 Nitroglycerin 0.4 mg Q5MINP PRN SL 05/13/24 18:45 Diagnostic Test (Pha) 1 strip ACHS 05/13/24 22:00 05/25/24 16:56 1 STRIP Insulin Human Regular HS SC 05/13/24 22:00 05/23/24 21:53 4 UNITS Insulin Human Regular AC SC 05/14/24 07:00 05/24/24 11:30 2 UNITS Dextrose 50 ml UD PRN IV 05/13/24 19:00 Pantoprazole Sodium 40 mg DAILY IV 05/14/24 10:00 05/25/24 10:38 40 MG Daptomycin 500 mg/ Sodium Chloride 50 ml @ 100 mls/hr DAILY IV 05/14/24 18:00 05/25/24 11:00 100 MLS/HR Hydralazine HCl 10 mg Q6HP PRN IV 05/15/24 17:30 Docusate Sodium 100 mg BIDPRN PRN PO 05/19/24 00:15 05/21/24 16:32 100 MG Alprazolam 0.5 mg TID PRN PO 05/20/24 16:45 05/25/24 16:55 0.5 MG Norepinephrine Bitartrate 250 ml @ 0.938 mls/ hr Q24H IV 05/21/24 12:15 Hold 05/21/24 12:15 2.813 MLS/HR Pregabalin 25 mg TID PO 05/21/24 14:00 05/25/24 15:15 25 MG Methocarbamol 500 mg BID PO 05/21/24 22:00 05/25/24 10:39 500 MG Venlafaxine HCl 75 mg BID PO 05/21/24 22:00 05/25/24 10:38 75 MG Oxycodone/ Acetaminophen 1 tab Q4HP PRN PO 05/21/24 12:45 05/25/24 15:16 1 TAB Insulin Glargine 32 units HS SC 05/21/24 22:00 05/24/24 21:07 32 UNITS Midodrine 10 mg TID@0600,1200,1800 PO 05/21/24 18:00 05/25/24 17:07 10 MG Lactulose 30 ml BID PO 05/21/24 22:00 05/24/24 09:12 30 ML Urea 15 gm BID PO 05/23/24 22:00 05/25/24 11:00 15 GM Sodium Chloride 10 ml QSHIFT@10,22 IV 05/25/24 22:00 Physical Exam: General: NAD Neck: Supple. No masses. HEENT: PERRL. Normal lids and conjunctiva. Moist mucous membranes. Oropharynx without lesions, exudates, or excessive erythema. Normal appearance of the external aspects of the nose and ears. Heart: Regular rhythm, normal rate. No murmur. No lower extremity edema. Lungs: Diminished breath sounds at the bases bilaterally. No wheezes. No crackles. Abdomen: Soft. Non-tender. Non-distended. No masses or abdominal hernia. Msk: No digital cyanosis. Normal strength and tone in all 4 limbs. Skin: Warm and dry, no rashes. Neuro: Alert, more aware, following commands. No facial droop or slurred speech. Extra-ocular movements intact. Sensation intact to soft touch in all 4 limbs. Psych: Appropriate mood. Full affect. Oriented to person, place, time, and situation laboratory and microbiology Laboratory Tests 05/25/24 13:06 05/24/24 06:51 Test 05/25/24 13:06 Range/Units Serum Glucose 62 L 74-106 mg/dL Problem List/Assessment/Plan Problems(with codes): (1) History of ESBL Klebsiella pneumoniae infection (2) Hx of syphilis (3) MRSA bacteremia (4) HIV (human immunodeficiency virus infection) (5) Osteomyelitis (6) Sepsis, unspecified organism Problem List/Assessment/Plan ID Problem List: - MRSA bacteremia - Left foot cellulitis - Possible osteomyelitis (left foot, right leg) - Uncontrolled diabetes mellitus (noncompliant) - Diabetic foot infections - Multiple right toe amputations - Chronic right leg ulcer - Hypertension - Polysubstance abuse - Undiagnosed psychiatric disorder - HIV Assessment This is a 49 y.o. male with a past medical history of hypertension, uncontrolled diabetes mellitus (noncompliant), polysubstance abuse, and undiagnosed psychiatric disorder, who presents with generalized weakness for the last six days. Left foot with cellulitic changes (erythema, edema), possible osteomyelitis. Right foot with multiple toe amputations. Chronic right leg ulcer with severe wound, good granulation tissue, and serous drainage. Vital signs show hypotension (BP 79/55 mmHg), afebrile (T 98.4F), heart rate 87 bpm, respiratory rate 12 breaths per minute, oxygen saturation 96% on room air. Laboratories notable for leukocytosis (WBC 44 x10/L), anemia (Hb 9.5 g/dL), thrombocytosis (platelets 584 x10/L), hyponatremia (Na 123 mmol/L), BUN 26 mg/dL, Creatinine 1.02 mg/dL. Urinalysis shows +3 leukocytes and positive nitrites. Blood cultures are growing MRSA. patient has hx of ESBL wound infection 05/15: whitecount 22.1 05/16: MRI of foot shows extensive bone maredema involving the distal tibia , distal fibula and talus calcanus and residual tarsal bones. highly concerning for osteomyelitis with differential diagnosis of charcot joint , involving flexor perineal extensor compartments probably infectious , Achillis tendinosis and peritendinitis , adjacent draining ulcer seen and patients also persistently positive blood cultures for MRSA as well as wound cultures 05/17: whitecount is 46 , concerned for progressisng sepsis , patient is getting surgery by podiatry tomorrow 05/18: Still having blood cultures return positive , whitecount is down to 26 and BP has normalized and only requiring intermittently BP support 05/19: 1/4 bottles of blood is positive for MRSA on the 05/17 and fever curve is downtrending . is to undergo debridement and irrigation tomorrow , HARRIS done 05/18 showed negative for any valvular diseases or vegetation 05/20: continues to be positive for MRSA bacteremia , likely due to inadequate source control , whitecount is down to 24.5 05/21: pressors off, surgery delayed, remains bacteremic 05/22: Patient appears to have cleared blood cultures on 05/21 for at least 24 hours 05/23: per operative dissection blunt dissection was taken to the level of the bone and deep cultures were sent and focused was placed on left foot ankle where there was an acute infection 05/24: whitecount down to 12.5 05/25: operative cultures are positive for MRSA Plan: - continue daptomycin while in patient - given patients poor compliance at home will attempt to acquire dalbavancin 2 dose regimen for osteomyelitis - during debridement collect bacterial ,anaerobic , aerobic , fungal and AFB cultures of infected deep tissue - follow up with infectious disease in 2 weeks after both doses have been given - needs tight glucose control and keep blood sugars under 180 - follow up with primary care to ensure insulin care is optimized - resume Bictarvy for HIV when patient is discharged - per surgery recommendations that patient receives wound care as outpatient given patients immobility and would likely benefit from home health wound care - recommend physical therapy evaluation to see if patient would also benefit from [facility] facility although patient does not want this - follow up on blood and operative cultures - HOLD art, unclear patient compliance, recommend checking HIV viral and CD4 count - Fluid resuscitation; consider vasopressor support to maintain MAP >65 mmHg - Obtain urine culture to further evaluate urinary tract infection - Keep blood sugars under 180 mg/dL with insulin sliding scale; defer management to primary team - Monitor vital signs and labs closely Isolation Precautions: standard Plan discussed with: Other Dietary Evaluation Review Comments: Follow a CCHO-60 diet with Protein restriction at 60g d/t kidney failure. Encourage high fiber foods, liquid allowed for his kidney function, PT for improved physical activities. Expected Outcomes/Goals: less nephrotoxins, less constipation, controlled DM, improved wound healing. VITOR BROCK MD May 25, 2024 22:15
--- NOTE | 2024-05-25 22:31 | DVHPN2 ---
Progress Note - Dictate Date Seen: May 25, 2024 Medical Necessity Reason Pt with a Central, PICC or Fol: No Subjective Patient seen and examined at bedside. Breathing on room air Overnight events reviewed. vital signs Vital Sign Date Time Temp Pulse Resp B/P (MAP) Pulse Ox O2 Delivery O2 Flow Rate FiO2 05/25/24 21:00 97.7 80 18 111/69 (83) 94 97.7 05/25/24 08:00 Room Air* 0 21 Total Intake and Output 05/24/24 05/24/24 05/25/24 15:00 23:00 07:00 Intake Total 117 ml 800 ml 280 ml Output Total 3275 ml 1400 ml Balance 117 ml -2475 ml -1120 ml medications Current Medications Medications Dose Ordered Sig/Patricia Route Start Time Stop Time Status Last Admin Dose Admin Acetaminophen 650 mg Q6HP PRN PO 05/13/24 18:45 05/19/24 06:24 650 MG Ondansetron HCl 4 mg Q4HP PRN IV 05/13/24 18:45 Nitroglycerin 0.4 mg Q5MINP PRN SL 05/13/24 18:45 Diagnostic Test (Pha) 1 strip ACHS 05/13/24 22:00 05/25/24 16:56 1 STRIP Insulin Human Regular HS SC 05/13/24 22:00 05/23/24 21:53 4 UNITS Insulin Human Regular AC SC 05/14/24 07:00 05/24/24 11:30 2 UNITS Dextrose 50 ml UD PRN IV 05/13/24 19:00 Pantoprazole Sodium 40 mg DAILY IV 05/14/24 10:00 05/25/24 10:38 40 MG Daptomycin 500 mg/ Sodium Chloride 50 ml @ 100 mls/hr DAILY IV 05/14/24 18:00 05/25/24 11:00 100 MLS/HR Hydralazine HCl 10 mg Q6HP PRN IV 05/15/24 17:30 Docusate Sodium 100 mg BIDPRN PRN PO 05/19/24 00:15 05/21/24 16:32 100 MG Alprazolam 0.5 mg TID PRN PO 05/20/24 16:45 05/25/24 16:55 0.5 MG Norepinephrine Bitartrate 250 ml @ 0.938 mls/ hr Q24H IV 05/21/24 12:15 Hold 05/21/24 12:15 2.813 MLS/HR Pregabalin 25 mg TID PO 05/21/24 14:00 05/25/24 15:15 25 MG Methocarbamol 500 mg BID PO 05/21/24 22:00 05/25/24 10:39 500 MG Venlafaxine HCl 75 mg BID PO 05/21/24 22:00 05/25/24 10:38 75 MG Oxycodone/ Acetaminophen 1 tab Q4HP PRN PO 05/21/24 12:45 05/25/24 15:16 1 TAB Insulin Glargine 32 units HS SC 05/21/24 22:00 05/24/24 21:07 32 UNITS Midodrine 10 mg TID@0600,1200,1800 PO 05/21/24 18:00 05/25/24 17:07 10 MG Lactulose 30 ml BID PO 05/21/24 22:00 05/24/24 09:12 30 ML Urea 15 gm BID PO 05/23/24 22:00 05/25/24 11:00 15 GM Sodium Chloride 10 ml QSHIFT@10,22 IV 05/25/24 22:00 objective Gen.: Patient lying in bed in no apparent distress. On room air Head: Normocephalic, atraumatic. Eyes: EOMI/PERRLA. Ears: Normal hearing. Normal anatomy. Neck/trachea: Trachea midline, supple. Nose: Normal external anatomy. Mouth: Moist mucous membranes. Chest: Decreased air entry bilaterally. No wheezing or rhonchi. Cardiovascular: Positive S1, positive S2. Regular rate and rhythm. Abdomen: Positive bowel sounds in all 4 quadrants. Soft, non-tender, non- distended. : Deferred. Rectal: Deferred. Skin: Warm, dry. Left foot wound. Extremities: 2+ radial pulses bilaterally. No lower extremity edema. Neuro: Awake, alert, oriented x3. No gross motor or sensory deficits. Cranial nerves II through XII intact. Gait not assessed. laboratory and microbiology Laboratory Tests 05/25/24 13:06 05/24/24 06:51 Test 05/25/24 13:06 Range/Units Serum Glucose 62 L 74-106 mg/dL Assessment/Plan Impression: Sepsis Left foot wound cellulitis, rule out osteomyelitis Hyponatremia Uncontrolled hyperglycemia Hypocalcemia Leukocytosis, likely reactive Events: Remains on room air Supplemental oxygen PRN Awaiting PICC line. Off Levophed since 05/21/24 - hemodynamically stable. Continue midodrine TID S/p I&D of wound Continue wound care. Continue antibiotics Arrange home antibiotics Blood cultures grew MRSA x2 Monitor WBC ID recommendations appreciated. Monitor hemoglobin Transfuse if less than 7.0 g/dL. Pain control Avoid oversedation Monitor renal function. Monitor electrolytes. Supplement as necessary. Monitor sodium d/t hyponatremia - 128 Calcium within normal limits Monitor ins and outs. Nephrology recs appreciated. DVT prophylaxis. Disposition per hospitalist. Labs and imaging reviewed. Rest of plan as noted below. Plan: Supplemental oxygen PRN Titrate to keep O2 sats above 92%. Pressors if necessary for hemodynamic support Titrate to keep MAP above 65 mmHg/SBP above 90 mmHg. Continue antibiotics MRI left foot reviewed; extensive bone marrow edema involving distal tibia, distal fibula, talus, calcaneus and the residual tarsal bones highly concerning for osteomyelitis with differential diagnosis of Charcot joint. Severe tenosynovitis involving the flexor, peroneal and extensor compartments probably infectious. Achilles tendinosis and peritendinitis. Adjacent draining ulcer is seen. ID recommendations appreciated Podiatry recommendations appreciated S/p I&D of wound Continue wound care. Monitor renal function. Monitor electrolytes. Supplement as necessary. Monitor ins and outs. Nephrology recommendations appreciated Accu-Cheks, ISS PRN. DVT prophylaxis. Prognosis: Guarded given patient's multiple co-morbidities. Rest of plan per hospitalist and other consultants. Thank you Dr. Patterson for allowing me to participate in this patient's care. Further recommendations will depend on the patient's clinical course. Please do not hesitate to contact me if you have any questions or concerns. This medical document was created using an electronic medical record system with [employer] dictation system. Although these documentations are being carefully reviewed, there may still be some phonetic and typographical changes. The errors are purely typographical, due to imperfection on the software program, and do not reflect any compromise in the patient's medical care. Dietary Evaluation Review Comments: Follow a CCHO-60 diet with Protein restriction at 60g d/t kidney failure. Encourage high fiber foods, liquid allowed for his kidney function, PT for improved physical activities. Expected Outcomes/Goals: less nephrotoxins, less constipation, controlled DM, improved wound healing. Plan discussed with: Patient, Other (VANE Stephen) DAX CORDOBA MD May 25, 2024 22:31
[2024-05-26] VITALS (8 sets, daily range): BP systolic 96–157; BP diastolic 57–77; PULSE 58–101; RESP 15–20; TEMP 97.3–98; O2SAT 92–98
[2024-05-26 07:38] LABS: Chloride 93 mmol/L (98-107); Potassium 4.6 mmol/L (3.5-5.1); Sodium 128 mmol/L (136-145)
[2024-05-26 07:39] LABS: Anion Gap 7 (5-15); Calcium 9.5 mg/dL (8.7-10.4); Carbon Dioxide 28 mmol/L (20-31)
[2024-05-26 07:44] LABS: BUN/Creatinine Ratio 39.2 (10.0-20.0); Glucose 91 mg/dL (74-106)
[2024-05-26 07:57] LABS: Blood Urea Nitrogen 38 mg/dL (9-23)
[2024-05-26] MEDS: VANCOMYCIN HCL 1000 MG VL ONE (09:53)
[2024-05-26] MEDS: ONDANSETRON HCL 4 MG/2 ML VIAL IV ONE (09:53)
[2024-05-26] MEDS: LIDOCAINE 1% (LOCAL ANESTH.) PF 5ml SDV ID ONE (09:54)
--- NOTE | 2024-05-26 16:01 | DVHPN2 ---
Progress Note Date Seen: May 26, 2024 Medical Necessity Reason Pt with a Central, PICC or Fol: No Subjective Patient reports: No new complaints Objective vital signs Vital Sign Date Time Temp Pulse Resp B/P (MAP) Pulse Ox O2 Delivery O2 Flow Rate FiO2 05/26/24 13:00 98.0 90 15 116/77 (90) 97 98.0 05/26/24 08:05 Room Air* 0 21 Total Intake and Output 05/25/24 05/25/24 05/26/24 15:00 23:00 07:00 Intake Total 50 ml 960 ml 400 ml Output Total 860 ml 850 ml Balance 50 ml 100 ml -450 ml medications Current Medications Medications Dose Ordered Sig/Patricia Route Start Time Stop Time Status Last Admin Dose Admin Acetaminophen 650 mg Q6HP PRN PO 05/13/24 18:45 05/19/24 06:24 650 MG Ondansetron HCl 4 mg Q4HP PRN IV 05/13/24 18:45 Nitroglycerin 0.4 mg Q5MINP PRN SL 05/13/24 18:45 Diagnostic Test (Pha) 1 strip ACHS 05/13/24 22:00 05/26/24 13:19 1 STRIP Insulin Human Regular HS SC 05/13/24 22:00 05/23/24 21:53 4 UNITS Insulin Human Regular AC SC 05/14/24 07:00 05/24/24 11:30 2 UNITS Dextrose 50 ml UD PRN IV 05/13/24 19:00 Pantoprazole Sodium 40 mg DAILY IV 05/14/24 10:00 05/26/24 09:59 40 MG Daptomycin 500 mg/ Sodium Chloride 50 ml @ 100 mls/hr DAILY IV 05/14/24 18:00 05/26/24 09:57 100 MLS/HR Hydralazine HCl 10 mg Q6HP PRN IV 05/15/24 17:30 Docusate Sodium 100 mg BIDPRN PRN PO 05/19/24 00:15 05/21/24 16:32 100 MG Alprazolam 0.5 mg TID PRN PO 05/20/24 16:45 05/26/24 10:09 0.5 MG Norepinephrine Bitartrate 250 ml @ 0.938 mls/ hr Q24H IV 05/21/24 12:15 Hold 05/21/24 12:15 2.813 MLS/HR Pregabalin 25 mg TID PO 05/21/24 14:00 05/26/24 15:11 25 MG Methocarbamol 500 mg BID PO 05/21/24 22:00 05/26/24 09:58 500 MG Venlafaxine HCl 75 mg BID PO 05/21/24 22:00 05/26/24 09:58 75 MG Oxycodone/ Acetaminophen 1 tab Q4HP PRN PO 05/21/24 12:45 05/26/24 12:17 1 TAB Insulin Glargine 32 units HS SC 05/21/24 22:00 05/24/24 21:07 32 UNITS Midodrine 10 mg TID@0600,1200,1800 PO 05/21/24 18:00 05/26/24 12:16 10 MG Lactulose 30 ml BID PO 05/21/24 22:00 05/24/24 09:12 30 ML Urea 15 gm BID PO 05/23/24 22:00 05/26/24 09:57 15 GM Sodium Chloride 10 ml QSHIFT@10,22 IV 05/25/24 22:00 05/26/24 09:59 10 ML laboratory and microbiology Laboratory Tests 05/26/24 04:53 05/24/24 06:51 Test 05/26/24 04:53 Range/Units Serum Glucose 91 74-106 mg/dL Microbiology Date/Time Source Procedure Growth Status 05/23/24 13:20 Ankle Left Gram Stain - Final Resulted 05/23/24 13:20 Ankle Left Anaerobic Culture - Preliminary Resulted 05/23/24 13:20 Aerobic Culture - Final Methicillin Resistant S.aureus Resulted 05/21/24 19:27 Blood Blood Culture - Preliminary NO GROWTH AFTER 72 HOURS OF INCUBATION. Resulted Problem List/Assessment/Plan Problem List/Assessment/Plan YESSY superimposed on CKD secondary to hemodynamic mediated Hyponatremia Uncontrolled DM, A1c > 11, hyperglycemia MRSA septicemia Peripheral arterial disease Right foot osteomyelitis Charcot foot left foot/cellulitis Anemia of CKD , blood loss from wound HIV per ID recs Acute kidney injury resolved na better trial of portillo--currentlt on 15gm bid here continue portillo 15gm po once daily after dc until na reaches 135 range with close outpt f/u Plan discussed with: Patient Dietary Evaluation Review Comments: Follow a CCHO-60 diet with Protein restriction at 60g d/t kidney failure. Encourage high fiber foods, liquid allowed for his kidney function, PT for improved physical activities. Expected Outcomes/Goals: less nephrotoxins, less constipation, controlled DM, improved wound healing. ROXANNA FELIX MD May 26, 2024 16:01
--- NOTE | 2024-05-26 22:49 | DVHPN2 ---
Progress Note - Dictate Date Seen: May 26, 2024 Medical Necessity Reason Pt with a Central, PICC or Fol: No Subjective Patient seen and examined at bedside. Breathing on room air Overnight events reviewed. vital signs Vital Sign Date Time Temp Pulse Resp B/P (MAP) Pulse Ox O2 Delivery O2 Flow Rate FiO2 05/26/24 21:00 97.3 58 17 157/76 (103) 98 97.3 05/26/24 08:05 Room Air* 0 21 Total Intake and Output 05/25/24 05/25/24 05/26/24 15:00 23:00 07:00 Intake Total 50 ml 960 ml 400 ml Output Total 860 ml 850 ml Balance 50 ml 100 ml -450 ml medications Current Medications Medications Dose Ordered Sig/Patricia Route Start Time Stop Time Status Last Admin Dose Admin Acetaminophen 650 mg Q6HP PRN PO 05/13/24 18:45 05/19/24 06:24 650 MG Ondansetron HCl 4 mg Q4HP PRN IV 05/13/24 18:45 Nitroglycerin 0.4 mg Q5MINP PRN SL 05/13/24 18:45 Diagnostic Test (Pha) 1 strip ACHS 05/13/24 22:00 05/26/24 17:29 1 STRIP Insulin Human Regular HS SC 05/13/24 22:00 05/23/24 21:53 4 UNITS Insulin Human Regular AC SC 05/14/24 07:00 05/26/24 17:44 2 UNITS Dextrose 50 ml UD PRN IV 05/13/24 19:00 Pantoprazole Sodium 40 mg DAILY IV 05/14/24 10:00 05/26/24 09:59 40 MG Daptomycin 500 mg/ Sodium Chloride 50 ml @ 100 mls/hr DAILY IV 05/14/24 18:00 05/26/24 09:57 100 MLS/HR Hydralazine HCl 10 mg Q6HP PRN IV 05/15/24 17:30 Docusate Sodium 100 mg BIDPRN PRN PO 05/19/24 00:15 05/21/24 16:32 100 MG Alprazolam 0.5 mg TID PRN PO 05/20/24 16:45 05/26/24 18:25 0.5 MG Norepinephrine Bitartrate 250 ml @ 0.938 mls/ hr Q24H IV 05/21/24 12:15 Hold 05/21/24 12:15 2.813 MLS/HR Pregabalin 25 mg TID PO 05/21/24 14:00 05/26/24 15:11 25 MG Methocarbamol 500 mg BID PO 05/21/24 22:00 05/26/24 09:58 500 MG Venlafaxine HCl 75 mg BID PO 05/21/24 22:00 05/26/24 09:58 75 MG Oxycodone/ Acetaminophen 1 tab Q4HP PRN PO 05/21/24 12:45 05/26/24 17:39 1 TAB Insulin Glargine 32 units HS SC 05/21/24 22:00 05/24/24 21:07 32 UNITS Midodrine 10 mg TID@0600,1200,1800 PO 05/21/24 18:00 05/26/24 17:38 10 MG Lactulose 30 ml BID PO 05/21/24 22:00 05/24/24 09:12 30 ML Urea 15 gm BID PO 05/23/24 22:00 05/26/24 09:57 15 GM Sodium Chloride 10 ml QSHIFT@10,22 IV 05/25/24 22:00 05/26/24 09:59 10 ML objective Gen.: Patient lying in bed in no apparent distress. On room air Head: Normocephalic, atraumatic. Eyes: EOMI/PERRLA. Ears: Normal hearing. Normal anatomy. Neck/trachea: Trachea midline, supple. Nose: Normal external anatomy. Mouth: Moist mucous membranes. Chest: Decreased air entry bilaterally. No wheezing or rhonchi. Cardiovascular: Positive S1, positive S2. Regular rate and rhythm. Abdomen: Positive bowel sounds in all 4 quadrants. Soft, non-tender, non- distended. : Deferred. Rectal: Deferred. Skin: Warm, dry. Left foot wound. Extremities: 2+ radial pulses bilaterally. No lower extremity edema. Neuro: Awake, alert, oriented x3. No gross motor or sensory deficits. Cranial nerves II through XII intact. Gait not assessed. laboratory and microbiology Laboratory Tests 05/26/24 04:53 05/24/24 06:51 Test 05/26/24 04:53 Range/Units Serum Glucose 91 74-106 mg/dL Assessment/Plan Impression: Sepsis Left foot wound cellulitis, rule out osteomyelitis Hyponatremia Uncontrolled hyperglycemia Hypocalcemia Leukocytosis, likely reactive Events: Remains on room air Supplemental oxygen PRN Plan for PICC line placement. Off Levophed since 05/21/24 - hemodynamically stable. Continue midodrine TID Continue antibiotics Arrange home antibiotics Blood cultures grew MRSA x2 Monitor WBC ID recommendations appreciated. Monitor hemoglobin Transfuse if less than 7.0 g/dL. Pain control Avoid oversedation Monitor renal function. Monitor electrolytes. Supplement as necessary. Monitor sodium d/t hyponatremia - 128 Nephrology recs appreciated. DVT prophylaxis. Wound care Arrange home health. Patient is stable for discharge from the pulmonary standpoint. Disposition per hospitalist. Labs and imaging reviewed. Rest of plan as noted below. Plan: Supplemental oxygen PRN Titrate to keep O2 sats above 92%. Pressors if necessary for hemodynamic support Titrate to keep MAP above 65 mmHg/SBP above 90 mmHg. Continue antibiotics MRI left foot reviewed; extensive bone marrow edema involving distal tibia, distal fibula, talus, calcaneus and the residual tarsal bones highly concerning for osteomyelitis with differential diagnosis of Charcot joint. Severe tenosynovitis involving the flexor, peroneal and extensor compartments probably infectious. Achilles tendinosis and peritendinitis. Adjacent draining ulcer is seen. ID recommendations appreciated Podiatry recommendations appreciated S/p I&D of wound Continue wound care. Monitor renal function. Monitor electrolytes. Supplement as necessary. Monitor ins and outs. Nephrology recommendations appreciated Accu-Cheks, ISS PRN. DVT prophylaxis. Prognosis: Guarded given patient's multiple co-morbidities. Rest of plan per hospitalist and other consultants. Thank you Dr. Patterson for allowing me to participate in this patient's care. Further recommendations will depend on the patient's clinical course. Please do not hesitate to contact me if you have any questions or concerns. This medical document was created using an electronic medical record system with [employer] dictation system. Although these documentations are being carefully reviewed, there may still be some phonetic and typographical changes. The errors are purely typographical, due to imperfection on the software program, and do not reflect any compromise in the patient's medical care. Dietary Evaluation Review Comments: Follow a CCHO-60 diet with Protein restriction at 60g d/t kidney failure. Encourage high fiber foods, liquid allowed for his kidney function, PT for improved physical activities. Expected Outcomes/Goals: less nephrotoxins, less constipation, controlled DM, improved wound healing. Plan discussed with: Patient, Other (VANE Voss) DAX CORDOBA MD May 26, 2024 22:49
[2024-05-27] VITALS (7 sets, daily range): BP systolic 92–149; BP diastolic 46–77; PULSE 72–96; RESP 15–17; TEMP 97.6–98.4; O2SAT 94–98
[2024-05-27 07:00] LABS: Anion Gap 7 (5-15); Carbon Dioxide 27 mmol/L (20-31); Potassium 4.5 mmol/L (3.5-5.1)
[2024-05-27 07:01] LABS: Calcium 9.5 mg/dL (8.7-10.4)
[2024-05-27 07:06] LABS: BUN/Creatinine Ratio 37.1 (10.0-20.0)
[2024-05-27 07:09] LABS: Blood Urea Nitrogen 43 mg/dL (9-23); Chloride 96 mmol/L (98-107); Glucose 187 mg/dL (74-106); Sodium 130 mmol/L (136-145)
--- NOTE | 2024-05-27 08:54 | DVHPN2 ---
Progress Note Date Seen: May 27, 2024 Medical Necessity Reason Pt with a Central, PICC or Fol: No Subjective Patient reports: No new complaints Review of Systems: Deferred Objective vital signs Vital Sign Date Time Temp Pulse Resp B/P (MAP) Pulse Ox O2 Delivery O2 Flow Rate FiO2 05/27/24 05:00 97.9 83 16 94/46 (62) 95 97.9 05/26/24 20:00 Room Air* 0 21 Total Intake and Output 05/26/24 05/26/24 05/27/24 15:00 23:00 07:00 Intake Total 50 ml 950 ml 450 ml Output Total 1450 ml 1950 ml Balance 50 ml -500 ml -1500 ml medications Current Medications Medications Dose Ordered Sig/Patricia Route Start Time Stop Time Status Last Admin Dose Admin Acetaminophen 650 mg Q6HP PRN PO 05/13/24 18:45 05/19/24 06:24 650 MG Ondansetron HCl 4 mg Q4HP PRN IV 05/13/24 18:45 Nitroglycerin 0.4 mg Q5MINP PRN SL 05/13/24 18:45 Diagnostic Test (Pha) 1 strip ACHS 05/13/24 22:00 05/27/24 06:33 1 STRIP Insulin Human Regular HS SC 05/13/24 22:00 05/23/24 21:53 4 UNITS Insulin Human Regular AC SC 05/14/24 07:00 05/27/24 06:38 6 UNITS Dextrose 50 ml UD PRN IV 05/13/24 19:00 Pantoprazole Sodium 40 mg DAILY IV 05/14/24 10:00 05/26/24 09:59 40 MG Daptomycin 500 mg/ Sodium Chloride 50 ml @ 100 mls/hr DAILY IV 05/14/24 18:00 05/26/24 09:57 100 MLS/HR Hydralazine HCl 10 mg Q6HP PRN IV 05/15/24 17:30 Docusate Sodium 100 mg BIDPRN PRN PO 05/19/24 00:15 05/21/24 16:32 100 MG Alprazolam 0.5 mg TID PRN PO 05/20/24 16:45 05/26/24 18:25 0.5 MG Norepinephrine Bitartrate 250 ml @ 0.938 mls/ hr Q24H IV 05/21/24 12:15 Hold 05/21/24 12:15 2.813 MLS/HR Pregabalin 25 mg TID PO 05/21/24 14:00 05/27/24 06:29 25 MG Methocarbamol 500 mg BID PO 05/21/24 22:00 05/26/24 22:59 500 MG Venlafaxine HCl 75 mg BID PO 05/21/24 22:00 05/26/24 22:58 75 MG Oxycodone/ Acetaminophen 1 tab Q4HP PRN PO 05/21/24 12:45 05/26/24 17:39 1 TAB Insulin Glargine 32 units HS SC 05/21/24 22:00 05/26/24 23:04 32 UNITS Midodrine 10 mg TID@0600,1200,1800 PO 05/21/24 18:00 05/27/24 06:29 10 MG Lactulose 30 ml BID PO 05/21/24 22:00 05/24/24 09:12 30 ML Sodium Chloride 10 ml QSHIFT@10,22 IV 05/25/24 22:00 05/26/24 22:57 10 ML Urea 15 gm DAILY PO 05/27/24 10:00 UNV laboratory and microbiology Laboratory Tests 05/27/24 04:42 05/24/24 06:51 Test 05/27/24 04:42 Range/Units Serum Glucose 187 H 74-106 mg/dL Microbiology Date/Time Source Procedure Growth Status 05/23/24 13:20 Ankle Left Gram Stain - Final Resulted 05/23/24 13:20 Ankle Left Anaerobic Culture - Preliminary Resulted 05/23/24 13:20 Aerobic Culture - Final Methicillin Resistant S.aureus Resulted 05/21/24 19:27 Blood Blood Culture - Final NO GROWTH AFTER 5 DAYS OF INCUBATION. Complete Problem List/Assessment/Plan Problem List/Assessment/Plan YESSY superimposed on CKD secondary to hemodynamic mediated Hyponatremia Uncontrolled DM, A1c > 11, hyperglycemia MRSA septicemia Peripheral arterial disease Right foot osteomyelitis Charcot foot left foot/cellulitis Anemia of CKD , blood loss from wound HIV per ID recs na better continue portillo 15gm po once daily after dc until na reaches 135 range with close outpt f/u reduced portillo dose Plan discussed with: Patient My Orders My Orders Orders - ROXANNA FELIX MD Procedure Category Date Status Time Urea (Ure-Na) PHA 05/27/24 Logged 10:00 Dietary Evaluation Review Comments: Follow a CCHO-60 diet with Protein restriction at 60g d/t kidney failure. Encourage high fiber foods, liquid allowed for his kidney function, PT for improved physical activities. Expected Outcomes/Goals: less nephrotoxins, less constipation, controlled DM, improved wound healing. ROXANNA FELIX MD May 27, 2024 08:54
[2024-05-27] MEDS: UREA 15gm PO Powder PKG PO SCH (10:10)
[2024-05-27] MEDS ORDERED: PERCOT PO ×2 (10:22)
[2024-05-27] MEDS ORDERED: UREA15PO PO ×2 (12:40)
--- NOTE | 2024-05-27 18:13 | DVHPN2 ---
Consult Progress Note Date Seen: May 26, 2024 Subjective Patient reports: No new complaints (tolerating daptomycin , open wound has healthy granulation tissue , minimal drainage and bleeding ) Objective vital signs Vital Sign Date Time Temp Pulse Resp B/P (MAP) Pulse Ox O2 Delivery O2 Flow Rate FiO2 05/27/24 16:40 98.1 96 16 140/77 (98) 98 98.1 05/27/24 08:00 Room Air* 0 21 Total Intake and Output 05/26/24 05/26/24 05/27/24 15:00 23:00 07:00 Intake Total 50 ml 950 ml 450 ml Output Total 1450 ml 1950 ml Balance 50 ml -500 ml -1500 ml medications Current Medications Medications Dose Ordered Sig/Patricia Route Start Time Stop Time Status Last Admin Dose Admin Acetaminophen 650 mg Q6HP PRN PO 05/13/24 18:45 05/19/24 06:24 650 MG Ondansetron HCl 4 mg Q4HP PRN IV 05/13/24 18:45 Nitroglycerin 0.4 mg Q5MINP PRN SL 05/13/24 18:45 Diagnostic Test (Pha) 1 strip ACHS 05/13/24 22:00 05/27/24 13:03 1 STRIP Insulin Human Regular HS SC 05/13/24 22:00 05/23/24 21:53 4 UNITS Insulin Human Regular AC SC 05/14/24 07:00 05/27/24 06:38 6 UNITS Dextrose 50 ml UD PRN IV 05/13/24 19:00 Pantoprazole Sodium 40 mg DAILY IV 05/14/24 10:00 05/27/24 10:11 40 MG Daptomycin 500 mg/ Sodium Chloride 50 ml @ 100 mls/hr DAILY IV 05/14/24 18:00 05/27/24 10:30 100 MLS/HR Hydralazine HCl 10 mg Q6HP PRN IV 05/15/24 17:30 Docusate Sodium 100 mg BIDPRN PRN PO 05/19/24 00:15 05/21/24 16:32 100 MG Alprazolam 0.5 mg TID PRN PO 05/20/24 16:45 05/27/24 10:11 0.5 MG Norepinephrine Bitartrate 250 ml @ 0.938 mls/ hr Q24H IV 05/21/24 12:15 Hold 05/21/24 12:15 2.813 MLS/HR Pregabalin 25 mg TID PO 05/21/24 14:00 05/27/24 13:04 25 MG Methocarbamol 500 mg BID PO 05/21/24 22:00 05/27/24 10:11 500 MG Venlafaxine HCl 75 mg BID PO 05/21/24 22:00 05/27/24 10:10 75 MG Oxycodone/ Acetaminophen 1 tab Q4HP PRN PO 05/21/24 12:45 05/27/24 10:11 1 TAB Insulin Glargine 32 units HS SC 05/21/24 22:00 05/26/24 23:04 32 UNITS Midodrine 10 mg TID@0600,1200,1800 PO 05/21/24 18:00 05/27/24 13:04 10 MG Lactulose 30 ml BID PO 05/21/24 22:00 05/24/24 09:12 30 ML Sodium Chloride 10 ml QSHIFT@10,22 IV 05/25/24 22:00 05/27/24 10:11 10 ML Urea 15 gm DAILY PO 05/27/24 10:00 05/27/24 10:10 15 GM Physical Exam: General: NAD Neck: Supple. No masses. HEENT: PERRL. Normal lids and conjunctiva. Moist mucous membranes. Oropharynx without lesions, exudates, or excessive erythema. Normal appearance of the external aspects of the nose and ears. Heart: Regular rhythm, normal rate. No murmur. No lower extremity edema. Lungs: Diminished breath sounds at the bases bilaterally. No wheezes. No crackles. Abdomen: Soft. Non-tender. Non-distended. No masses or abdominal hernia. Msk: No digital cyanosis. Normal strength and tone in all 4 limbs. Skin: Warm and dry, no rashes. Neuro: Alert, more aware, following commands. No facial droop or slurred speech. Extra-ocular movements intact. Sensation intact to soft touch in all 4 limbs. Psych: Appropriate mood. Full affect. Oriented to person, place, time, and situation laboratory and microbiology Laboratory Tests 05/27/24 04:42 05/24/24 06:51 Test 05/27/24 04:42 Range/Units Serum Glucose 187 H 74-106 mg/dL Problem List/Assessment/Plan Problems(with codes): (1) Hyperkalemia (2) Hyponatremia (3) Uncontrolled diabetes mellitus (4) Sepsis, unspecified organism (5) Osteomyelitis (6) HIV (human immunodeficiency virus infection) (7) MRSA bacteremia (8) Hx of syphilis (9) History of ESBL Klebsiella pneumoniae infection Problem List/Assessment/Plan ID Problem List: - MRSA bacteremia - Left foot cellulitis - Possible osteomyelitis (left foot, right leg) - Uncontrolled diabetes mellitus (noncompliant) - Diabetic foot infections - Multiple right toe amputations - Chronic right leg ulcer - Hypertension - Polysubstance abuse - Undiagnosed psychiatric disorder - HIV Assessment This is a 49 y.o. male with a past medical history of hypertension, uncontrolled diabetes mellitus (noncompliant), polysubstance abuse, and undiagnosed psychiatric disorder, who presents with generalized weakness for the last six days. Left foot with cellulitic changes (erythema, edema), possible osteomyelitis. Right foot with multiple toe amputations. Chronic right leg ulcer with severe wound, good granulation tissue, and serous drainage. Vital signs show hypotension (BP 79/55 mmHg), afebrile (T 98.4F), heart rate 87 bpm, respiratory rate 12 breaths per minute, oxygen saturation 96% on room air. Laboratories notable for leukocytosis (WBC 44 x10/L), anemia (Hb 9.5 g/dL), thrombocytosis (platelets 584 x10/L), hyponatremia (Na 123 mmol/L), BUN 26 mg/dL, Creatinine 1.02 mg/dL. Urinalysis shows +3 leukocytes and positive nitrites. Blood cultures are growing MRSA. patient has hx of ESBL wound infection 05/15: whitecount 22.1 05/16: MRI of foot shows extensive bone maredema involving the distal tibia , distal fibula and talus calcanus and residual tarsal bones. highly concerning for osteomyelitis with differential diagnosis of charcot joint , involving flexor perineal extensor compartments probably infectious , Achillis tendinosis and peritendinitis , adjacent draining ulcer seen and patients also persistently positive blood cultures for MRSA as well as wound cultures 05/17: whitecount is 46 , concerned for progressisng sepsis , patient is getting surgery by podiatry tomorrow 05/18: Still having blood cultures return positive , whitecount is down to 26 and BP has normalized and only requiring intermittently BP support 05/19: 03/26 bottles of blood is positive for MRSA on the 05/17 and fever curve is downtrending . is to undergo debridement and irrigation tomorrow , HARRIS done 05/18 showed negative for any valvular diseases or vegetation 05/20: continues to be positive for MRSA bacteremia , likely due to inadequate source control , whitecount is down to 24.5 05/21: pressors off, surgery delayed, remains bacteremic 05/22: Patient appears to have cleared blood cultures on 05/21 for at least 24 hours 05/23: per operative dissection blunt dissection was taken to the level of the bone and deep cultures were sent and focused was placed on left foot ankle where there was an acute infection 05/24: whitecount down to 12.5 05/25: operative cultures are positive for MRSA 05/26: responding well to antibiotic therapy Plan: - continue daptomycin while in patient - given patients poor compliance at home will attempt to acquire dalbavancin 2 dose regimen for osteomyelitis - during debridement collect bacterial ,anaerobic , aerobic , fungal and AFB cultures of infected deep tissue - follow up with infectious disease in 2 weeks after both doses have been given - needs tight glucose control and keep blood sugars under 180 - follow up with primary care to ensure insulin care is optimized - resume Bictarvy for HIV when patient is discharged - per surgery recommendations that patient receives wound care as outpatient given patients immobility and would likely benefit from home health wound care - recommend physical therapy evaluation to see if patient would also benefit from snf facility although patient does not want this - follow up on blood and operative cultures - HOLD art, unclear patient compliance, recommend checking HIV viral and CD4 count - Fluid resuscitation; consider vasopressor support to maintain MAP >65 mmHg - Obtain urine culture to further evaluate urinary tract infection - Keep blood sugars under 180 mg/dL with insulin sliding scale; defer management to primary team - Monitor vital signs and labs closely Isolation Precautions: standard Plan discussed with: Other Dietary Evaluation Review Comments: Follow a CCHO-60 diet with Protein restriction at 60g d/t kidney failure. Encourage high fiber foods, liquid allowed for his kidney function, PT for improved physical activities. Expected Outcomes/Goals: less nephrotoxins, less constipation, controlled DM, improved wound healing. VITOR BROCK MD May 27, 2024 18:13
--- NOTE | 2024-05-27 23:00 | DVHPN2 ---
Progress Note - Dictate Date Seen: May 27, 2024 Medical Necessity Reason Pt with a Central, PICC or Fol: No Subjective Patient seen and examined at bedside. Breathing comfortably on room air Overnight events reviewed. vital signs Vital Sign Date Time Temp Pulse Resp B/P (MAP) Pulse Ox O2 Delivery O2 Flow Rate FiO2 05/27/24 16:40 98.1 96 16 140/77 (98) 98 98.1 05/27/24 08:00 Room Air* 0 21 Total Intake and Output 05/26/24 05/26/24 05/27/24 15:00 23:00 07:00 Intake Total 50 ml 950 ml 450 ml Output Total 1450 ml 1950 ml Balance 50 ml -500 ml -1500 ml objective Gen.: Patient lying in bed in no apparent distress. On room air Head: Normocephalic, atraumatic. Eyes: EOMI/PERRLA. Ears: Normal hearing. Normal anatomy. Neck/trachea: Trachea midline, supple. Nose: Normal external anatomy. Mouth: Moist mucous membranes. Chest: Decreased air entry bilaterally. No wheezing or rhonchi. Cardiovascular: Positive S1, positive S2. Regular rate and rhythm. Abdomen: Positive bowel sounds in all 4 quadrants. Soft, non-tender, non- distended. : Deferred. Rectal: Deferred. Skin: Warm, dry. Left foot wound. Extremities: 2+ radial pulses bilaterally. No lower extremity edema. Neuro: Awake, alert, oriented x3. No gross motor or sensory deficits. Cranial nerves II through XII intact. Gait not assessed. laboratory and microbiology Laboratory Tests 05/27/24 04:42 05/24/24 06:51 Test 05/27/24 04:42 Range/Units Serum Glucose 187 H 74-106 mg/dL Assessment/Plan Impression: Sepsis Left foot wound cellulitis, rule out osteomyelitis Hyponatremia Uncontrolled hyperglycemia Hypocalcemia Leukocytosis, likely reactive Events: Remains on room air Supplemental oxygen PRN Off Levophed since 05/21/24 - hemodynamically stable. Continue midodrine TID Continue antibiotics Arrange home antibiotics Blood cultures grew MRSA x2 Monitor WBC ID recommendations appreciated. Monitor hemoglobin Transfuse if less than 7.0 g/dL. Pain control Avoid oversedation Monitor renal function. Monitor electrolytes. Supplement as necessary. Monitor sodium d/t hyponatremia - 130, trending up Nephrology recs appreciated. DVT prophylaxis. Wound care Arrange home health. Patient is stable for discharge from the pulmonary standpoint. Disposition per hospitalist. Labs and imaging reviewed. Rest of plan as noted below. Plan: Supplemental oxygen PRN Titrate to keep O2 sats above 92%. Pressors if necessary for hemodynamic support Titrate to keep MAP above 65 mmHg/SBP above 90 mmHg. Continue antibiotics MRI left foot reviewed; extensive bone marrow edema involving distal tibia, distal fibula, talus, calcaneus and the residual tarsal bones highly concerning for osteomyelitis with differential diagnosis of Charcot joint. Severe tenosynovitis involving the flexor, peroneal and extensor compartments probably infectious. Achilles tendinosis and peritendinitis. Adjacent draining ulcer is seen. ID recommendations appreciated Podiatry recommendations appreciated S/p I&D of wound Continue wound care. Monitor renal function. Monitor electrolytes. Supplement as necessary. Monitor ins and outs. Nephrology recommendations appreciated Accu-Cheks, ISS PRN. DVT prophylaxis. Prognosis: Guarded given patient's multiple co-morbidities. Rest of plan per hospitalist and other consultants. Thank you Dr. Patterson for allowing me to participate in this patient's care. Further recommendations will depend on the patient's clinical course. Please do not hesitate to contact me if you have any questions or concerns. This medical document was created using an electronic medical record system with [employer] dictation system. Although these documentations are being carefully reviewed, there may still be some phonetic and typographical changes. The errors are purely typographical, due to imperfection on the software program, and do not reflect any compromise in the patient's medical care. Dietary Evaluation Review Comments: Follow a CCHO-60 diet with Protein restriction at 60g d/t kidney failure. Encourage high fiber foods, liquid allowed for his kidney function, PT for improved physical activities. Expected Outcomes/Goals: less nephrotoxins, less constipation, controlled DM, improved wound healing. Plan discussed with: Patient, Other (VANE Billingsley) DAX CORDOBA MD May 27, 2024 23:00
--- NOTE | 2024-05-28 14:31 | DVHPN2 ---
Consult Progress Note Date Seen: May 27, 2024 Subjective Patient reports: No new complaints (off pressures and wound is clean ) Objective vital signs Vital Sign Date Time Temp Pulse Resp B/P (MAP) Pulse Ox O2 Delivery O2 Flow Rate FiO2 05/27/24 16:40 98.1 96 16 140/77 (98) 98 98.1 05/27/24 08:00 Room Air* 0 21 Total Intake and Output 05/27/24 05/27/24 05/28/24 15:00 23:00 07:00 Intake Total 750 ml Output Total 1750 ml Balance -1000 ml medications Physical Exam: General: NAD Neck: Supple. No masses. HEENT: PERRL. Normal lids and conjunctiva. Moist mucous membranes. Oropharynx without lesions, exudates, or excessive erythema. Normal appearance of the external aspects of the nose and ears. Heart: Regular rhythm, normal rate. No murmur. No lower extremity edema. Lungs: Diminished breath sounds at the bases bilaterally. No wheezes. No crackles. Abdomen: Soft. Non-tender. Non-distended. No masses or abdominal hernia. Msk: No digital cyanosis. Normal strength and tone in all 4 limbs. Skin: Warm and dry, no rashes. Neuro: Alert, more aware, following commands. No facial droop or slurred speech. Extra-ocular movements intact. Sensation intact to soft touch in all 4 limbs. Psych: Appropriate mood. Full affect. Oriented to person, place, time, and situation laboratory and microbiology Laboratory Tests 05/27/24 04:42 05/24/24 06:51 Test 05/27/24 04:42 Range/Units Serum Glucose 187 H 74-106 mg/dL Problem List/Assessment/Plan Problems(with codes): (1) History of ESBL Klebsiella pneumoniae infection (2) Hx of syphilis (3) MRSA bacteremia (4) HIV (human immunodeficiency virus infection) (5) Osteomyelitis (6) Sepsis, unspecified organism (7) Uncontrolled diabetes mellitus Problem List/Assessment/Plan ID Problem List: - MRSA bacteremia - Left foot cellulitis - Possible osteomyelitis (left foot, right leg) - Uncontrolled diabetes mellitus (noncompliant) - Diabetic foot infections - Multiple right toe amputations - Chronic right leg ulcer - Hypertension - Polysubstance abuse - Undiagnosed psychiatric disorder - HIV Assessment This is a 49 y.o. male with a past medical history of hypertension, uncontrolled diabetes mellitus (noncompliant), polysubstance abuse, and undiagnosed psychiatric disorder, who presents with generalized weakness for the last six days. Left foot with cellulitic changes (erythema, edema), possible osteomyelitis. Right foot with multiple toe amputations. Chronic right leg ulcer with severe wound, good granulation tissue, and serous drainage. Vital signs show hypotension (BP 79/55 mmHg), afebrile (T 98.4F), heart rate 87 bpm, respiratory rate 12 breaths per minute, oxygen saturation 96% on room air. Laboratories notable for leukocytosis (WBC 44 x10/L), anemia (Hb 9.5 g/dL), thrombocytosis (platelets 584 x10/L), hyponatremia (Na 123 mmol/L), BUN 26 mg/dL, Creatinine 1.02 mg/dL. Urinalysis shows +3 leukocytes and positive nitrites. Blood cultures are growing MRSA. patient has hx of ESBL wound infection 05/15: whitecount 22.1 05/16: MRI of foot shows extensive bone maredema involving the distal tibia , distal fibula and talus calcanus and residual tarsal bones. highly concerning for osteomyelitis with differential diagnosis of charcot joint , involving flexor perineal extensor compartments probably infectious , Achillis tendinosis and peritendinitis , adjacent draining ulcer seen and patients also persistently positive blood cultures for MRSA as well as wound cultures 05/17: whitecount is 46 , concerned for progressisng sepsis , patient is getting surgery by podiatry tomorrow 05/18: Still having blood cultures return positive , whitecount is down to 26 and BP has normalized and only requiring intermittently BP support 05/19: /4 bottles of blood is positive for MRSA on the 05/17 and fever curve is downtrending . is to undergo debridement and irrigation tomorrow , HARRIS done 05/18 showed negative for any valvular diseases or vegetation 05/20: continues to be positive for MRSA bacteremia , likely due to inadequate source control , whitecount is down to 24.5 05/21: pressors off, surgery delayed, remains bacteremic 05/22: Patient appears to have cleared blood cultures on 05/21 for at least 24 hours 3: per operative dissection blunt dissection was taken to the level of the bone and deep cultures were sent and focused was placed on left foot ankle where there was an acute infection 05/24: whitecount down to 12.5 05/25: operative cultures are positive for MRSA 05/26: responding well to antibiotic therapy 05/27: dalbavancin appears to be ready for home use Plan: - continue daptomycin while in patient - given patients poor compliance at home will attempt to acquire dalbavancin 2 dose regimen for osteomyelitis - during debridement collect bacterial ,anaerobic , aerobic , fungal and AFB cultures of infected deep tissue - follow up with infectious disease in 2 weeks after both doses have been given - needs tight glucose control and keep blood sugars under 180 - follow up with primary care to ensure insulin care is optimized - resume Bictarvy for HIV when patient is discharged - per surgery recommendations that patient receives wound care as outpatient given patients immobility and would likely benefit from home health wound care - recommend physical therapy evaluation to see if patient would also benefit from intermediate facility although patient does not want this - follow up on blood and operative cultures - HOLD art, unclear patient compliance, recommend checking HIV viral and CD4 count - Fluid resuscitation; consider vasopressor support to maintain MAP >65 mmHg - Obtain urine culture to further evaluate urinary tract infection - Keep blood sugars under 180 mg/dL with insulin sliding scale; defer management to primary team - Monitor vital signs and labs closely Isolation Precautions: standard Plan discussed with: Other Dietary Evaluation Review Comments: Follow a CCHO-60 diet with Protein restriction at 60g d/t kidney failure. Encourage high fiber foods, liquid allowed for his kidney function, PT for improved physical activities. Expected Outcomes/Goals: less nephrotoxins, less constipation, controlled DM, improved wound healing. VITOR BROCK MD May 28, 2024 14:31
== END 2024-05-27 18:29 | disposition home health service (06) | DRG 710 ==
LOC: EDBD 13:12 → ER 13:12 → OVERFLOW 18:34 → ICU CENTRL 05-19 18:25 → TELE-CENTR 05-24 18:51
PROVIDERS: ADMIT Hospitalist; ATTEND Hospitalist
PROC: 06HY33Z Insertion of Infusion Device into Lower Vein, Percutaneous Approach (ICD-10-PCS; principal; 2024-05-15)
PROC: 30233N1 Transfusion of Nonautologous Red Blood Cells into Peripheral Vein, Percutaneous Approach (ICD-10-PCS; 2024-05-18)
PROC: B246ZZ4 Ultrasonography of Right and Left Heart, Transesophageal (ICD-10-PCS; 2024-05-18)
PROC: 0S9G0ZZ Drainage of Left Ankle Joint, Open Approach (ICD-10-PCS; 2024-05-23)
PROC: 02HV33Z Insertion of Infusion Device into Superior Vena Cava, Percutaneous Approach (ICD-10-PCS; 2024-05-25)
PROC: B548ZZA Ultrasonography of Superior Vena Cava, Guidance (ICD-10-PCS; 2024-05-25)
DX: A41.02 Sepsis due to Methicillin resistant Staphylococcus aureus (principal); N17.0 Acute kidney failure with tubular necrosis; L02.416 Cutaneous abscess of left lower limb; D63.1 Anemia in chronic kidney disease; E83.51 Hypocalcemia; T81.30XA Disruption of wound, unspecified, initial encounter; L03.116 Cellulitis of left lower limb; E11.22 Type 2 diabetes mellitus with diabetic chronic kidney disease; L97.919 Non-pressure chronic ulcer of unspecified part of right lower leg with unspecified severity; Z20.822 Contact with and (suspected) exposure to COVID-19; E11.69 Type 2 diabetes mellitus with other specified complication; E86.0 Dehydration; E11.65 Type 2 diabetes mellitus with hyperglycemia; E87.5 Hyperkalemia; I12.9 Hypertensive chronic kidney disease with stage 1 through stage 4 chronic kidney disease, or unspecified chronic kidney disease; M86.8X7 Other osteomyelitis, ankle and foot; I34.0 Nonrheumatic mitral (valve) insufficiency; N18.9 Chronic kidney disease, unspecified; D75.839 Thrombocytosis, unspecified; F19.10 Other psychoactive substance abuse, uncomplicated; E11.51 Type 2 diabetes mellitus with diabetic peripheral angiopathy without gangrene; Z89.421 Acquired absence of other right toe(s); Z86.19 Personal history of other infectious and parasitic diseases; Z79.899 Other long term (current) drug therapy; Z79.4 Long term (current) use of insulin; Z91.199 Patient's noncompliance with other medical treatment and regimen due to unspecified reason; Y84.8 Other medical procedures as the cause of abnormal reaction of the patient, or of later complication, without mention of misadventure at the time of the procedure; Y92.89 Other specified places as the place of occurrence of the external cause
CPT/HCPCS: 36415; 36556; 36569; 71045; 73700; 73718; 76775; 76937; 80048; 80053; 81001; 82550; 82570; 82962; 83036; 83520; 83605; 83735; 83880; 83930; 83935; 84132; 84133; 84156; 84295; 84300; 84484; 84550; 85007; 85025; 85027; 85610; 85652; 85730; 86038; 86160; 86256; 86360; 86850; 86870; 86900; 86901; 86902; 86922; 87040; 87070; 87075; 87077; 87186; 87205; 87426; 87804; 93005; 93306; 93312; 93971; 94640; 96361; 96365; 96375; G0378; J1815; J2185; J2250; J2405; J2470; J2543; J2704; J3490

== ENCOUNTER 2024-05-30 17:08 | Emergency (ER) | payer MEDICAID ==
[~2024-05-30] VITALS: Ht 175.3 cm; Wt 75.0 kg
[~2024-05-30 17:08] MED LIST: ATEN50TA PO; BICT1TAB; CLON0.5T4 PO; HYDR-3682 PO; INSU100I54 SC; INSUINJ37 SC; LISI10TA34; METH-1181; PANT40T PO; PERCOT PO; PREG25CA28; UREA15PO PO; VENL75CA3 PO
--- NOTE | 2024-05-30 17:30 | ED.PDOC ---
History of Present Illness HPI Comments HPI: Poor Historian. HPI: 49-year-old male presents with a chief complaint of right femoral central line removal request. Patient was recently discharged from this hospital on and had an intact central line to his right femoral artery. Patient mentions that his home health evaluated the central line today, but was referred to the ER to have the line removed. Patient denies any pain or irritation to the insert site. Patient had roughly 1cm of the central line still inserted, no sutures were present at time of triage. Patient states that the central line was like that when he was discharged on Thursday from this hospital. Patient was seen by his home health nurse today. Patient was recently admitted and discharged for sepsis and hypotension and foot infection. He is currently receiving antibiotics as an outpatient through a PICC line. 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 HEAD: Denies acute: headache, photophobia Eyes: Denies acute: Double vision, vision loss, eye pain, eye discharge. EARS: Denies acute: tinnitus, hearing loss, ear discharge, ear pain, THROAT: Denies acute: sore throat, swelling, difficulty swallowing , pain with swallowing, change in voice. NECK: Denies acute: neck pain, neck swelling, stiff neck. HEART: Denies acute : chest pain, palpitations, LUNGS: Denies acute: SOB, wheezing, cough, hemoptysis ABDOMEN: Denies acute: abdominal pain, Nausea, Vomiting, diarrhea, melena , hematemesis, hematochezia SKIN: Denies acute: rash, redness, lesions, itchiness. EXTREMITIES: Denies acute: calf pain, numbness, tingling, weakness, denies pain in extremity. Denies acute: Low back pain. Neuro: Denies acute: focal neurological deficit, motor or sensory focal neurological deficit, tremors, seizure like activity, confusion, dizziness, change in mental status, loss of bowel or bladder function, cauda equina like symptoms. : Denies acute: dysuria, hematuria, flank pain, increase in urinary frequency. PSYCH: Denies acute: hallucination, suicidal ideation, homicidal ideation. PHYSICAL EXAM: General: no acute distress, awake and alert. Head: normocephalic, atraumatic. Neck: supple, trachea is midline, no swelling. Throat: Normal phonation. Eyes:, no erythema, no purulent discharge, no proptosis, no icterus. Heart: regular rate, regular rhythm, no significant murmur appreciated. Lungs: no apparent respiratory distress, Able to speak in full sentences. No wheezing, no rhonchi, no crackles. No stridors Clear to auscultation bilaterally. Abdomen: non tender to palpation, non distended, soft, no guarding, no rebound, + bowel sounds. Evaluation of the right groin area. There is noted central line that has been dislodged and only 1 cm of the tip of the catheter is in the body and the rest for line is hanging outside. The central line was removed and 4 x 4 cause was placed with pressure. Complications none. No evidence of infection erythema or swelling or tenderness to palpation in the region of the femoral central line. Neuro: Awake, Alert, oriented to name, self, situation, follows commands GCS=15. Speech is normal. Skin: no petechia, no purpura, no cyanosis, non-pale, not jaundice. Lower extremities: --trace bilateral - Pitting edema no deformity, no focal swelling, no calf TTP. Makes eye contact. moves all four extremities. Face: no apparent facial droop. ED COURSE: Chief Complaint: Tube Replacement Time Seen by MD: 17:19 Reviewed Notes: Medications, Allergies Allergies: Coded Allergies: NO KNOWN ALLERGIES (Unverified , 05/13/24) Home Meds Active Scripts Urea (Ure-Na) 15 Gm Pow, 15 GM PO DAILY for 15 Days, #15 POW Prov:ROXANNA FELIX MD 05/27/24 Oxycodone W/ Acetaminophen (Percocet 5/325MG) 1 Tab Tb, 1 TAB PO QID PRN, #20 TAB Prov:NADEEM LIMON MD 05/27/24 Reported Medications Venlafaxine Hydrochloride (Effexor Xr) 75 Mg Cap, 1 CAP PO BID, #30 CAP 1 Refill 05/21/24 Clonazepam (Clonazepam) 0.5 Mg Tab, 0.5 MG PO DAILYPRN PRN for SPASTICITY, TAB 05/21/24 Hydroxyzine Hcl (Hydroxyzine Hcl) 25 Mg Tab, 25 MG PO HS for 30 Days, MG 05/21/24 Pantoprazole Sodium Sesquihydr (Pantoprazole Sodium) 40 Mg Tab, 1 TAB PO DAILY 05/21/24 Lisinopril (Lisinopril) 10 Mg Tab, 1 05/21/24 Methocarbamol (Methocarbamol) 500 Mg Tab 05/21/24 Atenolol (Atenolol) 50 Mg Tab, 1 TAB PO DAILY 05/21/24 Insulin Lispro (Insulin Lispro Kwikpen) 100 Unit/Ml Inj, SC 05/21/24 Pregabalin (Pregabalin) 25 Mg Cap, 1 05/21/24 Insulin Glargine (Lantus Solostar) 100 Unit/Ml Inj, SC 05/21/24 Vdayjmhnjoj-Xqrestyzjtcpn-Jtac (Biktarvy 50-200-25 mg) 1 Tab Tab, 1 DAILY 05/21/24 Discontinued Reported Medications Oxycodone W/ Acetaminophen (Percocet 5/325MG) 1 Tab Tb, 1 TAB PO Q8HP PRN for PAIN SCALE 7 THRU 10, #90 TAB 05/21/24 Information Source: Patient Mode of Arrival: Wheelchair Past Medical History PAST MEDICAL HISTORY: Anxiety, DM, HTN Past Medical History (Other): bipolar disorder Surgical History (Other): AMPUTATION OF BILATERAL FEET Family History Family History: Reviewed,noncontributory to illness Social History Smoker: Non-Smoker Alcohol: Denies ETOH Use Drugs: Denies Drug Use Lives In: Home Was a procedure done? Was a procedure done?: No Differential Dx Considerations may include: Infection, sepsis X-Ray, Labs, Meds, VS Vital Signs Date Time Temp Pulse Resp B/P (MAP) Pulse Ox O2 Delivery O2 Flow Rate FiO2 05/30/24 18:13 105 20 99 Room Air* 0 21 05/30/24 18:12 98.0 107 20 134/90 (105) 99 98.0 05/30/24 17:21 98.1 106 16 105/64 (78) 96 Lab Test 05/30/24 18:11 05/30/24 17:48 Range/Units POC Glucose 251 H 70-106 mg/dl White Blood Count 13.2 H 4.4-10.8 10^3/uL Red Blood Count 3.28 L 4.5-5.90 10^6/uL Hemoglobin 9.3 #L 13.5-17.5 g/dL Hematocrit 27.3 #L 41.0-53.0 % Mean Corpuscular Volume 83.2 80.0-100.0 fL Mean Corpuscular Hemoglobin 28.3 28.0-32.0 pg Mean Corpuscular Hemoglobin Concent 34.0 32.0-36.0 g/dL Red Cell Distribution Width 15.8 H 11.8-14.3 % Platelet Count 626 H 140-450 10^3/uL Mean Platelet Volume 7.0 6.9-10.8 fL Neutrophils (%) (Auto) 69.4 37.0-80.0 % Lymphocytes (%) (Auto) 17.6 10.0-50.0 % Monocytes (%) (Auto) 6.9 0.0-12.0 % Eosinophils (%) (Auto) 4.6 0.0-7.0 % Basophils (%) (Auto) 1.5 0.0-2.0 % Neutrophils # (Auto) 9.2 H 1.6-8.6 10 ^3/uL Lymphocytes # (Auto) 2.3 0.4-5.4 10 ^3/uL Monocytes # (Auto) 0.9 0-1.3 10 ^3/uL Eosinophils # (Auto) 0.6 0-0.8 10 ^3/uL Basophils # (Auto) 0.2 0-0.2 10 ^3/uL Nucleated Red Blood Cells 0.1 % Sodium Level 131 L 136-145 mmol/L Potassium Level 4.8 3.5-5.1 mmol/L Chloride Level 93 L 98-107 mmol/L Carbon Dioxide Level 23 20-31 mmol/L Anion Gap 15 5-15 Blood Urea Nitrogen 36 H 9-23 mg/dL Creatinine 1.75 H 0.700-1.30 mg/dL Glomerular Filtration Rate Calc 47 >90 mL/min BUN/Creatinine Ratio 20.6 H 10.0-20.0 Serum Glucose 266 H 74-106 mg/dL Lactic Acid Level 3.5 *H 0.4-2.0 mmol/L Calcium Level 9.9 8.7-10.4 mg/dL Total Bilirubin 0.5 0.2-1.0 mg/dL Aspartate Amino Transferase (AST) 27 13-40 U/L Alanine Aminotransferase (ALT) 21 7-40 U/L Alkaline Phosphatase 155 H 46-116 U/L Troponin I High Sensitivity 4 </=54 ng/L B-Type Natriuretic Peptide 28.13 0-100 pg/mL Total Protein 7.9 5.7-8.2 g/dL Albumin 4.1 3.2-4.8 g/dL [facility] [id number] [place] [address] Ph: [phone] DIAGNOSTIC IMAGING Diagnostic Imaging Report : [id number] Signed PATIENT: TYLER FENG ACCT: [id number] UNIT: [id number] : 1975 LOC: ER ROOM / BED: / AGE / SEX: 49 / M ADM STATUS: REG ER SERVICE 24 ORDERING PHYSICIAN: NAHID GONZALEZ DO PROCEDURE(s): CXRP - CHEST PORTABLE REASON: weak ORDER NUMBER(s): [id number], ACCESSION NUMBER(s): [id number] EXAM: XR Chest, 1 View CLINICAL INDICATION: weak TECHNIQUE: Frontal view of the chest. COMPARISON: XY CHEST XRAY 1 VIEW on DOS: 05/17/24, XY CHEST PORTABLE on DOS: 05/13/24 FINDINGS: LUNGS AND PLEURAL SPACES: Left basilar atelectasis or pneumonia. No pneumothorax. HEART: Unremarkable. No cardiomegaly. MEDIASTINUM: Unremarkable. Normal mediastinal contour. BONES/JOINTS: Unremarkable. No acute fracture. OTHER FINDINGS: . IMPRESSION: Left basilar atelectasis or pneumonia. ATED BY: NINI CHAPPELL MD DICTATED DATE/TIME: 05/30/241816 SIGNED BY: NINI CHAPPELL MD SIGNED DATE/TIME: 05/30/241816 CC: Time of 1ST Reevaluation: 17:49 Reevaluation 1ST: Unchanged Patient Education/Counseling: Diagnosis, Treatment Family Education/Counseling: Diagnosis, Treatment Comments Patient presented with the above HPI.----central line removal--workup was initiated. patient was found with the above mentioned diagnosis. the following medications were ordered: please refer to order lists of meds and tests obtained by myself Dr. Gonzalez. Patient ED course and VS have been stabilized. Patient has been reassessed in the ED and remained in a stable condition. Patient has been observed in the ED adequate length of time to insure improvement/stability. Escalation of care considered: Consideration of escalation to observation or admission I ordered some basic labs to make sure that the patient is not worsening since his recently discharged from the hospital. Labs were obtained however patient refused to stay in the hospital and he eloped. All the reports of any imaging studies that were ordered by myself were reviewed by myself. Departure 1 Departure Time of Disposition: 19:30 Impression: Primary Impression: Eloped from emergency department Disposition: LEFT AWOL/ELOPED Condition: Other Additional Instructions: Eloped Discharged With: Self Critical Care Note Critical Care Time?: No I personally scribed for NAHID GONZALEZ DO ([email or web address]) on 05/30/24 at 17:30. Electronically submitted by Manuelito Gr ([email or web address]). I personally scribed for NAHID GONZALEZ DO ([email or web address]) on 05/30/24 at 17:32. Electronically submitted by Manuelito Gr ([email or web address]). I personally scribed for NAHID GONZALEZ DO ([email or web address]) on 05/31/24 at 01:01. Electronically submitted by Liang Fountain ([email or web address]). NAHID GONZALEZ DO May 30, 2024 17:30
[2024-05-30 18:12] VITALS: BP 134/90; TEMP 98
[2024-05-30 18:13] VITALS: PULSE 105; RESP 20; O2SAT 99
--- NOTE | 2024-05-30 18:20 | DVH ---
EXAM: XR Chest, 1 View CLINICAL INDICATION: weak TECHNIQUE: Frontal view of the chest. COMPARISON: XY CHEST XRAY 1 VIEW on DOS: 05/17/24, XY CHEST PORTABLE on DOS: 05/13/24 FINDINGS: LUNGS AND PLEURAL SPACES: Left basilar atelectasis or pneumonia. No pneumothorax. HEART: Unremarkable. No cardiomegaly. MEDIASTINUM: Unremarkable. Normal mediastinal contour. BONES/JOINTS: Unremarkable. No acute fracture. OTHER FINDINGS: . IMPRESSION: Left basilar atelectasis or pneumonia.
[2024-05-30 18:44] LABS: Basophils # (auto) 0.2 10 ^3/uL (0-0.2); Eosinophils # (auto) 0.6 10 ^3/uL (0-0.8); Lymphocytes # (auto) 2.3 10 ^3/uL (0.4-5.4); Monocytes # (auto) 0.9 10 ^3/uL (0-1.3); Monocytes % (auto) 6.9 % (0.0-12.0)
[2024-05-30 18:46] LABS: Basophils % (auto) 1.5 % (0.0-2.0); Eosinophils % (auto) 4.6 % (0.0-7.0); Hematocrit 27.3 % (41.0-53.0); Hemoglobin 9.3 g/dL (13.5-17.5); Lymphocytes % (auto) 17.6 % (10.0-50.0); Mean Corpuscular Hemoglobin 28.3 pg (28.0-32.0); Mean Corpuscular Volume 83.2 fL (80.0-100.0); Neutrophils # (auto) 9.2 10 ^3/uL (1.6-8.6); Neutrophils % (auto) 69.4 % (37.0-80.0); Nucleated Red Blood Cells % 0.1 %; Platelet Count (auto) 626 10^3/uL (140-450); Red Blood Cells 3.28 10^6/uL (4.5-5.90); Red Cell Distribution Width 15.8 % (11.8-14.3); White Blood Cell 13.2 10^3/uL (4.4-10.8)
[2024-05-30 18:57] LABS: Alanine Aminotransferase 21 U/L (7-40); Albumin 4.1 g/dL (3.2-4.8); Anion Gap 15 (5-15); Aspartate Aminotransferase 27 U/L (13-40); BUN/Creatinine Ratio 20.6 (10.0-20.0); Calcium 9.9 mg/dL (8.7-10.4); Carbon Dioxide 23 mmol/L (20-31); Potassium 4.8 mmol/L (3.5-5.1); Total Protein 7.9 g/dL (5.7-8.2)
[2024-05-30 18:58] LABS: Bilirubin, Total 0.5 mg/dL (0.2-1.0)
[2024-05-30 19:00] LABS: Lactic Acid w/Reflex 3.5 mmol/L (0.4-2.0)
[2024-05-30 19:01] LABS: Alkaline Phosphatase 155 U/L (46-116); Blood Urea Nitrogen 36 mg/dL (9-23); Chloride 93 mmol/L (98-107); Glucose 266 mg/dL (74-106); Sodium 131 mmol/L (136-145)
== END 2024-05-30 20:41 | disposition left against medical advice (07) ==
LOC: ER 17:08
DX: Z53.21 Procedure and treatment not carried out due to patient leaving prior to being seen by health care provider (principal); Z79.899 Other long term (current) drug therapy
CPT/HCPCS: 36415; 71045; 80053; 82947; 82962; 83605; 83880; 84484; 85025